=== PATIENT | male | born 1940 | race Caucasian/White ===

== ENCOUNTER 2017-04-05 06:42 | Outpatient (RCR) | payer MEDICARE, SELFPAY ==
[2017-04-05 09:00] LABS: International Normalized Ratio 2.2; Prothrombin Time (Protime)PT. 23.7 SECONDS (11.7-14.9)
== END 2017-04-05 07:00 | disposition home or self-care (01) ==
LOC: LAB 06:42
PROVIDERS: Family Provider Nurse Practitioner; PCP Nurse Practitioner; Visit Provider Internal Medicine Cardiovascular Disease
DX: I48.91 Unspecified atrial fibrillation (principal); I48.92 Unspecified atrial flutter; Z79.01 Long term (current) use of anticoagulants
CPT/HCPCS: 36415; 85610

== ENCOUNTER 2017-07-12 06:08 | Outpatient (RCR) | payer MEDICARE, SELFPAY ==
[2017-07-12 07:31] LABS: International Normalized Ratio 3.1
== END 2017-07-12 07:00 | disposition home or self-care (01) ==
LOC: LAB 06:08
PROVIDERS: Family Provider Nurse Practitioner; PCP Nurse Practitioner; Visit Provider Internal Medicine Cardiovascular Disease
DX: I48.91 Unspecified atrial fibrillation (principal); I48.92 Unspecified atrial flutter; Z79.01 Long term (current) use of anticoagulants
CPT/HCPCS: 36415; 85610

== ENCOUNTER → 2017-08-05 11:00 | Outpatient (CLI) | payer MEDICARE, SELFPAY ==
[2017-08-05 11:04] LABS: Bacteria 0 SEEN /hpf (None Seen); Mucous, Urine 0 SEEN /hpf (<or=2+); Red Blood Cells-Urine 0 SEEN /hpf (0-5); Squamous Epithelial Cells - UA 0 SEEN /hpf (0-5); White Blood Cells 0 SEEN /hpf (0-5)
[2017-08-05 12:16] LABS: Absolute Lymphocyte Count 1.43 X10^3/ul (0.83-4.51); Absolute Neutrophil Count 5.1 X10^3/uL (2.0-7.7); Basophil# 0.05 X10^3/uL; Basophil% 0.6 % (0-1); Eosinophils% 5.1 % (0-5); Hematocrit 48.4 % (40-54); Hemoglobin 16.2 g/dl (13.0-16.5); Lymphocyte # 1.43 X10^3/ul (4.0); Lymphocyte % 18.2 % (19-41); Mean Corp Hgb Conc 33.5 g/gl (32-36); Mean Corpuscular Hgb 31.9 pg (27.0-32.0); Mean Corpuscular Volume 95.3 fL (80-94); Mean Platelet Vol. 10.1 fl (6.2-12.0); Monocyte# 0.89 X10^3/uL; Monocyte% 11.3 % (0-10); Neutrophil # 5.06 X10^3/uL (2.7-7.7); Neutrophil % 64.5 % (47-70); Platelet Count 271 K/mm3 (150-450); RBC Distribution Width SD 52.7 fl (35.1-43.9); Red Blood Count 5.08 M/mm3 (4.6-6.2); White Blood Count 7.9 K/mm3 (4.4-11.0)
[2017-08-05 12:28] LABS: Hemoglobin A1c 6.5 % (4.2-6.3); POSITIVE COUNT NO; POSITIVE DIFFERENTIAL NO; POSITIVE MORPHOLOGY NO
[2017-08-05 12:33] LABS: ALB/GLOB Ratio 0.8 RATIO (0.9-2.4); AST(SGOT) 19 U/L (15-37); Alanine Aminotransfer ALT/SGPT 21 U/L (16-61); Albumin, Serum 2.9 g/dL (3.2-5.0); Alkaline Phosphatase 79 U/L (45-117); Anion Gap 6 (5-15); BUN 27 mg/dL (7-18); BUN/Creat Ratio 15.3 RATIO (10-20); Calcium,Total 8.3 mg/dL (8.5-10.1); Chloride 102 mmol/L (98-107); Cholesterol 111 mg/dL (200); Creatinine, Serum 1.76 mg/dL (0.70-1.30); EST Glomerular Filtration Rate 40 mL/min (>60); Est Glom Filt Rate - Afr Amer 48 mL/min (>60); Globulin 3.8 g/dL (2.2-4.2); Glucose 109 mg/dL (74-106); High Density Lipoprotein 33 mg/dL; Magnesium 2.2 mg/dL (1.6-2.6); Protein, Total 6.7 g/dL (6.4-8.2); Sodium Level 137 mmol/L (136-145); Thyroid Stim Hormone (TSH) 1.78 uIU/mL (0.358-3.74); Triglycerides 187 mg/dL; Very Low Density Lipoprotein 37 mg/dL (5-40)
[2017-08-05 12:39] LABS: Color, Urine Yellow (Yellow); Glucose, Dipstick 1000 mg/dl (Normal); Ketone-Dipstick Negative (Negative); Leukocyte Esterase-Dipstick Negative /ul (Negative); Nitrite-Dipstick Negative (Negative); Occult Blood-Urine 10 /ul (Negative); Protein-Dipstick 100 mg/dl (Negative); Urine Bilirubin Dipstick Negative (Negative); Urine Clarity Clear (Clear); Urine Urobilinogen Normal (Normal)
[2017-08-05 13:26] LABS: Microalbumin:Creatinine Ratio 2151.1 mg/g CRE (<30 mg/g CRE); Protein, Urine (Random) 65.6 mg/dL (<11.9); Protein:Creat Ratio 2916 mg/g CRE (0-200)
[2017-08-06 12:20] LABS: Vitamin D,25 Hydroxy 37.6 ng/mL (29.95-100.01)
== END ==
PROVIDERS: Family Provider Nurse Practitioner; PCP Nurse Practitioner; Visit Provider Family Medicine
DX: E55.9 Vitamin D deficiency, unspecified (principal); E11.22 Type 2 diabetes mellitus with diabetic chronic kidney disease; N18.9 Chronic kidney disease, unspecified; I48.91 Unspecified atrial fibrillation; J44.9 Chronic obstructive pulmonary disease, unspecified
CPT/HCPCS: 36415; 80053; 80061; 81001; 82043; 82306; 82570; 83036; 83735; 84156; 84443; 85025

== ENCOUNTER 2017-08-26 06:02 | Outpatient (RCR) | payer MEDICARE, SELFPAY ==
[2017-08-26 07:47] LABS: International Normalized Ratio 1.8; Prothrombin Time (Protime)PT. 21.3 SECONDS (11.7-14.9)
== END 2017-08-26 07:00 | disposition home or self-care (01) ==
LOC: LAB 06:02
PROVIDERS: Family Provider Nurse Practitioner; PCP Nurse Practitioner; Visit Provider Internal Medicine Cardiovascular Disease
DX: I48.91 Unspecified atrial fibrillation (principal); I48.92 Unspecified atrial flutter; Z79.01 Long term (current) use of anticoagulants
CPT/HCPCS: 36415; 85610

== ENCOUNTER 2017-09-13 07:33 | Outpatient (RCR) | payer MEDICARE, SELFPAY ==
[2017-09-13 08:57] LABS: Prothrombin Time (Protime)PT. 35.1 SECONDS (11.7-14.9)
[2017-09-13 09:03] LABS: International Normalized Ratio 3.5
== END 2017-09-13 09:00 | disposition home or self-care (01) ==
LOC: LAB 07:33
PROVIDERS: Family Provider Nurse Practitioner; PCP Nurse Practitioner; Visit Provider Internal Medicine Cardiovascular Disease
DX: I48.91 Unspecified atrial fibrillation (principal); I48.92 Unspecified atrial flutter; Z79.01 Long term (current) use of anticoagulants
CPT/HCPCS: 36415; 85610

== ENCOUNTER → 2017-11-19 10:19 | Outpatient (CLI) | payer MEDICARE, SELFPAY ==
--- NOTE | 2017-11-19 10:29 | RAD_ITS ---
STUDY: X-RAY - RIGHT ELBOW REASON FOR EXAM: Male, 77 years old. No injury. Swelling and redness entire right elbow radiating into the right forearm and right humerus, 2 weeks. TECHNIQUE: 4 view(s) of the elbow. COMPARISON: None. FINDINGS: There are prominent peripheral vascular calcifications in the arm. There is prominent induration in the subcutaneous fat, with diffuse soft tissue swelling. There is severe soft tissue swelling overlying the olecranon which could reflect acute bursitis. The soft tissue swelling extends upwards posterior to the triceps, and distally into the forearm. There is no evidence of elbow joint effusion. Osseous structures of the elbow are intact, normally articulated and normally mineralized. RAD/Elbow min 3 Views IMPRESSION: Diffuse soft tissue swelling above at and below the elbow, in particular overlying the olecranon, potentially associated with include olecranon bursitis. There is no deep soft tissue gas or radiodense foreign body. Prominent peripheral vascular disease. No acute osseous process. Electronically Signed: Pola Bell, at 12:28 EDT Tel , Service support ,
--- NOTE | 2017-11-19 18:45 | US_ITS ---
STUDY: SUPERFICIAL ULTRASOUND - RIGHT ELBOW REASON FOR EXAM: Male, 77 years old. Swelling TECHNIQUE: A superficial ultrasound was performed with real-time and static ramirez-scale imaging. COMPARISON: None. FINDINGS: There is subcutaneous interstitial edema. There is no evidence of cyst, abscess, or soft tissue mass. US/Ext Non Vasc Limited/Soft Tiss IMPRESSION: Subcutaneous interstitial edema in the region of interest of the right elbow. Electronically Signed: Luis Felipe Mcneal MD at 19:25 EDT , Service support ,
== END ==
LOC: MTRAD 10:47 → US 18:44
PROVIDERS: Family Provider Nurse Practitioner; PCP Nurse Practitioner; Visit Provider Family Medicine
DX: M79.89 Other specified soft tissue disorders (principal)
CPT/HCPCS: 73080; 76882

== ENCOUNTER 2017-11-30 06:12 | Outpatient (RCR) | payer MEDICARE, SELFPAY ==
[2017-11-30 07:00] LABS: International Normalized Ratio 3.4; Prothrombin Time (Protime)PT. 34.4 SECONDS (11.7-14.9)
== END 2017-11-30 08:00 | disposition home or self-care (01) ==
LOC: LAB 06:12
PROVIDERS: Family Provider Nurse Practitioner; PCP Nurse Practitioner; Visit Provider Internal Medicine Cardiovascular Disease
DX: I48.91 Unspecified atrial fibrillation (principal); I48.92 Unspecified atrial flutter; Z79.01 Long term (current) use of anticoagulants
CPT/HCPCS: 36415; 85610

== ENCOUNTER 2017-12-14 06:37 | Outpatient (RCR) | payer MEDICARE, SELFPAY ==
[2017-12-14 07:27] LABS: International Normalized Ratio 2.1; Prothrombin Time (Protime)PT. 23.4 SECONDS (11.7-14.9)
== END 2017-12-14 08:00 | disposition home or self-care (01) ==
LOC: LAB 06:37
PROVIDERS: Family Provider Nurse Practitioner; PCP Nurse Practitioner; Referring Provider Internal Medicine Cardiovascular Disease; Visit Provider Internal Medicine Cardiovascular Disease
DX: I48.91 Unspecified atrial fibrillation (principal); I48.92 Unspecified atrial flutter; Z79.01 Long term (current) use of anticoagulants
CPT/HCPCS: 36415; 85610

== ENCOUNTER → 2018-01-04 09:06 | Outpatient (CLI) | payer MEDICARE, SELFPAY ==
[2018-01-04 08:27] LABS: Bacteria 0 SEEN /hpf (None Seen); Mucous, Urine 0 SEEN /hpf (<or=2+); Squamous Epithelial Cells - UA 0 SEEN /hpf (0-5); White Blood Cells 0 SEEN /hpf (0-5)
[2018-01-04 10:08] LABS: Color, Urine Yellow (Yellow); Glucose, Dipstick 50 mg/dl (Normal); Ketone-Dipstick Negative (Negative); Leukocyte Esterase-Dipstick Negative /ul (Negative); Nitrite-Dipstick Negative (Negative); Occult Blood-Urine 10 /ul (Negative); Protein-Dipstick 500 mg/dl (Negative); Urine Bilirubin Dipstick Negative (Negative); Urine Clarity Clear (Clear); Urine Urobilinogen Normal (Normal)
[2018-01-04 10:20] LABS: ALB/GLOB Ratio 0.7 RATIO (0.9-2.4); AST(SGOT) 14 U/L (15-37); Alanine Aminotransfer ALT/SGPT 21 U/L (16-61); Albumin, Serum 2.7 g/dL (3.2-5.0); Alkaline Phosphatase 77 U/L (45-117); Anion Gap 6 (5-15); BUN 26 mg/dL (7-18); BUN/Creat Ratio 20.2 RATIO (10-20); Calcium,Total 8.6 mg/dL (8.5-10.1); Chloride 100 mmol/L (98-107); Cholesterol 139 mg/dL (200); Creatinine, Serum 1.29 mg/dL (0.70-1.30); EST Glomerular Filtration Rate 57 mL/min (>60); Est Glom Filt Rate - Afr Amer 69 mL/min (>60); Globulin 3.9 g/dL (2.2-4.2); Glucose 123 mg/dL (74-106); High Density Lipoprotein 35 mg/dL; Magnesium 1.9 mg/dL (1.6-2.6); Protein, Total 6.6 g/dL (6.4-8.2); Red Blood Cells-Urine 0-5 SEEN /hpf (0-5); Sodium Level 137 mmol/L (136-145); Triglycerides 133 mg/dL; Very Low Density Lipoprotein 27 mg/dL (5-40)
[2018-01-04 10:22] LABS: Hemoglobin A1c 6.2 % (4.2-6.3)
== END ==
PROVIDERS: Family Provider Family Medicine; PCP Family Medicine; Visit Provider Family Medicine
DX: E11.9 Type 2 diabetes mellitus without complications (principal); I48.91 Unspecified atrial fibrillation; Z72.0 Tobacco use
CPT/HCPCS: 36415; 80053; 80061; 81001; 83036; 83735

== ENCOUNTER 2018-02-21 08:17 | Outpatient (RCR) | payer MEDICARE, SELFPAY ==
[2018-02-21 09:08] LABS: International Normalized Ratio 2.1; Prothrombin Time (Protime)PT. 23.5 SECONDS (11.7-14.9)
--- OUTSIDE RECORDS SUMMARY | 2018-05-25 19:23 | XMS RPT_ITS ---
:1940 Author Organization OHIP Support Name Relationship Address Phone LIND, ANA PAULA Unavailable [address] + [place] [address] R Unavailable Unavailable Unavailable RICKPAL PANFER Unavailable [address] + [place] [address] LIND, ANA PAULA Unavailable [address] + [place] [address] R Unavailable Unavailable Unavailable PAL PHILLIPSFER Unavailable [address] + [place] [address] LIND, ANA PAULA Unavailable [address] + [place] [address] R Unavailable Unavailable Unavailable JOBY PHILLIPSNIFER Unavailable [address] + [place] [address] LIND, ANA PAULA Unavailable [address] + [place] [address] R Unavailable Unavailable Unavailable JOBY PHILLIPSNIFER Unavailable [address] + [place] [address] LIND, ANA PAULA Unavailable [address] + [place] [address] R Unavailable Unavailable Unavailable RICKETT, JINA Unavailable [address] + [place] [address] LIND, ANA PAULA Unavailable [address] + [place] [address] R Unavailable Unavailable Unavailable RICKJOBY PANNIFER Unavailable [address] + [place] [address] LIND, ANA PAULA Unavailable [address] + [place] [address] R Unavailable Unavailable Unavailable RICKETTJOBYJINA Unavailable [address] + [place] [address] LIND, ANA PAULA Unavailable [address] + [place] [address] R Unavailable Unavailable Unavailable RICKETT, JINA Unavailable [address] + [place] [address] LIND, ANA PAULA Unavailable [address] + [place] [address] R Unavailable Unavailable Unavailable RICKETT, JINA Unavailable [address] + [place] [address] LIND, ANA PAULA Unavailable [address] + [place] [address] R Unavailable Unavailable Unavailable RICKETT, JINA Unavailable [address] + [place] [address] LIND, ANA PAULA Unavailable [address] + [place] [address] R Unavailable Unavailable Unavailable RICKETT, JINA Unavailable [address] + [place] [address] LIND, ANA PAULA Unavailable [address] + [place] [address] R Unavailable Unavailable Unavailable RICKETT, JINA Unavailable [address] + [place] [address] LIND, ANA PAULA Unavailable [address] + [place] [address] R Unavailable Unavailable Unavailable RICKETT, JINA Unavailable [address] + [place] [address] LIND, ANA PAULA Unavailable [address] + [place] [address] R Unavailable Unavailable Unavailable RICKETT, JINA Unavailable [address] + [place] [address] LIND, ANA PAULA Unavailable [address] + [place] [address] R Unavailable Unavailable Unavailable RICKETT, JINA Unavailable [address] + [place] [address] LIND, ANA PAULA Unavailable [address] + [place] [address] R Unavailable Unavailable Unavailable RICKETTPALJINA Unavailable [address] + [place] [address] LIND, ANA PAULA Unavailable [address] + [place] [address] R Unavailable Unavailable Unavailable RICKETTPALJINA Unavailable [address] + [place] [address] LIND, ANA PAULA Unavailable [address] + [place] [address] R Unavailable Unavailable Unavailable RICKETTPALJINA Unavailable [address] + [place] [address] LIND, ANA PAULA Unavailable [address] + [place] [address] R Unavailable Unavailable Unavailable RICKETTPALJINA Unavailable [address] + [place] [address] LIND, ANA PAULA Unavailable [address] + [place] [address] R Unavailable Unavailable Unavailable RICKETTPALJINA Unavailable [address] + [place] [address] LIND, ANA PAULA Unavailable [address] + [place] [address] R Unavailable Unavailable Unavailable RICKETTPALJINA Unavailable [address] + [place] [address] LIND, ANA PAULA Unavailable [address] + [place] [address] R Unavailable Unavailable Unavailable RICKETTPALJINA Unavailable [address] [phone] [place] [address] LIND, ANA PAULA Unavailable [address] + [place] [address] R Unavailable Unavailable Unavailable RICKETTPALJINA Unavailable [address] [phone] [place] [address] LIND, ANA PAULA Unavailable [address] + [place] [address] R Unavailable Unavailable Unavailable RICKETTJOBYJINA Unavailable [address] [phone] [place] [address] LIND, ANA PAULA Unavailable [address] + [place] [address] R Unavailable Unavailable Unavailable RUCHIMAXIMJINA Unavailable [address] [phone] [place] [address] Care Team Providers Name Role Phone HUMBERTO ZHONG Attending Unavailable JINA QUINTANILLA Referring Unavailable FARHEEN, DAODESSAUNG Referring Unavailable FARHEEN, DAODESSAUNG Attending Unavailable FARHEEN, DAODESSAUNG Attending Unavailable FARHEEN, KEENANUNG Attending Unavailable LISA FRENCH Attending Unavailable FARHEEN, KEENANUNG Attending Unavailable FARHEEN, KEENANUNG Attending Unavailable FARHEEN, DAODESSAUNG Attending Unavailable Janette, Wales Attending Unavailable Janette, Steven Referring Unavailable [facility] Unavailable Janette, Wales Attending Unavailable [facility] Referring Unavailable [facility] Primary [facility] Unavailable Paintsil, Vale Admitting Unavailable Paintsil, Vale Attending Unavailable Paintsil, Vale Referring Unavailable Darryl Castillo D.O. Consulting Unavailable Nelson Mccarty Consulting Unavailable Paintsil, Vale Admitting Unavailable Paintsil, Vale Attending Unavailable Paintsil, Vale Referring Unavailable [facility] Unavailable Darryl Castillo D.O. Consulting Unavailable Paintsil, Vale Consulting Unavailable Paintsil, Vale Admitting Unavailable Paintsil, Vale Attending Unavailable Paintsil, Vale [facility] Unavailable Darryl Castillo D.O. Consulting Unavailable Paintsil, Vale Consulting Unavailable Paintsil, Vale Admitting Unavailable Darryl Castillo D.O. Attending Unavailable Paintsil, Vale Referring Unavailable [facility] Unavailable Darryl Castillo D.O. Consulting Unavailable Paintsil, Vale Consulting Unavailable Janette, Wales Attending Unavailable [facility] Primary [facility] Unavailable Rosa, Jayaprakash Consulting Unavailable Janette, Wales Referring Unavailable Janette, Steven Attending Unavailable Janette, Steven Referring Unavailable [facility] Unavailable Rosa, Jayaprakash Consulting Unavailable Parris Fernandez Attending Unavailable Paintsil, Vale Admitting Unavailable Paintsil, Vale Attending Unavailable Paintsil, Vale Referring Unavailable [facility] Primary [facility] Unavailable Darryl Castillo D.O. Consulting Unavailable Paintsil, Vale Consulting Unavailable Paintsil, Vale Admitting Unavailable Kingston Paez Attending Unavailable Paintsil, Vale Referring Unavailable [facility] Unavailable Darryl Castillo D.O. Consulting Unavailable Paintsil, Vale Consulting Unavailable Paintsil, Vale Admitting Unavailable Paintsil, Vale Attending Unavailable Paintsil, Vale Referring Unavailable [facility] Primary [facility] Unavailable Darryl Castillo D.O. Consulting Unavailable Nelson Mccarty Consulting Unavailable Paintsil, Vale Consulting Unavailable Paintsil, Vale Admitting Unavailable Kingston Paez Attending Unavailable Paintsil, Vale Referring Unavailable [facility] Unavailable Darryl Castillo D.O. Consulting Unavailable LulNelson Consulting Unavailable Paintsil, Vale Consulting Unavailable Paintsil, Vale Admitting Unavailable Paintsil, Vale Attending Unavailable Paintsil, Vale Referring Unavailable [facility] Unavailable Darryl Castillo D.O. Consulting Unavailable Nelson Mccaryt Consulting Unavailable Paintsil, Vale Consulting Unavailable Gloria [place] Attending Unavailable Janette, Wales Attending Unavailable Janette, Steven Referring Unavailable [facility] Primary Care Unavailable Ramesh Avina Attending Unavailable [facility] Referring Unavailable [facility] Primary Care Unavailable Ramesh Rodney Attending Unavailable [facility] Primary Care Unavailable Janette, Steven Attending Unavailable Janette, Wales Referring Unavailable [facility] Primary Care Unavailable Janette, Wales Attending Unavailable Janette, Wales Referring Unavailable [facility] Primary [facility] Unavailable Janette, Steven Attending Unavailable Janette, Steven Referring Unavailable [facility] Primary Care Unavailable Ramesh Rodney Attending Unavailable Ramesh Rodney Referring Unavailable [facility] Primary Care Unavailable Janette, Steven Attending Unavailable Janette, Wales Referring Unavailable [facility] Primary Care Unavailable Ramesh Rodney Attending Unavailable [facility] Rod[facility] Primary Care Unavailable Janette, Wales Attending Unavailable Janette, Steven Referring Unavailable [facility] Primary Care Unavailable PROBLEMS PROBLEMS DATE TYPE CONDITION / CODE ATTENDING STATUS SOURCE 03/15/2018 Unknown I43 - Cardiomyopathy Janette, Steven Active [facility] in diseases Community classified elsewhere Hospital / I43(ICD-10) Repository 03/15/2018 Unknown E78.00 - Pure Janette, Steven Active [facility] hypercholesterolemia Community , unspecified / Hospital E78.00(ICD-10) Repository 03/15/2018 Unknown I10 - Essential Janette, Steven Active [facility] (primary) Community hypertension / Hospital I10(ICD-10) Repository 03/15/2018 Unknown I48.91 - Unspecified Janette, Wales Active [facility] atrial fibrillation Community / I48.91(ICD-10) Hospital Repository 03/15/2018 Unknown I48.92 - Unspecified Janette, Wales Active [facility] atrial flutter / Community I48.92(ICD-10) Hospital Repository 03/15/2018 Unknown F17.210 - Nicotine Janette, Steven Active [facility] dependence, Community cigarettes, Hospital uncomplicated / Repository F17.210(ICD-10) 03/07/2018 Unknown 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, 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 Active [facility] (current) use of Community anticoagulants / Hospital Z79.01(ICD-10) Repository 01/04/2018 Unknown E11.9 - Type 2 Ramesh Rodney Active [facility] diabetes mellitus E Community without Hospital complications / Repository E11.9(ICD-10) 11/19/2017 Unknown M79.89 - Other Ramesh Rodney Active [facility] specified soft E Community tissue disorders / Hospital M79.89(ICD-10) Repository 04/09/2017 Unknown I48.2 - Chronic Janette, Wales Active [facility] atrial fibrillation Community / I48.2(ICD-10) Hospital Repository PROCEDURES PROCEDURES No Procedure Records FoundRESULTS RESULTS BEDSIDE GLUCOSE Collected: 03/30/2018 Status: F Source: [place] 4:19 PM [facility] REPOSITORY TYPE CODE TESTS RESULT OUT OF REFERENCE UNITS RANGE LAB L501.080 70-110 mg/dL High BEDSIDE GLU 121 Result Comment: MANAGEMENT OF PATIENT CARE PER NURSING PROTOCOL Performed By: #### L501.080 #### [facility] Point [place] [address] BEDSIDE GLUCOSE Collected: 03/30/2018 Status: F Source: [place] 11:53 AM [facility] REPOSITORY TYPE CODE TESTS RESULT OUT OF REFERENCE UNITS RANGE LAB L501.080 70-110 mg/dL High BEDSIDE GLU 141 Result Comment: MANAGEMENT OF PATIENT CARE PER NURSING PROTOCOL Performed By: #### L501.080 #### [facility] Point of Care [address] [place] [address] BEDSIDE GLUCOSE Collected: 03/30/2018 Status: F Source: [place] 7:08 AM [facility] REPOSITORY TYPE CODE TESTS RESULT OUT OF REFERENCE UNITS RANGE LAB L501.080 70-110 mg/dL High BEDSIDE GLU 137 Result Comment: MANAGEMENT OF PATIENT CARE PER NURSING PROTOCOL Performed By: #### L501.080 #### [facility] Point of Care [address] [place] [address] BASIC METABOLIC Collected: 03/30/2018 Status: F Source: [place] PROFILE (BMP) 6:30 AM [facility] REPOSITORY TYPE CODE TESTS RESULT OUT OF RANGE REFERENCE UNITS LAB L501.0100 74-106 mg/dL High GLU 130 Result Comment: Fasting Glucose result greater than or equal to 126 mg/dL suggests DIABETES MELLITUS per A.D.A. criteria. Please note revised GLUCOSE reference range effective 2017. LAB L501.1000 7-18 mg/dL High BUN 79 LAB L501.1100 0.70-1.30 mg/dL High CREAT,SERUM 1.98 Result Comment: The validity of the calculated GFR AND GFRAA in patients over 70 years has not been determined. Clinical correlation is essential. LAB L501.1110 >60 mL/min Low EST GFR 35 Result Comment: Non- GFR Calc LAB L501.1115 >60 mL/min Low EST GFR - AA 42 Result Comment: GFR Calc LAB L501.1255 ml/min Normal Estimated CRCL 29.75 LAB L501.1300 10-20 RATIO High BUN/CRE 39.9 LAB L501.2200 8.5-10 mg/dL Normal .1 CA 8.5 LAB L501.5300 136-14 mmol/L Normal 5 NA 141 LAB L501.5600 3.5-5. mmol/L Normal 1 K 4.2 LAB L501.5900 98-107 mmol/L Normal CL 106 LAB L501.6100 21.0-3 mmol/L Normal 2.0 CO2 27.0 LAB L501.6200 5-15 Normal GAP 8 Performed By: #### L500.2500, L501.5200 #### [facility] [address] [place], [address] MAGNESIUM Collected: 03/30/2018 Status: F Source: [place] 6:30 AM [facility] REPOSITORY TYPE CODE TESTS RESULT OUT OF RANGE REFERENCE UNITS LAB L501.5200 1.6-2.6 mg/dL Normal MG 2.0 Performed By: #### L500.2500, L501.5200 #### [facility] [address], [address] BEDSIDE GLUCOSE Collected: 03/29/2018 Status: F Source: [place] 11:20 PM [facility] REPOSITORY TYPE CODE TESTS RESULT OUT OF REFERENCE UNITS RANGE LAB L501.080 70-110 mg/dL High BEDSIDE GLU 153 Result Comment: MANAGEMENT OF PATIENT CARE PER NURSING PROTOCOL Performed By: #### L501.080 #### [facility] Point of Care [address] [place] [address] BEDSIDE GLUCOSE Collected: 03/29/2018 Status: F Source: [place] 4:57 PM [facility] REPOSITORY TYPE CODE TESTS RESULT OUT OF REFERENCE UNITS RANGE LAB L501.080 70-110 mg/dL High BEDSIDE GLU 122 Result Comment: MANAGEMENT OF PATIENT CARE PER NURSING PROTOCOL Performed By: #### L501.080 #### [facility] Point of Care [address] [facility] [place] [address] CONSULTATION Observed: 03/29/2018 Status: F Source: [place] 12:15 PM [facility] REPOSITORY [facility] Medical Records Department [address] [facility] [place] [address] Consultation 03/29/18 1210 MR#: [id number] Acct: [id number] Name: GUDELIA SOLOMON Rep #: [id number] : 1940 77 From: Nelson Mccarty MD PCP: Ramesh Rodney MD Status: ADM IN Y Location: ICU ICU05-1 Problem List (1) Septic shock Status: Acute Reason for Consult: pneumonia Consulted by: Dr. Paez History of Present Illness: The patient is a 77 year old M who presented with several days of not feeling well, dry cough, weakness. Reports getting flu shot and pneumonia shot in past. No sick contacts, no abx prior to presentation. Denies SOB or fever. Came to ED, BP 89/60, admitted to icu. Given ceftriaxone, azithro, zosyn, now narrowed to levaquin. Bcx and UAg with S.pneumo. Feeling better, wbc improved. No n/v/d with abx. Full ROS Performed and neg except as noted above. - Medical History Past Medical History (Chronic Problems): Chronic Problems (Last Reviewed 03/15/18 @ 08:50 by Steven Savage MD) Nicotine dependence (Chronic) Atrial flutter (Chronic) Carotid bruit (Chronic) Encounter for long-term current use of high risk medication (Chronic) Acute left-sided congestive heart failure (Chronic) Hypersomnia (Chronic) Obstructive sleep apnea (Chronic) Cardiomyopathy in disease classified elsewhere (Chronic) Atherosclerotic heart disease of [place] coronary artery without angina pectoris (Chronic) care home (current) use of anticoagulants (Chronic) Atrial fib/flutter, transient (Chronic) Benign essential hypertension (Chronic) COLD (chronic obstructive lung disease) (Chronic) Diabetes mellitus, type 2 (Chronic) GERD (gastroesophageal reflux disease) (Chronic) Hyperlipidemia (Chronic) Obesity (Chronic) Acute respiratory failure with hypercapnia (Chronic) Biatrial enlargement (Chronic) Glaucoma (Chronic) Atrial fibrillation and flutter (Chronic) Allergies/Adverse Reactions: Allergies Penicillins Allergy (Verified 03/15/18 08:37) Rash Home Medications: Ambulatory Orders Medication Instructions Recorded Aspirin [Aspirin, Baby] 81 mg PO DAILY@0800 03/26/18 Atorvastatin Calcium [Lipitor] 20 mg PO DAILY 03/26/18 Brimonidine Tartrate [Alphagan P] 1 drop OP BID 03/26/18 - Social History Tobacco Use: cigarettes Vital Signs Temp Pulse Resp BP Pulse Ox 98.4 F 101 H 20 H 118/67 94 03/29/18 08:54 03/29/18 08:54 03/29/18 08:54 03/29/18 08:54 03/29/18 09:00 Oxygen Flow Rate (L/min) 2 Oxygen Delivery Method Nasal Cannula Weight: 95.2 kg Body Mass Index (BMI) 30.9 Microbiology Past 72 Hours 03/26/18 11:55 Blood Culture - Final Blood Culture (Wb) - Anticubital Left Streptococcus pneumoniae 03/26/18 12:14 Bacteria Detection (PCR) - Final Blood Culture (Wb) - Right Wrist Streptococcus pneumoniae Laboratory Tests Past 24 Hrs - Other Studies Radiology: [] reviewed Other Studies: [] Route of nutrition/ use of supplements: [] Nutritional Intake: [] IV Site: [] Bowens Catheter: [] - Physical Exam General: Alert, Oriented x3, Cooperative, No apparent distress HEENT: Atraumatic, PERRLA, EOMI Neck: Supple, No Nodes Lungs: Normal air movement, Rhonchi Cardiovascular: Tachycardic Abdomen: Soft, Non Tender, Non-Distended Extremities: No edema Skin: No rashes Musculoskeletal: No Tenderness to Palpation of Joints or Extremities Neurological: Cranial nerves II-XII grossly intact - Assessment/Plan Antibiotics: [] Assessment/Plan: [] Active and Suspected Problems (Last Reviewed 03/15/18 @ 08:50 by Steven Savage MD) Septic shock (Acute) CAP (community acquired pneumonia) (Acute) Due to spneumo pneumonia with bacteremia - ALISIA improved. Lactate improved. Wbc improving. Agree with levaquin. Plan on 7-10 day course. Will follow, thank you, d/w nursing. 03/29/18 9775 <Electronically signed by Nelson Mccarty MD> Date Nelson Mccarty MD Cosigner Signature (if applicable): Date CC: Silvia Alcantara MD; Darryl Castillo D.O.; Ramesh Rodney MD; Nelson Mccarty MD Signed BEDSIDE GLUCOSE Collected: 03/29/2018 Status: F Source: [place] 11:58 AM [facility]PITAL REPOSITORY TYPE CODE TESTS RESULT OUT OF REFERENCE UNITS RANGE LAB L501.080 70-110 mg/dL High BEDSIDE GLU 137 Result Comment: MANAGEMENT OF PATIENT CARE PER NURSING PROTOCOL Performed By: #### L501.080 #### [facility] Point of Care [address] [place] [address] BEDSIDE GLUCOSE Collected: 03/29/2018 Status: F Source: [place] 8:22 AM [facility] REPOSITORY TYPE CODE TESTS RESULT OUT OF RANGE REFERENCE UNITS LAB L501.080 70-110 mg/dL Normal BEDSIDE GLU 99 Result Comment: MANAGEMENT OF PATIENT CARE PER NURSING PROTOCOL Performed By: #### L501.080 #### [facility] Point of Care [address] [place] [address] BEDSIDE GLUCOSE Collected: 03/29/2018 Status: F Source: [place] 6:40 AM [facility] REPOSITORY TYPE CODE TESTS RESULT OUT OF RANGE REFERENCE UNITS LAB L501.080 70-110 mg/dL Normal BEDSIDE GLU 102 Result Comment: MANAGEMENT OF PATIENT CARE PER NURSING PROTOCOL Performed By: #### L501.080 #### [facility] Point of Care [address] [facility] [place] [address] PROTHROMBIN TIME W/INR Collected: 03/29/2018 Status: F Source: [place] 4:13 AM [facility] REPOSITORY TYPE CODE TESTS RESULT OUT OF RANGE REFERENCE UNITS LAB L300.4150 11.7-14.9 SECONDS High PROTIME 33.6 LAB L300.4200 Normal INR 3.3 Performed By: #### L300.3900 #### [facility] [address] [place] [address]. [place], [address] CBC W/DIFF, AUTOMATED Collected: 03/29/2018 Status: F Source: [place] 4:13 AM [facility] REPOSITORY TYPE CODE TESTS RESULT OUT OF RANGE REFERENCE UNITS LAB L100.1000 4.4-11.0 K/mm3 High WBC 14.7 LAB L100.1200 4.6-6.2 M/mm3 Low RBC 3.91 LAB L100.1300 13.0-16.5 g/dl Low HGB 10.1 LAB L100.1400 40-54 % Low HCT 33.3 LAB L100.1500 80-94 fL Normal MCV 85.2 LAB L100.1600 27.0-32.0 pg Low MCH 25.8 LAB L100.1700 32-36 g/gl Low MCHC 30.3 LAB L100.1810 11.6-14.6 % High RDW CV 17.3 LAB L100.1820 35.1-43.9 fl High RDW SD 52.7 LAB L100.1900 150-450 K/mm3 Normal PLT 282 LAB L100.2000 6.2-12.0 fl Normal MPV 10.2 LAB L100.2100 47-70 % High NEUT% 88.2 LAB L100.2200 19-41 % Low LY% 5.6 LAB L100.2300 0-10 % Normal MONO% 5.7 LAB L100.2400 0-5 % Normal EO% 0.1 LAB L100.2500 0-1 % Normal BASO% 0.0 LAB L100.2550 0.0-0.9 % Normal IM GRAN % 0.400 Result Comment: IG% - Immature Granulocytes (promyelocytes, myelocytes and metamyelocytes) > 1% indicates that a LEFT SHIFT is Present. LAB L100.2620 2.0-7.7 X10 3/uL High Absolute Neut 12.9 LAB L100.2720 0.83-4.51 X10 3/ul Low Absolute Lymph 0.82 Performed By: #### L100.0100 #### [facility] [address] [place], [address] BASIC METABOLIC Collected: 03/29/2018 Status: F Source: [place] PROFILE ([facility]) 4:13 AM [facility] REPOSITORY TYPE CODE TESTS RESULT OUT OF RANGE REFERENCE UNITS LAB L501.0100 74-106 mg/dL High GLU 112 Result Comment: Fasting Glucose result from 100 to 125 mg/dL suggests IMPAIRED HOMEOSTASIS per A.D.A. criteria. Please note revised GLUCOSE reference range effective 2017. LAB L501.1000 7-18 mg/dL High BUN 82 LAB L501.1100 0.70-1.30 mg/dL High CREAT,SERUM 2.35 Result Comment: The validity of the calculated GFR AND GFRAA in patients over 70 years has not been determined. Clinical correlation is essential. LAB L501.1110 >60 mL/min Low EST GFR 29 Result Comment: Non- GFR Calc LAB L501.1115 >60 mL/min Low EST GFR - AA 35 Result Comment: GFR Calc LAB L501.1255 ml/min Normal Estimated CRCL 25.06 LAB L501.1300 10-20 RATIO High BUN/CRE 34.9 LAB L501.2200 8.5-10 mg/dL Low .1 CA 7.9 LAB L501.5300 136-14 mmol/L Normal 5 NA 141 LAB L501.5600 3.5-5. mmol/L Normal 1 K 4.7 Result Comment: Moderate Hemolysis, Result may be falsely increased. LAB L501.5900 98-107 mmol/L High CL 108 LAB L501.6100 21.0-32.0 mmol/L Normal CO2 26.0 LAB L501.6200 5-15 Normal 7 GAP Performed By: #### L500.2500 #### [facility] [address] [place], [address] BEDSIDE GLUCOSE Collected: 03/28/2018 Status: F Source: [place] 9:35 PM [facility] REPOSITORY TYPE CODE TESTS RESULT OUT OF REFERENCE UNITS RANGE LAB L501.080 70-110 mg/dL High BEDSIDE GLU 122 Result Comment: MANAGEMENT OF PATIENT CARE PER NURSING PROTOCOL Performed By: #### L501.080 #### [facility] Point of Care [address] [facility] [place] [address] BEDSIDE GLUCOSE Collected: 03/28/2018 Status: F Source: [place] 4:22 PM [facility] REPOSITORY TYPE CODE TESTS RESULT OUT OF RANGE REFERENCE UNITS LAB L501.080 70-110 mg/dL Normal BEDSIDE GLU 81 Result Comment: MANAGEMENT OF PATIENT CARE PER NURSING PROTOCOL Performed By: #### L501.080 #### [facility] Point of Care [address] [facility] [place] [address] BEDSIDE GLUCOSE Collected: 03/28/2018 Status: F Source: [place] 11:10 AM [facility] REPOSITORY TYPE CODE TESTS RESULT OUT OF REFERENCE UNITS RANGE LAB L501.080 70-110 mg/dL High BEDSIDE GLU 219 Result Comment: MANAGEMENT OF PATIENT CARE PER NURSING PROTOCOL Performed By: #### L501.080 #### [facility] Point of Care [address] [place] [address] 12 LEAD ELECTROCARDIOGRAM Observed: 03/28/2018 Status: F Source: [place] 8:59 AM [facility] HOSPITAL REPOSITORY [facility] Cardiovascular Services [address] [place] [address] 12 Lead EKG 03/26/18 1209 MR#: [id number] Acct: [id number] Name: GUDELIA SOLOMON Rep #: [id number] : 1940 77 From: Steven Savage MD Attending Dr: Silvia Alcantara MD Status: ADM IN Ordering Dr: Jina Stark MD Date: 03/26/18 Location: ICU Sex: M C Admitted: 03/26/18 Test Reason : SOB Blood Pressure : / mmHG Vent. Rate : 099 BPM Atrial Rate : 101 BPM P-R Int : 000 ms QRS Dur : 080 ms QT Int : 378 ms P-R-T Axes : 000 064 081 degrees QTc Int : 485 ms Atrial fibrillation Prolonged QT Abnormal ECG Confirmed by JANETTE NESBITT, STEVEN ([id number]), brands editor WILLIAM ODOM ([id number]) on 03/28/2018 8:59:22 AM Referred By: Silvia Alcantara Confirmed By:STEVEN SAVAGE MD 03/28/18 0859 Date Steven Savage MD CC: Silvia Alcantara MD; Jina Stark MD; Ramesh Rodney MD Signed BEDSIDE GLUCOSE Collected: 03/28/2018 Status: F Source: [place] 6:35 AM [facility] REPOSITORY TYPE CODE TESTS RESULT OUT OF REFERENCE UNITS RANGE LAB L501.080 70-110 mg/dL High BEDSIDE GLU 123 Result Comment: MANAGEMENT OF PATIENT CARE PER NURSING PROTOCOL Performed By: #### L501.080 #### [facility] Point of Care [address] [place] [address] CONSULTATION Observed: 03/28/2018 Status: F Source: [place] 5:12 AM [facility] REPOSITORY [facility] Medical Records Department [address] [place] [address] Consultation 03/27/18617 MR#: [id number] Acct: [id number] Name: GUDELIA SOLOMON Rep #: [id number] : 1940 77 From: Darryl Castillo DO PCP: Ramesh Rodney MD Status: ADM IN Y Location: ICU ICU-1 Reason for Consult Date of Consultation: 03/27/18 Reason for Consultation: Severe sepsis History of Present Illness: The patient is a 77-year-old male, with a history as outlined below, who presented to the emergency department on March 26 with complaints of progressive shortness of breath and hypoxemia. The patient has a known history of systolic heart failure, chronic atrial fibrillation, known obstructive sleep apnea, self-reported COPD, diabetes mellitus and depression. A split-night sleep study completed in April 2016 revealed evidence of moderate RADHA for which it was recommended that the patient be placed on bilevel therapy with a pressure support of 14/10 centimeters of water. The patient reported to me that he does not routinely utilize any form of nocturnal Pap therapy. He denies a supplemental oxygen requirement at his baseline. He denies the presence of a cough, chest tightness or wheezing. He denies the use of bronchodilators in his home environment. On presentation to the emergency department, the patient was mildly hypothermic, hypotensive and hypoxic on room air. Laboratory evaluation revealed an elevated white blood cell count to 24,000. INR was elevated to 4.0. Chemistry profile was notable for an elevated BUN of 56, creatinine of 2.86, and lactate of 4.2. Urinalysis revealed positive leukocyte esterase, negative nitrites, 0 white blood cells and rare urine bacteria. Plain film chest x-ray revealed findings concerning for pneumonia. The patient received supplemental IV fluid hydrations and was started on antibiotics. He was subsequently placed on BiPAP and transferred to the medical intensive care unit for ongoing management. Of note, the patient is a DNR CCA without intubation. 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) Atrial fib/flutter, transient (Chronic) Benign essential hypertension (Chronic) COLD (chronic obstructive lung disease) (Chronic) Diabetes mellitus, type 2 (Chronic) GERD (gastroesophageal reflux disease) (Chronic) Hyperlipidemia (Chronic) Obesity (Chronic) Acute respiratory failure with hypercapnia (Chronic) Biatrial enlargement (Chronic) Glaucoma (Chronic) Atrial fibrillation and flutter (Chronic) Medical History: Medical History (Last Reviewed 03/15/18 @ 08:50 by Steven Savage MD) Nicotine dependence (Chronic) F17.200 Atrial flutter (Chronic) I48.92 Carotid bruit (Chronic) R09.89 Encounter for long-term current use of high risk medication (Chronic) Z79.899 Acute left-sided congestive heart failure (Chronic) I50.1 Hypersomnia (Chronic) G47.10 Obstructive sleep apnea (Chronic) G47.33 Cardiomyopathy in disease classified elsewhere (Chronic) I43 Atherosclerotic heart disease of [place] coronary artery without angina pectoris (Chronic) I25.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) Z79.01 Atrial fib/flutter, transient (Chronic) [id number] Benign essential hypertension (Chronic) I10 COLD (chronic obstructive lung disease) (Chronic) J44.9 Diabetes mellitus, type 2 (Chronic) E11.9 GERD (gastroesophageal reflux disease) (Chronic) K21.9 Hyperlipidemia (Chronic) E78.5 Obesity (Chronic) E66.9 Acute respiratory failure with hypercapnia (Chronic) J96.02 Shortness of breath (Acute) R06.02 Acute respiratory failure with hypoxia and hypercapnia (Acute) J96.01, J96.02 Biatrial enlargement (Chronic) I51.7 Altered mental status (Acute) R41.82 due to hypoxemia and hypercarbia Hyponatremia (Acute) E87.1 Dehydration (Acute) E86.0 Pulmonary hypertension (Suspected) I27.2 Glaucoma (Chronic) H40.9 Atrial fibrillation and flutter (Chronic) I48.91, I48.92 Hypokalemia (Acute) E87.6 Edema R60.9 Wheezing R06.2 Allergies Penicillins Allergy (Verified 03/15/18 08:37) Rash Home Medications: Ambulatory Orders Medication Instructions Recorded Aspirin [Aspirin, Baby] 81 mg PO DAILY@0800 03/26/18 Atorvastatin Calcium [Lipitor] 20 mg PO DAILY 03/26/18 Brimonidine Tartrate [Alphagan P] 1 drop OP BID 03/26/18 Surgical History: Surgical History (Last Reviewed 03/15/18 @ 08:50 by Steven Savage MD) Hx of appendectomy (Resolved) Z90.49 Surgical History: appendectomy, - - Ablation for atrial fibrillation, eye surgery secondary to hemorrhage in eye Psychiatric History: No pertinent psych hx Smoking Status: Current every day smoker Tobacco Use: Cigarettes Alcohol: None Drugs: None - *Family History Paternal Family History: Family History (Last Reviewed 03/15/18 @ 08:50 by Steven Savage MD) Daughter stent Father No problems noted. Mother No problems noted. History Items: No pertinent history Offspring Family History: Family History (Last Reviewed 03/15/18 @ 08:50 by Steven Savage MD) Daughter stent Father No problems noted. Mother No problems noted. History Items: Heart Disease Maternal Family History: Family History (Last Reviewed 03/15/18 @ 08:50 by Steven Savage MD) Daughter stent Father No problems noted. Mother No problems noted. History Items: No pertinent history Review of Systems Constitutional: Reports: Weakness, Fatigue Eyes: Denies: Blurred vision, Double vision HEENT: Denies: Head Aches, Sinus Congestion, Sinus Drainage Cardiovascular: Denies: Chest Pain, Palpitations Respiratory: Reports: Shortness of Breath. Denies: Cough, Sputum production Gastrointestinal: Denies: Abdominal Pain, Nausea, Vomiting Genitourinary: Denies: Dysuria Musculoskeletal: Denies: Joint Pain, Joint Tenderness Skin: Denies: Rash, Wounds Neurological: Denies: Numbness, Tingling, Focal weakness Psychiatric: Reports: Depression Hematologic/ Lymphatic: Reports: Anemia Patient Problems: Active and Suspected Problems (Last Reviewed 03/15/18 @ 08:50 by Steven Savage MD) Septic shock (Acute) CAP (community acquired pneumonia) (Acute) Objective: The patient's most recent lab work, culture data and imaging studies have all been personally reviewed. Strep and urine Legionella antigens were both negative. Respiratory viral panel was negative. Blood cultures are currently pending. - Physical Exam General: Alert, Cooperative, No apparent distress, - - Currently tolerating BiPAP without issue. HEENT: Atraumatic, PERRLA, Normocephalic Oral: Dry Mucosa Neck: Supple, No Nodes, Trachea Midline Lungs: No wheeze, Diminished, Rhonchi Cardiovascular: Normal S1, Normal S2, No murmurs, Irregular Rate Abdomen: Bowel Sounds Present, Soft, Non Tender, Obese Extremities: No clubbing, No cyanosis, No edema Skin: - - Mild degree of erythema involving the bilateral distal lower extremities Musculoskeletal: No Tenderness to Palpation of Joints or Extremities Lymphatic: No Cervical, Supraclavicular, or Inguinal Adenopathy Neurological: Cranial nerves II-XII grossly intact, Neuro grossly intact Psych/Mental Status: Flat Affect Vital Signs Temp Pulse Resp BP Pulse Ox 36.7 C 103 H 20 H 113/68 93 03/27/18 04:00 03/27/18 06:00 03/27/18 06:00 03/27/18 06:00 03/27/18 06:00 Oxygen Flow Rate (L/min) 6 Oxygen Delivery Method Bi-pap Weight: 207 lb 10.807 oz Body Mass Index (BMI) 30.9 Intake and Output for Last 24 Hours Intake Total 3944.8 / 3944.8 593.8 / 593.8 Output Total 225 / 225 200 / 200 Balance 3719.8 / 3719.8 393.8 / 393.8 Microbiology Past 72 Hours 03/26/18 14:40 Respiratory Panel (PCR) - Preliminary Mucosa - Nasopharyngeal 03/26/18 15:20 Streptococcus pneumoniae Antigen (M - Final Laboratory Tests Past 24 Hrs WBC RBC Hgb Hct MCV MCH MCHC RDW RDW Differential Plt Count POC Glucose POC Glucose 123 H 191 H Clinical Impression(s) from Imaging Studies Chest X-Ray 03/26/18 11:31 IMPRESSION: Hazy appearance of the left lower lobe lingula right middle lobe suspicious for infiltrates possibly pneumonia. A PA and lateral film of the chest is suggested for further evaluation if possible a follow-up noncontrast chest CT. Electronically Signed: Laura Horn MD at 12:38 EST Tel , Service support , Assessment/Plan Active and Suspected Problems (Last Reviewed 03/15/18 @ 08:50 by Steven Savage MD) Septic shock (Acute) CAP (community acquired pneumonia) (Acute) RECOMMENDATIONS: 1. Continue BiPAP and wean as tolerated. 2. Continue broad-spectrum antibiotics. 3. Check MRSA screen. 4. Continue to hold Coumadin. Check daily INR. 5. Stop continuous supplemental IV fluids, given underlying cardiomyopathy. 6. May need to consider gentle diuresis to help facilitate weaning from BiPAP. IMPRESSIONS: 1. Severe sepsis secondary due to presumptive pulmonary infectious process The patient was placed on broad-spectrum antibiotics upon presentation. In addition, he received supplemental IV fluid hydration, which led to improvement in hemodynamics. Although the patient's lactate was initially elevated, the patient's hemodynamics responded avidly to volume resuscitation, without the need for vasopressor support. At this time, given the patient's underlying cardiomyopathy, would recommend discontinuation of supplemental IV fluids. If the patient does begin to produce sputum, please send for culture. Recommend checking MRSA screen as well. 2. Acute combined respiratory failure/questionable COPD The patient has a self-reported history of COPD. There are no PFTs on file. In addition, the patient is not currently utilizing any inhalers at his baseline. He does have a tobacco abuse history, but states that he is no longer smoking. He has responded appropriately to noninvasive positive pressure ventilation. Continue bronchodilators as ordered. Wean from BiPAP therapy as tolerated. 3. Coagulopathy Likely secondary to chronic anticoagulation coupled with #1. Continue to hold anticoagulation and monitor for overt signs of bleeding. There is no need for immediate reversal at this time. 4. Acute kidney injury Potentially prerenal in etiology and related to #1. The patient has been adequately volume resuscitated at this time. He remains hemodynamically stable. There is no indication for renal replacement therapy at this time. 5. Chronic systolic heart failure/atrial fibrillation/chronic anticoagulation status/depression/tobacco dependency with questionable remission Complicates care, management, recovery and prognosis. Continue rate control strategy per outpatient regimen. Consider initiation of gentle diuresis today. This note was generated with Zoobeanation software. It may contain incorrect words, spelling, and punctuation that were not noted in checking the note before signing. Code Visit Inpatient E AND M: 52223 Init Hosp L3 03/28/18 0512 <Electronically signed by Darryl Castillo DO> Date Darryl Castillo DO Cosigner Signature (if applicable): Date CC: Silvia Alcantara MD; Darryl Castillo D.O.; Ramesh Rodney MD Signed CBC W/DIFF, AUTOMATED Collected: 03/28/2018 Status: F Source: [place] 3:40 AM [facility] REPOSITORY TYPE CODE TESTS RESULT OUT OF RANGE REFERENCE UNITS LAB L100.1000 4.4-11.0 K/mm3 High WBC 14.0 LAB L100.1200 4.6-6.2 M/mm3 Low RBC 3.81 LAB L100.1300 13.0-16.5 g/dl Low HGB 10.0 LAB L100.1400 40-54 % Low HCT 32.2 LAB L100.1500 80-94 fL Normal MCV 84.5 LAB L100.1600 27.0-32.0 pg Low MCH 26.2 LAB L100.1700 32-36 g/gl Low MCHC 31.1 LAB L100.1810 11.6-14.6 % High RDW CV 17.3 LAB L100.1820 35.1-43.9 fl High RDW SD 52.6 LAB L100.1900 150-450 K/mm3 Normal PLT 276 LAB L100.2000 6.2-12.0 fl Normal MPV 10.1 LAB L100.2100 47-70 % High NEUT% 93.3 LAB L100.2200 19-41 % Low LY% 2.1 LAB L100.2300 0-10 % Normal MONO% 4.1 LAB L100.2400 0-5 % Normal EO% 0.0 LAB L100.2500 0-1 % Normal BASO% 0.1 LAB L100.2550 0.0-0.9 % Normal IM GRAN % 0.400 Result Comment: IG% - Immature Granulocytes (promyelocytes, myelocytes and metamyelocytes) > 1% indicates that a LEFT SHIFT is Present. LAB L100.2620 2.0-7.7 X10 3/uL High Absolute Neut 13.0 LAB L100.2720 0.83-4.51 X10 3/ul Low Absolute Lymph 0.30 Performed By: #### L100.0100 #### [facility] [address] [place], [address] RENAL PROFILE Collected: 03/28/2018 Status: F Source: [place] 3:40 AM [facility] REPOSITORY TYPE CODE TESTS RESULT OUT OF RANGE REFERENCE UNITS LAB L501.0100 74-106 mg/dL High GLU 124 Result Comment: Fasting Glucose result from 100 to 125 mg/dL suggests IMPAIRED HOMEOSTASIS per A.D.A. criteria. Please note revised GLUCOSE reference range effective 2017. LAB L501.1000 7-18 mg/dL High BUN 76 LAB L501.1100 0.70-1.30 mg/dL High CREAT,SERUM 2.73 Result Comment: The validity of the calculated GFR AND GFRAA in patients over 70 years has not been determined. Clinical correlation is essential. LAB L501.1110 >60 mL/min Low EST GFR 24 Result Comment: Non- GFR Calc LAB L501.1115 >60 mL/min Low EST GFR - AA 29 Result Comment: GFR Calc LAB L501.1255 ml/min Normal Estimated CRCL 21.58 LAB L501.1300 10-20 RATIO High BUN/CRE 27.8 LAB L501.1800 3.2-5. g/dL Low 0 ALB 1.9 LAB L501.2200 8.5-10 mg/dL Low .1 CA 7.7 LAB L501.2300 2.5-4. mg/dL High 9 PHOS 6.2 LAB L501.5300 136-14 mmol/L Normal 5 NA 141 LAB L501.5600 3.5-5. mmol/L Normal 1 K 4.1 LAB L501.5900 98-107 mmol/L Normal CL 107 LAB L501.6100 21.0-3 mmol/L Normal 2.0 CO2 23.0 Performed By: #### L500.3600 #### [facility] [address] [place], [address] PROTHROMBIN TIME W/INR Collected: 03/28/2018 Status: F Source: [place] 3:40 AM [facility] REPOSITORY TYPE CODE TESTS RESULT OUT OF REFERENCE UNITS RANGE LAB L300.4150 11.7-14.9 SECONDS High PROTIME 44.4 LAB L300.4200 High alert INR 4.7 Result Comment: CRITICAL VALUE VERIFIED. CALLED TO MORENA 03/28/18 0511 Kelsilyndon Fam. RESULTS READ BACK BY SAME . Performed By: #### L300.3900 #### [facility] [address] [place], [address] BEDSIDE GLUCOSE Collected: 03/27/2018 Status: F Source: [place] 9:07 PM [facility] REPOSITORY TYPE CODE TESTS RESULT OUT OF REFERENCE UNITS RANGE LAB L501.080 70-110 mg/dL High BEDSIDE GLU 157 Result Comment: MANAGEMENT OF PATIENT CARE PER NURSING PROTOCOL Performed By: #### L501.080 #### [facility] Point of Care [address] [place] [address] M R STAPH AUREUS Collected: 03/27/2018 Status: F Source: [place] DNA BY PCR 8:05 PM [facility] REPOSITORY Order Comment: Order Date: 03/27/18 TYPE CODE TESTS RESULT OUT OF RANGE REFERENCE UNITS LAB L8200.1100 Negative Normal MRSA Negative RESULT Performed By: #### L8200.1000 #### [facility] [address] [place], [address] BEDSIDE GLUCOSE Collected: 03/27/2018 Status: F Source: [place] 5:07 PM [facility] REPOSITORY TYPE CODE TESTS RESULT OUT OF REFERENCE UNITS RANGE LAB L501.080 70-110 mg/dL High BEDSIDE GLU 146 Result Comment: MANAGEMENT OF PATIENT CARE PER NURSING PROTOCOL Performed By: #### L501.080 #### [facility] Point of Care [address] [place] [address] BEDSIDE GLUCOSE Collected: 03/27/2018 Status: F Source: [place] 12:28 PM [facility] REPOSITORY TYPE CODE TESTS RESULT OUT OF REFERENCE UNITS RANGE LAB L501.080 70-110 mg/dL High BEDSIDE GLU 115 Result Comment: MANAGEMENT OF PATIENT CARE PER NURSING PROTOCOL Performed By: #### L501.080 #### [facility] Point of Care [address] [place] [address] CHEST 1 VIEW Observed: 03/27/2018 Status: F Source: [place] (PORTABLE) 8:23 AM [facility] REPOSITORY [facility] Imaging Services [address] [place] [address] Chest 1 View (Portable) MR#: [id number] Acct: [id number] Name: GUDELIA SOLOMON Librado Rep #: [id number] : 1940 M 77 From: Laura Horn MD PCP: Ramesh Rodney MD Status: ADM IN Study: Chest 1 View (Portable) Date of Exam: 03/27/18 Exam# [id number] Ordering Dr: Silvia Alcantara MD STUDY: X-RAY CHEST REASON FOR EXAM: Male, 77 years old. Shortness of breath TECHNIQUE: Single AP portable view of the chest. COMPARISON: 2018 chest x-ray FINDINGS: There is still a hazy appearance of the superior aspect of the left lower lobe and lingula. There is blunting of the right cardiophrenic angle. There is no demonstrated pleural abnormality. Normal size heart. Normal mediastinum and antonino. Normal visualized pulmonary arteries. Normal visualized aortic arch and descending thoracic aorta. Normal visualized thoracic spine. Normal visualized ribs, clavicles, and shoulders. There is no demonstrated abnormality of the visualized soft tissue structures of the upper abdomen. RAD/Chest 1 View (Portable) IMPRESSION: Persistent opacity in the left lower lobe suspicious for pneumonia in the appropriate clinical setting. Blunting of the right cardiophrenic angle. Consider pneumonia. Electronically Signed: Laura Horn MD at 9:29 EST Tel , Service support , CC: Silvia Alcantara MD; Ramesh Rodney MD Event Promotions Coordinator: Signed BEDSIDE GLUCOSE Collected: 03/27/2018 Status: F Source: [place] 6:48 AM [facility] REPOSITORY TYPE CODE TESTS RESULT OUT OF REFERENCE UNITS RANGE LAB L501.080 70-110 mg/dL High BEDSIDE GLU 129 Result Comment: Dr Barros Followed MANAGEMENT OF PATIENT CARE PER NURSING PROTOCOL Performed By: #### L501.080 #### [facility] Point of Care [address] [place], [place] [address] CBC W/DIFF, AUTOMATED Collected: 03/27/2018 Status: F Source: [place] 4:20 AM [facility] REPOSITORY TYPE CODE TESTS RESULT OUT OF RANGE REFERENCE UNITS LAB L100.1000 4.4-11.0 K/mm3 High WBC 15.0 LAB L100.1200 4.6-6.2 M/mm3 Low RBC 3.70 LAB L100.1300 13.0-16.5 g/dl Low HGB 9.6 LAB L100.1400 40-54 % Low HCT 31.4 LAB L100.1500 80-94 fL Normal MCV 84.9 LAB L100.1600 27.0-32.0 pg Low MCH 25.9 LAB L100.1700 32-36 g/gl Low MCHC 30.6 LAB L100.1810 11.6-14.6 % High RDW CV 17.3 LAB L100.1820 35.1-43.9 fl High RDW SD 54.3 LAB L100.1900 150-450 K/mm3 Normal PLT 266 LAB L100.2000 6.2-12.0 fl Normal MPV 9.7 LAB L100.2100 47-70 % High NEUT% 95.1 LAB L100.2200 19-41 % Low LY% 1.5 LAB L100.2300 0-10 % Normal MONO% 3.1 LAB L100.2400 0-5 % Normal EO% 0.0 LAB L100.2500 0-1 % Normal BASO% 0.0 LAB L100.2550 0.0-0.9 % Normal IM GRAN % 0.300 Result Comment: IG% - Immature Granulocytes (promyelocytes, myelocytes and metamyelocytes) > 1% indicates that a LEFT SHIFT is Present. LAB L100.2620 2.0-7.7 X10 3/uL High Absolute Neut 14.2 LAB L100.2720 0.83-4.51 X10 3/ul Low Absolute Lymph 0.23 LAB L100.4500 Normal SMEAR COMMENT Result Comment: LYMPHOPENIA NOTED Performed By: #### L100.0100 #### [facility] [address] [place], [place], [address] PROTHROMBIN TIME W/INR Collected: 03/27/2018 Status: F Source: [place] 4:20 AM [facility] REPOSITORY TYPE CODE TESTS RESULT OUT OF REFERENCE UNITS RANGE LAB L300.4150 11.7-14.9 SECONDS High PROTIME 49.3 LAB L300.4200 High alert INR 5.3 Result Comment: RESULTS CALLED TO KSMOLKO 03/27/18 0447 Eugene Lester. REPORT READ BACK BY SAME. Performed By: #### L300.3900 #### [facility] [address] [place], [address] BASIC METABOLIC Collected: 03/27/2018 Status: F Source: [place] PROFILE (BMP) 4:20 AM [facility] REPOSITORY TYPE CODE TESTS RESULT OUT OF RANGE REFERENCE UNITS LAB L501.0100 74-106 mg/dL Normal GLU 106 Result Comment: Fasting Glucose result from 100 to 125 mg/dL suggests IMPAIRED HOMEOSTASIS per A.D.A. criteria. Please note revised GLUCOSE reference range effective 2017. LAB L501.1000 7-18 mg/dL High BUN 58 LAB L501.1100 0.70-1.30 mg/dL High CREAT,SERUM 2.47 Result Comment: The validity of the calculated GFR AND GFRAA in patients over 70 years has not been determined. Clinical correlation is essential. LAB L501.1110 >60 mL/min Low EST GFR 27 Result Comment: Non- GFR Calc LAB L501.1115 >60 mL/min Low EST GFR - AA 33 Result Comment: GFR Calc LAB L501.1255 ml/min Normal Estimated CRCL 23.85 LAB L501.1300 10-20 RATIO High BUN/CRE 23.5 LAB L501.2200 8.5-10 mg/dL Low .1 CA 7.4 LAB L501.5300 136-14 mmol/L Normal 5 NA 138 LAB L501.5600 3.5-5. mmol/L Normal 1 K 4.0 LAB L501.5900 98-107 mmol/L Normal CL 105 LAB L501.6100 21.0-3 mmol/L Normal 2.0 CO2 23.0 LAB L501.6200 5-15 Normal GAP 10 Performed By: #### L500.2500 #### [facility] [address], [place], [id number] LIVER PROFILE Collected: 03/27/2018 Status: F Source: [place] 4:20 AM [facility] REPOSITORY TYPE CODE TESTS RESULT OUT OF RANGE REFERENCE UNITS LAB L501.1500 6.4-8.2 g/dL Low T PROT 5.4 LAB L501.1800 3.2-5.0 g/dL Low ALB 1.8 LAB L501.1950 2.2-4.2 g/dL Normal GLOB 3.6 LAB L501.4100 15-37 U/L High AST 46 LAB L501.4305 45-117 U/L Normal ALK P 48 LAB L501.4405 16-61 U/L Normal ALT 34 LAB L501.4600 0.20-1.00 mg/dL Normal T BILI 0.30 LAB L501.4700 0.00-0.30 mg/dL Normal D BILI 0.13 Performed By: #### L500.3400 #### [facility] [address] [place], [place], [address] BEDSIDE GLUCOSE Collected: 03/26/2018 Status: F Source: [place] 9:37 PM [facility] REPOSITORY TYPE CODE TESTS RESULT OUT OF REFERENCE UNITS RANGE LAB L501.080 70-110 mg/dL High BEDSIDE GLU 123 Result Comment: Dr Barros Followed MANAGEMENT OF PATIENT CARE PER NURSING PROTOCOL Performed By: #### L501.080 #### [facility] Point of Care [address] [place] [address] TROPONIN-I Collected: 03/26/2018 Status: F Source: [place] 6:05 PM [facility] REPOSITORY Order Comment: 'TROP' Serial specimen #1, #2 or #3: 3 TYPE CODE TESTS RESULT OUT OF RANGE REFERENCE UNITS LAB L501.4010 <0.045 ng/mL Normal < 0.015 TROPONIN-I Result Comment: TROPONIN-I EXPECTED VALUES <0.045 Negative 0.045 - 0.590 Consistent with Cardiac Damage > OR = 0.600 Critical Value Not every elevated troponin is indicative of AK. These values should be used with clinical judgement in examining the patient's clinical picture for diagnosis. To establish a diagnosis of AK versus myocardial injury, there must be a demonstrated rise and/or fall in the troponin values, in addition to ischemic symptoms, EKG changes, new regional wall motion abnormality, and/or angiographical evidence. PLEASE NOTE: REFERENCE RANGES EDITED 17 Performed By: #### L501.4010 #### [facility] [address] [place], [address] HISTORY AND PHYSICAL Observed: 03/26/2018 Status: F Source: [place] EXAM 5:59 PM [facility] REPOSITORY [facility] Medical Records Department [address] [place] [address] History and Physical 03/26/18 1307 MR#: [id number] Acct: [id number] Name: GUDELIA SOLOMON Rep #: [id number] : 1940 77 From: Silvia Alcantara MD PCP: Ramesh Rodney MD Status: ADM IN Y Location: ICU ICU05-1 Problem List (1) Septic shock Status: Acute (2) CAP (community acquired pneumonia) Status: Acute Qualifiers: Laterality: left Lung location: lower lobe of lung Qualified Code(s): J18.1 - Lobar pneumonia, unspecified organism (3) Nicotine dependence Status: Chronic Qualifiers: Nicotine product type: cigarettes Substance use status: uncomplicated Qualified Code(s): F17.210 - Nicotine dependence, cigarettes, uncomplicated (4) Obstructive sleep apnea Status: Chronic (5) Benign essential hypertension Status: Chronic (6) COLD (chronic obstructive lung disease) Status: Chronic Qualifiers: COPD type: unspecified COPD Qualified Code(s): J44.9 - Chronic obstructive pulmonary disease, unspecified (7) Diabetes mellitus, type 2 Status: Chronic Qualifiers: 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 mellitus extermination supervisor insulin use: without intermediate use Diabetes mellitus complication status: with unspecified complications Qualified Code(s): E11.8 - Type 2 diabetes mellitus with unspecified complications (8) Hyperlipidemia Status: Chronic Qualifiers: Hyperlipidemia type: unspecified Qualified Code(s): E78.5 - Hyperlipidemia, unspecified (9) Obesity Status: Chronic Qualifiers: Obesity classification: adult class 1 (BMI 30 - 34.9) Serious obesity comorbidity presence: with serious comorbidity Body mass index: BMI 30.0-30.9 (10) Acute respiratory failure with hypoxia and hypercapnia Status: Acute (11) Atrial fibrillation and flutter Status: Chronic History of Present Illness Date of Admission: 03/26/18 Chief Complaint: Shortness of breath, cough - 1 week The patient is a 77 year old M with PMHx of chronic atrial fibrillation, type 2 DM, hypertension, hyperlipidemia comes in with complaints of progressive shortness of breath ongoing for 1 week. Patient denied fever, chills, sick contacts, cough or chest pain. One of his son's brought over a pulse oximeter and was found to be saturating in the 60s. In the ED, his temperature was 90 7.7F, heart rate is 97, blood pressure 87/46, he was saturating 74% on room air. Was started on 6 L nasal cannula oxygen, saturating 86%. Was progressed to the Venturi mask. Still saturating in high 80s. Patient was subsequently started on BiPAP. He received IV fluid boluses in the ED. At time of exam blood pressure was 111/56. His WBC count was 23.8, Hb was 10.5, platelet count was 346, INR was 4.0, sodium was 133, BUN of 56, creatinine was 2.86, previous creatinine was 1.29. Lactic acid was 4.2, initial troponin was negative. Admitting chest x-ray showed left lower lobe infiltrate as well as lingular and middle lobe infiltrate. Past Medical History Past Medical History (Chronic Problems): Chronic Problems (Last Reviewed 03/15/18 @ 08:50 by Steven Savage MD) Nicotine dependence (Chronic) Atrial flutter (Chronic) Carotid bruit (Chronic) Encounter for long-term current use of high risk medication (Chronic) Acute left-sided congestive heart failure (Chronic) Hypersomnia (Chronic) Obstructive sleep apnea (Chronic) Cardiomyopathy in disease classified elsewhere (Chronic) Atherosclerotic heart disease of [place] coronary artery without angina pectoris (Chronic) care home (current) use of anticoagulants (Chronic) Atrial fib/flutter, transient (Chronic) Benign essential hypertension (Chronic) COLD (chronic obstructive lung disease) (Chronic) Diabetes mellitus, type 2 (Chronic) GERD (gastroesophageal reflux disease) (Chronic) Hyperlipidemia (Chronic) Obesity (Chronic) Acute respiratory failure with hypercapnia (Chronic) Biatrial enlargement (Chronic) Glaucoma (Chronic) Atrial fibrillation and flutter (Chronic) Medical History: Medical History (Last Reviewed 03/15/18 @ 08:50 by Steven Savage MD) Nicotine dependence (Chronic) F17.200 Atrial flutter (Chronic) I48.92 Carotid bruit (Chronic) R09.89 Encounter for long-term current use of high risk medication (Chronic) Z79.899 Acute left-sided congestive heart failure (Chronic) I50.1 Hypersomnia (Chronic) G47.10 Obstructive sleep apnea (Chronic) G47.33 Cardiomyopathy in disease classified elsewhere (Chronic) I43 Atherosclerotic heart disease of [place] coronary artery without angina pectoris (Chronic) I25.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) Z79.01 Atrial fib/flutter, transient (Chronic) [id number] Benign essential hypertension (Chronic) I10 COLD (chronic obstructive lung disease) (Chronic) J44.9 Diabetes mellitus, type 2 (Chronic) E11.9 GERD (gastroesophageal reflux disease) (Chronic) K21.9 Hyperlipidemia (Chronic) E78.5 Obesity (Chronic) E66.9 Acute respiratory failure with hypercapnia (Chronic) J96.02 Shortness of breath (Acute) R06.02 Acute respiratory failure with hypoxia and hypercapnia (Acute) J96.01, J96.02 Biatrial enlargement (Chronic) I51.7 Altered mental status (Acute) R41.82 due to hypoxemia and hypercarbia Hyponatremia (Acute) E87.1 Dehydration (Acute) E86.0 Pulmonary hypertension (Suspected) I27.2 Glaucoma (Chronic) H40.9 Atrial fibrillation and flutter (Chronic) I48.91, I48.92 Hypokalemia (Acute) E87.6 Edema R60.9 Wheezing R06.2 Allergies Penicillins Allergy (Verified 03/15/18 08:37) Rash Home Medications: Ambulatory Orders Medication Instructions Recorded Aspirin [Aspirin, Baby] 81 mg PO DAILY@0800 03/26/18 Atorvastatin Calcium [Lipitor] 20 mg PO DAILY 03/26/18 Brimonidine Tartrate [Alphagan P] 1 drop OP BID 03/26/18 Surgical History: Surgical History (Last Reviewed 03/15/18 @ 08:50 by Steven Savage MD) Hx of appendectomy (Resolved) Z90.49 Surgical History: appendectomy, - - Ablation for atrial fibrillation, eye surgery secondary to hemorrhage in eye Psychiatric History: No pertinent psych hx Smoking Status: Current every day smoker Tobacco Use: Cigarettes Alcohol: None Drugs: None - *Family History Paternal Family History: Family History (Last Reviewed 03/15/18 @ 08:50 by Steven Savage MD) Daughter stent Father No problems noted. Mother No problems noted. History Items: No pertinent history Maternal Family History: Family History (Last Reviewed 03/15/18 @ 08:50 by Steven Savage MD) Daughter stent Father No problems noted. Mother No problems noted. History Items: No pertinent history Offspring Family History: Family History (Last Reviewed 03/15/18 @ 08:50 by Steven Savage MD) Daughter stent Father No problems noted. Mother No problems noted. History Items: Heart Disease Review of Systems Constitutional: Reports: Anorexia, Weakness. Denies: Chills, Fever, Weight Change Eyes: Denies: Blurred vision, Cataracts, Conjunctivae Inflammation, Drainage, Pain, Redness, Vision Change HEENT: Denies: Difficulty Hearing, Difficulty Swallowing, Head Aches, Hearing Changes, Sinus Congestion, Sinus Drainage, Sore Throat Cardiovascular: Denies: Chest Pain, Claudication, Orthopnea, Palpitations, Paroxysmal Noc. Dyspnea Respiratory: Reports: Shortness of Breath, Shortness of breath at rest, Shortness of breath upon exertion. Denies: Cough, Hemoptysis, Sputum production Gastrointestinal: Denies: Abdominal Pain, Constipation, Hematemesis, Hematochezia, Nausea, Vomiting Genitourinary: Denies: Dysuria Musculoskeletal: Denies: Arm Pain, Joint Pain, Joint stiffness, Joint swelling, Joint Tenderness Skin: Denies: Rash, Wounds Neurological: Denies: Difficulty swallowing, Focal weakness, Numbness, Tingling Psychiatric: Denies: Anxiety, Depression, Homicidal Ideations, Suicidal Ideations Hematologic/ Lymphatic: Denies: Easy Bruising, Easy Bleeding VTE Information - Inpt Only VTE Present on Admission: No VTE Pharm Prophylaxis ordered?: Yes Patient Problems: Active and Suspected Problems (Last Reviewed 03/15/18 @ 08:50 by Steven Savage MD) Septic shock (Acute) CAP (community acquired pneumonia) (Acute) - Physical Exam General: Alert, Oriented x3, Cooperative, - - ill-looking, on Bipap HEENT: Atraumatic, PERRLA, EOMI, Normocephalic Oral: Dry Mucosa Neck: Supple, No JVD, Negative Carotid Bruits Lungs: Clear to auscultation, Normal air movement Cardiovascular: Regular Rhythm, Normal S1, Normal S2, No murmurs, Irregular Rate Abdomen: Bowel Sounds Present, Soft, Non Tender, Non-Distended, Distended, Obese Extremities: No edema Skin: - - dry skin on bilateral lower legs with scaling. Musculoskeletal: No Tenderness to Palpation of Joints or Extremities Lymphatic: No Cervical, Supraclavicular, or Inguinal Adenopathy Neurological: Cranial nerves II-XII grossly intact, Neuro grossly intact Psych/Mental Status: Normal Affect, Appropriate Vital Signs Temp Pulse Resp BP Pulse Ox 98.0 F 91 18 82/57 L 92 03/26/18 11:34 03/26/18 12:23 03/26/18 12:23 03/26/18 12:23 03/26/18 12:23 Oxygen Flow Rate (L/min) 10 Oxygen Delivery Method Venturi Mask Weight: 90.718 kg Body Mass Index (BMI) 30.4 Laboratory Tests Past 24 Hrs WBC 23.8 H RBC 4.03 L Hgb 10.5 L Hct 34.2 L MCV 84.9 WBC RBC Hgb Hct MCV Assessment/Plan All Active Problems (Last Reviewed 03/15/18 @ 08:50 by Steven Savage MD) Septic shock (Acute) CAP (community acquired pneumonia) (Acute) Hx of appendectomy (Resolved) Shortness of breath (Acute) Acute respiratory failure with hypoxia and hypercapnia (Acute) Altered mental status (Acute) Hyponatremia (Acute) Dehydration (Acute) Hypokalemia (Acute) 77 year old M with PMHx of chronic atrial fibrillation, type community-acquired pneumonia DM, hypertension, hyperlipidemia comes in with complaints of progressive shortness of breath ongoing for 1 week. 1. 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 Community-acquired pneumonia, multilobar, seen on CXR, will check urine streptococcal, legionella antigen, incentive spirometer, breathing treatments 3. Acute hypoxic respiratory failure secondary to community- acquired pneumonia, admitting SpO2 76%, not on oxygen at home, started on Bipap by ED, will continue same, monitor and wean off for SPo2 94% 4. Supratherapeutic INR, INR 4.0, not on coumadin, will trend INR in am 5. ALISIA on CKD, likely prerenal secondary to dehydration, baseline Cr around 1.3, will continue on IVF, monitor strict I AND Os, will repeat blood work in am 6. Type II DM, on oral home medication, will tradjenta, start on accucheks with ISS 7. Hypertension, now hypotensive, will hold home medications, will resume later when patient recovers and BP is elevated. 8. Chronic A. fib, rate controlled, will hold cardizem and carvedilol, not on coumadin, INR is supratherapeutic, will monitor 9. DVT Ppx- INR is supratherapeutic. Code Visit Inpatient E AND M: [id number] Subs Hosp 03/26/18 7581 <Electronically signed by Silvia Alcantara MD> Date Silvia Alcantara MD Cosigner Signature: Date (if applicable) CC: Silvia Alcantara MD; Ramesh Rodney MD Signed BEDSIDE GLUCOSE Collected: 03/26/2018 Status: F Source: [place] 4:51 PM [facility] REPOSITORY TYPE CODE TESTS RESULT OUT OF REFERENCE UNITS RANGE LAB L501.080 70-110 mg/dL High BEDSIDE GLU 191 Result Comment: MANAGEMENT OF PATIENT CARE PER NURSING PROTOCOL Performed By: #### L501.080 #### [facility] Point of Care [address] [place] [address] EMERGENCY DEPARTMENT Observed: 03/26/2018 Status: F Source: [place] SUMMARY 3:29 PM [facility] REPOSITORY [facility] Medical Records Department [address] [place] [address] Emergency Department Summary 03/26/18 1208 MR#: [id number] Acct: [id number] Name: GUDELIA SOLOMON Rep #: [id number] : 1940 77 From: Jina Stark MD PCP: Ramesh Rodney MD Status: ADM IN - ER Visit Summary Date of Service: 03/26/18 Chief Complaint: Shortness of breath History of Present Illness: The patient is a 77 M with a one- week history of progressive shortness of breath. He denies cough or chest pain. He denies fever. He does not wear home oxygen. He does use breathing treatments at home. He has a history of CHF and COPD. His O2 sat in triage was 74% on room air. Physical Examination: Vital signs reveal blood pressure of 87/46, temperature 97.7, heart rate 97, respiratory rate 28, pulse ox 74% on room air. At the time of my examination his O2 sat is 86% on 6 L nasal cannula. Patient is sitting upright in bed. He answers questions appropriately. Head neck examination unremarkable. Heart is regular rate and rhythm. Lungs sounds are slightly diminished throughout with mild expiratory wheezes at the right base. Abdomen is soft and nontender. Lower extremity edema reveals no focal tenderness with 2+ bilateral symmetric edema. Test Results: CBC reveals a white count 23.8 with 93% neutrophils. Hemoglobin is 10.5. Chemistry studies reveal a BUN of 56 and a creatinine of 2.86 which is new for the patient. INR is 4.0. Troponin is less than 0.015. Lactate is 4.2. BNP is currently pending. EKG is A. fib at [address] change. Portable chest x-ray shows hazy left lower lobe and right middle lobe lesion suspicious for infiltrates. Emergency Department Course and Treatment: Patient received aerosols. He is currently 89-92% on a 50% Ventimask. Coarse breath sounds are noted bilaterally. At this point patient has received small fluid boluses for his hypotension in light of the fact that he has underlying CHF. Blood pressure systolic is ranging from 80s to mid 90s. Map is above 65. At this time patient is ordered Rocephin and Zithromax. Fluid bolus at 30 cc/kg has been ordered. Patient is willing to use BiPAP mask if required, but does not want intubation or CPR. This was verified with the patient as well as family. Treatment Plan: [] Disposition: Admit Impression: 1. Pneumonia 2. Severe sepsis This note was generated with [employer] dictation software. It may contain incorrect words, spelling, and punctuation that were not noted in review of the chart prior to signing ED Disposition - Plan for ED Patient: Chief Complaint: Shortness of Breath Referrals: Ramesh Rodney MD [Primary Care Provider] - What to do if you have Problems For any increased pain, shortness of breath, bleeding, nausea or vomiting, chest pain, or any unexpected problems, contact your Primary Care Provider. Call [facility] ([phone]) or report to the closest Emergency Room. Call 911 if necessary. 03/26/18 1938 <Electronically signed by Jina Stark MD> Date Jina Stark MD Cosigner Signature (If Indicated): Date CC: Ramesh Rodney MD STREP Observed: 03/26/2018 Status: C Source: [place] PNEUMONIAE ANTIG(UR,CSF) 3:20 PM [facility] HOSPITAL REPOSITORY S pneumo Ag Positive Urine Positive for pneumococcal pneumonia. CRITICAL VALUE VERIFIED. CALLED TO [facility] IN ICU 03/26/18 1601 Leigh Aviles. RESULTS READ BACK BY SAME . Strep pneumo Test Urine POSITIVE for pneumococcal pneumonia. Performed By: #### M300.4600 #### [facility] [address] [place], [place], [id number] BLOOD GASES BY [facility] Collected: 03/26/2018 Status: F Source: [place] 3:17 PM [facility] REPOSITORY TYPE CODE TESTS RESULT OUT OF RANGE REFERENCE UNITS LAB L9000.9990 Normal BLD GAS TYPE ART LAB L9001.1000 Normal SITE L Radial LAB L9001.1010 Normal TIM TEST POS LAB L9001.1050 O2 Normal Delivery Dev Bi / C PAP LAB L9001.1070 RR Normal 20 LAB L9001.1074 Normal FI02 60 LAB L9001.1088 Normal IPAP 14 LAB L9001.1090 Normal EPAP 6 LAB L9001.1104 Normal Results To ICU LAB L9001.1105 Normal Time Given 1510 LAB L9001.1110 7.35-7.45 Low pH - I-STAT 7.22 LAB L9001.1210 35-45 mmHg High pCO2 - ISTAT 56.9 LAB L9001.1310 75-100 mmHG Low PO2 I-STAT 67 LAB L9001.2300 22-26 mmol/L Normal HCO3 ISTAT 23.4 LAB L9001.2400 -2 to +2 mmol/L Low BE ISTAT -4 LAB L9001.2415 mmol/L Normal TOTAL CO2 25 ISTAT LAB L9001.2425 95-99 % Low SO2 ISTAT 88 Performed By: #### L9000.0800 #### [facility] Point of Care [address] [place], [place] [address] TROPONIN-I Collected: 03/26/2018 Status: F Source: [place] 3:00 PM [facility] REPOSITORY Order Comment: 'TROP' Serial specimen #1, #2 or #3: 2 TYPE CODE TESTS RESULT OUT OF RANGE REFERENCE UNITS LAB L501.4010 <0.045 ng/mL Normal < 0.015 TROPONIN-I Result Comment: TROPONIN-I EXPECTED VALUES <0.045 Negative 0.045 - 0.590 Consistent with Cardiac Damage > OR = 0.600 Critical Value Not every elevated troponin is indicative of AK. These values should be used with clinical judgement in examining the patient's clinical picture for diagnosis. To establish a diagnosis of AK versus myocardial injury, there must be a demonstrated rise and/or fall in the troponin values, in addition to ischemic symptoms, EKG changes, new regional wall motion abnormality, and/or angiographical evidence. PLEASE NOTE: REFERENCE RANGES EDITED 17 Performed By: #### L501.4010 #### [facility] [address] [facility] [place], [address] LACTIC ACID Collected: 03/26/2018 Status: F Source: [place] 3:00 PM [facility] REPOSITORY Order Comment: Yes/No query for Sepsis Lactate Rule Y TYPE CODE TESTS RESULT OUT OF RANGE REFERENCE UNITS LAB L503.6005 0.4-2.0 mmol/L Normal LACTIC ACID 1.6 Performed By: #### L503.6005 #### [facility] [address] [facility] [place], [address] URINALYSIS, COMPLETE Collected: 03/26/2018 Status: F Source: [place] 3:00 PM [facility] REPOSITORY Order Comment: How was Urine Obtained? DIE MOUNTER TO SPECIFY TYPE CODE TESTS RESULT OUT OF RANGE REFERENCE UNITS LAB L400.3000 Yellow COLOR Normal Yellow LAB L400.3050 Clear Normal CLARITY Clear LAB L400.3200 Normal mg/dl Normal GLUCOSE, UR Normal LAB L400.3300 Negative mg/dL Normal BILIRUBIN URINE Negative LAB L400.3400 Negative mg/dl Normal KETONE UR Negative LAB L400.3465 1.002-1.030 Normal SP.GR. DIPSTX 1.020 LAB L400.3550 5.0 - 8.0 pH UR Normal 5.0 LAB L400.3600 Negative mg/dl High PROT DIPSTX 500 LAB L400.3700 Normal mg/dl Normal UROBILI Normal LAB L400.3750 Negative Normal NITRITE UR Negative LAB L400.3780 Negative /ul High 50 OCCULT BLOOD-UR LAB L400.3800 Negative /ul High LEUK 25 ESTERASE LAB L400.4050 0-5 /hpf WBC Normal 0-5 SEEN LAB L400.4100 0-5 /hpf Normal RBC-UA 0-5 SEEN LAB L400.4150 0-5 /hpf SQUAM 0 Normal EPI SEEN LAB L400.4300 None Seen /hpf Normal BACTERIA RARE LAB L400.4350 <or=2+ /hpf 1+ Normal MUCUS, URINE LAB L400.4400 0-5 /lpf Normal HYALINE CAST 0-5 SEEN Performed By: #### L400.0001 #### [facility] [address] [facility] [place], [place], [address] Observed: 03/26/2018 Status: F Source: [place] LEGIONELLA ANTIGEN 3:00 PM [facility] URINE REPOSITORY Legionella, UR Legionella Antigen result interpretation: Negative Presumptive negative for Legionella pneumophila serogroup 1 antigen in urine, suggesting no recent or current infection. Legionella Ag, Urine Negative (See interpretation below) Performed By: #### M300.4500 #### [facility] [address] [place] [address]. [place], [place], [address] Observed: 03/26/2018 Status: F Source: [place] INFLUENZA A+B (RAPID 2:40 PM [facility] JM) REPOSITORY FLU A/B Rapid Negative test results should be confirmed with FLU PANEL MOLECULAR if indicated. Influenza Ag, Direct Presumptive NEGATIVE for Influenza A/B Antigen (See Note) Performed By: #### M101.0101 #### [facility] [address] [place] [address]. [place], [place], [address] Observed: 03/26/2018 Status: F Source: [place] RESPIRATORY PANEL 2:40 PM [facility] MOLECULAR REPOSITORY RP PANEL ADENOVIRUS Not Detected HUMAN METAPHNEUMO Not Detected INFLUENZA A Not Detected INFLUENZA A (SUBTYPE H1) Not Detected INFLUENZA A (SUBTYPE H3) Not Detected INFLUENZA B Not Detected PARAINFLUENZA 1 Not Detected PARAINFLUENZA 2 Not Detected PARAINFLUENZA 3 Not Detected PARAINFLUENZA 4 Not Detected RHINOVIRUS Not Detected RSV A Not Detected RSV B Not Detected NAAT METHOD Testing was performed using nucleic acid amplification Performed By: #### M100.638 #### [facility] [facility] [place], [place], [address] Observed: 03/26/2018 Status: F Source: [place] CULTURE, BLOOD (WB) 12:14 PM [facility] REPOSITORY BC AEROBIC AND ANAEROBIC BOTTLE = GRAM POSITIVE COCCI CHAINS AND PAIRS RESULTS CALLED TO Tamara VILLEGAS 03/28/18 1241 Rema Arshad. REPORT READ BACK BY SAME. ORGANISM 1: Streptococcus pneumoniae Amount Growth Growth Streptococcus pneumoniae: REACTION Cefotaxime (MENINGITIS) $ <=0.12 S (meningitis)Ceftriaxone $ <=0.12 S Clindamycin $$ <=0.25 S Erythromycin $ <=0.12 S Levofloxacin $ 0.5 S Moxifloxicin *NF 0.12 S Tetracycline NF <=0.25 S Trimethoprim/Sulfametho $ <=10 S Vancomycin $ 0.5 S (NF) indicates non-formulary drug at [facility]. Approval by Infectious Disease Specialist required before non-formulary drugs may be ordered and/or dispensed. * CLSI guidelines does not recommend testing of cephalosporins. This interpretation is deduced from Beta-lactam/penicillin results. Performed By: #### M200.1000, M100.636 #### [facility] [address] [facility] [place], [address] Observed: 03/26/2018 Status: F Source: [facility] GPC ID 12:14 PM [facility] REPOSITORY GPC ID Staphylococcus sp. Not Detected Enterococcus sp. Not Detected Streptococcus spp. Streptococcus pneumoniae Listeria spp Not Detected Muna/vanB Not Detected mecA Not Detected NAAT METHOD Testing was performed using nucleic acid amplification ORGANISM 1: Streptococcus pneumoniae Performed By: #### M200.1000, M100.636 #### [facility] [address] [facility] [place], [address] BASIC METABOLIC Collected: 03/26/2018 Status: F Source: [place] PROFILE (BMP) 11:55 AM [facility] REPOSITORY TYPE CODE TESTS RESULT OUT OF RANGE REFERENCE UNITS LAB L501.0100 74-106 mg/dL High GLU 133 Result Comment: Fasting Glucose result greater than or equal to 126 mg/dL suggests DIABETES MELLITUS per A.D.A. criteria. Please note revised GLUCOSE reference range effective 2017. LAB L501.1000 7-18 mg/dL High BUN 56 LAB L501.1100 0.70-1.30 mg/dL High CREAT,SERUM 2.86 Result Comment: The validity of the calculated GFR AND GFRAA in patients over 70 years has not been determined. Clinical correlation is essential. LAB L501.1110 >60 mL/min Low EST GFR 23 Result Comment: Non- GFR Calc LAB L501.1115 >60 mL/min Low EST GFR - AA 28 Result Comment: GFR Calc LAB L501.1255 ml/min Normal Estimated CRCL 20.59 LAB L501.1300 10-20 RATIO Normal BUN/CRE 19.6 LAB L501.2200 8.5-10 mg/dL Low .1 CA 7.9 LAB L501.5300 136-14 mmol/L Low 5 NA 133 LAB L501.5600 3.5-5. mmol/L Normal 1 K 4.1 LAB L501.5900 98-107 mmol/L Normal CL 99 LAB L501.6100 21.0-3 mmol/L Normal 2.0 CO2 24.0 LAB L501.6200 5-15 Normal GAP 10 Performed By: #### L500.2500, L501.4010 #### [facility] [address] [facility]. [place], [place], [address] TROPONIN-I Collected: 03/26/2018 Status: F Source: [place] 11:55 AM [facility] REPOSITORY TYPE CODE TESTS RESULT OUT OF RANGE REFERENCE UNITS LAB L501.4010 <0.045 ng/mL Normal < 0.015 TROPONIN-I Result Comment: TROPONIN-I EXPECTED VALUES <0.045 Negative 0.045 - 0.590 Consistent with Cardiac Damage > OR = 0.600 Critical Value Not every elevated troponin is indicative of AK. These values should be used with clinical judgement in examining the patient's clinical picture for diagnosis. To establish a diagnosis of AK versus myocardial injury, there must be a demonstrated rise and/or fall in the troponin values, in addition to ischemic symptoms, EKG changes, new regional wall motion abnormality, and/or angiographical evidence. PLEASE NOTE: REFERENCE RANGES EDITED 17 Performed By: #### L500.2500, L501.4010 #### [facility] [address] [place], [address] PROTHROMBIN TIME W/INR Collected: 03/26/2018 Status: F Source: [place] 11:55 AM [facility] REPOSITORY TYPE CODE TESTS RESULT OUT OF REFERENCE UNITS RANGE LAB L300.4150 11.7-14.9 SECONDS High PROTIME 39.0 LAB L300.4200 High alert INR 4.0 Result Comment: RESULTS CALLED TO MICHAEL HIGGINS 03/26/18 1230 Linda Rivas. REPORT READ BACK BY SAME. Performed By: #### L300.3900 #### [facility] [address] [place], [address] CBC W/DIFF, AUTOMATED Collected: 03/26/2018 Status: F Source: [place] 11:55 AM [facility] REPOSITORY TYPE CODE TESTS RESULT OUT OF RANGE REFERENCE UNITS LAB L100.1000 4.4-11.0 K/mm3 High WBC 23.8 LAB L100.1200 4.6-6.2 M/mm3 Low RBC 4.03 LAB L100.1300 13.0-16.5 g/dl Low HGB 10.5 LAB L100.1400 40-54 % Low HCT 34.2 LAB L100.1500 80-94 fL Normal MCV 84.9 LAB L100.1600 27.0-32.0 pg Low MCH 26.1 LAB L100.1700 32-36 g/gl Low MCHC 30.7 LAB L100.1810 11.6-14.6 % High RDW CV 17.3 LAB L100.1820 35.1-43.9 fl High RDW SD 53.1 LAB L100.1900 150-450 K/mm3 Normal PLT 346 LAB L100.2000 6.2-12.0 fl Normal MPV 10.1 LAB L100.2100 47-70 % High NEUT% 93.1 LAB L100.2200 19-41 % Low LY% 2.9 LAB L100.2300 0-10 % Normal MONO% 3.0 LAB L100.2400 0-5 % Normal EO% 0.0 LAB L100.2500 0-1 % Normal BASO% 0.1 LAB L100.2550 0.0-0.9 % Normal IM GRAN % 0.900 Result Comment: IG% - Immature Granulocytes (promyelocytes, myelocytes and metamyelocytes) > 1% indicates that a LEFT SHIFT is Present. LAB L100.2620 2.0-7.7 X10 3/uL High Absolute Neut 22.2 LAB L100.2720 0.83-4.51 X10 3/ul Low Absolute Lymph 0.69 LAB L100.4500 Normal SMEAR COMMENT SCANNED Performed By: #### L100.0100 #### [facility] [address] [place], [place], [address] BNP,B-TYPE NATRIURETIC Collected: 03/26/2018 Status: F Source: [place] 11:55 AM [facility] REPOSITORY TYPE CODE TESTS RESULT OUT OF RANGE REFERENCE UNITS LAB L503.6620 0-100 pg/mL High B-TYPE 192.4 OLAF PEP Performed By: #### L503.6620 #### [facility] [address] [place], [address] IRON+IRON BINDING Collected: 03/26/2018 Status: F Source: [place] 11:55 AM [facility] REPOSITORY Order Comment: Comments: as add on test TYPE CODE TESTS RESULT OUT OF RANGE REFERENCE UNITS LAB L503.6075 250-450 ug/dL TIBC Normal 329 LAB L503.6150 65-175 ug/dL Low IRON 12 LAB L503.6250 15.0-55.0 % Low IRON SATURATION 3.6 Performed By: #### L503.6030 #### [facility] [address] [place], [place], [address] Observed: 03/26/2018 Status: F Source: [place] CULTURE, BLOOD (WB) 11:55 AM [facility] REPOSITORY ANAEROBIC BOTTLE = GRAM POSITIVE COCCI CHAINS AND PAIRS RESULTS CALLED TO Tamara VILLEGAS 03/28/18 1241 Rema Arshad. REPORT READ BACK BY SAME. PLEASE REFER TO BC235 FOR COMPLETE SENSITIVITY ORGANISM 1: Streptococcus pneumoniae Amount Growth Growth Performed By: #### M200.1000 #### [facility] [place], [address] LACTIC ACID Collected: 03/26/2018 Status: F Source: [place] 11:53 AM [facility] REPOSITORY Order Comment: Yes/No query for Sepsis Lactate Rule Y TYPE CODE TESTS RESULT OUT OF REFERENCE UNITS RANGE LAB L503.6005 0.4-2.0 mmol/L High alert LACTIC ACID 4.2 Result Comment: Critical Result(s) Called at: 12:39:54 03/26/2018 by: Yolie colon Chika Performed By: #### L503.6005 #### [facility] [address] [place], [address] CHEST 1 VIEW Observed: 03/26/2018 Status: F Source: [place] (PORTABLE) 11:33 AM [facility] REPOSITORY [facility] Imaging Services [address] [place] [address] Chest 1 View (Portable) MR#: [id number] Acct: [id number] Name: GUDELIA SOLOMON Rep #: [id number] : 1940 77 From: Laura Horn MD PCP: Ramesh Rodney MD Status: REG ER Study: Chest 1 View (Portable) Date of Exam: 03/26/18 Exam# [id number] Ordering Dr: Shruti Stoddard MD STUDY: X-RAY CHEST REASON FOR EXAM: Male, 77 years old. Shortness of breath TECHNIQUE: Single AP portable view of the chest. COMPARISON: March 13, 2016 chest x-ray FINDINGS: The NG tube lies to been removed since prior study. There is a hazy appearance of the lingula and left lower lobe. There is a blunted appearance of the right cardiophrenic angle. There is no demonstrated pleural abnormality. There is borderline cardiomegaly. Normal mediastinum and antonino. Normal visualized pulmonary arteries. There is atherosclerotic calcification of the aortic arch with tortuosity. There are diffuse degenerative changes of the visualized thoracic spine. Normal visualized ribs, clavicles, and shoulders. There is no demonstrated abnormality of the visualized soft tissue structures of the upper abdomen. RAD/Chest 1 View (Portable) IMPRESSION: Hazy appearance of the left lower lobe lingula right middle lobe suspicious for infiltrates possibly pneumonia. A PA and lateral film of the chest is suggested for further evaluation if possible a follow-up noncontrast chest CT. Electronically Signed: Laura Horn MD at 12:38 EST Tel , Service support , CC: MD Nisha Stoddard; Ramesh Rodney MD Event Promotions Coordinator: Signed CARDIOLOGY VISIT Observed: 03/15/2018 Status: F Source: [place] REPORT 8:54 AM [facility] REPOSITORY [facility] [address] [place] [address] OFFICE VISIT Date of Service: 03/15/18 MR#: [id number] Acct: [id number] Name: GUDELIA SOLOMON Rep #: [id number] : 1940 Provider: Steven Savage MD Age/Sex: 77/M Location: [facility] Status: Signed HPI HPI Chief Complaint: Follow-up visit Details: GUDELIA SOLOMON, is a 77 M who presents to the office today for a follow-up visit. He is a gentleman with a history of nonischemic cardiomyopathy, paroxysmal atrial fibrillation, hypertension, hyperlipidemia, and significant tobacco abuse. He returns for routine follow-up visit. He denies any chest pain or shortness of breath or paroxysmal nocturnal dyspnea or pedal edema he has not had any neck arm or jaw discomfort suggest angina no dizziness or diaphoresis no near syncope or syncope. He has been compliant with his medications as well as with his blood work. His physical exam today demonstrates clear lung garcia irregular regular heart rate and no pedal edema. 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 Accompanied by: none Is patient in pain?: No Allergies Penicillins Allergy (Verified 03/15/18 08:37) Rash Medications Nitroglycerin [Nitrostat] 0.4 mg SUBLINGUAL Q5M PRN 10/16/13 [History Confirmed 03/15/18] Omeprazole [Prilosec] 20 mg PO DAILY 10/16/13 [History Confirmed 03/15/18] Escitalopram Oxalate [Lexapro] 10 mg PO DAILY 09/09/15 [History Confirmed 03/15/18] Brimonidine Tartrate 0.2% [Brimonidine 0.2% 5Ml Bottle] 1 drp LEFT EYE BID bottle 09/13/15 [Rx Confirmed 03/15/18] Timolol 0.5% [Timoptic] 1 drp LEFT EYE BID opth.btl 09/13/15 [Rx Confirmed 03/15/18] Albuterol Aerosols [Ventolin Aerosols] 2.5 mg INHALATION Q2H PRN PRN #0 vial.neb. 03/17/16 [Rx Confirmed 03/15/18] Aspirin [Aspirin, Baby] 81 mg PO DAILY@0800 tab.chew 03/17/16 [Rx Confirmed 03/15/18] Atorvastatin Calcium [Lipitor] 20 mg PO QHS tab 03/17/16 [Rx Confirmed 03/15/18] Carvedilol [Coreg (Beta Colten)] 25 mg PO BID tab 03/17/16 [Rx Confirmed 03/15/18] Ipratropium/Albuterol Sulfate [Duoneb] 3 ml INHALATION Q4H.RT ampul.neb 03/17/16 [Rx Confirmed 03/15/18] cholecalciferol (vitamin D3) 2,000 unit tablet 2,000 unit PO QDAY 07/06/17 [History Confirmed 03/15/18] lisinopril 5 mg tablet 5 mg PO QDAY 07/14/17 [History Confirmed 03/15/18] warfarin 1 mg tablet 1 mg PO QDAY #90 tab 09/20/17 [Rx Confirmed 03/15/18] warfarin 5 mg tablet 5 mg PO DAILY #90 tab 11/09/17 [Rx Confirmed 03/15/18] furosemide 40 mg tablet 40 mg PO BID #180 tab 12/15/17 [Rx Confirmed 03/15/18] diltiazem CD 180 mg capsule,extended release 24 hr 180 mg PO DAILY cap 03/15/18 [History] [facility] Medical History Nicotine dependence (Chronic) Atrial flutter (Chronic) Carotid bruit (Chronic) Encounter for long-term current use of high risk medication (Chronic) Acute left-sided congestive heart failure (Chronic) Hypersomnia (Chronic) Obstructive sleep apnea (Chronic) Cardiomyopathy in disease classified elsewhere (Chronic) Atherosclerotic heart disease of [place] coronary artery without angina pectoris (Chronic) care home (current) use of anticoagulants (Chronic) Atrial fib/flutter, transient (Chronic) Benign essential hypertension (Chronic) COLD (chronic obstructive lung disease) (Chronic) Diabetes mellitus, type 2 (Chronic) GERD (gastroesophageal reflux disease) (Chronic) Hyperlipidemia (Chronic) Obesity (Chronic) Acute respiratory failure with hypercapnia (Chronic) Shortness of breath (Acute) Acute respiratory failure with hypoxia and hypercapnia (Acute) Biatrial enlargement (Chronic) Altered mental status (Acute) Hyponatremia (Acute) Dehydration (Acute) Pulmonary hypertension (Suspected) Glaucoma (Chronic) Atrial fibrillation and flutter (Chronic) Hypokalemia (Acute) Edema (Acute) Wheezing (Acute) Surgical History Hx of appendectomy (Resolved) Family History Daughter stent Father No problems noted. Mother No problems noted. Social History Smoking Status: Heavy Smoker (>10/day) alcohol intake: never substance use type: does not use caffeine: No what type of physical activity do you participate in: none seatbelt use: always do you feel safe at home: Yes ROS Const Const: Negative for fatigue, weakness, night sweats, excessive sweating, frequent falls, headache(s) or daytime sleepiness Eyes Eyes: Negative for loss of peripheral vision, transient loss of vision, blind spots, double vision or blurry vision ENT ENT: Negative for headache(s), dizziness, balance problems, Nosebleed/epistaxis, tongue swelling or lip swelling Cardio Chest Pain: No Palpitations: No Edema: Bilateral Muscle aches with walking: None Resp Respiratory: Negative for SOB at rest, SOB orthopnea\SOB lying down, Cough, paroxysmal nocturnal dyspnea or SOB with activity GI GI: Negative nausea, vomiting, heartburn, black,tarry stools or bright, red blood in stools : Negative for hematuria Musc Musc: Negative for balance problems, muscle aches/ myalgia, muscle weakness or joint pain Skin Skin: Negative non-healing lesions, unusual bruising or rash Neuro Neuro: Negative for weakness, frequent falls, headache(s), double vision, dizziness, lightheadedness, orthostatic symptoms, blurry vision or lack of coordination Franko Hematologic/Lymphatic: Negative for easy bruising or easy bleeding Endo Endo: Negative for fatigue, excessive sweating, cold intolerance, heat intolerance, increased thirst/drinking or hair loss Psych Psych: Negative for anxiety or depression Allergy Allergy/Immunology: Negative for throat swelling, Negative for tongue swelling, Negative for hives, Negative for rash, Negative for lip swelling Cardiology Exam Const Appearance: cooperative, healthy appearing, well developed, well groomed and no acute distress Nutritional Appearance: well nourished and average body habitus Orientation: alert, awake and oriented x3 Head Head: normal to inspection, normocephalic and atraumatic Ears: hearing grossly normal bilaterally and external ears normal Nose: external nose normal, nasal mucous membranes and turbinates normal, nares normal, septum normal, no nasal discharge Face and Sinus: face symmetric Mouth: oral mucosae normal, tongue normal, oropharynx normal and moist mucous membranes Teeth and gingiva: dentition normal Throat: posterior oropharynx normal, tonsils normal and uvula midline Eyes General: appearance normal, both eyes and all related structures Eyelids: eyelids normal Conjunctivae: conjunctivae normal Pupils: PERRL, normal by confrontation and accommodation normal EOM: EOM intact bilaterally Neck Neck: normal visual inspection, trachea midline and no JVD JVD: +5 Carotids: normal carotid upstroke and bounding pulses Chest Chest inspection: normal inspection of the chest, symmetric chest movement and normal respiratory effort Auscultation: Bilateral: Clear to Auscultation Cardio Palpation: normal PMI Rhythm: irregular rhythm Heart sounds: S1 normal and S2 normal GI GI: normal to inspection, soft, no hepatosplenomegaly and bowel sounds present Neuro General: alert, awake, oriented x3, no focal sensory deficit, gait normal and moves all extremities Skin Skin: no rashes or lesions noted Extremities Pulses: Normal: Right Femoral Pulse, Left Femoral Pulse, Right Dorsalis Pedis Pulse, Left Dorsalis Pedis Pulse, Right Posterior Tibial Pulse, Left Posterior Tibial Pulse, Right Radial Pulse, Left Radial Pulse Lower Extremity Edema: None: Bilateral Musculoskel Musculoskeletal: No joint tenderness Psych Psychological: normal affect Assessment AND Plan 1. Cardiomyopathy in disease classified elsewhere I43 Plan He does have a history of a cardiomyopathy. His last echocardiogram from 2016 demonstrated mild global left ventricular systolic dysfunction estimated EF of 40%. There was mild mitral tricuspid and aortic regurgitation. We will continue him on the current medications without making any changes. He is on a beta-colten and an SOPHY inhibitor with no evidence of heart failure. 2. Pure hypercholesterolemia E78.00 Plan He does have a history of hyperlipidemia. His most recent lipid profile demonstrated a total cholesterol of 139, LDL of 77, and HDL of 35. 3. Benign essential hypertension I10 Plan He does have a history of hypertension which appears to be well controlled on the current medical therapy and I would not recommend that we make any changes. 4. Atrial fibrillation and flutter I48.91; I48.92 Plan He has a history of atrial fibrillation flutter which appears to be chronic at this time. He is on a calcium channel colten as well as beta-colten. His rate appears to be fairly decent and my recommendation will be to keep his medications the same without making any changes he will remain on anticoagulation maintaining an INR of 2-3. 5. Cigarette nicotine dependence without complication F17.210 Plan He does continue to use nicotine products and has been counseled about the above. Thank you for allowing me to participate in the care of your patient. Please don't hesitate to call if any issues arise Plan Detail Follow Up 6 Months ([facility]) Coding Level of Care Code Off vis,est,level 4 Diagnoses Cardiomyopathy in disease classified elsewhere I43 Pure hypercholesterolemia E78.00 Hyperlipidemia type: pure hypercholesterolemia Benign essential hypertension I10 Atrial fibrillation and flutter I48.91; I48.92 Cigarette nicotine dependence without complication F17.210 Nicotine product type: cigarettes Substance use status: uncomplicated Coding Level of Care Code Off vis,est,level 4 Diagnoses Cardiomyopathy in disease classified elsewhere I43 Pure hypercholesterolemia E78.00 Hyperlipidemia type: pure hypercholesterolemia Benign essential hypertension I10 Atrial fibrillation and flutter I48.91; I48.92 Cigarette nicotine dependence without complication F17.210 Nicotine product type: cigarettes Substance use status: uncomplicated Supplemental Info Supplemental Information Labs LDL Cholesterol 77 mg/dL (0-130) 01/04/18 HDL Cholesterol 35 mg/dL (40-) L 01/04/18 Triglycerides 133 mg/dL (-199) 01/04/18 VLDL Cholesterol 27 mg/dL (5-40) 01/04/18 Diagnostics Electrocardiogram 07/14/17 03/15/18 0854 <Electronically signed by Steven Savage MD> Date Steven Savage MD Cosigner Signature: Date (if applicable) CC: PROTHROMBIN TIME W/INR Collected: 03/14/2018 Status: F Source: [place] 9:04 AM [facility] REPOSITORY TYPE CODE TESTS RESULT OUT OF RANGE REFERENCE UNITS LAB L300.4150 11.7-14.9 SECONDS High PROTIME 27.5 LAB L300.4200 Normal INR 2.5 Performed By: #### L300.3900 #### [facility] [address] 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 He denies any pain in the right ear. EXAM: KPS: 70 BP 155/73 Pulse 94 Temp 36.3 ?C (97.3 ?F) (Temporal Artery) Resp 16 SpO2 93% General Appearance: Alert and oriented. No acute distress. Right ear skin cancer regressing. Erythema in the treated area of the right ear. IMAGING/LAB RESULTS: None Treatment chart checked: Yes Patient treatment site reviewed and verified:Yes Port films reviewed and current:N/A (Electron field only.) Medications started: None ASSESSMENT/PLAN: Clinically stable. Toxicity within expected parameters. He finished radiation treatment as planned today. RTC in 4 weeks. Humberto Zhong MD CNOV Observed: 02/28/2018 Status: COMPLETED Source: [place] 8:30 AM [facility] REPOSITORY Office Visit (RADTWS) GUDELIA SOLOMON ([id number]) 1940 M Date Time Provider Department 02/28/18 8:30 AM HUMBERTO ZHONGWS During your visit today, we recorded the following information about you: Temperature Pulse Respiration Blood pressure 97.3 degrees 94/minute 16/minute 155/73 Anel Sharma, RN, RN 02/28/2018 8:12 AM Signed Radiation Therapy - Nursing Note (OTV) PATIENT NAME: Gudelia Solomon PATIENT February 28, 2018 [facility] FACILITY/LOCATION: [facility] NOTE TYPE: skin-right ear Subjective Data No c/o Additional Data Do you want to see a Making Department Preparer? No Status: Patient is male Stress Scale: On a scale of 0 to 10, what number best describes how much distress you have experienced in the past week?(0 being no distress and 10 being extreme distress) 0 Social work notified: Pt denied need to see geriatric social work professor at this time. Nursing Assessment Fatigue: none Appetite: good Nutritional Intake: Regular oral intake. Weight Gain/Loss: No Ambulatory weight history: Last 6 Encounter Wt Readings: Date: Wt: 12/29/2017 90.7 kg (200 lb) 05/14/2015 95.7 kg (211 lb) 02/25/2015 92.6 kg (204 lb 3.2 oz) 11/10/2014 92.1 kg (203 lb) 02/27/2014 93 kg (205 lb) Nausea:None Vomiting: None Bowel Function: normal bowel movements Erythema/Hyperpigmentation:moderate Desquamation:moist desquamation Rash:none Skin Care: Aquaphor Skin Sensation: none itching and none burning Focused Assessment skin-right ear no c/o SIGNED by: Anel Sharma RN Anel Sharma, RN, RN 02/28/2018 8:32 AM Signed AMBULATORY PATIENT EDUCATION NOTE TOPIC: SURVIVAL SKILLS: Symptom Management READINESS TO LEARN COGNITIVE ABILITY: Alert and oriented MOTIVATION TO LEARN: Eager Interested FAMILY SUPPORT: Unable to assess - Family not present INSTRUCTION PROVIDED TO: Patient PATIENT LEARNS BEST BY: Multiple Methods FACTORS AFFECTING LEARNING: None PHYSICAL LIMITATIONS AFFECTING LEARNING: None LEARNING RESPONSE DIAGNOSIS: C44.212 METHOD OF INSTRUCTION: Teach Back skin care Individual instruction Written instruction - handouts Verbal instruction PATIENT / FAMILY RESPONSE: Verbalizes understanding of: SYMPTOM MANAGEMENT-Correct actions to take to manage symptoms associated with his/her disease/illness FOLLOW-UP PLAN: Patient instructed to call with any further issues Re-teach - Using different method Contact information given. SUPPLEMENTAL MATERIAL: D/C sheet REFERRAL (RECOMMENDATION): None Written discharge instructions given and reviewed with patient. Patient verbalizes understanding. Encouraged to call with any questions or concerns. Instruction for 4 week follow up appointment given by Dr. Zhong. The patient presented for a face to face appointment for delivery of The Survivorship Care Plan. The care plan has been approved by Humberto Zhong MD. 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 He denies any pain in the right ear. EXAM: KPS: 70 BP 155/73 Pulse 94 Temp 36.3 ?C (97.3 ?F) (Temporal Artery) Resp 16 SpO2 93% General Appearance: Alert and oriented. No acute distress. Right ear skin cancer regressing. Erythema in the treated area of the right ear. IMAGING/LAB RESULTS: None Treatment chart checked: Yes Patient treatment site reviewed and verified:Yes Port films reviewed and current:N/A (Electron field only.) Medications started: None ASSESSMENT/PLAN: Clinically stable. Toxicity within expected parameters. He finished radiation treatment as planned today. RTC in 4 weeks. Humberto Zhong MD Allergies As of Date: 02/28/2018 Noted Allergy Reaction PENICILLINS 08/30/2013 2 - Rash Date Reviewed: 02/28/2018 Reviewed by: Anel (Rn) JACE Sharma - Fully Assessed Reason for Visit: OTV [Other] Primary Visit Diagnosis:Basal cell carcinoma (BCC) of right ear [C44.212] Prescriptions as of 02/28/2018 Sig: DIAMOX SEQUELS ORAL Take by mouth. VENTOLIN INHALATION Inhale as instructed. ASPIRIN 81 MG CHEWABLE TABLET Take 81 mg by mouth once codi* ATORVASTATIN 20 MG TABLET Take 20 mg by mouth once codi* CARVEDILOL 25 MG TABLET Take 25 mg by mouth twice madeleine* CHOLECALCIFEROL (VITAMIN D3) * Take by mouth. DILTIAZEM SR 240 MG 24 HR CAP Take 240 mg by mouth once madeleine* DOXYCYCLINE HYCLATE 100 MG CA* TAKE 1 CAPSULE BY MOUTH TWICE* ESCITALOPRAM 10 MG TABLET Take 10 mg by mouth once codi* FUROSEMIDE 40 MG TABLET Take 40 mg by mouth once codi* IPRATROPIUM-ALBUTEROL 20 MCG-* Inhale 1 Puff as instructed o* COMBIVENT INHALATION Inhale as instructed. LISINOPRIL 20 MG TABLET Take 20 mg by mouth once codi* MAGNESIUM OXIDE 400 MG CAPSULE Take 1 capsule by mouth once * OMEPRAZOLE 20 MG CAPSULE,RUDDY* Take 20 mg by mouth once codi* PREDNISOLONE ACETATE 1 % EYE * 1 Drop four times daily. 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 No Status: Patient is male Stress Scale: On a scale of 0 to 10, what number best describes how much distress you have experienced in the past week?(0 being no distress and 10 being extreme distress) 0 Social work notified: Pt denied need to see geriatric social work professor at this time. Nursing Assessment Fatigue: none Appetite: good Nutritional Intake: Regular oral intake. Weight Gain/Loss: No Ambulatory weight history: Last 6 Encounter Wt Readings: Date: Wt: 12/29/2017 90.7 kg (200 lb) 05/14/2015 95.7 kg (211 lb) 02/25/2015 92.6 kg (204 lb 3.2 oz) 11/10/2014 92.1 kg (203 lb) 02/27/2014 93 kg (205 lb) Nausea:None Vomiting: None Bowel Function: normal bowel movements Erythema/Hyperpigmentation:moderate Desquamation:moist desquamation Rash:none Skin Care: Aquaphor Skin Sensation: none itching and none burning Focused Assessment skin-right ear no c/o SIGNED by: Anel Sharma RN >> Anel Sharma RN WedFeb 28, 2018 8:29 AM Status: Signed AMBULATORY PATIENT EDUCATION NOTE TOPIC: SURVIVAL SKILLS: Symptom Management READINESS TO LEARN COGNITIVE ABILITY: Alert and oriented MOTIVATION TO LEARN: Eager Interested FAMILY SUPPORT: Unable to assess - Family not present INSTRUCTION PROVIDED TO: Patient PATIENT LEARNS BEST BY: Multiple Methods FACTORS AFFECTING LEARNING: None PHYSICAL LIMITATIONS AFFECTING LEARNING: None LEARNING RESPONSE DIAGNOSIS: C44.212 METHOD OF INSTRUCTION: Teach Back skin care Individual instruction Written instruction - handouts Verbal instruction PATIENT / FAMILY RESPONSE: Verbalizes understanding of: SYMPTOM MANAGEMENT-Correct actions to take to manage symptoms associated with his/her disease/illness FOLLOW-UP PLAN: Patient instructed to call with any further issues Re-teach - Using different method Contact information given. SUPPLEMENTAL MATERIAL: D/C sheet REFERRAL (RECOMMENDATION): None Written discharge instructions given and reviewed with patient. Patient verbalizes understanding. Encouraged to call with any questions or concerns. Instruction for 4 week follow up appointment given by Dr. Zhong. The patient presented for a face to face appointment for delivery of The Survivorship Care Plan. The care plan has been approved by Humberto Zhong MD. I have reviewed the Survivorship Care Plan with the patient and the patient has no further questions/concerns Encounter Status:Closed by HUMBERTO ZHONG MD on 02/28/18 PROGRESS Observed: 02/28/2018 Status: COMPLETED Source: [place] 12:00 AM [facility] REPOSITORY HNO ID: [id number] Author: Humberto Zhong Service: (none) Author Type: Physician Type: Progress Notes Filed: 03/02/2018 2:25 PM Note Text: GUDELIA SOLOMON [id number] : 1940 02/28/2018 [facility] Department of Radiation Oncology RADIATION ONCOLOGY - COMPLETION NOTE DATE OF SIMULATION: 01/07/2018 DATES OF TREATMENT: 01/12/18 to 02/28/18 UNIT: [facility] AREA TREATED: right ear DISEASE: Stage II, T2N0, 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 DELIVERED DOSE: 6600 cGy in 33 fractions treating to the 90 % isodose line with 9MeV and 1 garcia. ELAPSED TIME: 47 days. TOLERANCE/ RESPONSE: Right ear skin cancer regressing and erythema of the treated area of the right ear. REMARKS: He tolerated radiation treatment well. I will see him in four weeks for a routine follow-up. Electronically Signed HUMBERTO ZHONG M.D. / 02/28/201810:21 AM cc: Linda Snider MD ([facility]) [address] [place] [address] Jina Quintanilla MD [address] [facility] [address] [facility] [address] CNOV Observed: 02/22/2018 Status: COMPLETED Source: [place] 2:30 PM [facility] REPOSITORY Office Visit (RADTWS) GUDELIA SOLOMON ([id number]) 1940 M Date Time Provider Department 02/22/18 2:30 PM HUMBERTO ZHONG During your visit today, we recorded the following information about you: Temperature Pulse Respiration Blood pressure 96.6 degrees 76/minute 20/minute 118/53 Mejia Oakley, RN, RN 02/22/2018 2:18 PM Signed Radiation Therapy - Nursing Note (OTV) PATIENT NAME: Gudelia Solomon PATIENT February 22, 2018 [facility] FACILITY/LOCATION: [facility] NOTE TYPE: right ear Subjective Data No c/o Additional Data Do you want to see a Making Department Preparer? No Status: Patient is male Stress Scale: On a scale of 0 to 10, what number best describes how much distress you have experienced in the past week?(0 being no distress and 10 being extreme distress) 0 Social work notified: no Nursing Assessment Fatigue: none Appetite: good Nutritional Intake: Regular oral intake. Weight Gain/Loss: No Ambulatory weight history: Last 6 Encounter Wt Readings: Date: Wt: 12/29/2017 90.7 kg (200 lb) 05/14/2015 95.7 kg (211 lb) 02/25/2015 92.6 kg (204 lb 3.2 oz) 11/10/2014 92.1 kg (203 lb) 02/27/2014 93 kg (205 lb) Nausea:None Vomiting: None Bowel Function: normal bowel movements Erythema/Hyperpigmentation:mild Desquamation:none Rash:none Skin Care: Aquaphor Skin Sensation: Within Normal Limits Focused Assessment right ear- no c/o SIGNED by: Mejia Oakley, RN Humberto Zhong MD 02/22/2018 2:21 PM Signed Radiation Oncology - On Treatment Review (OTR) Note PATIENT NAME: Gudelia Solomon PATIENT DIAGNOSIS: Stage II, T2N0, 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 He denies any pain in the right ear. EXAM: KPS: 70 BP 118/53 Pulse 76 Temp (!) 35.9 ?C (96.6 ?F) (Temporal Artery) Resp 20 SpO2 94% General Appearance: Alert and oriented. No acute distress. Right ear skin cancer decreased in size. Erythema in the treated area of the right ear. IMAGING/LAB RESULTS: None Treatment chart checked: Yes Patient treatment site reviewed and verified:Yes Port films reviewed and current:N/A (Electron field only.) Medications started: None ASSESSMENT/PLAN: Clinically stable. Toxicity within expected parameters. Continue radiation treatment as planned. Humberto Zhong MD Allergies As of Date: 02/22/2018 Noted Allergy Reaction PENICILLINS 08/30/2013 2 - Rash Date Reviewed: 02/22/2018 Reviewed by: Mejia (Rn) JACE Oakley - Fully Assessed Reason for Visit: Radiotherapy On-treatment Visit [1722] Primary Visit Diagnosis:Basal cell carcinoma of skin of right ear and external auricular canal [C44.212] Prescriptions as of 02/22/2018 Sig: DIAMOX SEQUELS ORAL Take by mouth. VENTOLIN INHALATION Inhale as instructed. ASPIRIN 81 MG CHEWABLE TABLET Take 81 mg by mouth once codi* ATORVASTATIN 20 MG TABLET Take 20 mg by mouth once codi* CARVEDILOL 25 MG TABLET Take 25 mg by mouth twice madeleine* CHOLECALCIFEROL (VITAMIN D3) * Take by mouth. DILTIAZEM SR 240 MG 24 HR CAP Take 240 mg by mouth once madeleine* DOXYCYCLINE HYCLATE 100 MG CA* TAKE 1 CAPSULE BY MOUTH TWICE* ESCITALOPRAM 10 MG TABLET Take 10 mg by mouth once codi* FUROSEMIDE 40 MG TABLET Take 40 mg by mouth once codi* IPRATROPIUM-ALBUTEROL 20 MCG-* Inhale 1 Puff as instructed o* COMBIVENT INHALATION Inhale as instructed. LISINOPRIL 20 MG TABLET Take 20 mg by mouth once codi* MAGNESIUM OXIDE 400 MG CAPSULE Take 1 capsule by mouth once * OMEPRAZOLE 20 MG CAPSULE,RUDDY* Take 20 mg by mouth once codi* PREDNISOLONE ACETATE 1 % EYE * 1 Drop four times daily. 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 No Status: Patient is male Stress Scale: On a scale of 0 to 10, what number best describes how much distress you have experienced in the past week?(0 being no distress and 10 being extreme distress) 0 Social work notified: no Nursing Assessment Fatigue: none Appetite: good Nutritional Intake: Regular oral intake. Weight Gain/Loss: No Ambulatory weight history: Last 6 Encounter Wt Readings: Date: Wt: 12/29/2017 90.7 kg (200 lb) 05/14/2015 95.7 kg (211 lb) 02/25/2015 92.6 kg (204 lb 3.2 oz) 11/10/2014 92.1 kg (203 lb) 02/27/2014 93 kg (205 lb) Nausea:None Vomiting: None Bowel Function: normal bowel movements Erythema/Hyperpigmentation:mild Desquamation:none Rash:none Skin Care: Aquaphor Skin Sensation: Within Normal Limits Focused Assessment right ear- no c/o SIGNED by: Mejia Oakley RN Encounter Status:Closed by HUMBERTO ZHONG MD on 02/22/18 PROGRESS Observed: 02/22/2018 Status: COMPLETED Source: [place] 2:18 PM [facility] REPOSITORY HNO ID: [id number] Author: Humberto Zhong Service: (none) Author Type: Physician Type: Progress Notes Filed: 02/22/2018 2:21 PM Note Text: Radiation Oncology - On Treatment Review (OTR) Note PATIENT NAME: Gudelia Solomon PATIENT DIAGNOSIS: Stage II, T2N0, 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 He denies any pain in the right ear. EXAM: KPS: 70 BP 118/53 Pulse 76 Temp (!) 35.9 ?C (96.6 ?F) (Temporal Artery) Resp 20 SpO2 94% General Appearance: Alert and oriented. No acute distress. Right ear skin cancer decreased in size. Erythema in the treated area of the right ear. IMAGING/LAB RESULTS: None Treatment chart checked: Yes Patient treatment site reviewed and verified:Yes Port films reviewed and current:N/A (Electron field only.) Medications started: None ASSESSMENT/PLAN: Clinically stable. Toxicity within expected parameters. Continue radiation treatment as planned. Humberto Zhong MD PROTHROMBIN TIME W/INR Collected: 02/21/2018 Status: F Source: [place] 8:26 AM [facility] REPOSITORY TYPE CODE TESTS RESULT OUT OF RANGE REFERENCE UNITS LAB L300.4150 11.7-14.9 SECONDS High PROTIME 23.5 LAB L300.4200 Normal INR 2.1 Performed By: #### L300.3900 #### [facility] [address] [place], [address] CNOV Observed: 02/15/2018 Status: COMPLETED Source: [place] 2:30 PM [facility] REPOSITORY Office Visit (RADTWS) GUDELIA SOLOMON ([id number]) 1940 M Date Time Provider Department 02/15/18 2:30 PM HUMBERTO ZHONG During your visit today, we recorded the following information about you: Temperature Pulse Respiration Blood pressure 96.9 degrees 82/minute 17/minute 119/58 Anel Sharma, RN, RN 02/15/2018 1:54 PM Signed Radiation Therapy - Nursing Note (OTV) PATIENT NAME: Gudelia Solomon PATIENT February 15, 2018 [facility] FACILITY/LOCATION: [facility] NOTE TYPE: skin-right ear Subjective Data No c/o Additional Data Do you want to see a Making Department Preparer? No Status: Patient is male Stress Scale: On a scale of 0 to 10, what number best describes how much distress you have experienced in the past week?(0 being no distress and 10 being extreme distress) 1 Social work notified: Pt denied need to see geriatric social work professor at this time. Nursing Assessment Fatigue: none Appetite: good Nutritional Intake: Regular oral intake. Weight Gain/Loss: No Ambulatory weight history: Last 6 Encounter Wt Readings: Date: Wt: 12/29/2017 90.7 kg (200 lb) 05/14/2015 95.7 kg (211 lb) 02/25/2015 92.6 kg (204 lb 3.2 oz) 11/10/2014 92.1 kg (203 lb) 02/27/2014 93 kg (205 lb) Nausea:None Vomiting: None Bowel Function: normal bowel movements Erythema/Hyperpigmentation:moderate Desquamation:moist desquamation Rash:none Skin Care: Aquaphor Skin Sensation: none itching and none burning Focused Assessment right ear no c/o SIGNED by: JACE Erickson MD 02/15/2018 1:58 PM Signed Radiation Oncology - On Treatment Review (OTR) Note PATIENT NAME: Gudelia Solomon PATIENT DIAGNOSIS: Stage II, T2N0, 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 He denies any pain in the right ear. EXAM: KPS: 70 BP 119/58 (BP Site: Right Arm, BP Position: Sitting, BP Cuff Size: Large Adult) Pulse 82 Temp 36.1 ?C (96.9 ?F) (Temporal Artery) Resp 17 SpO2 95% General Appearance: Alert and oriented. No acute distress. Right ear skin cancer ulcerative with area of oozing. Brisk erythema in the treated area of the right ear. IMAGING/LAB RESULTS: None Treatment chart checked: Yes Patient treatment site reviewed and verified:Yes Port films reviewed and current:N/A (Electron field only.) Medications started: None ASSESSMENT/PLAN: Clinically stable. Toxicity within expected parameters. Continue radiation treatment as planned. Humberto Zhong MD Allergies As of Date: 02/15/2018 Noted Allergy Reaction PENICILLINS 08/30/2013 2 - Rash Date Reviewed: 02/15/2018 Reviewed by: Anel DalyRn) JACE Sharma - Fully Assessed Reason for Visit: OTV [Other] Primary Visit Diagnosis:Basal cell carcinoma of skin of right ear and external auricular canal [C44.212] Prescriptions as of 02/15/2018 Sig: DIAMOX SEQUELS ORAL Take by mouth. VENTOLIN INHALATION Inhale as instructed. ASPIRIN 81 MG CHEWABLE TABLET Take 81 mg by mouth once codi* ATORVASTATIN 20 MG TABLET Take 20 mg by mouth once codi* CARVEDILOL 25 MG TABLET Take 25 mg by mouth twice madeleine* CHOLECALCIFEROL (VITAMIN D3) * Take by mouth. DILTIAZEM SR 240 MG 24 HR CAP Take 240 mg by mouth once madeleine* DOXYCYCLINE HYCLATE 100 MG CA* TAKE 1 CAPSULE BY MOUTH TWICE* ESCITALOPRAM 10 MG TABLET Take 10 mg by mouth once codi* FUROSEMIDE 40 MG TABLET Take 40 mg by mouth once codi* IPRATROPIUM-ALBUTEROL 20 MCG-* Inhale 1 Puff as instructed o* COMBIVENT INHALATION Inhale as instructed. LISINOPRIL 20 MG TABLET Take 20 mg by mouth once codi* MAGNESIUM OXIDE 400 MG CAPSULE Take 1 capsule by mouth once * OMEPRAZOLE 20 MG CAPSULE,RUDDY* Take 20 mg by mouth once codi* PREDNISOLONE ACETATE 1 % EYE * 1 Drop four times daily. 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 No Status: Patient is male Stress Scale: On a scale of 0 to 10, what number best describes how much distress you have experienced in the past week?(0 being no distress and 10 being extreme distress) 1 Social work notified: Pt denied need to see geriatric social work professor at this time. Nursing Assessment Fatigue: none Appetite: good Nutritional Intake: Regular oral intake. Weight Gain/Loss: No Ambulatory weight history: Last 6 Encounter Wt Readings: Date: Wt: 12/29/2017 90.7 kg (200 lb) 05/14/2015 95.7 kg (211 lb) 02/25/2015 92.6 kg (204 lb 3.2 oz) 11/10/2014 92.1 kg (203 lb) 02/27/2014 93 kg (205 lb) Nausea:None Vomiting: None Bowel Function: normal bowel movements Erythema/Hyperpigmentation:moderate Desquamation:moist desquamation Rash:none Skin Care: Aquaphor Skin Sensation: none itching and none burning Focused Assessment right ear no c/o SIGNED by: Anel Sharma RN Encounter Status:Closed by HUMBERTO ZHONG MD on 02/15/18 PROGRESS Observed: 02/15/2018 Status: COMPLETED Source: [place] 1:56 PM [facility] [place] REPOSITORY HNO ID: [id number] Author: Humberto Zhong Service: (none) Author Type: Physician Type: Progress Notes Filed: 02/15/2018 1:58 PM Note Text: Radiation Oncology - On Treatment Review (OTR) Note PATIENT NAME: Gudelia Solomon PATIENT DIAGNOSIS: Stage II, T2N0, 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 He denies any pain in the right ear. EXAM: KPS: 70 BP 119/58 (BP Site: Right Arm, BP Position: Sitting, BP Cuff Size: Large Adult) Pulse 82 Temp 36.1 ?C (96.9 ?F) (Temporal Artery) Resp 17 SpO2 95% General Appearance: Alert and oriented. No acute distress. Right ear skin cancer ulcerative with area of oozing. Brisk erythema in the treated area of the right ear. IMAGING/LAB RESULTS: None Treatment chart checked: Yes Patient treatment site reviewed and verified:Yes Port films reviewed and current:N/A (Electron field only.) Medications started: None ASSESSMENT/PLAN: Clinically stable. Toxicity within expected parameters. Continue radiation treatment as planned. Humberto Zhong MD CNOV Observed: 02/08/2018 Status: COMPLETED Source: [place] 2:30 PM [facility] REPOSITORY Office Visit (RADTWS) GUDELIA SOLOMON ([id number]) 1940 M Date Time Provider Department 02/08/18 2:30 PM HUMBERTO ZHONG During your visit today, we recorded the following information about you: Temperature Pulse Respiration Blood pressure 97.1 degrees 64/minute 20/minute 108/53 Mejia Oakley, RN, RN 02/08/2018 2:24 PM Signed Radiation Therapy - Nursing Note (OTV) PATIENT NAME: Gudelia Solomon PATIENT February 08, 2018 [facility] FACILITY/LOCATION: [facility] NOTE TYPE: skin Subjective Data No c/o Additional Data Do you want to see a Making Department Preparer? No Status: Patient is male Stress Scale: On a scale of 0 to 10, what number best describes how much distress you have experienced in the past week?(0 being no distress and 10 being extreme distress) 0 Social work notified: no Nursing Assessment Fatigue: none Appetite: good Nutritional Intake: Regular oral intake. Weight Gain/Loss: No Ambulatory weight history: Last 6 Encounter Wt Readings: Date: Wt: 12/29/2017 90.7 kg (200 lb) 05/14/2015 95.7 kg (211 lb) 02/25/2015 92.6 kg (204 lb 3.2 oz) 11/10/2014 92.1 kg (203 lb) 02/27/2014 93 kg (205 lb) Nausea:None Vomiting: None Bowel Function: normal bowel movements Erythema/Hyperpigmentation:mild Desquamation:none Rash:none Skin Care: Aquaphor Skin Sensation: Within Normal Limits Focused Assessment right ear- no c/o SIGNED by: JACE Catherine MD 02/08/2018 2:26 PM Signed Radiation Oncology - On Treatment Review (OTR) Note PATIENT NAME: Gudelia Solomon PATIENT DIAGNOSIS: Stage II, T2N0, 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 He denies any pain in the right ear. EXAM: KPS: 70 BP 108/53 Pulse 64 Temp 36.2 ?C (97.1 ?F) (Temporal Artery) Resp 20 SpO2 95% General Appearance: Alert and oriented. No acute distress. Right ear skin cancer ulcerative with area of oozing. Erythema in the treated area of the right ear. IMAGING/LAB RESULTS: None Treatment chart checked: Yes Patient treatment site reviewed and verified:Yes Port films reviewed and current:N/A (Electron field only.) Medications started: None ASSESSMENT/PLAN: Clinically stable. Toxicity within expected parameters. Continue radiation treatment as planned. 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 DOXYCYCLINE HYCLATE 100 MG CA* TAKE 1 CAPSULE BY MOUTH TWICE* DIAMOX SEQUELS ORAL Take by mouth. ESCITALOPRAM 10 MG TABLET Take 10 mg by mouth once codi* VENTOLIN INHALATION Inhale as instructed. COMBIVENT INHALATION Inhale as instructed. PREDNISOLONE ACETATE 1 % EYE * 1 Drop four times daily. IPRATROPIUM-ALBUTEROL 20 MCG-* Inhale 1 Puff as instructed o* MAGNESIUM OXIDE 400 MG CAPSULE Take 1 capsule by mouth once * SITAGLIPTIN 50 MG-METFORMIN 1* Take 1 tablet by mouth twice * CARVEDILOL 25 MG TABLET Take 25 mg by mouth twice madeleine* WARFARIN 1 MG TABLET Take 1 mg by mouth daily as d* LISINOPRIL 20 MG TABLET Take 20 mg by mouth once codi* FUROSEMIDE 40 MG TABLET Take 40 mg by mouth once codi* OMEPRAZOLE 20 MG CAPSULE,RUDDY* Take 20 mg by mouth once codi* DILTIAZEM SR 240 MG 24 HR CAP Take 240 mg by mouth once madeleine* CEFDINIR 300 MG CAPSULE One tablet twice a day with f* Patient not taking: Reported on 02/01/2018 Problem List As Of Date 02/08/2018 Noted Resolved PERS HX SKIN MALIGNANCY NEC [Z85.828] INVALID FOR* Bcc R scientology, L nose 05/12 [173.3] INVALID FOR* Neovascular glaucoma, 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 No Status: Patient is male Stress Scale: On a scale of 0 to 10, what number best describes how much distress you have experienced in the past week?(0 being no distress and 10 being extreme distress) 0 Social work notified: no Nursing Assessment Fatigue: none Appetite: good Nutritional Intake: Regular oral intake. Weight Gain/Loss: No Ambulatory weight history: Last 6 Encounter Wt Readings: Date: Wt: 12/29/2017 90.7 kg (200 lb) 05/14/2015 95.7 kg (211 lb) 02/25/2015 92.6 kg (204 lb 3.2 oz) 11/10/2014 92.1 kg (203 lb) 02/27/2014 93 kg (205 lb) Nausea:None Vomiting: None Bowel Function: normal bowel movements Erythema/Hyperpigmentation:mild Desquamation:none Rash:none Skin Care: Aquaphor Skin Sensation: Within Normal Limits Focused Assessment right ear- no c/o SIGNED by: Mejia Oakley RN Encounter Status:Closed by HUMBERTO ZHONG MD on 02/08/18 PROGRESS Observed: 02/08/2018 Status: COMPLETED Source: [place] 2:24 PM [facility] REPOSITORY HNO ID: [id number] Author: Humberto Zhong Service: (none) Author Type: Physician Type: Progress Notes Filed: 02/08/2018 2:26 PM Note Text: Radiation Oncology - On Treatment Review (OTR) Note PATIENT NAME: Gudelia Solomon PATIENT DIAGNOSIS: Stage II, T2N0, 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 He denies any pain in the right ear. EXAM: KPS: 70 BP 108/53 Pulse 64 Temp 36.2 ?C (97.1 ?F) (Temporal Artery) Resp 20 SpO2 95% General Appearance: Alert and oriented. No acute distress. Right ear skin cancer ulcerative with area of oozing. Erythema in the treated area of the right ear. IMAGING/LAB RESULTS: None Treatment chart checked: Yes Patient treatment site reviewed and verified:Yes Port films reviewed and current:N/A (Electron field only.) Medications started: None ASSESSMENT/PLAN: Clinically stable. Toxicity within expected parameters. Continue radiation treatment as planned. 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 He denies any pain in the right ear. EXAM: KPS: 70 BP 131/59 (BP Site: Right Arm, BP Position: Sitting, BP Cuff Size: Large Adult) Pulse 94 Temp 36.2 ?C (97.1 ?F) (Temporal Artery) Resp 17 SpO2 94% General Appearance: Alert and oriented. No acute distress. Right ear skin cancer ulcerative with area of oozing. Erythema in the treated area of the right ear. IMAGING/LAB RESULTS: None Treatment chart checked: Yes Patient treatment site reviewed and verified:Yes Port films reviewed and current:N/A (Electron field only.) Medications started: None ASSESSMENT/PLAN: Clinically stable. Toxicity within expected parameters. Continue radiation treatment as planned. Humberto Zhong MD CNOV Observed: 02/01/2018 Status: COMPLETED Source: [place] 2:30 PM [facility] REPOSITORY Office Visit (RADTWS) GUDELIA SOLOMON ([id number]) 1940 M Date Time Provider Department 02/01/18 2:30 PM HUMBERTO ZHONG RADTWS During your visit today, we recorded the following information about you: Temperature Pulse Respiration Blood pressure 97.1 degrees 94/minute 17/minute 131/59 Anel Sharma, RN, RN 02/01/2018 2:15 PM Signed Radiation Therapy - Nursing Note (OTV) PATIENT NAME: Gudelia Solomon PATIENT February 01, 2018 [facility] FACILITY/LOCATION: [facility] NURSING NOTE TYPE: skin right ear Subjective Data No c/o Additional Data Do you want to see a Making Department Preparer? No Status: Patient is male Stress Scale: On a scale of 0 to 10, what number best describes how much distress you have experienced in the past week?(0 being no distress and 10 being extreme distress) 1 Social work notified: Pt denied need to see geriatric social work professor at this time. Nursing Assessment Fatigue: none Appetite: good Nutritional Intake: Regular oral intake. Weight Gain/Loss: No Ambulatory weight history: Last 6 Encounter Wt Readings: Date: Wt: 12/29/2017 90.7 kg (200 lb) 05/14/2015 95.7 kg (211 lb) 02/25/2015 92.6 kg (204 lb 3.2 oz) 11/10/2014 92.1 kg (203 lb) 02/27/2014 93 kg (205 lb) Nausea:None Vomiting: None Bowel Function: normal bowel movements Erythema/Hyperpigmentation:severe Desquamation:moist desquamation Rash:none Skin Care: Aquaphor Skin Sensation: none itching and none burning Focused Assessment right ear no complaints SIGNED by: JACE Erickson MD 02/01/2018 2:36 PM Signed Radiation Oncology - On Treatment Review (OTR) Note PATIENT NAME: Gudelia Solomon PATIENT DIAGNOSIS: Stage II, T2N0, 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 He denies any pain in the right ear. EXAM: KPS: 70 BP 131/59 (BP Site: Right Arm, BP Position: Sitting, BP Cuff Size: Large Adult) Pulse 94 Temp 36.2 ?C (97.1 ?F) (Temporal Artery) Resp 17 SpO2 94% General Appearance: Alert and oriented. No acute distress. Right ear skin cancer ulcerative with area of oozing. Erythema in the treated area of the right ear. IMAGING/LAB RESULTS: None Treatment chart checked: Yes Patient treatment site reviewed and verified:Yes Port films reviewed and current:N/A (Electron field only.) Medications started: None ASSESSMENT/PLAN: Clinically stable. Toxicity within expected parameters. Continue radiation treatment as planned. Humberto Zhong MD Allergies As of Date: 02/01/2018 Noted Allergy Reaction PENICILLINS 08/30/2013 2 - Rash Date Reviewed: 02/01/2018 Reviewed by: Anel DalyRn) JACE Sharma - Fully Assessed Reason for Visit: OTV [Other] Primary Visit Diagnosis:Basal cell carcinoma of skin of right ear and external auricular canal [C44.212] Prescriptions as of 02/01/2018 Sig: TRADJENTA 5 MG TABLET Take 1 tablet by mouth once d* ATORVASTATIN 20 MG TABLET Take 20 mg by mouth once codi* ASPIRIN 81 MG CHEWABLE TABLET Take 81 mg by mouth once codi* CHOLECALCIFEROL (VITAMIN D3) * Take by mouth. DOXYCYCLINE HYCLATE 100 MG CA* TAKE 1 CAPSULE BY MOUTH TWICE* DIAMOX SEQUELS ORAL Take by mouth. ESCITALOPRAM 10 MG TABLET Take 10 mg by mouth once codi* VENTOLIN INHALATION Inhale as instructed. COMBIVENT INHALATION Inhale as instructed. PREDNISOLONE ACETATE 1 % EYE * 1 Drop four times daily. IPRATROPIUM-ALBUTEROL 20 MCG-* Inhale 1 Puff as instructed o* MAGNESIUM OXIDE 400 MG CAPSULE Take 1 capsule by mouth once * SITAGLIPTIN 50 MG-METFORMIN 1* Take 1 tablet by mouth twice * CARVEDILOL 25 MG TABLET Take 25 mg by mouth twice madeleine* WARFARIN 1 MG TABLET Take 1 mg by mouth daily as d* LISINOPRIL 20 MG TABLET Take 20 mg by mouth once codi* FUROSEMIDE 40 MG TABLET Take 40 mg by mouth once codi* OMEPRAZOLE 20 MG CAPSULE,RUDDY* Take 20 mg by mouth once codi* DILTIAZEM SR 240 MG 24 HR CAP Take 240 mg by mouth once madeleine* CEFDINIR 300 MG CAPSULE One tablet twice a day with f* Patient not taking: Reported on 02/01/2018 Problem List As Of Date 02/01/2018 Noted Resolved PERS HX SKIN MALIGNANCY NEC [Z85.828] INVALID FOR* Bcc R scientology, L nose 05/12 [173.3] INVALID FOR* Neovascular glaucoma, 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 No Status: Patient is male Stress Scale: On a scale of 0 to 10, what number best describes how much distress you have experienced in the past week?(0 being no distress and 10 being extreme distress) 1 Social work notified: Pt denied need to see geriatric social work professor at this time. Nursing Assessment Fatigue: none Appetite: good Nutritional Intake: Regular oral intake. Weight Gain/Loss: No Ambulatory weight history: Last 6 Encounter Wt Readings: Date: Wt: 12/29/2017 90.7 kg (200 lb) 05/14/2015 95.7 kg (211 lb) 02/25/2015 92.6 kg (204 lb 3.2 oz) 11/10/2014 92.1 kg (203 lb) 02/27/2014 93 kg (205 lb) Nausea:None Vomiting: None Bowel Function: normal bowel movements Erythema/Hyperpigmentation:severe Desquamation:moist desquamation Rash:none Skin Care: Aquaphor Skin Sensation: none itching and none burning Focused Assessment right ear no complaints SIGNED by: Anel Sharma RN Encounter Status:Closed by HUMBERTO ZHONG MD on 02/01/18 CNOV Observed: 01/25/2018 Status: COMPLETED Source: [place] 2:30 PM [facility] REPOSITORY Office Visit (RADTWS) GUDELIA SOLOMON ([id number]) 1940 M Date Time Provider Department 01/25/18 2:30 PM HUMBERTO ZHONG RADTWS During your visit today, we recorded the following information about you: Temperature Pulse Respiration Blood pressure 97.1 degrees 80/minute 20/minute 95/55 Mejia Oakley RN, RN 01/25/2018 2:11 PM Signed Radiation Therapy - Nursing Note (OTV) PATIENT NAME: Gudelia Solomon PATIENT January 25, 2018 [facility] FACILITY/LOCATION: [facility] NURSING NOTE TYPE: skin Subjective Data No c/o Additional Data Do you want to see a Making Department Preparer? No Status: Patient is male Stress Scale: On a scale of 0 to 10, what number best describes how much distress you have experienced in the past week?(0 being no distress and 10 being extreme distress) 0 Social work notified: no Nursing Assessment Fatigue: none Appetite: good Nutritional Intake: Regular oral intake. Weight Gain/Loss: No Ambulatory weight history: Last 6 Encounter Wt Readings: Date: Wt: 12/29/2017 90.7 kg (200 lb) 05/14/2015 95.7 kg (211 lb) 02/25/2015 92.6 kg (204 lb 3.2 oz) 11/10/2014 92.1 kg (203 lb) 02/27/2014 93 kg (205 lb) Nausea:None Vomiting: None Bowel Function: normal bowel movements Erythema/Hyperpigmentation:mild Desquamation:none Rash:none Skin Care: Aquaphor Skin Sensation: Within Normal Limits Focused Assessment right ear- no c/o SIGNED by: JACE Catherine MD 01/25/2018 2:28 PM Signed Radiation Oncology - On Treatment Review (OTR) Note PATIENT NAME: Gudelia Solomon PATIENT DIAGNOSIS: Stage II, T2N0, 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 He denies any pain in the right ear. EXAM: KPS: 70 BP 95/55 Pulse 80 Temp 36.2 ?C (97.1 ?F) (Temporal Artery) Resp 20 SpO2 93% General Appearance: Alert and oriented. No acute distress. Right ear skin cancer with less scab than before. IMAGING/LAB RESULTS: None Treatment chart checked: Yes Patient treatment site reviewed and verified:Yes Port films reviewed and current:N/A (Electron field only.) Medications started: None ASSESSMENT/PLAN: Clinically stable. No signs of toxicity. Continue radiation treatment as planned. Humberto Zhong MD Allergies As of Date: 01/25/2018 Noted Allergy Reaction PENICILLINS 08/30/2013 2 - Rash Date Reviewed: 01/25/2018 Reviewed by: Mejia (Rn) JACE Oakley - Fully Assessed Reason for Visit: Radiotherapy On-treatment Visit [1722] Primary Visit Diagnosis:Basal cell carcinoma of skin of right ear and external auricular canal [C44.212] Prescriptions as of 01/25/2018 Sig: TRADJENTA 5 MG TABLET Take 1 tablet by mouth once d* ATORVASTATIN 20 MG TABLET Take 20 mg by mouth once codi* ASPIRIN 81 MG CHEWABLE TABLET Take 81 mg by mouth once codi* CHOLECALCIFEROL (VITAMIN D3) * Take by mouth. DOXYCYCLINE HYCLATE 100 MG CA* TAKE 1 CAPSULE BY MOUTH TWICE* DIAMOX SEQUELS ORAL Take by mouth. ESCITALOPRAM 10 MG TABLET Take 10 mg by mouth once codi* VENTOLIN INHALATION Inhale as instructed. COMBIVENT INHALATION Inhale as instructed. PREDNISOLONE ACETATE 1 % EYE * 1 Drop four times daily. IPRATROPIUM-ALBUTEROL 20 MCG-* Inhale 1 Puff as instructed o* MAGNESIUM OXIDE 400 MG CAPSULE Take 1 capsule by mouth once * SITAGLIPTIN 50 MG-METFORMIN 1* Take 1 tablet by mouth twice * CARVEDILOL 25 MG TABLET Take 25 mg by mouth twice madeleine* WARFARIN 1 MG TABLET Take 1 mg by mouth daily as d* LISINOPRIL 20 MG TABLET Take 20 mg by mouth once codi* FUROSEMIDE 40 MG TABLET Take 40 mg by mouth once codi* OMEPRAZOLE 20 MG CAPSULE,RUDDY* Take 20 mg by mouth once codi* DILTIAZEM SR 240 MG 24 HR CAP Take 240 mg by mouth once madeleine* CEFDINIR 300 MG CAPSULE One tablet twice a day with f* Problem List As Of Date 01/25/2018 Noted Resolved PERS HX SKIN MALIGNANCY NEC [Z85.828] INVALID FOR* Bcc R scientology, L nose 05/12 [173.3] INVALID FOR* Neovascular glaucoma, 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 No Status: Patient is male Stress Scale: On a scale of 0 to 10, what number best describes how much distress you have experienced in the past week?(0 being no distress and 10 being extreme distress) 0 Social work notified: no Nursing Assessment Fatigue: none Appetite: good Nutritional Intake: Regular oral intake. Weight Gain/Loss: No Ambulatory weight history: Last 6 Encounter Wt Readings: Date: Wt: 12/29/2017 90.7 kg (200 lb) 05/14/2015 95.7 kg (211 lb) 02/25/2015 92.6 kg (204 lb 3.2 oz) 11/10/2014 92.1 kg (203 lb) 02/27/2014 93 kg (205 lb) Nausea:None Vomiting: None Bowel Function: normal bowel movements Erythema/Hyperpigmentation:mild Desquamation:none Rash:none Skin Care: Aquaphor Skin Sensation: Within Normal Limits Focused Assessment right ear- no c/o SIGNED by: Mejia Oakley RN Encounter Status:Closed by HUMBERTO ZHONG MD on 01/25/18 PROGRESS Observed: 01/25/2018 Status: COMPLETED Source: [place] 2:12 PM [facility] [place] REPOSITORY HNO ID: [id number] Author: Humberto Zhong Service: (none) Author Type: Physician Type: Progress Notes Filed: 01/25/2018 2:28 PM Note Text: Radiation Oncology - On Treatment Review (OTR) Note PATIENT NAME: Gudelia Solomon PATIENT DIAGNOSIS: Stage II, T2N0, 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 He denies any pain in the right ear. EXAM: KPS: 70 BP 95/55 Pulse 80 Temp 36.2 ?C (97.1 ?F) (Temporal Artery) Resp 20 SpO2 93% General Appearance: Alert and oriented. No acute distress. Right ear skin cancer with less scab than before. IMAGING/LAB RESULTS: None Treatment chart checked: Yes Patient treatment site reviewed and verified:Yes Port films reviewed and current:N/A (Electron field only.) Medications started: None ASSESSMENT/PLAN: Clinically stable. No signs of toxicity. Continue radiation treatment as planned. Humberto Zhong MD CNOV Observed: 01/18/2018 Status: COMPLETED Source: [place] 2:30 PM [facility] REPOSITORY Office Visit (RADTWS) GUDELIA SOLOMON ([id number]) 1940 M Date Time Provider Department 01/18/18 2:30 PM HUMBERTO ZHONG RADAndreyWS During your visit today, we recorded the following information about you: Temperature Pulse Respiration Blood pressure 97.2 degrees 78/minute 20/minute 128/63 Mejia Oakley, RN, RN 01/18/2018 2:06 PM Signed Radiation Therapy - Nursing Note (OTV) PATIENT NAME: Gudelia Solomon PATIENT January 18, 2018 [facility] FACILITY/LOCATION: [facility] NURSING NOTE TYPE: right ear Subjective Data No c/o Additional Data Do you want to see a Making Department Preparer? No Status: Patient is male Stress Scale: On a scale of 0 to 10, what number best describes how much distress you have experienced in the past week?(0 being no distress and 10 being extreme distress) 0 Social work notified: no Nursing Assessment Fatigue: none Appetite: good Nutritional Intake: Regular oral intake. Weight Gain/Loss: No Ambulatory weight history: Last 6 Encounter Wt Readings: Date: Wt: 12/29/2017 90.7 kg (200 lb) 05/14/2015 95.7 kg (211 lb) 02/25/2015 92.6 kg (204 lb 3.2 oz) 11/10/2014 92.1 kg (203 lb) 02/27/2014 93 kg (205 lb) Nausea:None Vomiting: None Bowel Function: normal bowel movements Erythema/Hyperpigmentation:none Desquamation:none Rash:none Skin Care: Aquaphor Skin Sensation: Within Normal Limits Focused Assessment right ear-no c/o SIGNED by: JACE Catherine MD 01/18/2018 2:43 PM Signed Radiation Oncology - On Treatment Review (OTR) Note PATIENT NAME: Gudelia Solomon PATIENT DIAGNOSIS: Stage II, T2N0, 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 He denies any pain in the right ear. EXAM: KPS: 70 BP 128/63 Pulse 78 Temp 36.2 ?C (97.2 ?F) (Temporal Artery) Resp 20 SpO2 94% General Appearance: Alert and oriented. No acute distress. Right ear skin cancer with less scab than before. IMAGING/LAB RESULTS: None Treatment chart checked: Yes Patient treatment site reviewed and verified:Yes Port films reviewed and current:N/A (Electron field only.) Medications started: None ASSESSMENT/PLAN: Clinically stable. No signs of toxicity. Continue radiation treatment as planned. Humberto Zhong MD Allergies As of Date: 01/18/2018 Noted Allergy Reaction PENICILLINS 08/30/2013 2 - Rash Date Reviewed: 01/18/2018 Reviewed by: Mejia DalyRn) JACE Oakley - Fully Assessed Reason for Visit: Radiotherapy On-treatment Visit [1722] Primary Visit Diagnosis:Basal cell carcinoma of skin of right ear and external auricular canal [C44.212] Prescriptions as of 01/18/2018 Sig: TRADJENTA 5 MG TABLET Take 1 tablet by mouth once d* ATORVASTATIN 20 MG TABLET Take 20 mg by mouth once codi* ASPIRIN 81 MG CHEWABLE TABLET Take 81 mg by mouth once codi* CHOLECALCIFEROL (VITAMIN D3) * Take by mouth. DOXYCYCLINE HYCLATE 100 MG CA* TAKE 1 CAPSULE BY MOUTH TWICE* DIAMOX SEQUELS ORAL Take by mouth. ESCITALOPRAM 10 MG TABLET Take 10 mg by mouth once codi* VENTOLIN INHALATION Inhale as instructed. COMBIVENT INHALATION Inhale as instructed. PREDNISOLONE ACETATE 1 % EYE * 1 Drop four times daily. IPRATROPIUM-ALBUTEROL 20 MCG-* Inhale 1 Puff as instructed o* MAGNESIUM OXIDE 400 MG CAPSULE Take 1 capsule by mouth once * SITAGLIPTIN 50 MG-METFORMIN 1* Take 1 tablet by mouth twice * CARVEDILOL 25 MG TABLET Take 25 mg by mouth twice madeleine* WARFARIN 1 MG TABLET Take 1 mg by mouth daily as d* LISINOPRIL 20 MG TABLET Take 20 mg by mouth once codi* FUROSEMIDE 40 MG TABLET Take 40 mg by mouth once codi* OMEPRAZOLE 20 MG CAPSULE,RUDDY* Take 20 mg by mouth once codi* DILTIAZEM SR 240 MG 24 HR CAP Take 240 mg by mouth once madeleine* CEFDINIR 300 MG CAPSULE One tablet twice a day with f* Problem List As Of Date 01/18/2018 Noted Resolved PERS HX SKIN MALIGNANCY NEC [Z85.828] INVALID FOR* Bcc R scientology, L nose 05/12 [173.3] INVALID FOR* Neovascular glaucoma, 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 No Status: Patient is male Stress Scale: On a scale of 0 to 10, what number best describes how much distress you have experienced in the past week?(0 being no distress and 10 being extreme distress) 0 Social work notified: no Nursing Assessment Fatigue: none Appetite: good Nutritional Intake: Regular oral intake. Weight Gain/Loss: No Ambulatory weight history: Last 6 Encounter Wt Readings: Date: Wt: 12/29/2017 90.7 kg (200 lb) 05/14/2015 95.7 kg (211 lb) 02/25/2015 92.6 kg (204 lb 3.2 oz) 11/10/2014 92.1 kg (203 lb) 02/27/2014 93 kg (205 lb) Nausea:None Vomiting: None Bowel Function: normal bowel movements Erythema/Hyperpigmentation:none Desquamation:none Rash:none Skin Care: Aquaphor Skin Sensation: Within Normal Limits Focused Assessment right ear-no c/o SIGNED by: Mejia Oakley RN Encounter Status:Closed by HUMBERTO ZHONG MD on 01/18/18 PROGRESS Observed: 01/18/2018 Status: COMPLETED Source: [place] 2:09 PM [facility] REPOSITORY HNO ID: [id number] Author: Humberto Zhong Service: (none) Author Type: Physician Type: Progress Notes Filed: 01/18/2018 2:43 PM Note Text: Radiation Oncology - On Treatment Review (OTR) Note PATIENT NAME: Gudelia Solomon PATIENT DIAGNOSIS: Stage II, T2N0, 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 He denies any pain in the right ear. EXAM: KPS: 70 BP 128/63 Pulse 78 Temp 36.2 ?C (97.2 ?F) (Temporal Artery) Resp 20 SpO2 94% General Appearance: Alert and oriented. No acute distress. Right ear skin cancer with less scab than before. IMAGING/LAB RESULTS: None Treatment chart checked: Yes Patient treatment site reviewed and verified:Yes Port films reviewed and current:N/A (Electron field only.) Medications started: None ASSESSMENT/PLAN: Clinically stable. No signs of toxicity. Continue radiation treatment as planned. Humberto Zhong MD CNCNPATED Observed: 01/07/2018 Status: COMPLETED Source: [place] 12:00 AM [facility] REPOSITORY Education (RADTWS) GUDELIA SOLOMON ([id number]) 1940 M Date Time Provider Department 01/07/18 HUMBERTO ZHONG Reason for Visit: Patient Education [91] Visit Notes: >> Mejia (Rn) JACE Oakley WedJan 07, 2018 12:34 PM Status: Signed Radiation Therapy - Patient Education Note PATIENT NAME: Gudelia Solomon PATIENT January 07, 2018 [facility] FACILITY/LOCATION: [facility] READINESS TO LEARN Cognitive Ability: Alert and oriented Motivation to learn: Eager Interested Family Support: High - Very involved in pt care Instruction provide to: Patient and family member Patient learns best by: Individual Instruction Written Instruction - Hand-outs Verbal Instruction Factors effecting learning: None Physical limitations effecting learning: None LEARNING RESPONSE Diagnosis: Pt simulated today for radiation therapy to skin. Education Topic/Teaching Points: Radiation therapy, Side effects and OTV: Method of instruction: Teach Back skin care Individual instruction Written instruction - handouts Verbal instruction Patient /Family response: Patient and family verbalized understanding of radiation treatments, side effects, OTV, and transportation. Follow-up plan: Patient instructed to call with any further issues Reinforce - Repeat previous content Contact information given. Supplemental material: Informational handouts on Department phone list, Fatigue and XRT sheet, [facility] instructions, Aquaphor coupon. Referral (recommendation): None, Pt denied need for social work, van service, and senior automation engineer. Signed by: Mejia Oakley RN During your visit today, we recorded the following information about you: Allergies As of Date: 01/07/2018 Noted Allergy Reaction PENICILLINS 08/30/2013 2 - Rash Date Reviewed: 12/29/2017 Reviewed by: Mejia (Rn) JACE Oakley - Fully Assessed Prescriptions as of 01/07/2018 Sig: TRADJENTA 5 MG TABLET Take 1 tablet by mouth once d* ATORVASTATIN 20 MG TABLET Take 20 mg by mouth once codi* ASPIRIN 81 MG CHEWABLE TABLET Take 81 mg by mouth once codi* CHOLECALCIFEROL (VITAMIN D3) * Take by mouth. DOXYCYCLINE HYCLATE 100 MG CA* TAKE 1 CAPSULE BY MOUTH TWICE* CEFDINIR 300 MG CAPSULE One tablet twice a day with f* DIAMOX SEQUELS ORAL Take by mouth. ESCITALOPRAM 10 MG TABLET Take 10 mg by mouth once codi* VENTOLIN INHALATION Inhale as instructed. COMBIVENT INHALATION Inhale as instructed. PREDNISOLONE ACETATE 1 % EYE * 1 Drop four times daily. IPRATROPIUM-ALBUTEROL 20 MCG-* Inhale 1 Puff as instructed o* MAGNESIUM OXIDE 400 MG CAPSULE Take 1 capsule by mouth once * SITAGLIPTIN 50 MG-METFORMIN 1* Take 1 tablet by mouth twice * CARVEDILOL 25 MG TABLET Take 25 mg by mouth twice madeleine* WARFARIN 1 MG TABLET Take 1 mg by mouth daily as d* LISINOPRIL 20 MG TABLET Take 20 mg by mouth once codi* FUROSEMIDE 40 MG TABLET Take 40 mg by mouth once codi* OMEPRAZOLE 20 MG CAPSULE,RUDDY* Take 20 mg by mouth once codi* DILTIAZEM SR 240 MG 24 HR CAP Take 240 mg by mouth once madeleine* Encounter Status:Closed by MEJIA OAKLEY on 01/07/18 PROGRESS Observed: 01/07/2018 Status: COMPLETED Source: [place] 12:00 AM [facility] REPOSITORY HNO ID: [id number] Author: Humberto Zhong Service: (none) Author Type: Physician Type: Progress Notes Filed: 01/11/2018 12:32 AM Note Text: GUDELIA SOLOMON [id number] 01/07/2018 [facility] Department of Radiation Oncology [facility] RADIATION ONCOLOGY SIMULATION NOTE DATE OF SIMULATION: 01/07/2018 MACHINE: [employer] Diagnosis: Stage II, T2N0, 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 AREA:right ear PATIENT POSITION: Supine. CONTRAST: None PROTOCOL: None BLOCKING: Custom blocking to be determined at treatment planning. FIXATION DEVICE: In order to achieve accurate and reproducible treatments, the patient is to be immobilized with pillows PROCEDURE: A time-out was conducted and recorded by the therapist. Patient was simulated on the treatment machine for external beam radiation therapy. Treatment site was marked by the simulation therapist. ASSESSMENT/PLAN: Patient tolerated simulation procedure well. Treatments will be initiated after treatment planning. The patient is scheduled for a verification simulation on the treatment machine to ensure proper set-up and field arrangement is correct prior to the first treatment of primary and boost garcia if applicable. Electronically Signed Humberto Zhong M.D./ye 01/10/20183:19 PM PROGRESS Observed: 01/07/2018 Status: COMPLETED Source: [place] 12:00 AM [facility] REPOSITORY HNO ID: [id number] Author: Humberto Zhong Service: (none) Author Type: Physician Type: Progress Notes Filed: 01/12/2018 12:35 AM Note Text: GUDELIA SOLOMON [id number] 01/07/2018 [facility] Department of Radiation Oncology Treatment Planning Note For reasons stated in the consult note, Gudelia Solomon is a candidate for radiation therapy. Based on review and interpretation of the relevant diagnostic studies together with the exam findings, Gudelia Solomon was simulated on 01/07/2018 at which time the target volume and/or requisite garcia were delineated, as indicated in the simulation note, to be treated according to the prescription. After reviewing multiple treatment plans with dosimetry, the best plan was approved to deliver the prescribed course of radiation to the target area using forward planning to allow for the best isodose distribution, treating to the 90 % isodose line with 9MeV and 1 garcia. Custom electron block is the treatment device used to shape/modify the beams. Limiting dose to normal tissue was confirmed upon review of the calculated dose volume histogram. A completed summary of this plan dated 01/11/18 incorporated herein by reference includes dose, beam arrangements, energy, blocking, isodose distribution, and/or ports and DVH. Electronically Signed Humberto Zhong M.D. 01/11/20182:41 PM URINALYSIS, COMPLETE Collected: 01/04/2018 Status: F Source: [place] 8:24 AM [facility] REPOSITORY Order Comment: How was Urine Obtained? CLEAN CATCH TYPE CODE TESTS RESULT OUT OF RANGE REFERENCE UNITS LAB L400.3000 Yellow COLOR Normal Yellow LAB L400.3050 Clear Normal CLARITY Clear LAB L400.3200 Normal mg/dl High 50 GLUCOSE, UR LAB L400.3300 Negative mg/dL Normal BILIRUBIN URINE Negative LAB L400.3400 Negative mg/dl Normal KETONE UR Negative LAB L400.3465 1.002-1.030 Normal SP.GR. DIPSTX 1.010 LAB L400.3550 5.0 - 8.0 pH UR Normal 7.0 LAB L400.3600 Negative mg/dl High PROT DIPSTX 500 LAB L400.3700 Normal mg/dl Normal UROBILI Normal LAB L400.3750 Negative Normal NITRITE UR Negative LAB L400.3780 Negative /ul High 10 OCCULT BLOOD-UR LAB L400.3800 Negative /ul LEUK Normal ESTERASE Negative LAB L400.4050 0-5 /hpf WBC 0 Normal SEEN LAB L400.4100 0-5 /hpf Normal RBC-UA 0-5 SEEN LAB L400.4150 0-5 /hpf SQUAM 0 Normal EPI SEEN LAB L400.4300 None Seen /hpf 0 Normal BACTERIA SEEN LAB L400.4350 <or=2+ /hpf 0 Normal MUCUS, URINE SEEN Performed By: #### L400.0001 #### [facility] [address] [place], [place], [address] COMPREHENSIVE METABOLIC Collected: 01/04/2018 Status: F Source: [place] 8:24 AM [facility] REPOSITORY TYPE CODE TESTS RESULT OUT OF RANGE REFERENCE UNITS LAB L501.0100 74-106 mg/dL High GLU 123 Result Comment: Fasting Glucose result from 100 to 125 mg/dL suggests IMPAIRED HOMEOSTASIS per A.D.A. criteria. Please note revised GLUCOSE reference range effective 2017. LAB L501.1000 7-18 mg/dL High BUN 26 LAB L501.1100 0.70-1.30 mg/dL Normal CREAT,SERUM 1.29 Result Comment: The validity of the calculated GFR AND GFRAA in patients over 70 years has not been determined. Clinical correlation is essential. LAB L501.1110 >60 mL/min Low EST GFR 57 Result Comment: Non- GFR Calc LAB L501.1115 >60 mL/min Normal EST GFR - AA 69 Result Comment: GFR Calc LAB L501.1300 10-20 RATIO High BUN/CRE 20.2 LAB L501.1500 6.4-8.2 g/dL T Normal PROT 6.6 LAB L501.1800 3.2-5.0 g/dL Low ALB 2.7 LAB L501.1950 2.2-4.2 g/dL Normal GLOB 3.9 LAB L501.2000 0.9-2.4 RATIO Low A/G 0.7 LAB L501.2200 8.5-10.1 mg/dL CA Normal 8.6 LAB L501.4100 15-37 U/L Low AST 14 LAB L501.4305 45-117 U/L Normal ALK P 77 LAB L501.4405 16-61 U/L Normal ALT 21 LAB L501.4600 0.20-1.00 mg/dL T Normal BILI 0.40 LAB L501.5300 136-145 mmol/L NA Normal 137 LAB L501.5600 3.5-5.1 mmol/L K Normal 4.0 LAB L501.5900 98-107 mmol/L CL Normal 100 LAB L501.6100 21.0-32.0 mmol/L Normal CO2 31.0 LAB L501.6200 5-15 Normal GAP 6 Performed By: #### L500.4050, L500.4100, L501.5200 #### [facility] [address] [place], [address] LIPID PROFILE Collected: 01/04/2018 Status: F Source: [place] 8:24 AM [facility] REPOSITORY TYPE CODE TESTS RESULT OUT OF RANGE REFERENCE UNITS LAB L501.4900 200 mg/dL Normal CHOL 139 Result Comment: <200 mg/dL Desirable 200-240 mg/dL Borderline >240 mg/dL High Risk LAB L501.5000 mg/dL Normal TRIG 133 Result Comment: The drugs N-Acetylcysteine and Metamizole may falsely depress this assay. Serum Triglycerides Reference Interval Normal <150 mg/dL Borderline high 150 - 199 mg/dL High 200 - 499 mg/dL Very High > or = 500 mg/dL LAB L501.6400 mg/dL Low HDL 35 Result Comment: The drugs N-Acetylcysteine and Metamizole may falsely depress this assay. Reference Range HDL <40 mg/dL Low HDL Cholesterol HDL >or= 60 mg/dL High HDL Cholesterol LAB L501.6500 0-130 mg/dL Normal LDL 77 LAB L501.6600 5-40 mg/dL Normal VLDL 27 Performed By: #### L500.4050, L500.4100, L501.5200 #### [facility] [address] [place], [address] MAGNESIUM Collected: 01/04/2018 Status: F Source: [place] 8:24 AM [facility] REPOSITORY TYPE CODE TESTS RESULT OUT OF RANGE REFERENCE UNITS LAB L501.5200 1.6-2.6 mg/dL Normal MG 1.9 Performed By: #### L500.4050, L500.4100, L501.5200 #### [facility] [address] [place], [address] HEMOGLOBIN A1C Collected: 01/04/2018 Status: F Source: [place] 8:24 AM [facility] REPOSITORY TYPE CODE TESTS RESULT OUT OF RANGE REFERENCE UNITS LAB L501.9985 4.2-6.3 % Normal HGB A1C 6.2 Performed By: #### L501.9985 #### [facility] [address] 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 HPI: 77 year old male who presents with above diagnosis, for an opinion regarding the role of radiation therapy in the management of the patient's disease. Final recommendations will be communicated back to the requesting physician by way of the shared medical record, or letter to requesting physician via US mail. 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 He is on Coumadin for atrial fibrillation. He presented in November with skin lesions in the right ear and left nose. They are ulcerated and bleeding. The right ear lesion is located in the superior delbert of antihelix with wide spread hemorrhagic crust. Biopsy on 11/16/17 showed nodular basal cell carcinoma. 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 The left nasal ala lesion measured about 1 cm and it was crusted erosion. Biopsy showed fragmented nodular basal cell carcinoma. He underwent Mohs surgery of his left nasal ala skin cancer by Dr. Quintanilla on 12/22/17. It measured 0.9 x 0.8 cm. It was removed in two stages with final defect measuring 1.8 x 1.6 cm with full thickness defect followed by flap repair. ALLERGIES Allergen Reactions - Penicillins Rash PAST MEDICAL HISTORY Diagnosis Date - Essential hypertension, benign - Other and unspecified hyperlipidemia - Reflux esophagitis - Type II or unspecified type diabetes mellitus with other specified manifestations, not stated as uncontrolled Prior radiation therapy, collagen vascular disease, or inflammatory bowel disease: No PAST SURGICAL HISTORY Procedure Laterality Date - APPENDECTOMY - DESTRUC,CILIARY BODY,CYCLOPHOTOCOAG OS 09-28-13 Transcleral Cyclodestruction - INTRACARDIAC CATHETER ABLATION - MOHS HEAD/NECK STAGE 1 <=5 NOSE FAMILY HISTORY Problem Relation Age of Onset - Arthritis Father - Blindness Father - Hearing Loss Father - Arthritis Mother - Cancer Sister - Cancer Brother - Cancer Son BRAIN - Cancer Brother - Coronary Artery Disease Daughter - Heart Daughter Social History Marital status: Spouse name: Years of education: Number of children: Social History Main Topics Smoking status: Current Every Day Smoker Packs/day: 2.00 Years: 58.00 Types: Cigarettes Smokeless tobacco: Never Used Alcohol use: No Drug use: No COMPLETE REVIEW OF SYSTEMS: GENERAL: Negative for weight loss, fevers, chills, or night sweats. HEENT: Left eye blind. NECK: Negative for masses in the neck. RESPIRATORY: Negative for cough or shortness of breath. CARDIAC: Negative for chest pain, palpitations, murmurs, or syncopal episodes. GI: Negative for nausea, vomiting, diarrhea, constipation, blood per rectum, or melena. : Negative for dysuria, hematuria, urgency, frequency or incontinence. MUSCULOSKELETAL: Negative for limitations in movement, pain, or swelling. NEURO: Negative for dizziness, headache, weakness or numbness. HEMATOLOGIC: Anticoagulation with coumadin for h/o atrial fibrillation. SKIN: skin cancer as above. PHYSICAL EXAM: VS: BP 113/57 Pulse 94 Temp 36.3 ?C (97.3 ?F) (Temporal Artery) Resp 20 Wt 90.7 kg (200 lb) SpO2 97% KPS: 70 General Appearance: Alert and oriented. No acute distress. HEENT: Diffuse ecchymosis in the face from recent left nose surgery and anticoagulation. (Patient and his family state that it's improving.) Right ear with about 3 cm hemorrhagic crust in the superior delbert of antihelix. Neck: Normal ROM. Chest: No respiratory distress. Lungs clear to auscultation bilaterally. Heart: Regular rate and rhythm. Abdomen: Soft. Nontender. Nondistended. Musculoskeletal: No edema. Normal ROM in extremities. Neuro: No gross focal deficits. Lymphatics: No palpable lymphadenopathy in the preauricular, occipital, cervical or supraclavicular region. RADIOLOGY/LABORATORY DATA: see HPI ASSESSMENT AND PLAN: 77 year old man with stage II, T2N0, 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 He also had basal cell skin cancer of the left nose and it was resected with Mohs surgery last week. The right ear skin cancer is large and he discussed treatment options such as surgery, radiation treatment and chemotherapy cream with Dr. Quintanilla. He chose to have radiation treatment for his right ear skin cancer. I explained the rationale, benefits, alternative management options and potential complications of radiation treatment to the patient and he understands and agrees to proceed. It was explained and understood that other personnel such as radiation therapists, family manager, and physicists will participate in planning and delivery of radiation treatment. Patient will have a simulation procedure within a week. Thank you very much for allowing us to participate in his care. Signed by: Humberto Zhong MD cc: Linda Snider MD ([facility]) [address] [place] [address] Jina Quintanilla MD [address] [facility] [address] [facility] [address] CNOV Observed: 12/29/2017 Status: COMPLETED Source: [place] 9:30 AM [facility] REPOSITORY Office Visit (RADTWS) GUDELIA SOLOMON ([id number]) 1940 M Date Time Provider Department 12/29/17 9:30 AM HUMBERTO ZHONG During your visit today, we recorded the following information about you: Temperature Pulse Respiration Blood pressure 97.3 degrees 94/minute 20/minute 113/57 Weight 90.7 kg Mejia Oakley RN, RN 12/29/2017 9:38 AM Signed Radiation Therapy - Nursing Note (Consult) PATIENT NAME: Gudelia Solomon PATIENT December 29, 2017 [facility] FACILITY/LOCATION: [place] Chief Complaint: consult Reason for visit: Consult. Referring physician: External provider Dr. Quintanilla Subjective Data: no c/o Additional Data Do you want to see a Making Department Preparer? No Are you interested in information about fertility? No Sexual Activity: Male: N/A Stress Scale: On a scale of 0 to 10, what number best describes how much distress you have experienced in the past week?(0 being no distress and 10 being extreme distress) 0 Social work notified: no Radiation therapy teaching initiated. [facility] external beam radiation therapy handout given. Department phone numbers given AND patient encouraged to verbalize questions. 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 HPI: 77 year old male who presents with above diagnosis, for an opinion regarding the role of radiation therapy in the management of the patient's disease. Final recommendations will be communicated back to the requesting physician by way of the shared medical record, or letter to requesting physician via US mail. 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 He is on Coumadin for atrial fibrillation. He presented in November with skin lesions in the right ear and left nose. They are ulcerated and bleeding. The right ear lesion is located in the superior delbert of antihelix with wide spread hemorrhagic crust. Biopsy on 11/16/17 showed nodular basal cell carcinoma. 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 The left nasal ala lesion measured about 1 cm and it was crusted erosion. Biopsy showed fragmented nodular basal cell carcinoma. He underwent Mohs surgery of his left nasal ala skin cancer by Dr. Quintanilla on 12/22/17. It measured 0.9 x 0.8 cm. It was removed in two stages with final defect measuring 1.8 x 1.6 cm with full thickness defect followed by flap repair. ALLERGIES Allergen Reactions - Penicillins Rash PAST MEDICAL HISTORY Diagnosis Date - Essential hypertension, benign - Other and unspecified hyperlipidemia - Reflux esophagitis - Type II or unspecified type diabetes mellitus with other specified manifestations, not stated as uncontrolled Prior radiation therapy, collagen vascular disease, or inflammatory bowel disease: No PAST SURGICAL HISTORY Procedure Laterality Date - APPENDECTOMY - DESTRUC,CILIARY BODY,CYCLOPHOTOCOAG OS 09-28-13 Transcleral Cyclodestruction - INTRACARDIAC CATHETER ABLATION - MOHS HEAD/NECK STAGE 1 <=5 NOSE FAMILY HISTORY Problem Relation Age of Onset - Arthritis Father - Blindness Father - Hearing Loss Father - Arthritis Mother - Cancer Sister - Cancer Brother - Cancer Son BRAIN - Cancer Brother - Coronary Artery Disease Daughter - Heart Daughter Social History Marital status: Spouse name: Years of education: Number of children: Social History Main Topics Smoking status: Current Every Day Smoker Packs/day: 2.00 Years: 58.00 Types: Cigarettes Smokeless tobacco: Never Used Alcohol use: No Drug use: No COMPLETE REVIEW OF SYSTEMS: GENERAL: Negative for weight loss, fevers, chills, or night sweats. HEENT: Left eye blind. NECK: Negative for masses in the neck. RESPIRATORY: Negative for cough or shortness of breath. CARDIAC: Negative for chest pain, palpitations, murmurs, or syncopal episodes. GI: Negative for nausea, vomiting, diarrhea, constipation, blood per rectum, or melena. : Negative for dysuria, hematuria, urgency, frequency or incontinence. MUSCULOSKELETAL: Negative for limitations in movement, pain, or swelling. NEURO: Negative for dizziness, headache, weakness or numbness. HEMATOLOGIC: Anticoagulation with coumadin for h/o atrial fibrillation. SKIN: skin cancer as above. PHYSICAL EXAM: VS: BP 113/57 Pulse 94 Temp 36.3 ?C (97.3 ?F) (Temporal Artery) Resp 20 Wt 90.7 kg (200 lb) SpO2 97% KPS: 70 General Appearance: Alert and oriented. No acute distress. HEENT: Diffuse ecchymosis in the face from recent left nose surgery and anticoagulation. (Patient and his family state that it's improving.) Right ear with about 3 cm hemorrhagic crust in the superior delbert of antihelix. Neck: Normal ROM. Chest: No respiratory distress. Lungs clear to auscultation bilaterally. Heart: Regular rate and rhythm. Abdomen: Soft. Nontender. Nondistended. Musculoskeletal: No edema. Normal ROM in extremities. Neuro: No gross focal deficits. Lymphatics: No palpable lymphadenopathy in the preauricular, occipital, cervical or supraclavicular region. RADIOLOGY/LABORATORY DATA: see HPI ASSESSMENT AND PLAN: 77 year old man with stage II, T2N0, 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 He also had basal cell skin cancer of the left nose and it was resected with Mohs surgery last week. The right ear skin cancer is large and he discussed treatment options such as surgery, radiation treatment and chemotherapy cream with Dr. Quintanilla. He chose to have radiation treatment for his right ear skin cancer. I explained the rationale, benefits, alternative management options and potential complications of radiation treatment to the patient and he understands and agrees to proceed. It was explained and understood that other personnel such as radiation therapists, family manager, and physicists will participate in planning and delivery of radiation treatment. Patient will have a simulation procedure within a week. Thank you very much for allowing us to participate in his care. Signed by: Humberto Zhong MD cc: Linda Snider MD ([facility]) [address] [place] [address] Jina Quintanilla MD [address] [facility] [address] [facility] [address] Referring Provider: JINA QUINTANILLA [[id number]] Allergies As of Date: 12/29/2017 Noted Allergy Reaction PENICILLINS 08/30/2013 2 - Rash Date Reviewed: 12/29/2017 Reviewed by: Mejia (Rn) JACE Oakley - Fully Assessed Reason for Visit: Consult [502] Primary Visit Diagnosis:Basal cell carcinoma of skin of right ear and external auricular canal [C44.212] Prescriptions as of 12/29/2017 Sig: ATORVASTATIN 20 MG TABLET Take 20 mg by mouth once codi* ASPIRIN 81 MG CHEWABLE TABLET Take 81 mg by mouth once codi* CHOLECALCIFEROL (VITAMIN D3) * Take by mouth. DOXYCYCLINE HYCLATE 100 MG CA* TAKE 1 CAPSULE BY MOUTH TWICE* ESCITALOPRAM 10 MG TABLET Take 10 mg by mouth once codi* VENTOLIN INHALATION Inhale as instructed. PREDNISOLONE ACETATE 1 % EYE * 1 Drop four times daily. CARVEDILOL 25 MG TABLET Take 25 mg by mouth twice madeleine* WARFARIN 1 MG TABLET Take 1 mg by mouth daily as d* LISINOPRIL 20 MG TABLET Take 20 mg by mouth once codi* FUROSEMIDE 40 MG TABLET Take 40 mg by mouth once codi* OMEPRAZOLE 20 MG CAPSULE,RUDDY* Take 20 mg by mouth once codi* DILTIAZEM SR 240 MG 24 HR CAP Take 240 mg by mouth once madeleine* TRADJENTA 5 MG TABLET Take 1 tablet by mouth once d* CEFDINIR 300 MG CAPSULE One tablet twice a day with f* DIAMOX SEQUELS ORAL Take by mouth. COMBIVENT INHALATION Inhale as instructed. 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 Referring physician: External provider Dr. Quintanilla Subjective Data: no c/o Additional Data Do you want to see a Making Department Preparer? No Are you interested in information about fertility? No Sexual Activity: Male: N/A Stress Scale: On a scale of 0 to 10, what number best describes how much distress you have experienced in the past week?(0 being no distress and 10 being extreme distress) 0 Social work notified: no Radiation therapy teaching initiated. [facility] external beam radiation therapy handout given. Department phone numbers given AND patient encouraged to verbalize questions. SIGNED by: Mejia Oakley RN Letter Text Encounter Status:Closed by HUMBERTO ZHONG MD on 12/31/17 PROTHROMBIN TIME W/INR Collected: 12/14/2017 Status: F Source: [place] 6:38 AM [facility] REPOSITORY TYPE CODE TESTS RESULT OUT OF RANGE REFERENCE UNITS LAB L300.4150 11.7-14.9 SECONDS High PROTIME 23.4 LAB L300.4200 Normal INR 2.1 Performed By: #### L300.3900 #### [facility] [address] [place], [place], [address] PROTHROMBIN TIME W/INR Collected: 11/30/2017 Status: F Source: [place] 6:17 AM [facility] REPOSITORY TYPE CODE TESTS RESULT OUT OF RANGE REFERENCE UNITS LAB L300.4150 11.7-14.9 SECONDS High PROTIME 34.4 LAB L300.4200 Normal INR 3.4 Performed By: #### L300.3900 #### [facility] [address] [place], [address] EXT NON VASC Observed: 11/19/2017 Status: F Source: [place] LIMITED/SOFT TISS 6:45 PM [facility] HOSPITAL REPOSITORY [facility] Imaging Services [address] [place] [address] Ext Non Vasc Limited/Soft Tiss MR#: [id number] Acct: [id number] Name: GUDELIA SOLOMON Rep #: [id number] : 1940 M 77 From: Luis Felipe Mcneal MD PCP: Veronica Alba NP Status: REG CLI Study: Ext Non Vasc Limited/Soft Tiss Date of Exam: 11/19/17 Exam# [id number] Ordering Dr: Ramesh Rodney MD STUDY: SUPERFICIAL ULTRASOUND - RIGHT ELBOW REASON FOR EXAM: Male, 77 years old. Swelling TECHNIQUE: A superficial ultrasound was performed with real- time and static ramirez-scale imaging. COMPARISON: None. FINDINGS: There is subcutaneous interstitial edema. There is no evidence of cyst, abscess, or soft tissue mass. US/Ext Non Vasc Limited/Soft Tiss IMPRESSION: Subcutaneous interstitial edema in the region of interest of the right elbow. Electronically Signed: Luis Felipe Mcneal MD at 19:25 EDT , Service support , CC: Veronica Alba NP; Ramesh Rodney MD Event Promotions Coordinator: Signed ELBOW MIN 3 VIEWS Observed: 11/19/2017 Status: F Source: [place] 10:26 AM [facility] REPOSITORY [facility] Imaging Services [address] [place] [address] Elbow min 3 Views MR#: [id number] Acct: [id number] Name: GUDELIA SOLOMON Rep #: [id number] : 1940 M 77 From: Pola Bell MD PCP: Veronica Alba NP Status: REG CLI Study: Elbow min 3 Views Date of Exam: 11/19/17 Exam# [id number] Ordering Dr: Ramesh Rodney MD STUDY: X-RAY - RIGHT ELBOW REASON FOR EXAM: Male, 77 years old. No injury. Swelling and redness entire right elbow radiating into the right forearm and right humerus, 2 weeks. TECHNIQUE: 4 view(s) of the elbow. COMPARISON: None. FINDINGS: There are prominent peripheral vascular calcifications in the arm. There is prominent induration in the subcutaneous fat, with diffuse soft tissue swelling. There is severe soft tissue swelling overlying the olecranon which could reflect acute bursitis. The soft tissue swelling extends upwards posterior to the triceps, and distally into the forearm. There is no evidence of elbow joint effusion. Osseous structures of the elbow are intact, normally articulated and normally mineralized. RAD/Elbow min 3 Views IMPRESSION: Diffuse soft tissue swelling above at and below the elbow, in particular overlying the olecranon, potentially associated with include olecranon bursitis. There is no deep soft tissue gas or radiodense foreign body. Prominent peripheral vascular disease. No acute osseous process. Electronically Signed: Pola Bell, at 12:28 EDT Tel , Service support , CC: Veronica Alba NP; Ramesh Rodney MD Event Promotions Coordinator: Signed PROTHROMBIN TIME W/INR Collected: 09/13/2017 Status: F Source: [place] 7:49 AM [facility] REPOSITORY TYPE CODE TESTS RESULT OUT OF REFERENCE UNITS RANGE LAB L300.4150 11.7-14.9 SECONDS High PROTIME 35.1 LAB L300.4200 High alert INR 3.5 Result Comment: CRITICAL VALUE VERIFIED. CALLED TO MARY ANNE AT 'S OFFICE. 09/13/17 0903 Rayshawn Ross. RESULTS READ BACK BY SAME. Performed By: #### L300.3900 #### [facility] [address] [place], [address] PROTHROMBIN TIME W/INR Collected: 08/26/2017 Status: F Source: [place] 6:07 AM [facility] REPOSITORY TYPE CODE TESTS RESULT OUT OF RANGE REFERENCE UNITS LAB L300.4150 11.7-14.9 SECONDS High PROTIME 21.3 LAB L300.4200 Normal INR 1.8 Performed By: #### L300.3900 #### [facility] [address] [facility] [place], [address] HEMOGLOBIN A1C Collected: 08/05/2017 Status: F Source: [place] 11:02 [facility] REPOSITORY Order Comment: Order Date: 08/05/17 Order Info: 4548-4 - A1C TYPE CODE TESTS RESULT OUT OF RANGE REFERENCE UNITS LAB L501.9985 4.2-6.3 % High HGB A1C 6.5 Performed By: #### L501.9985, L100.0100, L500.4050, L500.4100, L501.5200, L501.9520, L400.0001, L502.0250, L506.1000 #### [facility] [address] [place], [address] CBC W/DIFF, AUTOMATED Collected: 08/05/2017 Status: F Source: [place] 11:02 [facility] REPOSITORY Order Comment: Order Date: 08/05/17 Order Info: 0184-1 - CBCD TYPE CODE TESTS RESULT OUT OF RANGE REFERENCE UNITS LAB L100.1000 4.4-11.0 K/mm3 Normal WBC 7.9 LAB L100.1200 4.6-6.2 M/mm3 Normal RBC 5.08 LAB L100.1300 13.0-16.5 g/dl Normal HGB 16.2 LAB L100.1400 40-54 % Normal HCT 48.4 LAB L100.1500 80-94 fL High MCV 95.3 LAB L100.1600 27.0-32.0 pg Normal MCH 31.9 LAB L100.1700 32-36 g/gl Normal MCHC 33.5 LAB L100.1810 11.6-14.6 % High RDW CV 15.0 LAB L100.1820 35.1-43.9 fl High RDW SD 52.7 LAB L100.1900 150-450 K/mm3 Normal PLT 271 LAB L100.2000 6.2-12.0 fl Normal MPV 10.1 LAB L100.2100 47-70 % Normal NEUT% 64.5 LAB L100.2200 19-41 % Low LY% 18.2 LAB L100.2300 0-10 % High MONO% 11.3 LAB L100.2400 0-5 % High EO% 5.1 LAB L100.2500 0-1 % Normal BASO% 0.6 LAB L100.2550 0.0-0.9 % Normal IM GRAN % 0.300 Result Comment: IG% - Immature Granulocytes (promyelocytes, myelocytes and metamyelocytes) > 1% indicates that a LEFT SHIFT is Present. LAB L100.2620 2.0-7.7 X10 3/uL Normal Absolute Neut 5.1 LAB L100.2720 0.83-4.51 X10 3/ul Normal Absolute Lymph 1.43 Performed By: #### L501.9985, L100.0100, L500.4050, L500.4100, L501.5200, L501.9520, L400.0001, L502.0250, L506.1000 #### [facility] [address] [place], [address] COMPREHENSIVE METABOLIC Collected: 08/05/2017 Status: F Source: [place] 11:02 AM [facility] REPOSITORY Order Comment: Order Date: 08/05/17 Order Info: [id number] - CMP Order Info: [id number] - LIPID Order Info: [id number] - MG Order Info: 3016-3 - TSH TYPE CODE TESTS RESULT OUT OF RANGE REFERENCE UNITS LAB L501.0100 74-106 mg/dL High GLU 109 Result Comment: Fasting Glucose result from 100 to 125 mg/dL suggests IMPAIRED HOMEOSTASIS per A.D.A. criteria. Please note revised GLUCOSE reference range effective 2017. LAB L501.1000 7-18 mg/dL High BUN 27 LAB L501.1100 0.70-1.30 mg/dL High CREAT,SERUM 1.76 Result Comment: The validity of the calculated GFR AND GFRAA in patients over 70 years has not been determined. Clinical correlation is essential. LAB L501.1110 >60 mL/min Low EST GFR 40 Result Comment: Non- GFR Calc LAB L501.1115 >60 mL/min Low EST GFR - AA 48 Result Comment: GFR Calc LAB L501.1300 10-20 RATIO Normal BUN/CRE 15.3 LAB L501.1500 6.4-8.2 g/dL T Normal PROT 6.7 LAB L501.1800 3.2-5.0 g/dL Low ALB 2.9 LAB L501.1950 2.2-4.2 g/dL Normal GLOB 3.8 LAB L501.2000 0.9-2.4 RATIO Low A/G 0.8 LAB L501.2200 8.5-10.1 mg/dL Low CA 8.3 LAB L501.4100 15-37 U/L Normal AST 19 Result Comment: Slight Hemolysis, Result may be falsely increased. LAB L501.4305 45-117 U/L Normal ALK P 79 LAB L501.4405 16-61 U/L Normal ALT 21 LAB L501.4600 0.20-1.00 mg/dL Normal T BILI 0.30 LAB L501.5300 136-145 mmol/L Normal NA 137 LAB L501.5600 3.5-5.1 mmol/L Normal K 5.0 Result Comment: Slight Hemolysis, Result may be falsely increased. LAB L501.5900 98-107 mmol/L Normal CL 102 LAB L501.6100 21.0-32.0 mmol/L Normal CO2 29.0 LAB L501.6200 5-15 Normal 6 GAP Performed By: #### L501.9985, L100.0100, L500.4050, L500.4100, L501.5200, L501.9520, L400.0001, L502.0250, L506.1000 #### [facility] [place], [address] LIPID PROFILE Collected: 08/05/2017 Status: F Source: [place] 11:02 AM [facility] REPOSITORY Order Comment: Order Date: 08/05/17 Order Info: [id number] - CMP Order Info: [id number] - LIPID Order Info: [id number] - MG Order Info: 3016-3 - TSH TYPE CODE TESTS RESULT OUT OF RANGE REFERENCE UNITS LAB L501.4900 200 mg/dL Normal CHOL 111 Result Comment: <200 mg/dL Desirable 200-240 mg/dL Borderline >240 mg/dL High Risk LAB L501.5000 mg/dL Normal TRIG 187 Result Comment: The drugs N-Acetylcysteine and Metamizole may falsely depress this assay. Serum Triglycerides Reference Interval Normal <150 mg/dL Borderline high 150 - 199 mg/dL High 200 - 499 mg/dL Very High > or = 500 mg/dL LAB L501.6400 mg/dL Low HDL 33 Result Comment: The drugs N-Acetylcysteine and Metamizole may falsely depress this assay. Reference Range HDL <40 mg/dL Low HDL Cholesterol HDL >or= 60 mg/dL High HDL Cholesterol LAB L501.6500 0-130 mg/dL Normal LDL 41 LAB L501.6600 5-40 mg/dL Normal VLDL 37 Performed By: #### L501.9985, L100.0100, L500.4050, L500.4100, L501.5200, L501.9520, L400.0001, L502.0250, L506.1000 #### [facility] [address] [place], [address] MAGNESIUM Collected: 08/05/2017 Status: F Source: [place] 11:02 [facility] REPOSITORY Order Comment: Order Date: 08/05/17 Order Info: [id number] - CMP Order Info: [id number] - LIPID Order Info: [id number] - MG Order Info: 3016-3 - TSH TYPE CODE TESTS RESULT OUT OF RANGE REFERENCE UNITS LAB L501.5200 1.6-2.6 mg/dL Normal MG 2.2 Result Comment: Slight Hemolysis, Result may be falsely increased. Performed By: #### L501.9985, L100.0100, L500.4050, L500.4100, L501.5200, L501.9520, L400.0001, L502.0250, L506.1000 #### [facility] [address] [place], [place], [address] THYROID STIM HORMONE Collected: 08/05/2017 Status: F Source: [place] (TSH) 11:02 AM [facility] REPOSITORY Order Comment: Order Date: 08/05/17 Order Info: [id number] - CMP Order Info: [id number] - LIPID Order Info: [id number] - MG Order Info: 3016-3 - TSH TYPE CODE TESTS RESULT OUT OF RANGE REFERENCE UNITS LAB L501.9520 0.358-3.74 uIU/mL Normal TSH 1.78 Performed By: #### L501.9985, L100.0100, L500.4050, L500.4100, L501.5200, L501.9520, L400.0001, L502.0250, L506.1000 #### [facility] [address] [place], [place], [address] URINALYSIS, COMPLETE Collected: 08/05/2017 Status: F Source: [place] 11:02 AM [facility] REPOSITORY Order Comment: Order Date: 08/05/17 Order Info: [id number] - [facility] How was Urine Obtained? DIE MOUNTER TO SPECIFY TYPE CODE TESTS RESULT OUT OF RANGE REFERENCE UNITS LAB L400.3000 Yellow COLOR Normal Yellow LAB L400.3050 Clear Normal CLARITY Clear LAB L400.3200 Normal mg/dl High GLUCOSE, UR 1000 LAB L400.3300 Negative mg/dL Normal BILIRUBIN URINE Negative LAB L400.3400 Negative mg/dl Normal KETONE UR Negative LAB L400.3465 1.002-1.030 Normal SP.GR. DIPSTX 1.010 LAB L400.3550 5.0 - 8.0 pH UR Normal 6.0 LAB L400.3600 Negative mg/dl High PROT DIPSTX 100 LAB L400.3700 Normal mg/dl Normal UROBILI Normal LAB L400.3750 Negative Normal NITRITE UR Negative LAB L400.3780 Negative /ul High 10 OCCULT BLOOD-UR LAB L400.3800 Negative /ul LEUK Normal ESTERASE Negative LAB L400.4050 0-5 /hpf WBC 0 Normal SEEN LAB L400.4100 0-5 /hpf 0 Normal RBC-UA SEEN LAB L400.4150 0-5 /hpf SQUAM 0 Normal EPI SEEN LAB L400.4300 None Seen /hpf 0 Normal BACTERIA SEEN LAB L400.4350 <or=2+ /hpf 0 Normal MUCUS, URINE SEEN Performed By: #### L501.9985, L100.0100, L500.4050, L500.4100, L501.5200, L501.9520, L400.0001, L502.0250, L506.1000 #### [facility] [address] [place], [place], [address] MICROALB:CREAT Collected: 08/05/2017 Status: F Source: [place] RATIO,RANDOM UR 11:02 [facility] REPOSITORY Order Comment: Order Date: 08/05/17 Order Info: 0779-1 - MIACRE TYPE CODE TESTS RESULT OUT OF RANGE REFERENCE UNITS LAB L502.0500 NO RANGE EST. mg/L Normal 484.0 MICROALBUMIN ,UR LAB L502.0600 <30 mg/g CRE mg/g CRE High 2151.1 MALB:CREAT Performed By: #### L501.9985, L100.0100, L500.4050, L500.4100, L501.5200, L501.9520, L400.0001, L502.0250, L506.1000 #### [facility] [address] [place], [address] VITAMIN D,25 HYDROXY Collected: 08/05/2017 Status: F Source: [place] 11:02 AM [facility] REPOSITORY Order Comment: Order Date: 08/05/17 Order Info: 19459-8 - VITD25 TYPE CODE TESTS RESULT OUT OF RANGE REFERENCE UNITS LAB L506.1000 29.95-100.01 ng/mL Normal Vitamin D 37.6 25-OH Result Comment: Vitamin D 25(OH) Status Range Deficiency <20 ng/mL (50nmol/L) Insuffciency 20 - 30 ng/mL (50 - 75 nmol/L) Sufficiency 30 - 100 ng/mL (75 - 250 nmol/L) Toxicity >100 ng/mL (>250 nmol/L) Performed By: #### L501.9985, L100.0100, L500.4050, L500.4100, L501.5200, L501.9520, L400.0001, L502.0250, L506.1000 #### [facility] [address] [place], [address] PROTEIN+CREATININE Collected: Status: F Source: [place] RATIO,URINE 08/05/2017 11:02 AM [facility] REPOSITORY Order Comment: Order Date: 08/05/17 Order Info: 0779-1 - [place] TYPE CODE TESTS RESULT OUT OF RANGE REFERENCE UNITS LAB L501.1200 NO RANGE EST. mg/dL Normal UR CREAT 22.50 LAB L501.1930 <11.9 mg/dL High 65.6 PROTEIN,UR.R AN. LAB L501.1940 0-200 mg/g CRE High PROT:CRE 2916 RATIO Performed By: #### L501.0900 #### [facility] [address] [place], [address] CARDIOLOGY VISIT Observed: 07/15/2017 Status: F Source: [place] 8:03 AM [facility] REPOSITORY [facility] [address] [place] [address] OFFICE VISIT Date of Service: 07/14/17 MR#: [id number] Acct: [id number] Name: GUDELIA SOLOMON Rep #: [id number] : 1940 Provider: JAZMINE Avina Age/Sex: 77/M Location: [facility] Status: Signed HPI HPI Details: GUDELIA SOLOMON, is a 77 M who presents to the office today for a cardiovascular outpatient follow-up. He has a history of nonischemic cardiomyopathy, paroxysmal atrial fibrillation with a cardioversion in 2003, hypertension, hyperlipidemia, and tobacco abuse with two packs per day. Pt. denies chest, arm, jaw, or neck discomfort. His exercise tolerance is stable though minimal. Pt. denies symptoms of CHF, palpitations, lightheadedness, dizziness, near syncope, or syncopal episodes. Pt. denies PND, fever, chills, blood in urine, blood in stool, myalgia, or unexplainable fatigue. Pt. states minimal edema. Pt. acknowledges orthopnea and sleeps in a recliner. He states leg pain with walking long distances, but this has not worsened. 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 Accompanied by: none Is patient in pain?: No Allergies Penicillins Allergy (Verified 07/14/17 08:35) Rash Medications Nitroglycerin [Nitrostat] 0.4 mg SUBLINGUAL Q5M PRN 10/16/13 [History Confirmed 07/14/17] Omeprazole [Prilosec] 20 mg PO DAILY 10/16/13 [History Confirmed 07/14/17] Escitalopram Oxalate [Lexapro] 10 mg PO DAILY 09/09/15 [History Confirmed 07/14/17] Brimonidine Tartrate 0.2% [Brimonidine 0.2% 5Ml Bottle] 1 drp LEFT EYE BID bottle 09/13/15 [Rx Confirmed 07/14/17] Timolol 0.5% [Timoptic] 1 drp LEFT EYE BID opth.btl 09/13/15 [Rx Confirmed 07/14/17] Albuterol Aerosols [Ventolin Aerosols] 2.5 mg INHALATION Q2H PRN PRN #0 vial.neb. 03/17/16 [Rx Confirmed 07/14/17] Aspirin [Aspirin, Baby] 81 mg PO DAILY@0800 tab.chew 03/17/16 [Rx Confirmed 07/14/17] Atorvastatin Calcium [Lipitor] 20 mg PO QHS tab 03/17/16 [Rx Confirmed 07/14/17] Carvedilol [Coreg (Beta Colten)] 25 mg PO BID tab 03/17/16 [Rx Confirmed 07/14/17] Diltiazem CD [Cardizem CD] 180 mg PO BID #1 cap 03/17/16 [Rx Confirmed 07/14/17] Ipratropium/Albuterol Sulfate [Duoneb] 3 ml INHALATION Q4H.RT ampul.neb 03/17/16 [Rx Confirmed 07/14/17] Warfarin [Coumadin] 5 mg PO DAILY@1700 tab 03/17/16 [Rx Confirmed 07/14/17] warfarin 1 mg tablet 1 mg PO QDAY 04/05/17 [History Confirmed 07/14/17] canagliflozin 100 mg tablet 100 mg PO QDAY tab 07/06/17 [History Confirmed 07/14/17] cholecalciferol (vitamin D3) 2,000 unit tablet 2,000 unit PO QDAY 07/06/17 [History Confirmed 07/14/17] linagliptin 5 mg tablet 5 mg PO QDAY 07/06/17 [History Confirmed 07/14/17] furosemide 40 mg tablet 40 mg PO BID tab 07/14/17 [History] lisinopril 5 mg tablet 5 mg PO QDAY 07/14/17 [History Confirmed 07/14/17] Ejection fraction %: 55 to 59 PFSH Medical History Nicotine dependence (Chronic) Atrial flutter (Chronic) Carotid bruit (Chronic) Encounter for long-term current use of high risk medication (Chronic) Acute left-sided congestive heart failure (Chronic) Hypersomnia (Chronic) Obstructive sleep apnea (Chronic) Cardiomyopathy in disease classified elsewhere (Chronic) Atherosclerotic heart disease of [place] coronary artery without angina pectoris (Chronic) 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) Atrial fib/flutter, transient (Chronic) Benign essential hypertension (Chronic) COLD (chronic obstructive lung disease) (Chronic) Diabetes mellitus, type 2 (Chronic) GERD (gastroesophageal reflux disease) (Chronic) Hyperlipidemia (Chronic) Obesity (Chronic) Acute respiratory failure with hypercapnia (Chronic) Shortness of breath (Acute) Acute respiratory failure with hypoxia and hypercapnia (Acute) Biatrial enlargement (Chronic) Altered mental status (Acute) Hyponatremia (Acute) Dehydration (Acute) Pulmonary hypertension (Suspected) Glaucoma (Chronic) Atrial fibrillation and flutter (Chronic) Hypokalemia (Acute) Edema (Acute) Wheezing (Acute) Surgical History Hx of appendectomy (Resolved) Family History Daughter stent Father No problems noted. Mother No problems noted. Social History Smoking Status: Heavy Smoker (>10/day) alcohol intake: never substance use type: does not use caffeine: No what type of physical activity do you participate in: none seatbelt use: always do you feel safe at home: Yes ROS Const Const: Negative for weakness, body ache, fever(s), chills or fatigue ENT ENT: Negative for dizziness Cardio Chest Pain: No Palpitations: No Edema: Bilateral Muscle aches with walking: None Resp Respiratory: Positive for SOB orthopnea\SOB lying down; negative for SOB with activity, SOB at rest or paroxysmal nocturnal dyspnea GI GI: Negative nausea, black,tarry stools, bright, red blood in stools or vomiting blood/hematemesis : Negative for hematuria or frequent nighttime urination/ nocturia Musc Musc: Negative for muscle aches/ myalgia Skin Skin: Negative non-healing lesions or rash Neuro Neuro: Negative for lightheadedness, near syncope, syncope, orthostatic symptoms, weakness or dizziness Endo Endo: Negative for fatigue Allergy Allergy/Immunology: Negative for rash Cardiology Exam Const Appearance: cooperative, healthy appearing, comfortable and no acute distress Orientation: alert, awake and oriented x3 Head Head: normal to inspection Ears: hearing grossly normal bilaterally Nose: external nose normal Face and Sinus: face symmetric Mouth: oral mucosae normal Eyes General: appearance normal, both eyes and all related structures Eyelids: eyelids normal Neck Neck: no JVD and normal visual inspection Carotids: normal carotid upstroke Chest Chest inspection: normal inspection of the chest and normal respiratory effort; negative cough Auscultation: Bilateral: Clear to Auscultation Cardio Rate: regular rate Rhythm: irregular rhythm Heart sounds: S1 normal and S2 normal; negative rub or gallop GI GI: normal to inspection Neuro General: alert, awake, oriented x3 and CN's II-XI intact bilaterally Skin Skin: no rashes or lesions noted Extremities Pulses: Normal: Right Posterior Tibial Pulse, Left Posterior Tibial Pulse, Right Radial Pulse, Left Radial Pulse Lower Extremity Edema: None: Bilateral Psych Psychological: normal affect Supplemental Info Echocardiogram from March 2016 showed an estimated ejection fraction of 40%, mild global LV systolic dysfunction, mild to moderate global hypokinesis of left ventricle, mild mitral valve insufficiency, mild to moderate tricuspid valve insufficiency, and mild aortic valve insufficiency. Heart catheterization from August 2009 showed an ejection fraction 45%, normal left and right hemodynamics, left main with 10% distal stenosis, LAD with 10-20% proximal and 30-40% proximal stenosis and 20/30 distal stenosis, first diagonal with 20- 30% stenosis, ramus intermedius with 20-30% proximal stenosis, LCx with 10-20 ostial stenosis, obtuse marginal with 30-40% stenosis in RCA with 30-40% proximal stenosis. Stress test in August 2009 showed resting EKG with atrial flutter with variable block, nonspecific ST and T-wave changes, Assessment AND Plan 1. Atrial fib/flutter, transient [id number] BRISEYDA Nicole Patient's EKG in office showed atrial fibrillation at a rate of 90 bpm. His echocardiogram from March 2016 showed an ejection fraction of 40%. Patient denies any secondary symptoms with this. His heart rate is well controlled with both beta- colten and calcium channel colten. He will continue his current medications including Coumadin therapy. His chads-vasc score remains elevated at 5. 2. Cardiomyopathy in disease classified elsewhere I43 BRISEYDA Nicole Patient's echocardiogram from March 2016 showed an ejection fraction of 40%. His heart catheterization from August 2009 showed ejection fraction 45% and nonobstructive coronary artery disease. He denies any shortness of breath or worsening lower extremity pedal edema. He will continue current medications which include beta colten, SOPHY inhibitor, and diuretic. We will continue to monitor this through history, exam, and repeat echocardiogram. 3. Atherosclerosis of [place] coronary artery of [place] heart without angina pectoris I25.10 BRISEYDA Nicole His heart catheterization from August 2009 showed nonobstructive coronary artery disease. Patient denies any chest pain, arm pain, jaw pain, neck pain, shortness of breath, or fatigue suggestive of angina at this time. We will continue to monitor this. We will not make any medication regimen changes and will continue risk factor modification. 4. Benign essential hypertension I10 BRISEYDA Nicole Patient's blood pressure is well-controlled today in the office. We will continue to monitor this. We will not make any medication regimen changes. 5. Pure hypercholesterolemia E78.00; E78.0 BRISEYDA Nicole This is managed by primary care physician. Patient will continue current statin medication and dosage. 6. 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 7. Cigarette nicotine dependence without complication F17.210 Plan - BRISEYDA Mccartney Patient continues to smoke. He received extensive education regarding the health benefits of smoking cessation. We will continue to support and encourage smoking cessation. Plan Detail Other Orders Orders: Other Medications Discontinued: Additional Comments - BRISEYDA Mccartney Discussed the above patient with Dr. Savage, he agrees with the plan of care. Thank you for allowing us to participate in the patients plan of care, if you have any questions please do not hesitate to call. This note was generated using a voice recognition system and there may be incorrect words, spelling or punctuation that were not noted when reviewing the office note prior to saving. 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 transplanted heart: [place] heart Benign essential hypertension I10 Pure hypercholesterolemia E78.00; E78.0 Hyperlipidemia type: pure hypercholesterolemia care home (current) use of anticoagulants Z79.01 Cigarette nicotine dependence without complication F17.210 Nicotine product type: cigarettes Substance use status: uncomplicated Coding Level of Care Code Off vis,est,level 3 Diagnoses Atrial fib/flutter, transient [id number] Cardiomyopathy in disease classified elsewhere I43 Atherosclerosis of [place] coronary artery of [place] heart without angina pectoris I25.10 [place] vs. transplanted heart: [place] heart Benign essential hypertension I10 Pure hypercholesterolemia E78.00; E78.0 Hyperlipidemia type: pure hypercholesterolemia care home (current) use of anticoagulants Z79.01 Cigarette nicotine dependence without complication F17.210 Nicotine product type: cigarettes Substance use status: uncomplicated 07/14/17 1247 <Electronically signed by Ramesh RAIN> Date Ramesh RAIN 07/15/17 0803<Electronically signed by Steven Savage MD> Cosigner Signature: Date (if applicable) Steven Savage MD CC: Veronica Alba NP 12 LEAD EKG PERFORMED Observed: 07/14/2017 Status: F Source: [place] [facility] 8:30 AM [facility] REPOSITORY [facility] [address] [place] [address] 12 Lead EKG performed by [facility] 07/14/17829 MR#: [id number] Acct: [id number] Name: GUDELIA SOLOMON Rep #: [id number] : 1940 77 From: Ramesh Avina TUNNEL ELASTIC OPERATOR LOCKSTITCH-C Attending Dr: Ramesh Avina NP Status: DEP AMB Ordering Dr: Ramesh Avina TUNNEL ELASTIC OPERATOR LOCKSTITCHLianC Date: 07/14/17 Location: [facility] Sex: M C Admitted: BMS/12 Lead EKG performed by [facility] ECG Report Interpretation Atrial fibrillation Low voltage -possible pulmonary disease. ABNORMAL Electronically signed on 07/21/2017 at 17:08 by Steven Savage 07/21/17 171 Date Ramesh RAIN CC: Veronica Alba NP Date Dictated: 07/14/17829 Date Transcribed: 07/14/17829 Event Promotions Coordinator: RUEL Signed PROTHROMBIN TIME W/INR Collected: 07/12/2017 Status: F Source: [place] 6:12 AM [facility] REPOSITORY TYPE CODE TESTS RESULT OUT OF RANGE REFERENCE UNITS LAB L300.4150 11.7-14.9 SECONDS High PROTIME 32.0 LAB L300.4200 Normal INR 3.1 Performed By: #### L300.3900 #### [facility] [address] [place], [address] PROTHROMBIN TIME W/INR Collected: 04/05/2017 Status: F Source: [place] 6:44 AM [facility] REPOSITORY TYPE CODE TESTS RESULT OUT OF RANGE REFERENCE UNITS LAB L300.4150 11.7-14.9 SECONDS High PROTIME 23.7 LAB L300.4200 Normal INR 2.2 Performed By: #### L300.3900 #### [facility] [address] [place], [address] ALLERGIES ALLERGIES DATE TYPE / CODE NAME / CODE REACTION SEVERITY SOURCE 03/15/2018 Drug Penicillins/[id number] Rash Unknown [facility] Allergy/416 0476(RXNORM) [facility] 258259([facility] ED CT) Repository 08/30/2013 Drug PENICILLINS RASH [facility] Class/[address] [place] 1003([facility] Repository CT) ENCOUNTERS ENCOUNTERS ADMIT/DISCHARGE ACCOUNT ADMITTING ENCOUNTER LOCATION SOURCE NUMBER CLASS 03/26/2018/03/26/19 [id number] [place] Inpatient [facility] 19 Encounter [facility] ing:PCURoom: Repository [id number]: 1 03/26/2018 [id number] [place] Ambulatory BMSBuilding:Bulmaro Peck [place].formerly [facility] Repository 03/26/2018 [id number] [place] Ambulatory BMSBuilding:Bulmaro Peck MS.formerly [facility] Repository 03/26/2018 [id number] [place] [facility] BMSBuilding:Bulmaro Peck MS.CF.[facility] Repository 03/26/2018 [id number] [place] [facility] BMSBuilding:Bulmaro Peck MS.formerly [facility] Repository 03/26/2018 [id number] [place] [facility]ulatory BMSBuilding:Bulmaro Peck MS.CF.[facility] Repository 03/26/2018 [id number] [place] [facility] BMSBuilding:Bulmaro Peck MS.formerly [facility] Repository 03/26/2018 [id number] [place] Ambulatory BMSBuilding:Bulmaro Peck MS.CF.[facility] Repository 03/26/2018 [id number] [place] Ambulatory BMSBuilding:Bulmaro Peck MS.formerly [facility] Repository 03/15/2018/03/15/19 [id number] Ambulatory BMSBuilding:Bulmaro Paul MS.[facility] Repository 03/14/2018 [id number] Ambulatory [facility] ing:LAB Repository 02/28/2018/02/29/20 [id number] Ambulatory [facility] Repository 02/28/2018/02/29/20 [id number] Ambulatory [facility] Repository 02/25/2018/02/26/20 [id number] Ambulatory [facility] Repository 02/24/2018/02/25/20 [id number] Ambulatory [facility] Repository 02/23/2018/02/24/20 [id number] Ambulatory [facility] Repository 02/22/2018/02/23/20 [id number] Ambulatory [facility] Repository 02/22/2018/02/23/20 [id number] Ambulatory [facility] Repository 02/21/2018/02/22/20 [id number] Ambulatory [facility] Repository 02/21/2018/02/22/20 [id number] Ambulatory [address] ing:LAB Repository 02/18/2018/02/19/20 [id number] Ambulatory [facility] Repository 02/17/2018/02/18/20 [id number] Ambulatory [facility] Repository 02/16/2018/02/17/20 [id number] Ambulatory [facility] Repository 02/15/2018/02/16/20 [id number] Ambulatory [facility] Repository 02/15/2018/02/16/20 [id number] Ambulatory [facility] Repository 02/14/2018/02/15/20 [id number] Ambulatory [facility] Repository 02/11/2018/02/12/20 [id number] Ambulatory [facility] Repository 02/10/2018/02/11/20 [id number] Ambulatory [facility] Repository 02/09/2018/02/10/20 [id number] Ambulatory [facility] Repository 02/08/2018/02/09/20 [id number] Ambulatory [facility] Repository 02/08/2018/02/09/20 [id number] Ambulatory [facility] Repository 02/07/2018/02/08/20 [id number] Ambulatory [facility] Repository 02/04/2018/02/05/20 [id number] Ambulatory [facility] Repository 02/03/2018/02/04/20 [id number] Ambulatory [facility] Repository 02/02/2018/02/03/20 [id number] Ambulatory [facility] Repository 02/01/2018/02/02/20 [id number] Ambulatory [facility] Repository 02/01/2018/02/02/20 [id number] Ambulatory [facility] Repository 01/31/2018/02/01/20 [id number] Ambulatory [facility] Repository 01/28/2018/01/29/20 [id number] Ambulatory [facility] Repository 01/26/2018/01/27/20 [id number] Ambulatory [facility] Repository 01/25/2018/01/26/20 [id number] Ambulatory [facility] Repository 01/25/2018/01/26/20 [id number] Ambulatory [facility] Repository 01/24/2018/01/25/20 [id number] Ambulatory [facility] Repository 01/21/2018/01/22/20 [id number] Ambulatory [facility] Repository 01/20/2018/01/21/20 [id number] Ambulatory [facility] Repository 01/19/2018/01/20/20 [id number] Ambulatory [facility] Repository 01/18/2018/01/19/20 [id number] Ambulatory [facility] Repository 01/18/2018/01/19/20 [id number] Ambulatory [facility] Repository 01/17/2018/01/18/20 [id number] Ambulatory [facility] Repository 01/14/2018/01/15/20 [id number] Ambulatory [facility] Repository 01/13/2018/01/14/20 [id number] Ambulatory [facility] Repository 01/12/2018/01/13/20 [id number] Ambulatory [facility] Repository 01/12/2018/01/13/20 [id number] Ambulatory [facility] Repository 01/04/2018 [id number] [facility] Repository 12/29/2017/01/04/20 [id number] Ambulatory [address] Repository 12/14/2017/12/15/19 [id number] Ambulatory [address] [facility] ing:LAB Repository 11/30/2017/12/01/19 [id number] Ambulatory [address] [facility] ing:LAB Repository 11/19/2017 [id number] Ambulatory [facility] ing:US Repository 09/13/2017/09/14/19 [id number] Ambulatory [address] [facility] ing:LAB Repository 08/26/2017/08/27/19 [id number] Ambulatory [address] [facility] ing:LAB Repository 08/05/2017 [id number] Ambulatory [facility] ing:MFPLAB Repository 07/14/2017/07/15/19 [id number] Ambulatory BMSBuilding:B [facility] Repository 07/12/2017/07/13/19 [id number] Ambulatory [address] [facility] ing:LAB Repository 07/06/2017 [id number] Ambulatory [facility] Repository 06/30/2017 [id number] Ambulatory BMSBuilding:B [place] MS.[facility] Repository 04/09/2017 [id number] Ambulatory [facility] ing:LAB Repository 04/05/2017/04/05/19 [id number] Ambulatory [address] [facility] Hospital ing:LAB Repository PAYERS PAYERS ENCOUNTER GUARANTOR PAYER SUBSCRIBER SOURCE 03/26/2018 GUDELIA [id number] Primary UGDELIA MARTINOB: [facility] [place] Insurance:AETNA [id number] [facility] [address]Yzz: 330 [id number] Repository [phone] () Date:9662-59-55MU [address] [address]GA: 03/26/2018 Secondary NOT GIVENUNK [facility] Insurance:SELF PAY [facility] Effective Repository Date:2018-03-26 03/26/2018 GUDELIA Pavon [id number] Primary GUDELIA J TATEDOB: [facility] [place] Insurance:AETNA [id number] [address] MCRPolicy Number: Hospital [id number]: (330) [id number] Repository [phone] (HP) Date:5849-08-99DV [address] [address]YK: 03/26/2018 Secondary NOT GIVENUNK [place] Insurance:SELF PAY Community [facility] Number: Effective Repository Date:2018-03-26 03/26/2018 GUDELIA Librado [id number] Primary GUDELIA J TATEDOB: [facility] [place] Insurance:AETNA [id number] [address] Number: Hospital [id number]: (330) [id number] Repository [phone] (HP) Date:5537-50-14LC [address] [address]BL: 03/26/2018 Secondary NOT GIVENUNK [facility] Insurance:SELF PAY [facility] Number[facility] Effective Repository Date:2018-03-26 03/26/2018 GUDELIA Librado [id number] Primary GUDELIA J TATEDOB: [facility] [place] Insurance:AETNA [id number] [address] Number: Hospital [id number]: (862) [id number] Repository [phone] (HP) Date:1257-97-62NG [address] [place] [address]FX: 03/26/2018 Secondary NOT GIVENUNK [place] Insurance:SELF PAY Community [facility] Number: Effective Repository Date:2018-03-26 03/26/2018 GUDELIA J [id number] Primary GUDELIA J TATEDOB: [place] Insurance:AETNA [id number] [address] MCRPolicy Number: Hospital [id number]: (330) [id number] Repository [phone] (HP) Date:0110-81-08CV [address] [address]KD: 03/26/2018 Secondary NOT GIVENUNK [place] Insurance:SELF PAY Community [facility] Number: Effective Repository Date:2018-03-26 03/26/2018 GUDELIA Librado [id number] Primary GUDELIA J TATEDOB: [facility] [place] Insurance:AETNA [id number] [address] Number: Hospital [id number]: (330) [id number] Repository [phone] (HP) Date:4615-22-26IF [address] [facility] [address]VM: 03/26/2018 Secondary NOT GIVENUNK [place] Insurance:SELF PAY Community [facility] Number: Effective Repository Date:2018-03-26 03/26/2018 GUDELIA Librado [id number] Primary GUDELIA J TATEDOB: [facility] [place] Insurance:AETNA [id number] [address] [facility] Number: Hospital [id number]: (330) [id number] Repository [phone] (HP) Date:3533-89-90BJ [address] [address]ZF: 03/26/2018 Secondary NOT GIVENUNK [place] Insurance:SELF PAY Community [facility] Number: Effective Repository Date:2018-03-26 03/26/2018 GUDELIA Pavon [id number] Primary GUDELIA J TATEDOB: [place] Insurance:AETNA [id number] [address] Number: Hospital [id number]: (330) [id number] Repository [phone] (HP) Date:6111-00-61AE [address] [address]UZ: 03/26/2018 Secondary NOT GIVENUNK [place] Insurance:SELF PAY Community [facility] Number: Effective Repository Date:2018-03-26 03/26/2018 GUDELIA Pavon [id number] Primary GUDELIA J TATEDOB: [facility] [place] Insurance:AETNA [id number] [address] Number: Hospital [id number]: (330) [id number] Repository [phone] (HP) Date:7406-77-06DZ [address] [address]LE: 03/26/2018 Secondary NOT GIVENUNK [place] Insurance:SELF PAY Community [facility] Number: Effective Repository Date:2018-03-26 03/15/2018 GUDELIA Pavon [id number] Primary GUDELIA J TATEDOB: [place] Insurance:AETNA [id number] [address] Number: Hospital [id number]: (330) [id number] Repository [phone] (HP) Date:0362-80-63VW [address] [address]HG: 03/15/2018 Secondary NOT GIVENUNK [place] Insurance:SELF PAY Community [facility] Number: Effective Repository Date:2017-12-14 03/14/2018 GUDELIA Pavon [id number] Primary GUDELIA J TATEDOB: [place] Insurance:AETNA [id number] [address] Number: Hospital [id number]: (610) [id number] Repository [phone] (HP) Date:7605-20-99BV [address] [address]XX: 03/14/2018 Secondary NOT GIVENUNK [place] Insurance:SELF PAY Community [facility] Number: Effective Repository Date:2018-03-07 02/21/2018 GUDELIA Pavon [id number] Primary GUDELIA J TATEDOB: [place] Insurance:HUMANA [id number] [place] [facility] [address]Jov: (330) Number: Repository [phone] () [id number] Date:8809-02-98QA [address] [address]JY: 02/21/2018 Secondary NOT GIVENUNK [place] Insurance:SELF PAY [facility] Number: Effective Repository Date:2018-01-06 01/04/2018 GUDELIA Pavon [id number] Primary GUDELIA J TATEDOB: [place] Insurance:HUMANA [id number] [place] [facility] [address]Qey: (330) Number: Repository [phone] () [id number] Date:4134-59-90JF [address] [address]XU: 01/04/2018 Secondary NOT GIVENUNK [facility] Insurance:SELF PAY [facility] Number: Effective Repository Date:2018-01-04 12/14/2017 GUDELIA Pavon [id number] Primary GUDELIA J TATEDOB: [facility] [place] Insurance:HUMANA [id number] Community [place] [facility] [address]Ktb: (330) Number: Repository [phone] () [id number] Date:6548-48-89CT [address] [address]JK: 12/14/2017 Secondary NOT GIVENUNK [place] Insurance:SELF PAY [facility] Number: Effective Repository Date:2017-12-08 11/30/2017 GUDELIA Pavon [id number] Primary GUDELIA J TATEDOB: [place] Insurance:HUMANA [id number] Community [place] [facility] [address]Red: (330) Number: Repository [phone] () [id number] Date:9147-33-57WC [address] [address]XZ: 11/30/2017 Secondary NOT GIVENUNK [place] Insurance:SELF PAY [facility] Number: Effective Repository Date:2017-10-07 11/19/2017 Gudelia Pavon [id number] Primary Gudelia J TateDOB: [place] Insurance:HUMANA [id number] Community [place] [facility] [address]Qsh: (330) Number: Repository [phone] () [id number] Date:0449-99-70AX [place] [address]WP: 11/19/2017 Secondary NOT GIVENUNK [facility] Insurance:SELF PAY [facility] Number: Effective Repository Date:2017-11-19 09/13/2017 Gudelia Pavon [id number] Primary Gudelia J TateDOB: [place] Insurance:HUMANA [id number] Community [place] [facility] [address]Tel: (330) Number: Repository [phone] () [id number] Date:8536-57-19[place] [address]WP: 09/13/2017 Secondary NOT GIVENUNK [place] Insurance:SELF PAY [facility] Number: Effective Repository Date:2017-09-03 08/26/2017 Gudelia [id number] Primary Gudelia Pavon TateDOB: [facility] [place] Insurance:HUMANA [id number] Community [place] [facility] [address]Boj: (330) Number: Repository [phone] () [id number] Date:5877-52-97WK [address] [address]VU: 08/26/2017 Secondary NOT GIVENUNK [facility] Insurance:SELF PAY [facility] Number: Effective Repository Date:2017-08-05 08/05/2017 Gudelia Pavon [id number] Primary Gudelia J TateDOB: [facility] [place] Insurance:HUMANA [id number] [place] [facility] [address]Tel: Number: Repository [phone] [id number] (HP) Date:1225-21-90EY [address] [address]WN: 08/05/2017 Secondary NOT GIVENUNK [facility] Insurance:SELF PAY [facility] Number: Effective Repository Date:2017-08-05 07/14/2017 Gudelia Pavon [id number] Primary Gudelia J TateDOB: [place] Insurance:HUMANA [id number] [place] [facility] [address]Rht: Number: Repository [phone] [id number] (HP) Date:0021-64-95AN [address] [address]XT: 07/14/2017 Secondary NOT GIVENUNK [place] Insurance:SELF PAY [facility] Number: Effective Repository Date:2017-07-14 07/12/2017 Gudelia Pavon [id number] Primary Gudelia J TateDOB: [place] Insurance:HUMANA [id number] Community [place] [facility] [address]Uaj: Number: Repository [phone] [id number] (HP) Date:5559-87-14KP [address] [address]GG: 07/12/2017 Secondary NOT GIVENUNK [facility] Insurance:SELF PAY [facility] Number: Effective Repository Date:2017-07-12 07/06/2017 Gudelia Pavon [id number] Primary Gudelia J TateDOB: [place] Insurance:HUMANA [id number] [place] [facility] [address]: Number: Repository [phone] [id number] (HP) Date:5213-59-35FL [address] [address]YL: 07/06/2017 Secondary NOT GIVENUNK [facility] Insurance:SELF PAY [facility] Number: Effective Repository Date:2017-07-06 06/30/2017 Gudelia Pavon [id number] Primary Gudelia Librado TateDOB: [place] Insurance:HUMANA [id number] Community [place] [facility] [address]Fhb: Number: Repository [phone] [id number] (HP) Date:5136-66-22BQ [address] [address]XB: 06/30/2017 Secondary NOT GIVENUNK [place] Insurance:SELF PAY [facility] Number: Effective Repository Date:2017-06-30 04/09/2017 Gudelia Pavon [id number] Primary Gudelia Pavon TateDOB: [facility] [place] Insurance:HUMANA [id number] Community [place] [facility] [address]Rig: Number: Repository [phone] [id number] (HP) Date:5452-14-08IL [address] [address]JX: 04/09/2017 Secondary NOT GIVENUNK [place] Insurance:SELF PAY [facility] Number: Effective Repository Date:2017-04-09 04/05/2017 Gudelia Pavon [id number] Primary Gudelia Pavon TateDOB: [place] RdLot Insurance:HUMANA [id number] Community [place] [facility] [address]Wez: Number: Repository [phone] [id number] (HP) Date:7265-87-35IN [address] [address]IU: 04/05/2017 Secondary NOT GIVENUNK [facility] Insurance:SELF PAY [facility] Number: Effective Repository Date:2017-03-08
== END 2018-02-21 09:00 | disposition home or self-care (01) ==
LOC: LAB 08:17
PROVIDERS: Family Provider Family Medicine; PCP Family Medicine; Referring Provider Internal Medicine Cardiovascular Disease; Visit Provider Internal Medicine Cardiovascular Disease
DX: I48.91 Unspecified atrial fibrillation (principal); I48.92 Unspecified atrial flutter; Z79.01 Long term (current) use of anticoagulants
CPT/HCPCS: 36415; 85610

== ENCOUNTER 2018-03-14 08:56 | Outpatient (RCR) | payer MEDICARE, SELFPAY ==
[2018-03-14 10:01] LABS: International Normalized Ratio 2.5; Prothrombin Time (Protime)PT. 27.5 SECONDS (11.7-14.9)
== END 2018-03-14 10:00 | disposition home or self-care (01) ==
LOC: LAB 08:56
PROVIDERS: Family Provider Family Medicine; PCP Family Medicine; Referring Provider Internal Medicine Cardiovascular Disease; Visit Provider Internal Medicine Cardiovascular Disease
DX: I48.91 Unspecified atrial fibrillation (principal); I48.92 Unspecified atrial flutter; Z79.01 Long term (current) use of anticoagulants
CPT/HCPCS: 36415; 85610

== ENCOUNTER 2018-03-26 11:23 | Inpatient (IN) | payer MEDICARE, SELFPAY ==
[2018-03-15 08:36] VITALS: BMI 32.1
[2018-03-26] VITALS (31 sets, daily range): BP systolic 79–113; BP diastolic 46–72; PULSE 91–106; RESP 12–34; TEMP 35.8–36.7; O2SAT 74–98; BMI 30.4; BMI 30.9
--- NOTE | 2018-03-26 11:31 | RAD_ITS ---
STUDY: X-RAY CHEST REASON FOR EXAM: Male, 77 years old. Shortness of breath TECHNIQUE: Single AP portable view of the chest. COMPARISON: March 13, 2016 chest x-ray FINDINGS: The NG tube lies to been removed since prior study. There is a hazy appearance of the lingula and left lower lobe. There is a blunted appearance of the right cardiophrenic angle. There is no demonstrated pleural abnormality. There is borderline cardiomegaly. Normal mediastinum and antonino. Normal visualized pulmonary arteries. There is atherosclerotic calcification of the aortic arch with tortuosity. There are diffuse degenerative changes of the visualized thoracic spine. Normal visualized ribs, clavicles, and shoulders. There is no demonstrated abnormality of the visualized soft tissue structures of the upper abdomen. RAD/Chest 1 View (Portable) IMPRESSION: Hazy appearance of the left lower lobe lingula right middle lobe suspicious for infiltrates possibly pneumonia. A PA and lateral film of the chest is suggested for further evaluation if possible a follow-up noncontrast chest CT. Electronically Signed: Laura Horn MD at 12:38 EST Tel , Service support ,
[2018-03-26] MEDS: Ipratropium/Albuterol Sulfate 3 ML AMPUL.NEB INHALATION ×3 (11:43→18:56)
[2018-03-26] MEDS: MethylPREDNISolone 125 MG/2 ML Vial IV (11:54)
--- NOTE | 2018-03-26 12:03 | EKG12_ITS ---
Test Reason : SOB Blood Pressure : / mmHG Vent. Rate : 099 BPM Atrial Rate : 101 BPM P-R Int : 000 ms QRS Dur : 080 ms QT Int : 378 ms P-R-T Axes : 000 064 081 degrees QTc Int : 485 ms Atrial fibrillation Prolonged QT Abnormal ECG Confirmed by CLYDE NESBITT, KENAN ([id number]), photo editor WILLIAM ODOM ([id number]) on 03/28/2018 8:59:22 AM Referred By: Silvia Alcantara Confirmed By:KNEAN TANG MD
--- NOTE | 2018-03-26 12:09 | ED.DCSUM_ITS ---
- ER Visit Summary Date of Service: 03/26/18 Chief Complaint: Shortness of breath History of Present Illness: The patient is a 77 M with a one-week history of progressive shortness of breath. He denies cough or chest pain. He denies fever. He does not wear home oxygen. He does use breathing treatments at home. He has a history of CHF and COPD. His O2 sat in triage was 74% on room air. Physical Examination: Vital signs reveal blood pressure of 87/46, temperature 97.7, heart rate 97, respiratory rate 28, pulse ox 74% on room air. At the time of my examination his O2 sat is 86% on 6 L nasal cannula. Patient is sitting upright in bed. He answers questions appropriately. Head neck examination unremarkable. Heart is regular rate and rhythm. Lungs sounds are slightly diminished throughout with mild expiratory wheezes at the right base. Abdomen is soft and nontender. Lower extremity edema reveals no focal tenderness with 2+ bilateral symmetric edema. Test Results: CBC reveals a white count 23.8 with 93% neutrophils. Hemoglobin is 10.5. Chemistry studies reveal a BUN of 56 and a creatinine of 2.86 which is new for the patient. INR is 4.0. Troponin is less than 0.015. Lactate is 4.2. BNP is currently pending. EKG is A. fib at [address] change. Portable chest x-ray shows hazy left lower lobe and right middle lobe lesion suspicious for infiltrates. Emergency Department Course and Treatment: Patient received aerosols. He is currently 89-92% on a 50% Ventimask. Coarse breath sounds are noted bilaterally. At this point patient has received small fluid boluses for his hypotension in light of the fact that he has underlying CHF. Blood pressure systolic is ranging from 80s to mid 90s. Map is above 65. At this time patient is ordered Rocephin and Zithromax. Fluid bolus at 30 cc/kg has been ordered. Patient is willing to use BiPAP mask if required, but does not want intubation or CPR. This was verified with the patient as well as family. Treatment Plan: [] Disposition: Admit Impression: 1. Pneumonia 2. Severe sepsis This note was generated with Stemnionation software. It may contain incorrect words, spelling, and punctuation that were not noted in review of the chart prior to signing ED Disposition - Plan for ED Patient: Chief Complaint: Shortness of Breath Referrals: Ramesh Rodney MD [Primary Care Provider] -
[2018-03-26] MEDS: Albuterol 2.5 MG/3 ML VIAL.NEB. INHALATION ×2 (12:16)
[2018-03-26 12:24] LABS: Anion Gap 10 (5-15); BUN 56 mg/dL (7-18); BUN/Creat Ratio 19.6 RATIO (10-20); Calcium,Total 7.9 mg/dL (8.5-10.1); Chloride 99 mmol/L (98-107); Creatinine, Serum 2.86 mg/dL (0.70-1.30); EST Glomerular Filtration Rate 23 mL/min (>60); Est Glom Filt Rate - Afr Amer 28 mL/min (>60); Estimated Creatinine Clearance 20.59 ml/min; Glucose 133 mg/dL (74-106); Potassium 4.1 mmol/L (3.5-5.1); Sodium Level 133 mmol/L (136-145)
[2018-03-26 12:27] LABS: Absolute Lymphocyte Count 0.69 X10^3/ul (0.83-4.51); Absolute Neutrophil Count 22.2 X10^3/uL (2.0-7.7); Basophil# 0.02 X10^3/uL; Basophil% 0.1 % (0-1); Hematocrit 34.2 % (40-54); Hemoglobin 10.5 g/dl (13.0-16.5); Lymphocyte # 0.69 X10^3/ul (4.0); Lymphocyte % 2.9 % (19-41); Mean Corp Hgb Conc 30.7 g/gl (32-36); Mean Corpuscular Hgb 26.1 pg (27.0-32.0); Mean Corpuscular Volume 84.9 fL (80-94); Mean Platelet Vol. 10.1 fl (6.2-12.0); Monocyte# 0.72 X10^3/uL; Neutrophil # 22.15 X10^3/uL (2.7-7.7); Neutrophil % 93.1 % (47-70); Platelet Count 346 K/mm3 (150-450); RBC Distribution Width CV 17.3 % (11.6-14.6); RBC Distribution Width SD 53.1 fl (35.1-43.9); Red Blood Count 4.03 M/mm3 (4.6-6.2); White Blood Count 23.8 K/mm3 (4.4-11.0)
[2018-03-26 12:30] LABS: POSITIVE DIFFERENTIAL YES
[2018-03-26 12:31] LABS: Differential Indicated SCAN CRITERIA MET; POSITIVE COUNT NO; POSITIVE MORPHOLOGY YES
--- NOTE | 2018-03-26 12:35 | ED.RN ---
LAB CALLS WITH CRITICAL RESULT, INR 4.0, WBC 23.8, DR. RODRIGUEZ MADE AWARE.
[2018-03-26 12:38] LABS: Lactic Acid 4.2 mmol/L (0.4-2.0)
[2018-03-26 12:38] LABS: Differential Comment SCANNED
--- NOTE | 2018-03-26 12:39 | ED.RN ---
LAB CALLED WITH CRITICAL RESULT, LACTIC ACID 4.2, DR. RODRIGUEZ MADE AWARE.
[2018-03-26] MEDS: Ceftriaxone 1 GM/50 ML BAG IV (12:58)
[2018-03-26 13:06] LABS: BNP,B-Type NATRIURETIC PEPTIDE 192.4 pg/mL (0-100)
--- NOTE | 2018-03-26 13:08 | HP.PCM_ITS ---
Problem List (1) Septic shock Status: Acute (2) CAP (community acquired pneumonia) Status: Acute Qualifiers: Laterality: left Lung location: lower lobe of lung Qualified Code(s): J18.1 - Lobar pneumonia, unspecified organism (3) Nicotine dependence Status: Chronic Qualifiers: Nicotine product type: cigarettes Substance use status: uncomplicated Qualified Code(s): F17.210 - Nicotine dependence, cigarettes, uncomplicated (4) Obstructive sleep apnea Status: Chronic (5) Benign essential hypertension Status: Chronic (6) COLD (chronic obstructive lung disease) Status: Chronic Qualifiers: COPD type: unspecified COPD Qualified Code(s): J44.9 - Chronic obstructive pulmonary disease, unspecified (7) Diabetes mellitus, type 2 Status: Chronic Qualifiers: Diabetes mellitus assisted insulin use: without assisted use Diabetes mellitus complication status: with unspecified complications Qualified Code(s): E11.8 - Type 2 diabetes mellitus with unspecified complications (8) Hyperlipidemia Status: Chronic Qualifiers: Hyperlipidemia type: unspecified Qualified Code(s): E78.5 - Hyperlipidemia, unspecified (9) Obesity Status: Chronic Qualifiers: Obesity classification: adult class 1 (BMI 30 - 34.9) Serious obesity comorbidity presence: with serious comorbidity Body mass index: BMI 30.0-30.9 (10) Acute respiratory failure with hypoxia and hypercapnia Status: Acute (11) Atrial fibrillation and flutter Status: Chronic History of Present Illness Date of Admission: 03/26/18 Chief Complaint: Shortness of breath, cough - 1 week The patient is a 77 year old M with PMHx of chronic atrial fibrillation, type 2 DM, hypertension, hyperlipidemia comes in with complaints of progressive shortness of breath ongoing for 1 week. Patient denied fever, chills, sick contacts, cough or chest pain. One of his son's brought over a pulse oximeter and was found to be saturating in the 60s. In the ED, his temperature was 90 7.7F, heart rate is 97, blood pressure 87/46, he was saturating 74% on room air. Was started on 6 L nasal cannula oxygen, saturating 86%. Was progressed to the Venturi mask. Still saturating in high 80s. Patient was subsequently started on BiPAP. He received IV fluid boluses in the ED. At time of exam blood pressure was 111/56. His WBC count was 23.8, Hb was 10.5, platelet count was 346, INR was 4.0, sodium was 133, BUN of 56, creatinine was 2.86, previous creatinine was 1.29. Lactic acid was 4.2, initial troponin was negative. Admitting chest x-ray showed left lower lobe infiltrate as well as lingular and middle lobe infiltrate. 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) Atrial fib/flutter, transient (Chronic) Benign essential hypertension (Chronic) COLD (chronic obstructive lung disease) (Chronic) Diabetes mellitus, type 2 (Chronic) GERD (gastroesophageal reflux disease) (Chronic) Hyperlipidemia (Chronic) Obesity (Chronic) Acute respiratory failure with hypercapnia (Chronic) Biatrial enlargement (Chronic) Glaucoma (Chronic) Atrial fibrillation and flutter (Chronic) Medical History: Medical History (Last Reviewed 03/15/18 @ 08:50 by Steven Savage MD) Nicotine dependence (Chronic) F17.200 Atrial flutter (Chronic) I48.92 Carotid bruit (Chronic) R09.89 Encounter for long-term current use of high risk medication (Chronic) Z79.899 Acute left-sided congestive heart failure (Chronic) I50.1 Hypersomnia (Chronic) G47.10 Obstructive sleep apnea (Chronic) G47.33 Cardiomyopathy in disease classified elsewhere (Chronic) I43 Atherosclerotic heart disease of [place] coronary artery without angina pectoris (Chronic) I25.10 FDC (current) use of anticoagulants (Chronic) Z79.01 Atrial fib/flutter, transient (Chronic) [id number] Benign essential hypertension (Chronic) I10 COLD (chronic obstructive lung disease) (Chronic) J44.9 Diabetes mellitus, type 2 (Chronic) E11.9 GERD (gastroesophageal reflux disease) (Chronic) K21.9 Hyperlipidemia (Chronic) E78.5 Obesity (Chronic) E66.9 Acute respiratory failure with hypercapnia (Chronic) J96.02 Shortness of breath (Acute) R06.02 Acute respiratory failure with hypoxia and hypercapnia (Acute) J96.01, J96.02 Biatrial enlargement (Chronic) I51.7 Altered mental status (Acute) R41.82 due to hypoxemia and hypercarbia Hyponatremia (Acute) E87.1 Dehydration (Acute) E86.0 Pulmonary hypertension (Suspected) I27.2 Glaucoma (Chronic) H40.9 Atrial fibrillation and flutter (Chronic) I48.91, I48.92 Hypokalemia (Acute) E87.6 Edema R60.9 Wheezing R06.2 Allergies Penicillins Allergy (Verified 03/15/18 08:37) Rash Home Medications: Ambulatory Orders Medication Instructions Recorded Aspirin [Aspirin, Baby] 81 mg PO DAILY@0800 03/26/18 Atorvastatin Calcium [Lipitor] 20 mg PO DAILY 03/26/18 Brimonidine Tartrate [Alphagan P] 1 drop OP BID 03/26/18 Carvedilol [Coreg] 25 mg PO BID 03/26/18 Cholecalciferol (Vitamin D3) 2,000 unit PO DAILY 03/26/18 [Vitamin D3] Diltiazem CD [Cardizem CD] 180 mg PO DAILY 03/26/18 Escitalopram Oxalate [Lexapro] 10 mg PO DAILY 03/26/18 Furosemide [Lasix] 40 mg PO DAILY 03/26/18 Ipratropium/Albuterol Sulfate 3 ml INHALATION Q4HWA.RT 03/26/18 [Duoneb] Linagliptin [Tradjenta] 5 mg PO DAILY 03/26/18 Lisinopril 2.5 mg PO DAILY 03/26/18 Omeprazole [Prilosec] 20 mg PO DAILY 03/26/18 Timolol 0.5% [Timoptic] 1 drop LEFT EYE BID 03/26/18 Surgical History: Surgical History (Last Reviewed 03/15/18 @ 08:50 by Steven Savage MD) Hx of appendectomy (Resolved) Z90.49 Surgical History: appendectomy, - - Ablation for atrial fibrillation, eye surgery secondary to hemorrhage in eye Psychiatric History: No pertinent psych hx Smoking Status: Current every day smoker Tobacco Use: Cigarettes Alcohol: None Drugs: None - *Family History Paternal Family History: Family History (Last Reviewed 03/15/18 @ 08:50 by Steven Savage MD) Daughter stent Father No problems noted. Mother No problems noted. History Items: No pertinent history Maternal Family History: Family History (Last Reviewed 03/15/18 @ 08:50 by Steven Savage MD) Daughter stent Father No problems noted. Mother No problems noted. History Items: No pertinent history Offspring Family History: Family History (Last Reviewed 03/15/18 @ 08:50 by Steven Savage MD) Daughter stent Father No problems noted. Mother No problems noted. History Items: Heart Disease Review of Systems Constitutional: Reports: Anorexia, Weakness. Denies: Chills, Fever, Weight Change Eyes: Denies: Blurred vision, Cataracts, Conjunctivae Inflammation, Drainage, Pain, Redness, Vision Change HEENT: Denies: Difficulty Hearing, Difficulty Swallowing, Head Aches, Hearing Changes, Sinus Congestion, Sinus Drainage, Sore Throat Cardiovascular: Denies: Chest Pain, Claudication, Orthopnea, Palpitations, Paroxysmal Noc. Dyspnea Respiratory: Reports: Shortness of Breath, Shortness of breath at rest, Shortness of breath upon exertion. Denies: Cough, Hemoptysis, Sputum production Gastrointestinal: Denies: Abdominal Pain, Constipation, Hematemesis, Hematochezia, Nausea, Vomiting Genitourinary: Denies: Dysuria Musculoskeletal: Denies: Arm Pain, Joint Pain, Joint stiffness, Joint swelling, Joint Tenderness Skin: Denies: Rash, Wounds Neurological: Denies: Difficulty swallowing, Focal weakness, Numbness, Tingling Psychiatric: Denies: Anxiety, Depression, Homicidal Ideations, Suicidal Ideations Hematologic/ Lymphatic: Denies: Easy Bruising, Easy Bleeding VTE Information - Inpt Only VTE Present on Admission: No VTE Pharm Prophylaxis ordered?: Yes Patient Problems: Active and Suspected Problems (Last Reviewed 03/15/18 @ 08:50 by Steven Savage MD) Septic shock (Acute) CAP (community acquired pneumonia) (Acute) - Physical Exam General: Alert, Oriented x3, Cooperative, - - ill-looking, on Bipap HEENT: Atraumatic, PERRLA, EOMI, Normocephalic Oral: Dry Mucosa Neck: Supple, No JVD, Negative Carotid Bruits Lungs: Clear to auscultation, Normal air movement Cardiovascular: Regular Rhythm, Normal S1, Normal S2, No murmurs, Irregular Rate Abdomen: Bowel Sounds Present, Soft, Non Tender, Non-Distended, Distended, Obese Extremities: No edema Skin: - - dry skin on bilateral lower legs with scaling. Musculoskeletal: No Tenderness to Palpation of Joints or Extremities Lymphatic: No Cervical, Supraclavicular, or Inguinal Adenopathy Neurological: Cranial nerves II-XII grossly intact, Neuro grossly intact Psych/Mental Status: Normal Affect, Appropriate Vital Signs Temp Pulse Resp BP Pulse Ox 98.0 F 91 18 82/57 L 92 03/26/18 11:34 03/26/18 12:23 03/26/18 12:23 03/26/18 12:23 03/26/18 12:23 Oxygen Flow Rate (L/min) 10 Oxygen Delivery Method Venturi Mask Weight: 90.718 kg Body Mass Index (BMI) 30.4 Laboratory Tests Past 24 Hrs 03/26/18 03/26/18 03/26/18 11:53 11:55 11:55 WBC 23.8 H RBC 4.03 L Hgb 10.5 L Hct 34.2 L MCV 84.9 MCH 26.1 L MCHC 30.7 L RDW 17.3 H RDW Differential 53.1 H Plt Count 346 MPV 10.1 Immature Gran % (Auto) 0.900 Neut % (Auto) 93.1 H Lymph % (Auto) 2.9 L [place] % (Auto) 3.0 Eos % (Auto) 0.0 Baso % (Auto) 0.1 Absolute Neuts (auto) 22.2 H Absolute Lymphs (auto) 0.69 L Total Counted Not Reportable Differential Comment SCANNED PT INR Sodium 133 L Potassium 4.1 Chloride 99 Carbon Dioxide 24.0 Anion Gap 10 BUN 56 H Creatinine 2.86 H Estim Creat Clear Calc 20.59 Est GFR (MDRD) Af Amer 28 L Est GFR (MDRD) Non-Af 23 L BUN/Creatinine Ratio 19.6 Glucose 133 H Lactic Acid 4.2 H* Calcium 7.9 L Troponin I < 0.015 B-Natriuretic Peptide 03/26/18 03/26/18 11:55 11:55 WBC RBC Hgb Hct MCV MCH MCHC RDW RDW Differential Plt Count MPV Immature Gran % (Auto) Neut % (Auto) Lymph % (Auto) [place] % (Auto) Eos % (Auto) Baso % (Auto) Absolute Neuts (auto) Absolute Lymphs (auto) Total Counted Differential Comment PT 39.0 H INR 4.0 H* Sodium Potassium Chloride Carbon Dioxide Anion Gap BUN Creatinine Estim Creat Clear Calc Est GFR (MDRD) Af Amer Est GFR (MDRD) Non-Af BUN/Creatinine Ratio Glucose Lactic Acid Calcium Troponin I B-Natriuretic Peptide 192.4 H Assessment/Plan All Active Problems (Last Reviewed 03/15/18 @ 08:50 by Steven Savage MD) Septic shock (Acute) CAP (community acquired pneumonia) (Acute) Hx of appendectomy (Resolved) Shortness of breath (Acute) Acute respiratory failure with hypoxia and hypercapnia (Acute) Altered mental status (Acute) Hyponatremia (Acute) Dehydration (Acute) Hypokalemia (Acute) 77 year old M with PMHx of chronic atrial fibrillation, type community-acquired pneumonia DM, hypertension, hyperlipidemia comes in with complaints of progressive shortness of breath ongoing for 1 week. 1. Septic shock secondary to community-acquired pneumonia, lactic acid is 4.2, admitting SBP <90, blood cultures pending Plan: Admit to ICU, IVF, IV antibiotics, Heel Attacher consult, monitor per septic shock protocol 2. Community-acquired pneumonia, multilobar, seen on CXR, will check urine streptococcal, legionella antigen, incentive spirometer, breathing treatments 3. Acute hypoxic respiratory failure secondary to community-acquired pneumonia, admitting SpO2 76%, not on oxygen at home, started on Bipap by ED, will continue same, monitor and wean off for SPo2 94% 4. Supratherapeutic INR, INR 4.0, not on coumadin, will trend INR in am 5. ALISIA on CKD, likely prerenal secondary to dehydration, baseline Cr around 1.3, will continue on IVF, monitor strict I & Os, will repeat blood work in am 6. Type II DM, on oral home medication, will tradjenta, start on accucheks with ISS 7. Hypertension, now hypotensive, will hold home medications, will resume later when patient recovers and BP is elevated. 8. Chronic A. fib, rate controlled, will hold cardizem and carvedilol, not on coumadin, INR is supratherapeutic, will monitor 9. DVT Ppx- INR is supratherapeutic. Code Visit Inpatient E&M: 51325 Subs Hosp L3
[2018-03-26] MEDS: levoFLOXacin IV 750 MG/150 ML BAG 100 MG IV (15:09)
[2018-03-26] MEDS: 0.9% NaCl Peripheral Flush Adult/Peds IV (15:09)
[2018-03-26] MEDS: 0.9% Normal Saline 1,000 ML 100 ML IV (15:09)
[2018-03-26 15:21] LABS: Allen Test POS; Base Excess -4 mmol/L (-2 to +2); Bicarbonate 23.4 mmol/L (22-26); Blood Gas Specimen Type ART; EPAP 6; FI02 60; IPAP 14; PO2 67 mmHG (75-100); RR 20; SITE L Radial; SO2 88 % (95-99); Time Given 1510; Total Carbon Dioxide 25 mmol/L; pCO2 56.9 mmHg (35-45); pH 7.22 (7.35-7.45)
[2018-03-26 15:28] LABS: Squamous Epithelial Cells - UA 0 SEEN /hpf (0-5)
[2018-03-26 15:34] LABS: Lactic Acid 1.6 mmol/L (0.4-2.0)
[2018-03-26 15:44] LABS: Color, Urine Yellow (Yellow); Glucose, Dipstick Normal (Normal); Ketone-Dipstick Negative (Negative); Leukocyte Esterase-Dipstick 25 /ul (Negative); Nitrite-Dipstick Negative (Negative); Occult Blood-Urine 50 /ul (Negative); Protein-Dipstick 500 mg/dl (Negative); Urine Bilirubin Dipstick Negative (Negative); Urine Clarity Clear (Clear); Urine Urobilinogen Normal (Normal)
[2018-03-26 15:53] LABS: Hyaline Cast 0-5 SEEN /lpf (0-5)
[2018-03-26 15:54] LABS: Bacteria RARE /hpf (None Seen); Mucous, Urine 1+ /hpf (<or=2+); White Blood Cells 0-5 SEEN /hpf (0-5)
[2018-03-26 15:55] LABS: Red Blood Cells-Urine 0-5 SEEN /hpf (0-5)
[2018-03-26 16:19] LABS: Reflex Lactate? Y
[2018-03-26] MEDS: Piperacil/Tazobactam 3.375 GM Q8 PREMIX IV (16:54)
[2018-03-26] MEDS: Insulin Lispro 100 UNIT/ML INSULN.PEN SQ (16:57)
[2018-03-26 17:01] LABS: Bedside Glucose 191 mg/dL (70-110)
[2018-03-26 18:31] LABS: Iron 12 ug/dL (65-175); Iron Binding Capacity,Total 329 ug/dL (250-450); PERCENT IRON SATURATION 3.6 % (15.0-55.0)
[2018-03-26] MEDS: Piperacil/Tazobactam 3.375 GM/50 ML ML IV (21:37)
[2018-03-26] MEDS: 0.9% NaCl IVPB Med Flush (250 mL) 15 ML IV (21:44)
[2018-03-26 21:46] LABS: Bedside Glucose 123 mg/dL (70-110)
[2018-03-27] VITALS (36 sets, daily range): BP systolic 92–116; BP diastolic 49–79; PULSE 99–125; RESP 12–32; TEMP 36.7–37.1; O2SAT 90–98
[2018-03-27] MEDS: 0.9% Normal Saline 1,000 ML 100 ML IV (02:26)
[2018-03-27 04:37] LABS: Absolute Lymphocyte Count 0.23 X10^3/ul (0.83-4.51); Absolute Neutrophil Count 14.2 X10^3/uL (2.0-7.7); Hematocrit 31.4 % (40-54); Hemoglobin 9.6 g/dl (13.0-16.5); Lymphocyte # 0.23 X10^3/ul (4.0); Lymphocyte % 1.5 % (19-41); Mean Corp Hgb Conc 30.6 g/gl (32-36); Mean Corpuscular Hgb 25.9 pg (27.0-32.0); Mean Corpuscular Volume 84.9 fL (80-94); Mean Platelet Vol. 9.7 fl (6.2-12.0); Monocyte# 0.46 X10^3/uL; Monocyte% 3.1 % (0-10); Neutrophil # 14.23 X10^3/uL (2.7-7.7); Neutrophil % 95.1 % (47-70); Platelet Count 266 K/mm3 (150-450); RBC Distribution Width CV 17.3 % (11.6-14.6); RBC Distribution Width SD 54.3 fl (35.1-43.9)
[2018-03-27 04:39] LABS: Differential Indicated SCAN CRITERIA MET; POSITIVE COUNT NO; POSITIVE DIFFERENTIAL YES; POSITIVE MORPHOLOGY NO
[2018-03-27 04:44] LABS: Prothrombin Time (Protime)PT. 49.3 SECONDS (11.7-14.9)
--- NOTE | 2018-03-27 04:45 | CPS ---
Pt desat to 84% on 6LNC. Pt placed on 10LNC to maintain spo2 90%. Pt weaned to 6L HFNC spo2 91%.
[2018-03-27 04:48] LABS: International Normalized Ratio 5.3
[2018-03-27 05:01] LABS: Anion Gap 10 (5-15); BUN 58 mg/dL (7-18); BUN/Creat Ratio 23.5 RATIO (10-20); Calcium,Total 7.4 mg/dL (8.5-10.1); Chloride 105 mmol/L (98-107); Creatinine, Serum 2.47 mg/dL (0.70-1.30); EST Glomerular Filtration Rate 27 mL/min (>60); Est Glom Filt Rate - Afr Amer 33 mL/min (>60); Estimated Creatinine Clearance 23.85 ml/min; Glucose 106 mg/dL (74-106); Sodium Level 138 mmol/L (136-145)
[2018-03-27] MEDS: CHLORHEXIDINE GLUC 2% CLOTH 1 EACH TOWELETTE TOPICAL (05:56)
[2018-03-27] MEDS: Piperacil/Tazobactam 3.375 GM/50 ML ML IV ×3 (05:57→21:05)
--- NOTE | 2018-03-27 06:18 | PCM.CON.CC ---
Reason for Consult Date of Consultation: 03/27/18 Reason for Consultation: Severe sepsis History of Present Illness: The patient is a 77-year-old male, with a history as outlined below, who presented to the emergency department on March 26 with complaints of progressive shortness of breath and hypoxemia. The patient has a known history of systolic heart failure, chronic atrial fibrillation, known obstructive sleep apnea, self-reported COPD, diabetes mellitus and depression. A split-night sleep study completed in April 2016 revealed evidence of moderate RADHA for which it was recommended that the patient be placed on bilevel therapy with a pressure support of 14/10 centimeters of water. The patient reported to me that he does not routinely utilize any form of nocturnal Pap therapy. He denies a supplemental oxygen requirement at his baseline. He denies the presence of a cough, chest tightness or wheezing. He denies the use of bronchodilators in his home environment. On presentation to the emergency department, the patient was mildly hypothermic, hypotensive and hypoxic on room air. Laboratory evaluation revealed an elevated white blood cell count to 24,000. INR was elevated to 4.0. Chemistry profile was notable for an elevated BUN of 56, creatinine of 2.86, and lactate of 4.2. Urinalysis revealed positive leukocyte esterase, negative nitrites, 0 white blood cells and rare urine bacteria. Plain film chest x-ray revealed findings concerning for pneumonia. The patient received supplemental IV fluid hydrations and was started on antibiotics. He was subsequently placed on BiPAP and transferred to the medical intensive care unit for ongoing management. Of note, the patient is a DNR CCA without intubation. 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) Atrial fib/flutter, transient (Chronic) Benign essential hypertension (Chronic) COLD (chronic obstructive lung disease) (Chronic) Diabetes mellitus, type 2 (Chronic) GERD (gastroesophageal reflux disease) (Chronic) Hyperlipidemia (Chronic) Obesity (Chronic) Acute respiratory failure with hypercapnia (Chronic) Biatrial enlargement (Chronic) Glaucoma (Chronic) Atrial fibrillation and flutter (Chronic) Medical History: Medical History (Last Reviewed 03/15/18 @ 08:50 by Steven Savage MD) Nicotine dependence (Chronic) F17.200 Atrial flutter (Chronic) I48.92 Carotid bruit (Chronic) R09.89 Encounter for long-term current use of high risk medication (Chronic) Z79.899 Acute left-sided congestive heart failure (Chronic) I50.1 Hypersomnia (Chronic) G47.10 Obstructive sleep apnea (Chronic) G47.33 Cardiomyopathy in disease classified elsewhere (Chronic) I43 Atherosclerotic heart disease of [place] coronary artery without angina pectoris (Chronic) I25.10 [employer]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) Z79.01 Atrial fib/flutter, transient (Chronic) [id number] Benign essential hypertension (Chronic) I10 COLD (chronic obstructive lung disease) (Chronic) J44.9 Diabetes mellitus, type 2 (Chronic) E11.9 GERD (gastroesophageal reflux disease) (Chronic) K21.9 Hyperlipidemia (Chronic) E78.5 Obesity (Chronic) E66.9 Acute respiratory failure with hypercapnia (Chronic) J96.02 Shortness of breath (Acute) R06.02 Acute respiratory failure with hypoxia and hypercapnia (Acute) J96.01, J96.02 Biatrial enlargement (Chronic) I51.7 Altered mental status (Acute) R41.82 due to hypoxemia and hypercarbia Hyponatremia (Acute) E87.1 Dehydration (Acute) E86.0 Pulmonary hypertension (Suspected) I27.2 Glaucoma (Chronic) H40.9 Atrial fibrillation and flutter (Chronic) I48.91, I48.92 Hypokalemia (Acute) E87.6 Edema R60.9 Wheezing R06.2 Allergies Penicillins Allergy (Verified 03/15/18 08:37) Rash Home Medications: Ambulatory Orders Medication Instructions Recorded Aspirin [Aspirin, Baby] 81 mg PO DAILY@0800 03/26/18 Atorvastatin Calcium [Lipitor] 20 mg PO DAILY 03/26/18 Brimonidine Tartrate [Alphagan P] 1 drop OP BID 03/26/18 Carvedilol [Coreg] 25 mg PO BID 03/26/18 Cholecalciferol (Vitamin D3) 2,000 unit PO DAILY 03/26/18 [Vitamin D3] Diltiazem CD [Cardizem CD] 180 mg PO DAILY 03/26/18 Escitalopram Oxalate [Lexapro] 10 mg PO DAILY 03/26/18 Furosemide [Lasix] 40 mg PO DAILY 03/26/18 Ipratropium/Albuterol Sulfate 3 ml INHALATION Q4HWA.RT 03/26/18 [Duoneb] Linagliptin [Tradjenta] 5 mg PO DAILY 03/26/18 Lisinopril 2.5 mg PO DAILY 03/26/18 Omeprazole [Prilosec] 20 mg PO DAILY 03/26/18 Timolol 0.5% [Timoptic] 1 drop LEFT EYE BID 03/26/18 Surgical History: Surgical History (Last Reviewed 03/15/18 @ 08:50 by Steven Savage MD) Hx of appendectomy (Resolved) Z90.49 Surgical History: appendectomy, - - Ablation for atrial fibrillation, eye surgery secondary to hemorrhage in eye Psychiatric History: No pertinent psych hx Smoking Status: Current every day smoker Tobacco Use: Cigarettes Alcohol: None Drugs: None - *Family History Paternal Family History: Family History (Last Reviewed 03/15/18 @ 08:50 by Steven Savage MD) Daughter stent Father No problems noted. Mother No problems noted. History Items: No pertinent history Offspring Family History: Family History (Last Reviewed 03/15/18 @ 08:50 by Steven Savage MD) Daughter zena Father No problems noted. Mother No problems noted. History Items: Heart Disease Maternal Family History: Family History (Last Reviewed 03/15/18 @ 08:50 by Steven Savage MD) Daughter zena Father No problems noted. Mother No problems noted. History Items: No pertinent history Review of Systems Constitutional: Reports: Weakness, Fatigue Eyes: Denies: Blurred vision, Double vision HEENT: Denies: Head Aches, Sinus Congestion, Sinus Drainage Cardiovascular: Denies: Chest Pain, Palpitations Respiratory: Reports: Shortness of Breath. Denies: Cough, Sputum production Gastrointestinal: Denies: Abdominal Pain, Nausea, Vomiting Genitourinary: Denies: Dysuria Musculoskeletal: Denies: Joint Pain, Joint Tenderness Skin: Denies: Rash, Wounds Neurological: Denies: Numbness, Tingling, Focal weakness Psychiatric: Reports: Depression Hematologic/ Lymphatic: Reports: Anemia Patient Problems: Active and Suspected Problems (Last Reviewed 03/15/18 @ 08:50 by Steven Savage MD) Septic shock (Acute) CAP (community acquired pneumonia) (Acute) Objective: The patient's most recent lab work, culture data and imaging studies have all been personally reviewed. Strep and urine Legionella antigens were both negative. Respiratory viral panel was negative. Blood cultures are currently pending. - Physical Exam General: Alert, Cooperative, No apparent distress, - - Currently tolerating BiPAP without issue. HEENT: Atraumatic, PERRLA, Normocephalic Oral: Dry Mucosa Neck: Supple, No Nodes, Trachea Midline Lungs: No wheeze, Diminished, Rhonchi Cardiovascular: Normal S1, Normal S2, No murmurs, Irregular Rate Abdomen: Bowel Sounds Present, Soft, Non Tender, Obese Extremities: No clubbing, No cyanosis, No edema Skin: - - Mild degree of erythema involving the bilateral distal lower extremities Musculoskeletal: No Tenderness to Palpation of Joints or Extremities Lymphatic: No Cervical, Supraclavicular, or Inguinal Adenopathy Neurological: Cranial nerves II-XII grossly intact, Neuro grossly intact Psych/Mental Status: Flat Affect Vital Signs Temp Pulse Resp BP Pulse Ox 36.7 C 103 H 20 H 113/68 93 03/27/18 04:00 03/27/18 06:00 03/27/18 06:00 03/27/18 06:00 03/27/18 06:00 Oxygen Flow Rate (L/min) 6 Oxygen Delivery Method Bi-pap Weight: 207 lb 10.807 oz Body Mass Index (BMI) 30.9 Intake and Output for Last 24 Hours 03/25/18 03/26/18 03/27/18 23:59 23:59 23:59 Intake Total 3944.8 / 3944.8 593.8 / 593.8 Output Total 225 / 225 200 / 200 Balance 3719.8 / 3719.8 393.8 / 393.8 Microbiology Past 72 Hours 03/26/18 14:40 Respiratory Panel (PCR) - Preliminary Mucosa - Nasopharyngeal 03/26/18 15:20 Streptococcus pneumoniae Antigen (M - Final Urine, Random 03/26/18 15:00 Legionella Antigen - Final Urine, Random 03/26/18 14:40 Influenza Types A,B Direct FA (KRISHNA) - Final Mucosa - Nasopharyngeal Laboratory Tests Past 24 Hrs 03/26/18 03/26/18 03/26/18 11:53 11:55 11:55 WBC 23.8 H RBC 4.03 L Hgb 10.5 L Hct 34.2 L MCV 84.9 MCH 26.1 L MCHC 30.7 L RDW 17.3 H RDW Differential 53.1 H Plt Count 346 MPV 10.1 Immature Gran % (Auto) 0.900 Neut % (Auto) 93.1 H Lymph % (Auto) 2.9 L [place] % (Auto) 3.0 Eos % (Auto) 0.0 Baso % (Auto) 0.1 Absolute Neuts (auto) 22.2 H Absolute Lymphs (auto) 0.69 L Total Counted Not Reportable Differential Comment SCANNED PT INR Specimen Type Sample Site pH Bicarbonate Actual POC Total CO2 Base Excess O2 Saturation O2 % ABG pCO2 ABG pO2 George Test Respiration Rate O2 Delivery Device EPAP IPAP Blood Gas Notified Whom Blood Gas Notified Time Sodium 133 L Potassium 4.1 Chloride 99 Carbon Dioxide 24.0 Anion Gap 10 BUN 56 H Creatinine 2.86 H Estim Creat Clear Calc 20.59 Est GFR (MDRD) Af Amer 28 L Est GFR (MDRD) Non-Af 23 L BUN/Creatinine Ratio 19.6 Glucose 133 H Lactic Acid 4.2 H* Calcium 7.9 L Iron TIBC Iron Saturation Troponin I < 0.015 B-Natriuretic Peptide Urine Color Urine Clarity Urine pH Ur Specific [place] Urine Protein Urine Glucose (UA) Urine Ketones Urine Occult Blood Urine Nitrite Urine Bilirubin Urine Urobilinogen Ur Leukocyte Esterase Urine RBC Urine WBC Ur Squamous Epith Cells Urine Bacteria Hyaline Casts Urine Mucus 03/26/18 03/26/18 03/26/18 11:55 11:55 11:55 WBC RBC Hgb Hct MCV MCH MCHC RDW RDW Differential Plt Count MPV Immature Gran % (Auto) Neut % (Auto) Lymph % (Auto) [place] % (Auto) Eos % (Auto) Baso % (Auto) Absolute Neuts (auto) Absolute Lymphs (auto) Total Counted Differential Comment PT 39.0 H INR 4.0 H* Specimen Type Sample Site pH Bicarbonate Actual POC Total CO2 Base Excess O2 Saturation O2 % ABG pCO2 ABG pO2 George Test Respiration Rate O2 Delivery Device EPAP IPAP Blood Gas Notified Whom Blood Gas Notified Time Sodium Potassium Chloride Carbon Dioxide Anion Gap BUN Creatinine Estim Creat Clear Calc Est GFR (MDRD) Af Amer Est GFR (MDRD) Non-Af BUN/Creatinine Ratio Glucose Lactic Acid Calcium Iron 12 L TIBC 329 Iron Saturation 3.6 L Troponin I B-Natriuretic Peptide 192.4 H Urine Color Urine Clarity Urine pH Ur Specific [place] Urine Protein Urine Glucose (UA) Urine Ketones Urine Occult Blood Urine Nitrite Urine Bilirubin Urine Urobilinogen Ur Leukocyte Esterase Urine RBC Urine WBC Ur Squamous Epith Cells Urine Bacteria Hyaline Casts Urine Mucus 03/26/18 03/26/18 03/26/18 15:00 15:00 15:00 WBC RBC Hgb Hct MCV MCH MCHC RDW RDW Differential Plt Count MPV Immature Gran % (Auto) Neut % (Auto) Lymph % (Auto) [place] % (Auto) Eos % (Auto) Baso % (Auto) Absolute Neuts (auto) Absolute Lymphs (auto) Total Counted Differential Comment PT INR Specimen Type Sample Site pH Bicarbonate Actual POC Total CO2 Base Excess O2 Saturation O2 % ABG pCO2 ABG pO2 George Test Respiration Rate O2 Delivery Device EPAP IPAP Blood Gas Notified Whom Blood Gas Notified Time Sodium Potassium Chloride Carbon Dioxide Anion Gap BUN Creatinine Estim Creat Clear Calc Est GFR (MDRD) Af Amer Est GFR (MDRD) Non-Af BUN/Creatinine Ratio Glucose Lactic Acid 1.6 Calcium Iron TIBC Iron Saturation Troponin I < 0.015 B-Natriuretic Peptide Urine Color Yellow Urine Clarity Clear Urine pH 5.0 Ur Specific [place] 1.020 Urine Protein 500 H Urine Glucose (UA) Normal Urine Ketones Negative Urine Occult Blood 50 H Urine Nitrite Negative Urine Bilirubin Negative Urine Urobilinogen Normal Ur Leukocyte Esterase 25 H Urine RBC 0-5 SEEN Urine WBC 0-5 SEEN Ur Squamous Epith Cells 0 SEEN Urine Bacteria RARE Hyaline Casts 0-5 SEEN Urine Mucus 1+ 03/26/18 03/26/18 03/27/18 15:17 18:05 04:20 WBC 15.0 H RBC 3.70 L Hgb 9.6 L Hct 31.4 L MCV 84.9 MCH 25.9 L MCHC 30.6 L RDW 17.3 H RDW Differential 54.3 H Plt Count 266 MPV 9.7 Immature Gran % (Auto) 0.300 Neut % (Auto) 95.1 H Lymph % (Auto) 1.5 L [place] % (Auto) 3.1 Eos % (Auto) 0.0 Baso % (Auto) 0.0 Absolute Neuts (auto) 14.2 H Absolute Lymphs (auto) 0.23 L Total Counted Not Reportable Differential Comment PT INR Specimen Type ART Sample Site L Radial pH 7.22 L Bicarbonate Actual 23.4 POC Total CO2 25 Base Excess -4 L O2 Saturation 88 L O2 % 60 ABG pCO2 56.9 H ABG pO2 67 L [place] Test POS Respiration Rate 20 O2 Delivery Device Bi / C PAP EPAP 6 IPAP 14 Blood Gas Notified Whom ICU Blood Gas Notified Time 1510 Sodium Potassium Chloride Carbon Dioxide Anion Gap BUN Creatinine Estim Creat Clear Calc Est GFR (MDRD) Af Amer Est GFR (MDRD) Non-Af BUN/Creatinine Ratio Glucose Lactic Acid Calcium Iron TIBC Iron Saturation Troponin I < 0.015 B-Natriuretic Peptide Urine Color Urine Clarity Urine pH Ur Specific [place] Urine Protein Urine Glucose (UA) Urine Ketones Urine Occult Blood Urine Nitrite Urine Bilirubin Urine Urobilinogen Ur Leukocyte Esterase Urine RBC Urine WBC Ur Squamous Epith Cells Urine Bacteria Hyaline Casts Urine Mucus 03/27/18 03/27/18 04:20 04:20 WBC RBC Hgb Hct MCV MCH MCHC RDW RDW Differential Plt Count MPV Immature Gran % (Auto) Neut % (Auto) Lymph % (Auto) [place] % (Auto) Eos % (Auto) Baso % (Auto) Absolute Neuts (auto) Absolute Lymphs (auto) Total Counted Differential Comment PT 49.3 H INR 5.3 H* Specimen Type Sample Site pH Bicarbonate Actual POC Total CO2 Base Excess O2 Saturation O2 % ABG pCO2 ABG pO2 [place] Test Respiration Rate O2 Delivery Device EPAP IPAP Blood Gas Notified Whom Blood Gas Notified Time Sodium 138 Potassium 4.0 Chloride 105 Carbon Dioxide 23.0 Anion Gap 10 BUN 58 H Creatinine 2.47 H Estim Creat Clear Calc 23.85 Est GFR (MDRD) Af Amer 33 L Est GFR (MDRD) Non-Af 27 L BUN/Creatinine Ratio 23.5 H Glucose 106 Lactic Acid Calcium 7.4 L Iron TIBC Iron Saturation Troponin I B-Natriuretic Peptide Urine Color Urine Clarity Urine pH Ur Specific [place] Urine Protein Urine Glucose (UA) Urine Ketones Urine Occult Blood Urine Nitrite Urine Bilirubin Urine Urobilinogen Ur Leukocyte Esterase Urine RBC Urine WBC Ur Squamous Epith Cells Urine Bacteria Hyaline Casts Urine Mucus POC Glucose 03/26/18 03/26/18 21:37 16:51 POC Glucose 123 H 191 H Clinical Impression(s) from Imaging Studies Chest X-Ray 03/26/18 11:31 IMPRESSION: Hazy appearance of the left lower lobe lingula right middle lobe suspicious for infiltrates possibly pneumonia. A PA and lateral film of the chest is suggested for further evaluation if possible a follow-up noncontrast chest CT. Electronically Signed: Laura Horn MD at 12:38 EST Tel , Service support , Assessment/Plan Active and Suspected Problems (Last Reviewed 03/15/18 @ 08:50 by Steven Savage MD) Septic shock (Acute) CAP (community acquired pneumonia) (Acute) RECOMMENDATIONS: 1. Continue BiPAP and wean as tolerated. 2. Continue broad-spectrum antibiotics. 3. Check MRSA screen. 4. Continue to hold Coumadin. Check daily INR. 5. Stop continuous supplemental IV fluids, given underlying cardiomyopathy. 6. May need to consider gentle diuresis to help facilitate weaning from BiPAP. IMPRESSIONS: 1. Severe sepsis secondary due to presumptive pulmonary infectious process The patient was placed on broad-spectrum antibiotics upon presentation. In addition, he received supplemental IV fluid hydration, which led to improvement in hemodynamics. Although the patient's lactate was initially elevated, the patient's hemodynamics responded avidly to volume resuscitation, without the need for vasopressor support. At this time, given the patient's underlying cardiomyopathy, would recommend discontinuation of supplemental IV fluids. If the patient does begin to produce sputum, please send for culture. Recommend checking MRSA screen as well. 2. Acute combined respiratory failure/questionable COPD The patient has a self-reported history of COPD. There are no PFTs on file. In addition, the patient is not currently utilizing any inhalers at his baseline. He does have a tobacco abuse history, but states that he is no longer smoking. He has responded appropriately to noninvasive positive pressure ventilation. Continue bronchodilators as ordered. Wean from BiPAP therapy as tolerated. 3. Coagulopathy Likely secondary to chronic anticoagulation coupled with #1. Continue to hold anticoagulation and monitor for overt signs of bleeding. There is no need for immediate reversal at this time. 4. Acute kidney injury Potentially prerenal in etiology and related to #1. The patient has been adequately volume resuscitated at this time. He remains hemodynamically stable. There is no indication for renal replacement therapy at this time. 5. Chronic systolic heart failure/atrial fibrillation/chronic anticoagulation status/depression/tobacco dependency with questionable remission Complicates care, management, recovery and prognosis. Continue rate control strategy per outpatient regimen. Consider initiation of gentle diuresis today. This note was generated with [employer] software. It may contain incorrect words, spelling, and punctuation that were not noted in checking the note before signing. Code Visit Inpatient E&M: 38043 Init Hosp L3
[2018-03-27] MEDS: Ipratropium/Albuterol Sulfate 3 ML AMPUL.NEB INHALATION ×4 (06:42→18:56)
[2018-03-27 06:50] LABS: Bedside Glucose 129 mg/dL (70-110)
[2018-03-27 06:59] LABS: AST(SGOT) 46 U/L (15-37); Alanine Aminotransfer ALT/SGPT 34 U/L (16-61); Albumin, Serum 1.8 g/dL (3.2-5.0); Alkaline Phosphatase 48 U/L (45-117); Bilirubin, Direct 0.13 mg/dL (0.00-0.30); Globulin 3.6 g/dL (2.2-4.2); Protein, Total 5.4 g/dL (6.4-8.2)
--- NOTE | 2018-03-27 08:01 | PCM.PN.HOSP ---
Patient Problems: Active and Suspected Problems (Last Reviewed 03/15/18 @ 08:50 by Steven Savage MD) Septic shock (Acute) CAP (community acquired pneumonia) (Acute) Subjective: Patient was seen and examined. Overnight, he could come off the Bipap shortly. No fevers seen. Hemodynamically, he remained stable. Did not need pressors. Objective: Physical Exam General: Alert, Oriented x3, Cooperative, - - ill-looking, on Bipap HEENT: Atraumatic, PERRLA, EOMI, Normocephalic Oral: Dry Mucosa Neck: Supple, No JVD, Negative Carotid Bruits Lungs: Clear to auscultation, Normal air movement Cardiovascular: Regular Rhythm, Normal S1, Normal S2, No murmurs, Irregular Rate Abdomen: Bowel Sounds Present, Soft, Non Tender, Non-Distended, Distended, Obese Extremities: No edema Skin: - - dry skin on bilateral lower legs with scaling. Musculoskeletal: No Tenderness to Palpation of Joints or Extremities Lymphatic: No Cervical, Supraclavicular, or Inguinal Adenopathy Neurological: Cranial nerves II-XII grossly intact, Neuro grossly intact Psych/Mental Status: Normal Affect, Appropriate Vitals/I&O's: Vital Signs Temp Pulse Resp BP Pulse Ox 98.0 F 103 H 20 H 113/68 93 03/27/18 04:00 03/27/18 06:00 03/27/18 06:00 03/27/18 06:00 03/27/18 06:00 Oxygen Flow Rate (L/min) 6 Oxygen Delivery Method Bi-pap Weight: 94.2 kg Body Mass Index (BMI) 30.9 Intake and Output for Last 24 Hours 03/25/18 03/26/18 03/27/18 23:59 23:59 23:59 Intake Total 3944.8 / 3944.8 593.8 / 593.8 Output Total 225 / 225 200 / 200 Balance 3719.8 / 3719.8 393.8 / 393.8 Microbiology Past 72 Hours 03/26/18 14:40 Mucosa - Nasopharyngeal Respiratory Panel (PCR) - Final 03/26/18 15:20 Urine, Random Streptococcus pneumoniae Antigen (M - Final 03/26/18 15:00 Urine, Random Legionella Antigen - Final 03/26/18 14:40 Mucosa - Nasopharyngeal Influenza Types A,B Direct FA (KRISHNA) - Final Laboratory Results 03/26/18 11:53: Lactic Acid 4.2 H* 03/26/18 11:55: WBC 23.8 H, RBC 4.03 L, Hgb 10.5 L, Hct 34.2 L, MCV 84.9, MCH 26.1 L, MCHC 30.7 L, RDW 17.3 H, RDW Differential 53.1 H, Plt Count 346, MPV 10.1, Immature Gran % (Auto) 0.900, Neut % (Auto) 93.1 H, Lymph % (Auto) 2.9 L, Mcnairy % (Auto) 3.0, Eos % (Auto) 0.0, Baso % (Auto) 0.1, Absolute Neuts (auto) 22.2 H, Absolute Lymphs (auto) 0.69 L, Total Counted Not Reportable, Differential Comment SCANNED 03/26/18 11:55: Sodium 133 L, Potassium 4.1, Chloride 99, Carbon Dioxide 24.0, Anion Gap 10, BUN 56 H, Creatinine 2.86 H, Estim Creat Clear Calc 20.59, Est GFR (MDRD) Af Amer 28 L, Est GFR (MDRD) Non-Af 23 L, BUN/Creatinine Ratio 19.6, Glucose 133 H, Calcium 7.9 L, Troponin I < 0.015 03/26/18 11:55: B-Natriuretic Peptide 192.4 H 03/26/18 11:55: PT 39.0 H, INR 4.0 H* 03/26/18 11:55: Iron 12 L, TIBC 329, Iron Saturation 3.6 L 03/26/18 15:00: Urine Color Yellow, Urine Clarity Clear, Urine pH 5.0, Ur Specific [place] 1.020, Urine Protein 500 H, Urine Glucose (UA) Normal, Urine Ketones Negative, Urine Occult Blood 50 H, Urine Nitrite Negative, Urine Bilirubin Negative, Urine Urobilinogen Normal, Ur Leukocyte Esterase 25 H, Urine RBC 0-5 SEEN, Urine WBC 0-5 SEEN, Ur Squamous Epith Cells 0 SEEN, Urine Bacteria RARE, Hyaline Casts 0-5 SEEN, Urine Mucus 1+ 03/26/18 15:00: Troponin I < 0.015 03/26/18 15:00: Lactic Acid 1.6 03/26/18 15:17: Specimen Type ART, Sample Site L Radial, pH 7.22 L, Bicarbonate Actual 23.4, POC Total CO2 25, Base Excess -4 L, O2 Saturation 88 L, O2 % 60, ABG pCO2 56.9 H, ABG pO2 67 L, George Test POS, Respiration Rate 20, O2 Delivery Device Bi / C PAP, EPAP 6, IPAP 14, Blood Gas Notified Whom ICU , Blood Gas Notified Time 1510 03/26/18 16:51: POC Glucose 191 H 03/26/18 18:05: Troponin I < 0.015 03/26/18 21:37: POC Glucose 123 H 03/27/18 04:20: WBC 15.0 H, RBC 3.70 L, Hgb 9.6 L, Hct 31.4 L, MCV 84.9, MCH 25.9 L, MCHC 30.6 L, RDW 17.3 H, RDW Differential 54.3 H, Plt Count 266, MPV 9.7, Immature Gran % (Auto) 0.300, Neut % (Auto) 95.1 H, Lymph % (Auto) 1.5 L, Mcnairy % (Auto) 3.1, Eos % (Auto) 0.0, Baso % (Auto) 0.0, Absolute Neuts (auto) 14.2 H, Absolute Lymphs (auto) 0.23 L, Total Counted Not Reportable, Differential Comment 03/27/18 04:20: PT 49.3 H, INR 5.3 H* 03/27/18 04:20: Sodium 138, Potassium 4.0, Chloride 105, Carbon Dioxide 23.0, Anion Gap 10, BUN 58 H, Creatinine 2.47 H, Estim Creat Clear Calc 23.85, Est GFR (MDRD) Af Amer 33 L, Est GFR (MDRD) Non-Af 27 L, BUN/Creatinine Ratio 23.5 H, Glucose 106, Calcium 7.4 L 03/27/18 04:20: Total Bilirubin 0.30, Direct Bilirubin 0.13, AST 46 H, ALT 34, Alkaline Phosphatase 48, Total Protein 5.4 L, Albumin 1.8 L, Globulin 3.6 03/27/18 06:48: POC Glucose 129 H Current Medications Acetaminophen (Tylenol) 650 mg PO Q6H PRN PRN PRN Reason: Mild Pain (1-3)/Temp > 100.7 F Albuterol Sulfate (Ventolin Aerosols) 2.5 mg INHALATION Q2H PRN PRN PRN Reason: SHORTNESS OF BREATH Albuterol/Ipratropium (Duoneb) 3 ml INHALATION Q4HWA.RT [facility] Last Admin: 03/27/18 06:42 Dose: 3 ml Aspirin (Aspirin, Baby) 81 mg PO DAILY@0800 RENATO Atorvastatin Calcium (Lipitor) 20 mg PO QHS [facility] Last Admin: 03/26/18 22:36 Dose: Not Given Chlorhexidine Gluconate () 1 each TOPICAL DAILY [facility] Last Admin: 03/27/18 05:56 Dose: 1 each Cholecalciferol (Vitamin D) 2,000 unit PO DAILY [facility] Dextrose (D50w Syringe) 0 gm IV X1 PRN; Protocol PRN Reason: Hypoglycemia Glucagon () 1 mg IM .X1 PRN PRN Reason: Hypoglycemia Guaifenesin (Mucinex) 1,200 mg PO BID [facility] Last Admin: 03/26/18 22:36 Dose: Not Given Piperacillin Sod/Tazobactam Sod (Zosyn) 3.375 gm in 50 mls @ 12.5 mls/hr IV Q8 [facility] Last Admin: 03/27/18 05:57 Dose: 12.5 mls/hr Sodium Chloride () 250 mls @ 15 mls/hr IV .[id number] PRN PRN Reason: SALINE FLUSH Last Admin: 03/26/18 21:44 Dose: 15 mls/hr Insulin Human Lispro (Humalog Kwikpen (Bkc)) 0 unit SQ ACHS [facility]; Protocol Last Admin: 03/27/18 07:04 Dose: Not Given Magnesium Hydroxide (Milk Of Magnesia) 30 ml PO DAILY PRN PRN PRN Reason: Constipation Nicotine (Nicoderm Cq (Pbkc)) 21 mg TRANSDERM. DAILY [facility] Last Admin: 03/26/18 15:10 Dose: Not Given Ondansetron HCl (Zofran) 4 mg IV Q8H PRN PRN PRN Reason: NAUSEA Pantoprazole Sodium (Protonix) 20 mg PO DAILY [facility] Sodium Chloride () 5 - 15 ml IV UD PRN PRN Reason: SALINE FLUSH Last Admin: 03/26/18 15:09 Dose: 10 ml Medical Necessity - Tobacco Use Smoking Status: Current every day smoker Tobacco Use: Cigarettes Assessment/Plan All Active Problems (Last Reviewed 03/15/18 @ 08:50 by Steven Savage MD) Septic shock (Acute) CAP (community acquired pneumonia) (Acute) Hx of appendectomy (Resolved) Shortness of breath (Acute) Acute respiratory failure with hypoxia and hypercapnia (Acute) Altered mental status (Acute) Hyponatremia (Acute) Dehydration (Acute) Hypokalemia (Acute) 77 year old M with PMHx of chronic atrial fibrillation, type 2 DM, hypertension, hyperlipidemia admitted with complaints of progressive shortness of breath ongoing for 1 week. He was hypoxic, saturating in the 60s at home. 1. Septic shock secondary to community-acquired pneumonia, improving slowly, stable BP, no hypotension, off IVF, continue on IV antibiotics, tax associate attorney consulted, Urine streptococcal antigen positive, legionella antigen negative Continue on IV zosyn and Levaquin q48h 2. Community-acquired pneumonia, multilobar, seen on CXR, continue on IV antibiotics, incentive spirometer, breathing treatments 3. Acute hypoxic respiratory failure secondary to community-acquired pneumonia, admitting SpO2 76%, not on oxygen at home, Managed overnight on Bipap, will continue same, monitor and wean off for SPo2 94% 4. Supratherapeutic INR, INR 5.4, not on coumadin, will trend INR in am 5. ALISIA on CKD, likely prerenal secondary to dehydration, baseline Cr around 1.3, slightly improved, continue to monitor strict I & Os, lab work in am 6. Type II DM, BS are stable, tradjent on hold, continue on accucheks with ISS 7. Hypertension, now hypotensive, will hold home medications, will resume later when patient recovers and BP is elevated. 8. Chronic A. fib, rate controlled, will hold cardizem and carvedilol, not on coumadin, INR is supratherapeutic, will monitor 9. Dry skin, lower legs, will prescribe lac-hydrin topical TID. 10. DVT Ppx- INR is supratherapeutic. Code Visit Inpatient E&M: 28231 Subs Hosp L2
--- NOTE | 2018-03-27 08:23 | RAD_ITS ---
STUDY: X-RAY CHEST REASON FOR EXAM: Male, 77 years old. Shortness of breath TECHNIQUE: Single AP portable view of the chest. COMPARISON: 2018 chest x-ray FINDINGS: There is still a hazy appearance of the superior aspect of the left lower lobe and lingula. There is blunting of the right cardiophrenic angle. There is no demonstrated pleural abnormality. Normal size heart. Normal mediastinum and antonino. Normal visualized pulmonary arteries. Normal visualized aortic arch and descending thoracic aorta. Normal visualized thoracic spine. Normal visualized ribs, clavicles, and shoulders. There is no demonstrated abnormality of the visualized soft tissue structures of the upper abdomen. RAD/Chest 1 View (Portable) IMPRESSION: Persistent opacity in the left lower lobe suspicious for pneumonia in the appropriate clinical setting. Blunting of the right cardiophrenic angle. Consider pneumonia. Electronically Signed: Laura Horn MD at 9:29 EST Tel , Service support ,
[2018-03-27] MEDS: Aspirin 81 MG TAB.CHEW PO (10:16)
[2018-03-27] MEDS: guaiFENesin 1,200 MG Tablet 1200 MG PO ×2 (10:16→21:05)
[2018-03-27] MEDS: Pantoprazole Sodium 20 MG Tablet PO (10:16)
[2018-03-27] MEDS: Furosemide 20 MG/2 ML VIAL IV (10:50)
[2018-03-27 12:35] LABS: Bedside Glucose 115 mg/dL (70-110)
[2018-03-27 17:11] LABS: Bedside Glucose 146 mg/dL (70-110)
[2018-03-27] MEDS: Atorvastatin Calcium 20 MG Tablet PO (21:05)
[2018-03-27] MEDS: Ammonium Lactate 225 gm Bottle 1 APPLIC TOPICAL (21:05)
[2018-03-27] MEDS: Insulin Lispro 100 UNIT/ML INSULN.PEN SQ (21:08)
[2018-03-27 21:16] LABS: Bedside Glucose 157 mg/dL (70-110)
[2018-03-27 21:48] LABS: M R Staph aureus DNA By PCR Negative (Negative); Probe Check PASS; Specimen Processing Control PASS
[2018-03-28] VITALS (36 sets, daily range): BP systolic 97–130; BP diastolic 55–92; PULSE 94–121; RESP 12–31; TEMP 36.2–37.2; O2SAT 90–99
[2018-03-28 03:51] LABS: Basophil# 0.01 X10^3/uL; Basophil% 0.1 % (0-1); Differential Indicated SCAN CRITERIA MET; Hematocrit 32.2 % (40-54); Lymphocyte % 2.1 % (19-41); Mean Corp Hgb Conc 31.1 g/gl (32-36); Mean Corpuscular Hgb 26.2 pg (27.0-32.0); Mean Corpuscular Volume 84.5 fL (80-94); Mean Platelet Vol. 10.1 fl (6.2-12.0); Monocyte# 0.57 X10^3/uL; Monocyte% 4.1 % (0-10); Neutrophil # 13.04 X10^3/uL (2.7-7.7); Neutrophil % 93.3 % (47-70); POSITIVE COUNT NO; POSITIVE DIFFERENTIAL YES; POSITIVE MORPHOLOGY NO; Platelet Count 276 K/mm3 (150-450); RBC Distribution Width CV 17.3 % (11.6-14.6); RBC Distribution Width SD 52.6 fl (35.1-43.9); Red Blood Count 3.81 M/mm3 (4.6-6.2)
[2018-03-28 04:00] LABS: Albumin, Serum 1.9 g/dL (3.2-5.0); BUN 76 mg/dL (7-18); BUN/Creat Ratio 27.8 RATIO (10-20); Calcium,Total 7.7 mg/dL (8.5-10.1); Chloride 107 mmol/L (98-107); Creatinine, Serum 2.73 mg/dL (0.70-1.30); EST Glomerular Filtration Rate 24 mL/min (>60); Est Glom Filt Rate - Afr Amer 29 mL/min (>60); Estimated Creatinine Clearance 21.58 ml/min; Glucose 124 mg/dL (74-106); Phosphorus 6.2 mg/dL (2.5-4.9); Potassium 4.1 mmol/L (3.5-5.1); Sodium Level 141 mmol/L (136-145)
[2018-03-28 04:45] LABS: Prothrombin Time (Protime)PT. 44.4 SECONDS (11.7-14.9)
[2018-03-28 05:11] LABS: International Normalized Ratio 4.7
[2018-03-28] MEDS: 0.9% NaCl Peripheral Flush Adult/Peds IV ×3 (05:15→21:42)
[2018-03-28] MEDS: Piperacil/Tazobactam 3.375 GM/50 ML ML IV (05:15)
[2018-03-28] MEDS: Ammonium Lactate 225 gm Bottle 1 APPLIC TOPICAL ×3 (05:15→21:41)
[2018-03-28] MEDS: Ipratropium/Albuterol Sulfate 3 ML AMPUL.NEB INHALATION ×4 (06:40→18:34)
[2018-03-28 06:41] LABS: Bedside Glucose 123 mg/dL (70-110)
--- NOTE | 2018-03-28 07:22 | PN_ITS ---
Subjective: Patient did okay overnight. Patient did use BiPAP while sleeping, but is currently on 6 L nasal cannula to maintain saturations. Patient does report some dyspnea on exertion. Patient is denying any cough at this time. Patient does feel subjectively improved compared to yesterday Objective: Chest x-ray continues to show left lower lobe infiltrate General: Alert, Oriented x3, Cooperative, No apparent distress, - - Obese. Speaking in full sentences. HEENT: Atraumatic, PERRLA, EOMI, Normocephalic, - - No scleral icterus or injection noted. Oral: Moist Mucosa, No Gingival or Mucosal Lesions/ Ulcerations Neck: Supple, No JVD, No Nodes, Trachea Midline Lungs: No wheeze, No rales, Diminished, Rhonchi - Left base, - - Symmetric expansion. No dullness to percussion. Cardiovascular: Normal S1, Normal S2, No murmurs, Irregular Rate, No rub noted, No Gallop, - - A flutter/fib noted on telemetry Abdomen: Bowel Sounds Present, Soft, Non Tender, Non-Distended, Obese Extremities: No clubbing, No cyanosis, Edema Skin: - - Venous stasis changes noted bilaterally Musculoskeletal: No Tenderness to Palpation of Joints or Extremities Lymphatic: No Cervical, Supraclavicular, or Inguinal Adenopathy Neurological: Cranial nerves II-XII grossly intact, Neuro grossly intact, Motor Exam 5/5 strength throughout Psych/Mental Status: Appropriate, Flat Affect Vital Signs Temp Pulse Resp BP Pulse Ox 36.4 C L 112 H 23 H 125/71 H 99 03/28/18 06:00 03/28/18 06:00 03/28/18 06:00 03/28/18 06:00 03/28/18 06:00 Oxygen Flow Rate (L/min) 6 Oxygen Delivery Method Nasal Cannula Weight: 95.9 kg Body Mass Index (BMI) 30.9 Intake and Output for Last 24 Hours 03/26/18 03/27/18 03/28/18 23:59 23:59 23:59 Intake Total 3944.8 / 3944.8 2254.8 / 2254.8 321.3 / 321.3 Output Total 225 / 225 2150 / 2150 400 / 400 Balance 3719.8 / 3719.8 104.8 / 104.8 -78.7 / -78.7 Labs (Last 48 Hours) 03/26/18 03/26/18 03/26/18 11:53 11:55 11:55 WBC 23.8 H RBC 4.03 L Hgb 10.5 L Hct 34.2 L MCV 84.9 MCH 26.1 L MCHC 30.7 L RDW 17.3 H RDW Differential 53.1 H Plt Count 346 MPV 10.1 Immature Gran % (Auto) 0.900 Neut % (Auto) 93.1 H Lymph % (Auto) 2.9 L [place] % (Auto) 3.0 Eos % (Auto) 0.0 Baso % (Auto) 0.1 Absolute Neuts (auto) 22.2 H Absolute Lymphs (auto) 0.69 L Total Counted Not Reportable Differential Comment SCANNED PT INR Specimen Type Sample Site pH Bicarbonate Actual POC Total CO2 Base Excess O2 Saturation O2 % ABG pCO2 ABG pO2 George Test Respiration Rate O2 Delivery Device EPAP IPAP Blood Gas Notified Whom Blood Gas Notified Time Sodium 133 L Potassium 4.1 Chloride 99 Carbon Dioxide 24.0 Anion Gap 10 BUN 56 H Creatinine 2.86 H Estim Creat Clear Calc 20.59 Est GFR (MDRD) Af Amer 28 L Est GFR (MDRD) Non-Af 23 L BUN/Creatinine Ratio 19.6 Glucose 133 H Lactic Acid 4.2 H* Calcium 7.9 L Phosphorus Iron TIBC Iron Saturation Total Bilirubin Direct Bilirubin AST ALT Alkaline Phosphatase Troponin I < 0.015 B-Natriuretic Peptide Total Protein Albumin Globulin Urine Color Urine Clarity Urine pH Ur Specific [place] Urine Protein Urine Glucose (UA) Urine Ketones Urine Occult Blood Urine Nitrite Urine Bilirubin Urine Urobilinogen Ur Leukocyte Esterase Urine RBC Urine WBC Ur Squamous Epith Cells Urine Bacteria Hyaline Casts Urine Mucus MRSA (PCR) POC Glucose 03/26/18 03/26/18 03/26/18 11:55 11:55 11:55 WBC RBC Hgb Hct MCV MCH MCHC RDW RDW Differential Plt Count MPV Immature Gran % (Auto) Neut % (Auto) Lymph % (Auto) [place] % (Auto) Eos % (Auto) Baso % (Auto) Absolute Neuts (auto) Absolute Lymphs (auto) Total Counted Differential Comment PT 39.0 H INR 4.0 H* Specimen Type Sample Site pH Bicarbonate Actual POC Total CO2 Base Excess O2 Saturation O2 % ABG pCO2 ABG pO2 George Test Respiration Rate O2 Delivery Device EPAP IPAP Blood Gas Notified Whom Blood Gas Notified Time Sodium Potassium Chloride Carbon Dioxide Anion Gap BUN Creatinine Estim Creat Clear Calc Est GFR (MDRD) Af Amer Est GFR (MDRD) Non-Af BUN/Creatinine Ratio Glucose Lactic Acid Calcium Phosphorus Iron 12 L TIBC 329 Iron Saturation 3.6 L Total Bilirubin Direct Bilirubin AST ALT Alkaline Phosphatase Troponin I B-Natriuretic Peptide 192.4 H Total Protein Albumin Globulin Urine Color Urine Clarity Urine pH Ur Specific [place] Urine Protein Urine Glucose (UA) Urine Ketones Urine Occult Blood Urine Nitrite Urine Bilirubin Urine Urobilinogen Ur Leukocyte Esterase Urine RBC Urine WBC Ur Squamous Epith Cells Urine Bacteria Hyaline Casts Urine Mucus MRSA (PCR) POC Glucose 03/26/18 03/26/18 03/26/18 15:00 15:00 15:00 WBC RBC Hgb Hct MCV MCH MCHC RDW RDW Differential Plt Count MPV Immature Gran % (Auto) Neut % (Auto) Lymph % (Auto) [place] % (Auto) Eos % (Auto) Baso % (Auto) Absolute Neuts (auto) Absolute Lymphs (auto) Total Counted Differential Comment PT INR Specimen Type Sample Site pH Bicarbonate Actual POC Total CO2 Base Excess O2 Saturation O2 % ABG pCO2 ABG pO2 George Test Respiration Rate O2 Delivery Device EPAP IPAP Blood Gas Notified Whom Blood Gas Notified Time Sodium Potassium Chloride Carbon Dioxide Anion Gap BUN Creatinine Estim Creat Clear Calc Est GFR (MDRD) Af Amer Est GFR (MDRD) Non-Af BUN/Creatinine Ratio Glucose Lactic Acid 1.6 Calcium Phosphorus Iron TIBC Iron Saturation Total Bilirubin Direct Bilirubin AST ALT Alkaline Phosphatase Troponin I < 0.015 B-Natriuretic Peptide Total Protein Albumin Globulin Urine Color Yellow Urine Clarity Clear Urine pH 5.0 Ur Specific [place] 1.020 Urine Protein 500 H Urine Glucose (UA) Normal Urine Ketones Negative Urine Occult Blood 50 H Urine Nitrite Negative Urine Bilirubin Negative Urine Urobilinogen Normal Ur Leukocyte Esterase 25 H Urine RBC 0-5 SEEN Urine WBC 0-5 SEEN Ur Squamous Epith Cells 0 SEEN Urine Bacteria RARE Hyaline Casts 0-5 SEEN Urine Mucus 1+ MRSA (PCR) POC Glucose 03/26/18 03/26/18 03/26/18 15:17 16:51 18:05 WBC RBC Hgb Hct MCV MCH MCHC RDW RDW Differential Plt Count MPV Immature Gran % (Auto) Neut % (Auto) Lymph % (Auto) [place] % (Auto) Eos % (Auto) Baso % (Auto) Absolute Neuts (auto) Absolute Lymphs (auto) Total Counted Differential Comment PT INR Specimen Type ART Sample Site L Radial pH 7.22 L Bicarbonate Actual 23.4 POC Total CO2 25 Base Excess -4 L O2 Saturation 88 L O2 % 60 ABG pCO2 56.9 H ABG pO2 67 L George Test POS Respiration Rate 20 O2 Delivery Device Bi / C PAP EPAP 6 IPAP 14 Blood Gas Notified Whom ICU Blood Gas Notified Time 1510 Sodium Potassium Chloride Carbon Dioxide Anion Gap BUN Creatinine Estim Creat Clear Calc Est GFR (MDRD) Af Amer Est GFR (MDRD) Non-Af BUN/Creatinine Ratio Glucose Lactic Acid Calcium Phosphorus Iron TIBC Iron Saturation Total Bilirubin Direct Bilirubin AST ALT Alkaline Phosphatase Troponin I < 0.015 B-Natriuretic Peptide Total Protein Albumin Globulin Urine Color Urine Clarity Urine pH Ur Specific [place] Urine Protein Urine Glucose (UA) Urine Ketones Urine Occult Blood Urine Nitrite Urine Bilirubin Urine Urobilinogen Ur Leukocyte Esterase Urine RBC Urine WBC Ur Squamous Epith Cells Urine Bacteria Hyaline Casts Urine Mucus MRSA (PCR) POC Glucose 191 H 03/26/18 03/27/18 03/27/18 21:37 04:20 04:20 WBC 15.0 H RBC 3.70 L Hgb 9.6 L Hct 31.4 L MCV 84.9 MCH 25.9 L MCHC 30.6 L RDW 17.3 H RDW Differential 54.3 H Plt Count 266 MPV 9.7 Immature Gran % (Auto) 0.300 Neut % (Auto) 95.1 H Lymph % (Auto) 1.5 L [place] % (Auto) 3.1 Eos % (Auto) 0.0 Baso % (Auto) 0.0 Absolute Neuts (auto) 14.2 H Absolute Lymphs (auto) 0.23 L Total Counted Not Reportable Differential Comment PT 49.3 H INR 5.3 H* Specimen Type Sample Site pH Bicarbonate Actual POC Total CO2 Base Excess O2 Saturation O2 % ABG pCO2 ABG pO2 George Test Respiration Rate O2 Delivery Device EPAP IPAP Blood Gas Notified Whom Blood Gas Notified Time Sodium Potassium Chloride Carbon Dioxide Anion Gap BUN Creatinine Estim Creat Clear Calc Est GFR (MDRD) Af Amer Est GFR (MDRD) Non-Af BUN/Creatinine Ratio Glucose Lactic Acid Calcium Phosphorus Iron TIBC Iron Saturation Total Bilirubin Direct Bilirubin AST ALT Alkaline Phosphatase Troponin I B-Natriuretic Peptide Total Protein Albumin Globulin Urine Color Urine Clarity Urine pH Ur Specific [place] Urine Protein Urine Glucose (UA) Urine Ketones Urine Occult Blood Urine Nitrite Urine Bilirubin Urine Urobilinogen Ur Leukocyte Esterase Urine RBC Urine WBC Ur Squamous Epith Cells Urine Bacteria Hyaline Casts Urine Mucus MRSA (PCR) POC Glucose 123 H 03/27/18 03/27/18 03/27/18 04:20 04:20 06:48 WBC RBC Hgb Hct MCV MCH MCHC RDW RDW Differential Plt Count MPV Immature Gran % (Auto) Neut % (Auto) Lymph % (Auto) [place] % (Auto) Eos % (Auto) Baso % (Auto) Absolute Neuts (auto) Absolute Lymphs (auto) Total Counted Differential Comment PT INR Specimen Type Sample Site pH Bicarbonate Actual POC Total CO2 Base Excess O2 Saturation O2 % ABG pCO2 ABG pO2 George Test Respiration Rate O2 Delivery Device EPAP IPAP Blood Gas Notified Whom Blood Gas Notified Time Sodium 138 Potassium 4.0 Chloride 105 Carbon Dioxide 23.0 Anion Gap 10 BUN 58 H Creatinine 2.47 H Estim Creat Clear Calc 23.85 Est GFR (MDRD) Af Amer 33 L Est GFR (MDRD) Non-Af 27 L BUN/Creatinine Ratio 23.5 H Glucose 106 Lactic Acid Calcium 7.4 L Phosphorus Iron TIBC Iron Saturation Total Bilirubin 0.30 Direct Bilirubin 0.13 AST 46 H ALT 34 Alkaline Phosphatase 48 Troponin I B-Natriuretic Peptide Total Protein 5.4 L Albumin 1.8 L Globulin 3.6 Urine Color Urine Clarity Urine pH Ur Specific [place] Urine Protein Urine Glucose (UA) Urine Ketones Urine Occult Blood Urine Nitrite Urine Bilirubin Urine Urobilinogen Ur Leukocyte Esterase Urine RBC Urine WBC Ur Squamous Epith Cells Urine Bacteria Hyaline Casts Urine Mucus MRSA (PCR) POC Glucose 129 H 03/27/18 03/27/18 03/27/18 12:28 17:07 20:05 WBC RBC Hgb Hct MCV MCH MCHC RDW RDW Differential Plt Count MPV Immature Gran % (Auto) Neut % (Auto) Lymph % (Auto) [place] % (Auto) Eos % (Auto) Baso % (Auto) Absolute Neuts (auto) Absolute Lymphs (auto) Total Counted Differential Comment PT INR Specimen Type Sample Site pH Bicarbonate Actual POC Total CO2 Base Excess O2 Saturation O2 % ABG pCO2 ABG pO2 George Test Respiration Rate O2 Delivery Device EPAP IPAP Blood Gas Notified Whom Blood Gas Notified Time Sodium Potassium Chloride Carbon Dioxide Anion Gap BUN Creatinine Estim Creat Clear Calc Est GFR (MDRD) Af Amer Est GFR (MDRD) Non-Af BUN/Creatinine Ratio Glucose Lactic Acid Calcium Phosphorus Iron TIBC Iron Saturation Total Bilirubin Direct Bilirubin AST ALT Alkaline Phosphatase Troponin I B-Natriuretic Peptide Total Protein Albumin Globulin Urine Color Urine Clarity Urine pH Ur Specific [place] Urine Protein Urine Glucose (UA) Urine Ketones Urine Occult Blood Urine Nitrite Urine Bilirubin Urine Urobilinogen Ur Leukocyte Esterase Urine RBC Urine WBC Ur Squamous Epith Cells Urine Bacteria Hyaline Casts Urine Mucus MRSA (PCR) Negative POC Glucose 115 H 146 H 03/27/18 03/28/18 03/28/18 21:07 03:40 03:40 WBC 14.0 H RBC 3.81 L Hgb 10.0 L Hct 32.2 L MCV 84.5 MCH 26.2 L MCHC 31.1 L RDW 17.3 H RDW Differential 52.6 H Plt Count 276 MPV 10.1 Immature Gran % (Auto) 0.400 Neut % (Auto) 93.3 H Lymph % (Auto) 2.1 L [place] % (Auto) 4.1 Eos % (Auto) 0.0 Baso % (Auto) 0.1 Absolute Neuts (auto) 13.0 H Absolute Lymphs (auto) 0.30 L Total Counted Not Reportable Differential Comment PT 44.4 H INR 4.7 H* Specimen Type Sample Site pH Bicarbonate Actual POC Total CO2 Base Excess O2 Saturation O2 % ABG pCO2 ABG pO2 George Test Respiration Rate O2 Delivery Device EPAP IPAP Blood Gas Notified Whom Blood Gas Notified Time Sodium Potassium Chloride Carbon Dioxide Anion Gap BUN Creatinine Estim Creat Clear Calc Est GFR (MDRD) Af Amer Est GFR (MDRD) Non-Af BUN/Creatinine Ratio Glucose Lactic Acid Calcium Phosphorus Iron TIBC Iron Saturation Total Bilirubin Direct Bilirubin AST ALT Alkaline Phosphatase Troponin I B-Natriuretic Peptide Total Protein Albumin Globulin Urine Color Urine Clarity Urine pH Ur Specific [place] Urine Protein Urine Glucose (UA) Urine Ketones Urine Occult Blood Urine Nitrite Urine Bilirubin Urine Urobilinogen Ur Leukocyte Esterase Urine RBC Urine WBC Ur Squamous Epith Cells Urine Bacteria Hyaline Casts Urine Mucus MRSA (PCR) POC Glucose 157 H 03/28/18 03/28/18 03:40 06:35 WBC RBC Hgb Hct MCV MCH MCHC RDW RDW Differential Plt Count MPV Immature Gran % (Auto) Neut % (Auto) Lymph % (Auto) [place] % (Auto) Eos % (Auto) Baso % (Auto) Absolute Neuts (auto) Absolute Lymphs (auto) Total Counted Differential Comment PT INR Specimen Type Sample Site pH Bicarbonate Actual POC Total CO2 Base Excess O2 Saturation O2 % ABG pCO2 ABG pO2 George Test Respiration Rate O2 Delivery Device EPAP IPAP Blood Gas Notified Whom Blood Gas Notified Time Sodium 141 Potassium 4.1 Chloride 107 Carbon Dioxide 23.0 Anion Gap BUN 76 H Creatinine 2.73 H Estim Creat Clear Calc 21.58 Est GFR (MDRD) Af Amer 29 L Est GFR (MDRD) Non-Af 24 L BUN/Creatinine Ratio 27.8 H Glucose 124 H Lactic Acid Calcium 7.7 L Phosphorus 6.2 H Iron TIBC Iron Saturation Total Bilirubin Direct Bilirubin AST ALT Alkaline Phosphatase Troponin I B-Natriuretic Peptide Total Protein Albumin 1.9 L Globulin Urine Color Urine Clarity Urine pH Ur Specific [place] Urine Protein Urine Glucose (UA) Urine Ketones Urine Occult Blood Urine Nitrite Urine Bilirubin Urine Urobilinogen Ur Leukocyte Esterase Urine RBC Urine WBC Ur Squamous Epith Cells Urine Bacteria Hyaline Casts Urine Mucus MRSA (PCR) POC Glucose 123 H Microbiology 03/26/18 14:40 Mucosa - Nasopharyngeal Respiratory Panel (PCR) - Final 03/26/18 15:20 Urine, Random Streptococcus pneumoniae Antigen (M - Final POSITIVE 03/26/18 15:00 Urine, Random Legionella Antigen - Final 03/26/18 14:40 Mucosa - Nasopharyngeal Influenza Types A,B Direct FA (KRISHNA) - Final Clinical Impression(s) from Imaging Studies Chest X-Ray 03/27/18 08:23 IMPRESSION: Persistent opacity in the left lower lobe suspicious for pneumonia in the appropriate clinical setting. Blunting of the right cardiophrenic angle. Consider pneumonia. Electronically Signed: Laura Horn MD at 9:29 EST Tel , Service support , Medical Necessity - Tobacco Use Smoking Status: Current every day smoker Tobacco Use: Cigarettes Assessment/Plan All Active Problems (Last Reviewed 03/15/18 @ 08:50 by Steven Savage MD) Septic shock (Acute) CAP (community acquired pneumonia) (Acute) Hx of appendectomy (Resolved) Shortness of breath (Acute) Acute respiratory failure with hypoxia and hypercapnia (Acute) Altered mental status (Acute) Hyponatremia (Acute) Dehydration (Acute) Hypokalemia (Acute) RECOMMENDATIONS: 1. Continue BiPAP with sleep and as needed. 2. Will discontinue Zosyn therapy given pneumococcal antigen. 3. Continue to hold Coumadin. Check daily INR. 4. Stop continuous supplemental IV fluids, given underlying cardiomyopathy. 5. May need to consider gentle diuresis to help facilitate weaning from BiPAP. IMPRESSIONS: 1. Severe sepsis secondary due to pneumococcal pneumonia The patient was placed on broad-spectrum antibiotics upon presentation. Patient has come back positive with pneumococcal antigen in the urine. Patient can be continued on Levaquin therapy. Patient's blood pressure is much improved compared to previous and no pressors have been required. 2. Acute combined respiratory failure/questionable COPD The patient has a self-reported history of COPD. There are no PFTs on file. In addition, the patient is not currently utilizing any inhalers at his baseline. He does have a tobacco abuse history, but states that he is no longer smoking. He has responded appropriately to noninvasive positive pressure ventilation. Continue bronchodilators as ordered. Wean from BiPAP therapy as tolerated. Chest x-ray showing significant left lower lobe infiltrate. Di uresis yesterday was largely unsuccessful. Patient will be given Lasix again today 3. Coagulopathy Likely secondary to chronic anticoagulation coupled with #1. Continue to hold anticoagulation and monitor for overt signs of bleeding. There is no need for immediate reversal at this time. 4. Acute kidney injury Potentially prerenal in etiology and related to #1. The patient has been adequately volume resuscitated at this time. He remains hemodynamically stable. There is no indication for renal replacement therapy at this time. 5. Chronic systolic heart failure/atrial fibrillation/chronic anticoagulation status/depression/tobacco dependency with questionable remission Complicates care, management, recovery and prognosis. Continue rate control strategy per outpatient regimen. Continue gentle diuresis today. Code Visit Inpatient E&M: 99692 [facility] Hosp L3
[2018-03-28] MEDS: Furosemide 40 MG/4 ML Vial IV (08:15)
[2018-03-28] MEDS: Aspirin 81 MG TAB.CHEW PO (08:15)
--- NOTE | 2018-03-28 08:20 | PCM.PN.HOSP ---
Patient Problems: Active and Suspected Problems (Last Reviewed 03/15/18 @ 08:50 by Steven Savage MD) Septic shock (Acute) CAP (community acquired pneumonia) (Acute) Subjective: Patient seen and examined. No acute events. On 6L oxygen. Denies fever or chills or chest pain or dizziness or palpitations. Rest of ROS is negative. Objective: Physical Exam General: Alert, Oriented x3, Cooperative, on 5L oxygen HEENT: Atraumatic, PERRLA, EOMI, Normocephalic Oral: Dry Mucosa Neck: Supple, No JVD, Negative Carotid Bruits Lungs: Diminished to auscultation, Normal air movement Cardiovascular: Regular Rhythm, Normal S1, Normal S2, No murmurs, Irregular Rate Abdomen: Bowel Sounds Present, Soft, Non Tender, Non-Distended, Distended, Obese Extremities: No edema Skin: - - dry skin on bilateral lower legs with scaling. Musculoskeletal: No Tenderness to Palpation of Joints or Extremities Lymphatic: No Cervical, Supraclavicular, or Inguinal Adenopathy Neurological: Cranial nerves II-XII grossly intact, Neuro grossly intact Psych/Mental Status: Normal Affect, Appropriate Vitals/I&O's: Vital Signs Temp Pulse Resp BP Pulse Ox 97.9 F 114 H 29 H 110/92 H 95 03/28/18 08:00 03/28/18 08:00 03/28/18 08:00 03/28/18 08:00 03/28/18 08:00 Oxygen Flow Rate (L/min) 5 Oxygen Delivery Method Nasal Cannula Weight: 95.9 kg Body Mass Index (BMI) 30.9 Intake and Output for Last 24 Hours 03/26/18 03/27/18 03/28/18 23:59 23:59 23:59 Intake Total 3944.8 / 3944.8 2254.8 / 2254.8 321.3 / 321.3 Output Total 225 / 225 2150 / 2150 400 / 400 Balance 3719.8 / 3719.8 104.8 / 104.8 -78.7 / -78.7 Microbiology Past 72 Hours 03/26/18 14:40 Mucosa - Nasopharyngeal Respiratory Panel (PCR) - Final 03/26/18 15:20 Urine, Random Streptococcus pneumoniae Antigen (M - Final 03/26/18 15:00 Urine, Random Legionella Antigen - Final 03/26/18 14:40 Mucosa - Nasopharyngeal Influenza Types A,B Direct FA (KRISHNA) - Final Laboratory Results 03/27/18 12:28: POC Glucose 115 H 03/27/18 17:07: POC Glucose 146 H 03/27/18 20:05: MRSA (PCR) Negative 03/27/18 21:07: POC Glucose 157 H 03/28/18 03:40: PT 44.4 H, INR 4.7 H* 03/28/18 03:40: WBC 14.0 H, RBC 3.81 L, Hgb 10.0 L, Hct 32.2 L, MCV 84.5, MCH 26.2 L, MCHC 31.1 L, RDW 17.3 H, RDW Differential 52.6 H, Plt Count 276, MPV 10.1, Immature Gran % (Auto) 0.400, Neut % (Auto) 93.3 H, Lymph % (Auto) 2.1 L, [place] % (Auto) 4.1, Eos % (Auto) 0.0, Baso % (Auto) 0.1, Absolute Neuts (auto) 13.0 H, Absolute Lymphs (auto) 0.30 L, Total Counted Not Reportable 03/28/18 03:40: Sodium 141, Potassium 4.1, Chloride 107, Carbon Dioxide 23.0, BUN 76 H, Creatinine 2.73 H, Estim Creat Clear Calc 21.58, Est GFR (MDRD) Af Amer 29 L, Est GFR (MDRD) Non-Af 24 L, BUN/Creatinine Ratio 27.8 H, Glucose 124 H, Calcium 7.7 L, Phosphorus 6.2 H, Albumin 1.9 L 03/28/18 06:35: POC Glucose 123 H Current Medications Acetaminophen (Tylenol) 650 mg PO Q6H PRN PRN PRN Reason: Mild Pain (1-3)/Temp > 100.7 F Albuterol Sulfate (Ventolin Aerosols) 2.5 mg INHALATION Q2H PRN PRN PRN Reason: SHORTNESS OF BREATH Albuterol/Ipratropium (Duoneb) 3 ml INHALATION Q4HWA.RT [facility] Last Admin: 03/28/18 06:40 Dose: 3 ml Aspirin (Aspirin, Baby) 81 mg PO DAILY@0800 [facility] Last Admin: 01/21/19 08:15 Dose: 81 mg Atorvastatin Calcium (Lipitor) 20 mg PO QHS [facility] Last Admin: 03/27/18 21:05 Dose: 20 mg Carvedilol (Coreg) 25 mg PO BID [facility] Chlorhexidine Gluconate () 1 each TOPICAL DAILY [facility] Last Admin: 03/27/18 05:56 Dose: 1 each Cholecalciferol (Vitamin D) 2,000 unit PO DAILY [facility] Last Admin: 03/27/18 10:16 Dose: 2,000 unit Dextrose (D50w Syringe) 0 gm IV X1 PRN; Protocol PRN Reason: Hypoglycemia Diltiazem HCl (Cardizem Cd) 180 mg PO DAILY [facility] Glucagon () 1 mg IM .X1 PRN PRN Reason: Hypoglycemia Guaifenesin (Mucinex) 1,200 mg PO BID [facility] Last Admin: 03/27/18 21:05 Dose: 1,200 mg Sodium Chloride () 250 mls @ 15 mls/hr IV .[id number] PRN PRN Reason: SALINE FLUSH Last Admin: 03/26/18 21:44 Dose: 15 mls/hr Levofloxacin (Levaquin Iv) 750 mg in 150 mls @ 100 mls/hr IV Q48 [facility] Insulin Human Lispro (Humalog Kwikpen (Bkc)) 0 unit SQ ACHS [facility]; Protocol Last Admin: 03/28/18 07:19 Dose: Not Given Lactic Acid (Lac-Hydrin, Amlactin) 1 applic TOPICAL TID [facility]; Protocol Last Admin: 03/28/18 05:15 Dose: 1 applicatio Magnesium Hydroxide (Milk Of Magnesia) 30 ml PO DAILY PRN PRN PRN Reason: Constipation Nicotine (Nicoderm Cq (Pbkc)) 21 mg TRANSDERM. DAILY [facility] Last Admin: 03/27/18 10:16 Dose: 21 mg Ondansetron HCl (Zofran) 4 mg IV Q8H PRN PRN PRN Reason: NAUSEA Pantoprazole Sodium (Protonix) 20 mg PO DAILY [facility] Last Admin: 03/27/18 10:16 Dose: 20 mg Sodium Chloride () 5 - 15 ml IV UD PRN PRN Reason: SALINE FLUSH Last Admin: 03/28/18 08:15 Dose: 10 ml Medical Necessity - Tobacco Use Smoking Status: Current every day smoker Tobacco Use: Cigarettes Assessment/Plan All Active Problems (Last Reviewed 03/15/18 @ 08:50 by Steven Savage MD) Septic shock (Acute) CAP (community acquired pneumonia) (Acute) Hx of appendectomy (Resolved) Shortness of breath (Acute) Acute respiratory failure with hypoxia and hypercapnia (Acute) Altered mental status (Acute) Hyponatremia (Acute) Dehydration (Acute) Hypokalemia (Acute) 77 year old M with PMHx of chronic atrial fibrillation, type 2 DM, hypertension, hyperlipidemia admitted with complaints of progressive shortness of breath ongoing for 1 week. He was hypoxic, saturating in the 60s at home. 1. Septic shock secondary to community-acquired pneumonia, resolved Stable BP, blood cultures are pending, urine streptococcal antigen positive, legionella antigen negative Continue on IV zosyn and Levaquin q48h, will continue the same today. 2. Community-acquired pneumonia, multilobar, seen on CXR, continue on IV antibiotics, incentive spirometer, breathing treatments 3. Acute hypoxic respiratory failure secondary to community-acquired pneumonia, improving admitting SpO2 76%, not on oxygen at home, on Bipap overnight, currently on 6L oxygen, will continue same, monitor and wean off for SPo2 94% 4. Supratherapeutic INR, INR 4.7, not on coumadin, will continue trend INR in am 5. ALISIA on CKD, likely prerenal secondary to dehydration, baseline Cr around 1.3, slightly improved, continue to monitor strict I & Os, lab work in am 6. Type II DM, BS are stable, tradjenta on hold, continue on accucheks with ISS 7. Hypertension, will resume home medications, will monitor BP 8. Chronic A. fib, rate uncontrolled, will resume cardizem and carvedilol, not on coumadin, INR is supratherapeutic, will monitor 9. Dry skin, lower legs, on lac-hydrin topical TID. 10. DVT Ppx- INR is supratherapeutic. 11. Disposition: Transfer to PCU later when HR improves; possible dc home vs SNF in 1-2 days. Code Visit Inpatient E&M: 81089 Subs Hosp L2
--- NOTE | 2018-03-28 08:24 | PN_ITS ---
Patient Problems: Active and Suspected Problems (Last Reviewed 03/15/18 @ 08:50 by Steven Savage MD) Septic shock (Acute) CAP (community acquired pneumonia) (Acute) Subjective: Patient seen and examined. No acute events. On 6L oxygen. Denies fever or chills or chest pain or dizziness or palpitations. Rest of ROS is negative. Objective: Physical Exam General: Alert, Oriented x3, Cooperative, on 5L oxygen HEENT: Atraumatic, PERRLA, EOMI, Normocephalic Oral: Dry Mucosa Neck: Supple, No JVD, Negative Carotid Bruits Lungs: Diminished to auscultation, Normal air movement Cardiovascular: Regular Rhythm, Normal S1, Normal S2, No murmurs, Irregular Rate Abdomen: Bowel Sounds Present, Soft, Non Tender, Non-Distended, Distended, Obese Extremities: No edema Skin: - - dry skin on bilateral lower legs with scaling. Musculoskeletal: No Tenderness to Palpation of Joints or Extremities Lymphatic: No Cervical, Supraclavicular, or Inguinal Adenopathy Neurological: Cranial nerves II-XII grossly intact, Neuro grossly intact Psych/Mental Status: Normal Affect, Appropriate Vitals/I&O's: Vital Signs Temp Pulse Resp BP Pulse Ox 97.9 F 114 H 29 H 110/92 H 95 03/28/18 08:00 03/28/18 08:00 03/28/18 08:00 03/28/18 08:00 03/28/18 08:00 Oxygen Flow Rate (L/min) 5 Oxygen Delivery Method Nasal Cannula Weight: 95.9 kg Body Mass Index (BMI) 30.9 Intake and Output for Last 24 Hours 03/26/18 03/27/18 03/28/18 23:59 23:59 23:59 Intake Total 3944.8 / 3944.8 2254.8 / 2254.8 321.3 / 321.3 Output Total 225 / 225 2150 / 2150 400 / 400 Balance 3719.8 / 3719.8 104.8 / 104.8 -78.7 / -78.7 Microbiology Past 72 Hours 03/26/18 14:40 Mucosa - Nasopharyngeal Respiratory Panel (PCR) - Final 03/26/18 15:20 Urine, Random Streptococcus pneumoniae Antigen (M - Final 03/26/18 15:00 Urine, Random Legionella Antigen - Final 03/26/18 14:40 Mucosa - Nasopharyngeal Influenza Types A,B Direct FA (KRISHNA) - Final Laboratory Results 03/27/18 12:28: POC Glucose 115 H 03/27/18 17:07: POC Glucose 146 H 03/27/18 20:05: MRSA (PCR) Negative 03/27/18 21:07: POC Glucose 157 H 03/28/18 03:40: PT 44.4 H, INR 4.7 H* 03/28/18 03:40: WBC 14.0 H, RBC 3.81 L, Hgb 10.0 L, Hct 32.2 L, MCV 84.5, MCH 26.2 L, MCHC 31.1 L, RDW 17.3 H, RDW Differential 52.6 H, Plt Count 276, MPV 10.1, Immature Gran % (Auto) 0.400, Neut % (Auto) 93.3 H, Lymph % (Auto) 2.1 L, [place] % (Auto) 4.1, Eos % (Auto) 0.0, Baso % (Auto) 0.1, Absolute Neuts (auto) 13.0 H, Absolute Lymphs (auto) 0.30 L, Total Counted Not Reportable 03/28/18 03:40: Sodium 141, Potassium 4.1, Chloride 107, Carbon Dioxide 23.0, BUN 76 H, Creatinine 2.73 H, Estim Creat Clear Calc 21.58, Est GFR (MDRD) Af Amer 29 L, Est GFR (MDRD) Non-Af 24 L, BUN/Creatinine Ratio 27.8 H, Glucose 124 H, Calcium 7.7 L, Phosphorus 6.2 H, Albumin 1.9 L 03/28/18 06:35: POC Glucose 123 H Current Medications Acetaminophen (Tylenol) 650 mg PO Q6H PRN PRN PRN Reason: Mild Pain (1-3)/Temp > 100.7 F Albuterol Sulfate (Ventolin Aerosols) 2.5 mg INHALATION Q2H PRN PRN PRN Reason: SHORTNESS OF BREATH Albuterol/Ipratropium (Duoneb) 3 ml INHALATION Q4HWA.RT [facility] Last Admin: 03/28/18 06:40 Dose: 3 ml Aspirin (Aspirin, Baby) 81 mg PO DAILY@0800 [facility] Last Admin: 01/21/19 08:15 Dose: 81 mg Atorvastatin Calcium (Lipitor) 20 mg PO QHS [facility] Last Admin: 03/27/18 21:05 Dose: 20 mg Carvedilol (Coreg) 25 mg PO BID [facility] Chlorhexidine Gluconate () 1 each TOPICAL DAILY [facility] Last Admin: 03/27/18 05:56 Dose: 1 each Cholecalciferol (Vitamin D) 2,000 unit PO DAILY [facility] Last Admin: 03/27/18 10:16 Dose: 2,000 unit Dextrose (D50w Syringe) 0 gm IV X1 PRN; Protocol PRN Reason: Hypoglycemia Diltiazem HCl (Cardizem Cd) 180 mg PO DAILY [facility] Glucagon () 1 mg IM .X1 PRN PRN Reason: Hypoglycemia Guaifenesin (Mucinex) 1,200 mg PO BID [facility] Last Admin: 03/27/18 21:05 Dose: 1,200 mg Sodium Chloride () 250 mls @ 15 mls/hr IV .[id number] PRN PRN Reason: SALINE FLUSH Last Admin: 03/26/18 21:44 Dose: 15 mls/hr Levofloxacin (Levaquin Iv) 750 mg in 150 mls @ 100 mls/hr IV Q48 [facility] Insulin Human Lispro (Humalog Kwikpen (Bkc)) 0 unit SQ ACHS [facility]; Protocol Last Admin: 03/28/18 07:19 Dose: Not Given Lactic Acid (Lac-Hydrin, Amlactin) 1 applic TOPICAL TID [facility]; Protocol Last Admin: 03/28/18 05:15 Dose: 1 applicatio Magnesium Hydroxide (Milk Of Magnesia) 30 ml PO DAILY PRN PRN PRN Reason: Constipation Nicotine (Nicoderm Cq (Pbkc)) 21 mg TRANSDERM. DAILY [facility] Last Admin: 03/27/18 10:16 Dose: 21 mg Ondansetron HCl (Zofran) 4 mg IV Q8H PRN PRN PRN Reason: NAUSEA Pantoprazole Sodium (Protonix) 20 mg PO DAILY [facility] Last Admin: 03/27/18 10:16 Dose: 20 mg Sodium Chloride () 5 - 15 ml IV UD PRN PRN Reason: SALINE FLUSH Last Admin: 03/28/18 08:15 Dose: 10 ml Medical Necessity - Tobacco Use Smoking Status: Current every day smoker Tobacco Use: Cigarettes Assessment/Plan All Active Problems (Last Reviewed 03/15/18 @ 08:50 by Steven Savage MD) Septic shock (Acute) CAP (community acquired pneumonia) (Acute) Hx of appendectomy (Resolved) Shortness of breath (Acute) Acute respiratory failure with hypoxia and hypercapnia (Acute) Altered mental status (Acute) Hyponatremia (Acute) Dehydration (Acute) Hypokalemia (Acute) 77 year old M with PMHx of chronic atrial fibrillation, type 2 DM, hypertension, hyperlipidemia admitted with complaints of progressive shortness of breath ongoing for 1 week. He was hypoxic, saturating in the 60s at home. 1. Septic shock secondary to community-acquired pneumonia, resolved Stable BP, blood cultures are pending, urine streptococcal antigen positive, legionella antigen negative Continue on IV zosyn and Levaquin q48h, will continue the same today. 2. Community-acquired pneumonia, multilobar, seen on CXR, continue on IV antibiotics, incentive spirometer, breathing treatments 3. Acute hypoxic respiratory failure secondary to community-acquired pneumonia, improving admitting SpO2 76%, not on oxygen at home, on Bipap overnight, currently on 6L oxygen, will continue same, monitor and wean off for SPo2 94% 4. Supratherapeutic INR, INR 4.7, not on coumadin, will continue trend INR in am 5. ALISIA on CKD, likely prerenal secondary to dehydration, baseline Cr around 1.3, slightly improved, continue to monitor strict I & Os, lab work in am 6. Type II DM, BS are stable, tradjenta on hold, continue on accucheks with ISS 7. Hypertension, will resume home medications, will monitor BP 8. Chronic A. fib, rate uncontrolled, will resume cardizem and carvedilol, not on coumadin, INR is supratherapeutic, will monitor 9. Dry skin, lower legs, on lac-hydrin topical TID. 10. DVT Ppx- INR is supratherapeutic. 11. Disposition: Transfer to PCU later when HR improves; possible dc home vs SNF in 1-2 days. Code Visit Inpatient E&M: 77202 Subs Hosp L2
--- NOTE | 2018-03-28 10:04 | CASEMGMT ---
RN CM Assessment Presentation: septic shock, CAP Intro role of CM to patient in ICU after ICU interdisciplinary rounds. Continue IV antibiotics, INR 4.7 today, pt continues on 4-5L NC. IV Lasix 40 mg IVx1 today. Wt 95.9 kg (02.07 on admit). PCP: Dr. Rodney Preferred Pharmacy: [facility] Insurance:[employer] [facility] Prescription Benefit: yes LNOK: Daughter Jina Owen Living Arrangements: pt lives independently in own home. 4 steps into home, then one story. Daughter is nurse, per pt, and able to assist if dc needs arise. Transportation: drives, DME/HHC: States he does not use any ambulatory assistive devices, and no home oxygen. DC PLAN: anticipate home on discharge. PT/OT evals pending. Tahira SWANSON RN ACM
--- NOTE | 2018-03-28 10:19 | CASEMGMT ---
RN CM Assessment Presentation: septic shock, CAP Intro role of CM to patient in ICU after ICU interdisciplinary rounds. Continue IV antibiotics, INR 4.7 today, pt continues on 4-5L NC. IV Lasix 40 mg IVx1 today. Wt 95.9 kg (92.07 on admit). PCP: Dr. Rodney Preferred Pharmacy: [facility] Insurance:[employer] [facility] Prescription Benefit: yes LNOK: Daughter Jina Owen Living Arrangements: pt lives independently in own home. 4 steps into home, then one story. Daughter is nurse, per pt, and able to assist if dc needs arise. Transportation: drives, DME/HHC: States he does not use any ambulatory assistive devices, and no home oxygen. DC PLAN: anticipate home on discharge. PT/OT evals pending. Tahira SWANSON RN ACM
[2018-03-28] MEDS: dilTIAZem CD 180 MG Capsule PO (11:04)
[2018-03-28] MEDS: levoFLOXacin IV 750 MG/150 ML BAG 100 MG IV (11:04)
[2018-03-28] MEDS: Escitalopram Oxalate 10 MG Tablet PO (11:04)
[2018-03-28] MEDS: Timolol 0.5% 5ML OPTH.BTL 1 DRP LEFT EYE ×2 (11:04→21:41)
[2018-03-28] MEDS: CHLORHEXIDINE GLUC 2% CLOTH 1 EACH TOWELETTE TOPICAL (11:05)
[2018-03-28] MEDS: Carvedilol 25 MG Tablet PO ×2 (11:05→21:41)
[2018-03-28] MEDS: guaiFENesin 1,200 MG Tablet 1200 MG PO ×2 (11:05→21:41)
[2018-03-28] MEDS: Pantoprazole Sodium 20 MG Tablet PO (11:09)
[2018-03-28] MEDS: Insulin Lispro 100 UNIT/ML INSULN.PEN SQ (11:11)
[2018-03-28 11:30] LABS: Bedside Glucose 219 mg/dL (70-110)
[2018-03-28 16:25] LABS: Bedside Glucose 81 mg/dL (70-110)
[2018-03-28] MEDS: Atorvastatin Calcium 20 MG Tablet PO (21:41)
[2018-03-28 22:05] LABS: Bedside Glucose 122 mg/dL (70-110)
[2018-03-29] VITALS (24 sets, daily range): BP systolic 104–140; BP diastolic 62–106; PULSE 78–118; RESP 12–23; TEMP 36.4–36.9; O2SAT 87–99
[2018-03-29 04:47] LABS: Absolute Lymphocyte Count 0.82 X10^3/ul (0.83-4.51); Absolute Neutrophil Count 12.9 X10^3/uL (2.0-7.7); Eosinophil# 0.02 X10^3/uL; Eosinophils% 0.1 % (0-5); Hematocrit 33.3 % (40-54); Hemoglobin 10.1 g/dl (13.0-16.5); Lymphocyte # 0.82 X10^3/ul (4.0); Lymphocyte % 5.6 % (19-41); Mean Corp Hgb Conc 30.3 g/gl (32-36); Mean Corpuscular Hgb 25.8 pg (27.0-32.0); Mean Corpuscular Volume 85.2 fL (80-94); Mean Platelet Vol. 10.2 fl (6.2-12.0); Monocyte# 0.84 X10^3/uL; Monocyte% 5.7 % (0-10); Neutrophil # 12.92 X10^3/uL (2.7-7.7); Neutrophil % 88.2 % (47-70); Platelet Count 282 K/mm3 (150-450); RBC Distribution Width CV 17.3 % (11.6-14.6); RBC Distribution Width SD 52.7 fl (35.1-43.9); Red Blood Count 3.91 M/mm3 (4.6-6.2); White Blood Count 14.7 K/mm3 (4.4-11.0)
[2018-03-29 04:49] LABS: International Normalized Ratio 3.3; Prothrombin Time (Protime)PT. 33.6 SECONDS (11.7-14.9)
[2018-03-29 04:58] LABS: POSITIVE COUNT NO; POSITIVE DIFFERENTIAL NO; POSITIVE MORPHOLOGY NO
[2018-03-29 05:08] LABS: Anion Gap 7 (5-15); BUN 82 mg/dL (7-18); BUN/Creat Ratio 34.9 RATIO (10-20); Calcium,Total 7.9 mg/dL (8.5-10.1); Chloride 108 mmol/L (98-107); Creatinine, Serum 2.35 mg/dL (0.70-1.30); EST Glomerular Filtration Rate 29 mL/min (>60); Est Glom Filt Rate - Afr Amer 35 mL/min (>60); Estimated Creatinine Clearance 25.06 ml/min; Glucose 112 mg/dL (74-106); Potassium 4.7 mmol/L (3.5-5.1); Sodium Level 141 mmol/L (136-145)
[2018-03-29] MEDS: Ammonium Lactate 225 gm Bottle 1 APPLIC TOPICAL ×3 (05:41→23:26)
[2018-03-29] MEDS: 0.9% NaCl Peripheral Flush Adult/Peds IV (05:41)
[2018-03-29 06:51] LABS: Bedside Glucose 102 mg/dL (70-110)
[2018-03-29] MEDS: Ipratropium/Albuterol Sulfate 3 ML AMPUL.NEB INHALATION ×4 (07:20→19:00)
--- NOTE | 2018-03-29 07:21 | PN_ITS ---
Subjective: Patient did well overnight. Patient was compliant with BiPAP therapy and reports subjective improvement compared to yesterday. Patient has been to lerating nasal cannula oxygen when not on BiPAP therapy. Patient is tolerating more of a p.o. diet recently. General: Alert, Oriented x3, Cooperative, No apparent distress, - - Appears stated age. No conversational dyspnea noted. HEENT: Atraumatic, EOMI, Normocephalic, - - No scleral icterus or injection noted. Oral: Moist Mucosa, No Gingival or Mucosal Lesions/ Ulcerations Neck: Supple, No JVD, No Nodes, Trachea Midline Lungs: No rhonchi, No wheeze, No rales, Diminished, - - Symmetric expansion. No dullness to percussion. Cardiovascular: Normal S1, Normal S2, No murmurs, Irregular Rate, No rub noted, No Gallop, - - A. fib noted on telemetry Abdomen: Bowel Sounds Present, Soft, Non Tender, Non-Distended, Obese Extremities: No clubbing, No cyanosis, Capillary Refill Less than 3 Seconds, Edema Skin: - - No significant change compared to previous Musculoskeletal: No Tenderness to Palpation of Joints or Extremities Lymphatic: No Cervical, Supraclavicular, or Inguinal Adenopathy Neurological: Cranial nerves II-XII grossly intact, Neuro grossly intact, Motor Exam 5/5 strength throughout Psych/Mental Status: Alert and oriented to time, place, person, mood and affect Vital Signs Temp Pulse Resp BP Pulse Ox 36.9 C 103 H 20 H 128/70 H 96 03/29/18 06:00 03/29/18 06:00 03/29/18 06:00 03/29/18 06:00 03/29/18 06:00 Oxygen Flow Rate (L/min) 3 Oxygen Delivery Method Nasal Cannula Weight: 95.2 kg Body Mass Index (BMI) 30.9 Intake and Output for Last 24 Hours 03/27/18 03/28/18 03/29/18 23:59 23:59 23:59 Intake Total 2254.8 / 2254.8 1836.3 / 1836.3 500 / 500 Output Total 2150 / 2150 2125 / 2125 450 / 450 Balance 104.8 / 104.8 -288.7 / -288.7 50 / 50 Labs (Last 48 Hours) 03/27/18 03/27/18 03/27/18 12:28 17:07 20:05 WBC RBC Hgb Hct MCV MCH MCHC RDW RDW Differential Plt Count MPV Immature Gran % (Auto) Neut % (Auto) Lymph % (Auto) [place] % (Auto) Eos % (Auto) Baso % (Auto) Absolute Neuts (auto) Absolute Lymphs (auto) Total Counted PT INR Sodium Potassium Chloride Carbon Dioxide Anion Gap BUN Creatinine Estim Creat Clear Calc Est GFR (MDRD) Af Amer Est GFR (MDRD) Non-Af BUN/Creatinine Ratio Glucose Calcium Phosphorus Albumin MRSA (PCR) Negative POC Glucose 115 H 146 H 03/27/18 03/28/18 03/28/18 21:07 03:40 03:40 WBC 14.0 H RBC 3.81 L Hgb 10.0 L Hct 32.2 L MCV 84.5 MCH 26.2 L MCHC 31.1 L RDW 17.3 H RDW Differential 52.6 H Plt Count 276 MPV 10.1 Immature Gran % (Auto) 0.400 Neut % (Auto) 93.3 H Lymph % (Auto) 2.1 L [place] % (Auto) 4.1 Eos % (Auto) 0.0 Baso % (Auto) 0.1 Absolute Neuts (auto) 13.0 H Absolute Lymphs (auto) 0.30 L Total Counted Not Reportable PT 44.4 H INR 4.7 H* Sodium Potassium Chloride Carbon Dioxide Anion Gap BUN Creatinine Estim Creat Clear Calc Est GFR (MDRD) Af Amer Est GFR (MDRD) Non-Af BUN/Creatinine Ratio Glucose Calcium Phosphorus Albumin MRSA (PCR) POC Glucose 157 H 03/28/18 03/28/18 03/28/18 03:40 06:35 11:10 WBC RBC Hgb Hct MCV MCH MCHC RDW RDW Differential Plt Count MPV Immature Gran % (Auto) Neut % (Auto) Lymph % (Auto) [place] % (Auto) Eos % (Auto) Baso % (Auto) Absolute Neuts (auto) Absolute Lymphs (auto) Total Counted PT INR Sodium 141 Potassium 4.1 Chloride 107 Carbon Dioxide 23.0 Anion Gap BUN 76 H Creatinine 2.73 H Estim Creat Clear Calc 21.58 Est GFR (MDRD) Af Amer 29 L Est GFR (MDRD) Non-Af 24 L BUN/Creatinine Ratio 27.8 H Glucose 124 H Calcium 7.7 L Phosphorus 6.2 H Albumin 1.9 L MRSA (PCR) POC Glucose 123 H 219 H 03/28/18 03/28/18 03/29/18 16:22 21:35 04:13 WBC 14.7 H RBC 3.91 L Hgb 10.1 L Hct 33.3 L MCV 85.2 MCH 25.8 L MCHC 30.3 L RDW 17.3 H RDW Differential 52.7 H Plt Count 282 MPV 10.2 Immature Gran % (Auto) 0.400 Neut % (Auto) 88.2 H Lymph % (Auto) 5.6 L [place] % (Auto) 5.7 Eos % (Auto) 0.1 Baso % (Auto) 0.0 Absolute Neuts (auto) 12.9 H Absolute Lymphs (auto) 0.82 L Total Counted Not Reportable PT INR Sodium Potassium Chloride Carbon Dioxide Anion Gap BUN Creatinine Estim Creat Clear Calc Est GFR (MDRD) Af Amer Est GFR (MDRD) Non-Af BUN/Creatinine Ratio Glucose Calcium Phosphorus Albumin MRSA (PCR) POC Glucose 81 122 H 03/29/18 03/29/18 03/29/18 04:13 04:13 06:40 WBC RBC Hgb Hct MCV MCH MCHC RDW RDW Differential Plt Count MPV Immature Gran % (Auto) Neut % (Auto) Lymph % (Auto) [place] % (Auto) Eos % (Auto) Baso % (Auto) Absolute Neuts (auto) Absolute Lymphs (auto) Total Counted PT 33.6 H INR 3.3 Sodium 141 Potassium 4.7 Chloride 108 H Carbon Dioxide 26.0 Anion Gap 7 BUN 82 H Creatinine 2.35 H Estim Creat Clear Calc 25.06 Est GFR (MDRD) Af Amer 35 L Est GFR (MDRD) Non-Af 29 L BUN/Creatinine Ratio 34.9 H Glucose 112 H Calcium 7.9 L Phosphorus Albumin MRSA (PCR) POC Glucose 102 Microbiology 03/26/18 12:14 Blood Culture (Wb) - Right Wrist Bacteria Detection (PCR) - Final Streptococcus pneumoniae 03/26/18 12:14 Blood Culture (Wb) - Right Wrist Blood Culture - Preliminary 03/26/18 11:55 Blood Culture (Wb) - Anticubital Left Blood Culture - Preliminary 03/26/18 14:40 Mucosa - Nasopharyngeal Respiratory Panel (PCR) - Final Medical Necessity - Tobacco Use Smoking Status: Current every day smoker Tobacco Use: Cigarettes Assessment/Plan All Active Problems (Last Reviewed 03/15/18 @ 08:50 by Steven Savage MD) Septic shock (Acute) CAP (community acquired pneumonia) (Acute) Hx of appendectomy (Resolved) Shortness of breath (Acute) Acute respiratory failure with hypoxia and hypercapnia (Acute) Altered mental status (Acute) Hyponatremia (Acute) Dehydration (Acute) Hypokalemia (Acute) RECOMMENDATIONS: 1. Continue BiPAP with sleep and as needed. 2. Continue Levaquin therapy 3. Continue to hold Coumadin. Check daily INR. 4. We will schedule diuretics 5. Likely okay to leave the intensive care unit from my perspective IMPRESSIONS: 1. Severe sepsis secondary due to pneumococcal pneumonia The patient was placed on broad-spectrum antibiotics upon presentation. Patient has come back positive with pneumococcal antigen in the urine. Patient can be continued on Levaquin therapy alone. Patient's blood pressure is much improved compared to previous and no pressors have been required. We will proceed with diuretic therapy as patient did receive significant volume resuscitation on presentation. 2. Acute combined respiratory failure/questionable COPD The patient has a self-reported history of COPD. There are no PFTs on file. In addition, the patient is not currently utilizing any inhalers at his baseline. He does have a tobacco abuse history, but states that he is no longer smoking. He has responded appropriately to noninvasive positive pressure ventilation. Continue bronchodilators as ordered. BiPAP likely only necessary overnight. Chest x-ray showing significant left lower lobe infiltrate. Diure sis yesterday was largely unsuccessful. Will schedule diuretic therapy. Watch renal function closely. 3. Coagulopathy Likely secondary to chronic anticoagulation coupled with #1. Continue to hold anticoagulation and monitor for overt signs of bleeding. There is no need for immediate reversal at this time. 4. Acute kidney injury Potentially prerenal in etiology and related to #1. The patient has been adequately volume resuscitated at this time. He remains hemodynamically stable. There is no indication for renal replacement therapy at this time. 5. Chronic systolic heart failure/atrial fibrillation/chronic anticoagulation status/depression/tobacco dependency with questionable remission Complicates care, management, recovery and prognosis. Continue rate control strategy per outpatient regimen. Continue gentle diuresis today. Code Visit Inpatient E&M: [id number] [facility] Hosp L3
--- NOTE | 2018-03-29 07:21 | PN_ITS ---
Patient Problems: Active and Suspected Problems (Last Reviewed 03/15/18 @ 08:50 by Steven Savage MD) Septic shock (Acute) CAP (community acquired pneumonia) (Acute) Subjective: Patient was seen and examined. No acute events overnight. He appears improved. On 3 L of oxygen. Denies any fever or chills or chest pain or shortness of breath. Review of systems is negative. Objective: Physical Exam General: Alert, Oriented x3, Cooperative, on 5L oxygen HEENT: Atraumatic, PERRLA, EOMI, Normocephalic Oral: Dry Mucosa Neck: Supple, No JVD, Negative Carotid Bruits Lungs: Diminished to auscultation, Normal air movement Cardiovascular: Regular Rhythm, Normal S1, Normal S2, No murmurs, Irregular Rate Abdomen: Bowel Sounds Present, Soft, Non Tender, Non-Distended, Distended, Obese Extremities: No edema Skin: - - dry skin on bilateral lower legs with scaling. Musculoskeletal: No Tenderness to Palpation of Joints or Extremities Lymphatic: No Cervical, Supraclavicular, or Inguinal Adenopathy Neurological: Cranial nerves II-XII grossly intact, Neuro grossly intact Psych/Mental Status: Normal Affect, Appropriate Vitals/I&O's: Vital Signs Temp Pulse Resp BP Pulse Ox 98.4 F 103 H 20 H 128/70 H 96 03/29/18 06:00 03/29/18 06:00 03/29/18 06:00 03/29/18 06:00 03/29/18 06:00 Oxygen Flow Rate (L/min) 3 Oxygen Delivery Method Nasal Cannula Weight: 95.2 kg Body Mass Index (BMI) 30.9 Intake and Output for Last 24 Hours 03/27/18 03/28/18 03/29/18 23:59 23:59 23:59 Intake Total 2254.8 / 2254.8 1836.3 / 1836.3 500 / 500 Output Total 2150 / 2150 2125 / 2125 450 / 450 Balance 104.8 / 104.8 -288.7 / -288.7 50 / 50 Microbiology Past 72 Hours 03/26/18 12:14 Blood Culture (Wb) - Right Wrist Bacteria Detection (PCR) - Final Streptococcus pneumoniae 03/26/18 12:14 Blood Culture (Wb) - Right Wrist Blood Culture - Preliminary 03/26/18 11:55 Blood Culture (Wb) - Anticubital Left Blood Culture - Preliminary 03/26/18 14:40 Mucosa - Nasopharyngeal Respiratory Panel (PCR) - Final 03/26/18 15:20 Urine, Random Streptococcus pneumoniae Antigen (M - Final 03/26/18 15:00 Urine, Random Legionella Antigen - Final 03/26/18 14:40 Mucosa - Nasopharyngeal Influenza Types A,B Direct FA (KRISHNA) - Final Laboratory Results 03/28/18 11:10: POC Glucose 219 H 03/28/18 16:22: POC Glucose 81 03/28/18 21:35: POC Glucose 122 H 03/29/18 04:13: WBC 14.7 H, RBC 3.91 L, Hgb 10.1 L, Hct 33.3 L, MCV 85.2, MCH 25.8 L, MCHC 30.3 L, RDW 17.3 H, RDW Differential 52.7 H, Plt Count 282, MPV 10.2, Immature Gran % (Auto) 0.400, Neut % (Auto) 88.2 H, Lymph % (Auto) 5.6 L, [place] % (Auto) 5.7, Eos % (Auto) 0.1, Baso % (Auto) 0.0, Absolute Neuts (auto) 12.9 H, Absolute Lymphs (auto) 0.82 L, Total Counted Not Reportable 03/29/18 04:13: PT 33.6 H, INR 3.3 03/29/18 04:13: Sodium 141, Potassium 4.7, Chloride 108 H, Carbon Dioxide 26.0, Anion Gap 7, BUN 82 H, Creatinine 2.35 H, Estim Creat Clear Calc 25.06, Est GFR (MDRD) Af Amer 35 L, Est GFR (MDRD) Non-Af 29 L, BUN/Creatinine Ratio 34.9 H, Glucose 112 H, Calcium 7.9 L 03/29/18 06:40: POC Glucose 102 Current Medications Acetaminophen (Tylenol) 650 mg PO Q6H PRN PRN PRN Reason: Mild Pain (1-3)/Temp > 100.7 F Albuterol Sulfate (Ventolin Aerosols) 2.5 mg INHALATION Q2H PRN PRN PRN Reason: SHORTNESS OF BREATH Albuterol/Ipratropium (Duoneb) 3 ml INHALATION Q4HWA.RT [facility] Last Admin: 03/29/18 07:20 Dose: 3 ml Aspirin (Aspirin, Baby) 81 mg PO DAILY@0800 [facility] Last Admin: 03/28/18 08:15 Dose: 81 mg Atorvastatin Calcium (Lipitor) 20 mg PO QHS [facility] Last Admin: 03/28/18 21:41 Dose: 20 mg Carvedilol (Coreg) 25 mg PO BID [facility] Last Admin: 03/28/18 21:41 Dose: 25 mg Chlorhexidine Gluconate () 1 each TOPICAL DAILY [facility] Last Admin: 03/28/18 11:05 Dose: 1 each Cholecalciferol (Vitamin D) 2,000 unit PO DAILY [facility] Last Admin: 03/28/18 11:06 Dose: 2,000 unit Dextrose (D50w Syringe) 0 gm IV X1 PRN; Protocol PRN Reason: Hypoglycemia Diltiazem HCl (Cardizem Cd) 180 mg PO DAILY [facility] Last Admin: 03/28/18 11:04 Dose: 180 mg Escitalopram Oxalate (Lexapro) 10 mg PO DAILY [facility] Last Admin: 03/28/18 11:04 Dose: 10 mg Furosemide (Lasix) 40 mg IV BID@1000,1800 [facility] Glucagon () 1 mg IM .X1 PRN PRN Reason: Hypoglycemia Guaifenesin (Mucinex) 1,200 mg PO BID [facility] Last Admin: 03/28/18 21:41 Dose: 1,200 mg Sodium Chloride () 250 mls @ 15 mls/hr IV .[id number] PRN PRN Reason: SALINE FLUSH Last Admin: 03/26/18 21:44 Dose: 15 mls/hr Levofloxacin (Levaquin Iv) 750 mg in 150 mls @ 100 mls/hr IV Q48 [facility] Last Admin: 03/28/18 11:04 Dose: 100 mls/hr Insulin Human Lispro (Humalog Kwikpen (Bkc)) 0 unit SQ ACHS [facility]; Protocol Last Admin: 03/28/18 21:38 Dose: Not Given Lactic Acid (Lac-Hydrin, Amlactin) 1 applic TOPICAL TID [facility]; Protocol Last Admin: 03/29/18 05:41 Dose: 1 applicatio Magnesium Hydroxide (Milk Of Magnesia) 30 ml PO DAILY PRN PRN PRN Reason: Constipation Nicotine (Nicoderm Cq (Pbkc)) 21 mg TRANSDERM. DAILY [facility] Last Admin: 03/28/18 11:06 Dose: 21 mg Ondansetron HCl (Zofran) 4 mg IV Q8H PRN PRN PRN Reason: NAUSEA Pantoprazole Sodium (Protonix) 20 mg PO DAILY [facility] Last Admin: 03/28/18 11:09 Dose: 20 mg Sodium Chloride () 5 - 15 ml IV UD PRN PRN Reason: SALINE FLUSH Last Admin: 03/29/18 05:41 Dose: 15 ml Timolol Maleate (Timoptic) 1 drop LEFT EYE BID [facility] Last Admin: 03/28/18 21:41 Dose: 1 drop Medical Necessity - Tobacco Use Smoking Status: Current every day smoker Tobacco Use: Cigarettes Assessment/Plan All Active Problems (Last Reviewed 03/15/18 @ 08:50 by Steven Savage MD) Septic shock (Acute) CAP (community acquired pneumonia) (Acute) Hx of appendectomy (Resolved) Shortness of breath (Acute) Acute respiratory failure with hypoxia and hypercapnia (Acute) Altered mental status (Acute) Hyponatremia (Acute) Dehydration (Acute) Hypokalemia (Acute) 77 year old M with PMHx of chronic atrial fibrillation, type 2 DM, hypertension, hyperlipidemia admitted with complaints of progressive shortness of breath ongoing for 1 week. He was hypoxic, saturating in the 60s at home. 1. Septic shock secondary to community-acquired pneumonia/streptococcal pneumonia, resolved Stable BP, blood cultures are pending, urine streptococcal antigen positive, legionella antigen negative Continue on Levaquin q48h (day 4 of antibiotics). 2. Community-acquired pneumonia, strept pneumonia, multilobar, seen on CXR, continue on IV antibiotics, incentive spirometer, breathing treatments 3. Acute hypoxic respiratory failure secondary to community-acquired pneumonia, improving, 3 L of oxygen, Will continue same, monitor and wean off for SPo2 94% 4. Supratherapeutic INR, INR 3.3, not on coumadin, will continue trend INR in am 5. ALISIA on CKD, likely prerenal secondary to dehydration, baseline Cr around 1.3, improving, Continue to monitor strict I & Os, lab work in am 6. Type II DM, BS are stable, tradjenta on hold, continue on accucheks with ISS 7. Hypertension, controlled, continue carvedilol, Cardizem, continue to monitor vitals. 8. Chronic A. fib, rate controlled, on cardizem and carvedilol, INR is supratherapeutic, will monitor 9. Dry skin, lower legs, on lac-hydrin topical TID. 10. Nicotine dependence, on replacement 11. DVT Ppx- INR is supratherapeutic. 12. Disposition: possible dc in 1-2 days pending PT/OT re-evaluation Code Visit Inpatient E&M: 56742 Subs Hosp L2
[2018-03-29 08:26] LABS: Bedside Glucose 99 mg/dL (70-110)
[2018-03-29] MEDS: dilTIAZem CD 180 MG Capsule PO (09:01)
[2018-03-29] MEDS: Aspirin 81 MG TAB.CHEW PO (09:01)
[2018-03-29] MEDS: Escitalopram Oxalate 10 MG Tablet PO (09:02)
[2018-03-29] MEDS: Carvedilol 25 MG Tablet PO ×2 (09:02→23:25)
[2018-03-29] MEDS: Furosemide 40 MG/4 ML Vial IV ×2 (09:02→18:04)
[2018-03-29] MEDS: Pantoprazole Sodium 20 MG Tablet PO (09:03)
[2018-03-29] MEDS: guaiFENesin 1,200 MG Tablet 1200 MG PO ×2 (09:03→23:27)
[2018-03-29] MEDS: Timolol 0.5% 5ML OPTH.BTL 1 DRP LEFT EYE ×2 (09:04→23:27)
[2018-03-29 12:00] LABS: Bedside Glucose 137 mg/dL (70-110)
--- NOTE | 2018-03-29 12:15 | CON.PCM_ITS ---
Problem List (1) Septic shock Status: Acute Reason for Consult: pneumonia Consulted by: Dr. Paez History of Present Illness: The patient is a 77 year old M who presented with several days of not feeling well, dry cough, weakness. Reports getting flu shot and pneumonia shot in past. No sick contacts, no abx prior to presentation. Denies SOB or fever. Came to ED, BP 89/60, admitted to icu. Given ceftriaxone, azithro, zosyn, now narrowed to levaquin. Bcx and UAg with S.pneumo. Feeling better, wbc improved. No n/v/d with abx. Full ROS Performed and neg except as noted above. 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) use of anticoagulants (Chronic) Atrial fib/flutter, transient (Chronic) Benign essential hypertension (Chronic) COLD (chronic obstructive lung disease) (Chronic) Diabetes mellitus, type 2 (Chronic) GERD (gastroesophageal reflux disease) (Chronic) Hyperlipidemia (Chronic) Obesity (Chronic) Acute respiratory failure with hypercapnia (Chronic) Biatrial enlargement (Chronic) Glaucoma (Chronic) Atrial fibrillation and flutter (Chronic) Allergies/Adverse Reactions: Allergies Penicillins Allergy (Verified 03/15/18 08:37) Rash Home Medications: Ambulatory Orders Medication Instructions Recorded Aspirin [Aspirin, Baby] 81 mg PO DAILY@0800 03/26/18 Atorvastatin Calcium [Lipitor] 20 mg PO DAILY 03/26/18 Brimonidine Tartrate [Alphagan P] 1 drop OP BID 03/26/18 Carvedilol [Coreg] 25 mg PO BID 03/26/18 Cholecalciferol (Vitamin D3) 2,000 unit PO DAILY 03/26/18 [Vitamin D3] Diltiazem CD [Cardizem CD] 180 mg PO DAILY 03/26/18 Escitalopram Oxalate [Lexapro] 10 mg PO DAILY 03/26/18 Furosemide [Lasix] 40 mg PO DAILY 03/26/18 Ipratropium/Albuterol Sulfate 3 ml INHALATION Q4HWA.RT 03/26/18 [Duoneb] Linagliptin [Tradjenta] 5 mg PO DAILY 03/26/18 Omeprazole [Prilosec] 20 mg PO DAILY 03/26/18 RX: Lisinopril 2.5 mg PO DAILY 03/26/18 Timolol 0.5% [Timoptic] 1 drop LEFT EYE BID 03/26/18 - Social History Tobacco Use: cigarettes Vital Signs Temp Pulse Resp BP Pulse Ox 98.4 F 101 H 20 H 118/67 94 03/29/18 08:54 03/29/18 08:54 03/29/18 08:54 03/29/18 08:54 03/29/18 09:00 Oxygen Flow Rate (L/min) 2 Oxygen Delivery Method Nasal Cannula Weight: 95.2 kg Body Mass Index (BMI) 30.9 Microbiology Past 72 Hours 03/26/18 11:55 Blood Culture - Final Blood Culture (Wb) - Anticubital Left Streptococcus pneumoniae 03/26/18 12:14 Bacteria Detection (PCR) - Final Blood Culture (Wb) - Right Wrist Streptococcus pneumoniae Blood Culture - Final Streptococcus pneumoniae 03/26/18 14:40 Respiratory Panel (PCR) - Final Mucosa - Nasopharyngeal 03/26/18 15:20 Streptococcus pneumoniae Antigen (M - Final Urine, Random 03/26/18 15:00 Legionella Antigen - Final Urine, Random 03/26/18 14:40 Influenza Types A,B Direct FA (KRISHNA) - Final Mucosa - Nasopharyngeal Laboratory Tests Past 24 Hrs 03/29/18 03/29/18 03/29/18 04:13 04:13 04:13 WBC 14.7 H RBC 3.91 L Hgb 10.1 L Hct 33.3 L MCV 85.2 MCH 25.8 L MCHC 30.3 L RDW 17.3 H RDW Differential 52.7 H Plt Count 282 MPV 10.2 Immature Gran % (Auto) 0.400 Neut % (Auto) 88.2 H Lymph % (Auto) 5.6 L [place] % (Auto) 5.7 Eos % (Auto) 0.1 Baso % (Auto) 0.0 Absolute Neuts (auto) 12.9 H Absolute Lymphs (auto) 0.82 L Total Counted Not Reportable PT 33.6 H INR 3.3 Sodium 141 Potassium 4.7 Chloride 108 H Carbon Dioxide 26.0 Anion Gap 7 BUN 82 H Creatinine 2.35 H Estim Creat Clear Calc 25.06 Est GFR (MDRD) Af Amer 35 L Est GFR (MDRD) Non-Af 29 L BUN/Creatinine Ratio 34.9 H Glucose 112 H Calcium 7.9 L - Other Studies Radiology: [] reviewed Other Studies: [] Route of nutrition/ use of supplements: [] Nutritional Intake: [] IV Site: [] Bowens Catheter: [] - Physical Exam General: Alert, Oriented x3, Cooperative, No apparent distress HEENT: Atraumatic, PERRLA, EOMI Neck: Supple, No Nodes Lungs: Normal air movement, Rhonchi Cardiovascular: Tachycardic Abdomen: Soft, Non Tender, Non-Distended Extremities: No edema Skin: No rashes Musculoskeletal: No Tenderness to Palpation of Joints or Extremities Neurological: Cranial nerves II-XII grossly intact - Assessment/Plan Antibiotics: [] Assessment/Plan: [] Active and Suspected Problems (Last Reviewed 03/15/18 @ 08:50 by Steven Savage MD) Septic shock (Acute) CAP (community acquired pneumonia) (Acute) Due to spneumo pneumonia with bacteremia - ALISIA improved. Lactate improved. Wbc improving. Agree with levaquin. Plan on 7-10 day course. Will follow, thank you, d/w nursing.
--- NOTE | 2018-03-29 14:40 | NURSING ---
all attempts at education on chronic illness met w/passive resistance from pt (stops looking at this RN and states my dtr is the DON at [local ECF] and my granddtr is also a nurse there. They take care of everything
--- NOTE | 2018-03-29 14:49 | CPS ---
Patient working on PEP therapy on own.
--- NOTE | 2018-03-29 15:10 | NURSING ---
report called to PACKAGING MANAGER. to [id number] per recliner. IP LITIGATION ASSOCIATE in attendance
[2018-03-29 17:01] LABS: Bedside Glucose 122 mg/dL (70-110)
[2018-03-29] MEDS: Insulin Lispro 100 UNIT/ML INSULN.PEN SQ (23:25)
[2018-03-29] MEDS: Atorvastatin Calcium 20 MG Tablet PO (23:26)
[2018-03-29 23:40] LABS: Bedside Glucose 153 mg/dL (70-110)
[2018-03-30] VITALS (15 sets, daily range): BP systolic 103–136; BP diastolic 63–78; PULSE 87–114; RESP 12–20; TEMP 36.3–36.7; O2SAT 90–99
[2018-03-30] MEDS: Ammonium Lactate 225 gm Bottle 1 APPLIC TOPICAL ×3 (05:21→20:59)
[2018-03-30 07:11] LABS: Bedside Glucose 137 mg/dL (70-110)
[2018-03-30 07:15] LABS: Anion Gap 8 (5-15); BUN 79 mg/dL (7-18); BUN/Creat Ratio 39.9 RATIO (10-20); Calcium,Total 8.5 mg/dL (8.5-10.1); Chloride 106 mmol/L (98-107); Creatinine, Serum 1.98 mg/dL (0.70-1.30); EST Glomerular Filtration Rate 35 mL/min (>60); Est Glom Filt Rate - Afr Amer 42 mL/min (>60); Estimated Creatinine Clearance 29.75 ml/min; Glucose 130 mg/dL (74-106); Potassium 4.2 mmol/L (3.5-5.1); Sodium Level 141 mmol/L (136-145)
[2018-03-30] MEDS: Ipratropium/Albuterol Sulfate 3 ML AMPUL.NEB INHALATION ×5 (07:22→19:29)
[2018-03-30] MEDS: dilTIAZem CD 180 MG Capsule PO (08:08)
[2018-03-30] MEDS: Aspirin 81 MG TAB.CHEW PO (08:08)
[2018-03-30] MEDS: Carvedilol 25 MG Tablet PO ×2 (08:08→20:57)
[2018-03-30] MEDS: Escitalopram Oxalate 10 MG Tablet PO (09:37)
[2018-03-30] MEDS: Pantoprazole Sodium 20 MG Tablet PO (09:37)
[2018-03-30] MEDS: Furosemide 40 MG/4 ML Vial IV ×2 (09:37→18:23)
[2018-03-30] MEDS: guaiFENesin 1,200 MG Tablet 1200 MG PO ×2 (09:37→20:58)
[2018-03-30] MEDS: 0.9% NaCl Peripheral Flush Adult/Peds IV ×2 (09:37→18:24)
[2018-03-30] MEDS: levoFLOXacin IV 750 MG/150 ML BAG 100 MG IV (09:37)
[2018-03-30] MEDS: Timolol 0.5% 5ML OPTH.BTL 1 DRP LEFT EYE ×2 (09:38→20:57)
--- NOTE | 2018-03-30 09:59 | PCM.DC ---
- Discharge Diagnoses Current Active Problems: Current Active and Chronic Problems (Last Reviewed 03/15/18 @ 08:50 by Steven Savage MD) Septic shock (Acute) CAP (community acquired pneumonia) (Acute) Reason(s) for Visit for Discharge Instructions: Shortness of breath You will use the following diet at home:: Calorie/Carbohydrate Controlled (specify 1200, 1400, etc), Cardiac Your food should be the consistency of: Regular Your liquids should be the consistency of: Regular/Thin Discharge Activity: Return to Normal Activity Additional Instructions: Complete your antibiotics. Continue to use your oxygen all the time. Continue to use your incentive spirometer. Follow-up with the tower supervisor in 2 weeks to have your oxygen re-evaluated. You need to follow-up with your primary care doctor within a week to have repeat blood work done to monitor your kidney function whilst on the Lasix. Allergies/Adverse Reactions: Allergies Penicillins Allergy (Verified 03/15/18 08:37) Rash Medications to take at Discharge Aspirin [Aspirin, Baby] 81 mg PO DAILY@0800 03/26/18 Atorvastatin Calcium [Lipitor] 20 mg PO DAILY 03/26/18 Brimonidine Tartrate [Alphagan P] 1 drop OP BID 03/26/18 Carvedilol [Coreg] 25 mg PO BID 03/26/18 Cholecalciferol (Vitamin D3) [Vitamin D3] 2,000 unit PO DAILY 03/26/18 Diltiazem CD [Cardizem CD] 180 mg PO DAILY 03/26/18 Escitalopram Oxalate [Lexapro] 10 mg PO DAILY 03/26/18 Ipratropium/Albuterol Sulfate [Duoneb] 3 ml INHALATION Q4HWA.RT 03/26/18 Linagliptin [Tradjenta] 5 mg PO DAILY 03/26/18 Omeprazole [Prilosec] 20 mg PO DAILY 03/26/18 Timolol 0.5% [Timoptic] 1 drop LEFT EYE BID 03/26/18 Albuterol Aerosols [Ventolin Aerosols] 2.5 mg INHALATION Q2H PRN PRN vial.neb. 03/30/18 Albuterol Inhaler [Ventolin Hfa] 1 - 2 puff INHALATION Q4H PRN PRN #1 inhaler 03/30/18 Furosemide [Lasix] 80 mg PO BIDLX #30 tablet 03/30/18 Guaifenesin [Mucinex] 1,200 mg PO BID #14 tablet 03/30/18 Levofloxacin [Levaquin] 750 mg PO DAILY #7 tablet 03/30/18 The following prescriptions were given: Albuterol Inhaler [Ventolin Hfa] 1 - 2 puff INHALATION Q4H PRN PRN #1 inhaler PRN Reason: Sob &/Or Wheezing Levofloxacin [Levaquin] 750 mg PO DAILY #7 tablet Guaifenesin [Mucinex] 1,200 mg PO BID #14 tablet Primary Care Physician: Ramesh Rodney MD [Primary Care Provider] - Please follow up with your Primary Care Physician in: in 1-2 weeks of discharge Test Results: Test results from this visit will be discussed in further detail at your follow-up appointment, if applicable. Please Follow Up With: Kingston Paez MD When: within 2 weeks Proposed Discharge Date: 03/30/18
--- NOTE | 2018-03-30 10:18 | CASEMGMT ---
This RN CM to room to speak with pt regarding discharge. Pt states lives alone and he feels that he 'should be ok' at home and agrees to [facility] with no preference and may qualify for home oxygen. Pt would like this RN CM to call daughter to go over all at this time. Call placed to Jina Owen, daughter, and she states concerns with pt going home at discharge as he lives alone. She states she would be agreeable [facility] and [facility] but states numerous questions regarding care, labs, etc. Dr. Alcantara agrees to speak with daughter via phone at this time regarding concerns. After Dr. Alcantara got off phone, she states that pt's daughter would like pt to go to [facility], where she is the DON, at discharge. Elida SW aware and referral faxed at this time. Pt will need precert. This RN CM to room and pt updated on all and agreeable at this time. SStcarmen TOWNSEND CM
--- NOTE | 2018-03-30 10:40 | PN_ITS ---
Patient Problems: Active and Suspected Problems (Last Reviewed 03/15/18 @ 08:50 by Steven Savage MD) Septic shock (Acute) CAP (community acquired pneumonia) (Acute) Subjective: Patient did okay overnight. Patient was transferred from the intensive care unit, but no complications were reported. Patient still requiring 2-3 L to ma intain saturations. Patient denies any current chest pain, abdominal pain, nausea or vomiting. - Physical Exam General: Alert, Oriented x3, Cooperative, No apparent distress, - - Minimal interaction, but appropriate. No conversational dyspnea. HEENT: Atraumatic, PERRLA, EOMI, Normocephalic, - - No scleral icterus or injection noted. Oral: Moist Mucosa, No Gingival or Mucosal Lesions/ Ulcerations Neck: Supple, No JVD, No Nodes, Trachea Midline Lungs: No rhonchi, No wheeze, No rales, Diminished Cardiovascular: Normal S1, Normal S2, No murmurs, Irregular Rate, No rub noted, No Gallop Abdomen: Bowel Sounds Present, Soft, Non Tender, Non-Distended Extremities: No clubbing, No cyanosis, Edema Skin: - - No significant change compared to previous Musculoskeletal: No Tenderness to Palpation of Joints or Extremities, No Muscle Wasting Lymphatic: No Cervical, Supraclavicular, or Inguinal Adenopathy Neurological: Cranial nerves II-XII grossly intact, Neuro grossly intact, Motor Exam 5/5 strength throughout Psych/Mental Status: Appropriate, Flat Affect Vital Signs Temp Pulse Resp BP Pulse Ox 36.6 C 110 H 18 136/65 H 94 03/30/18 07:54 03/30/18 07:54 03/30/18 07:54 03/30/18 07:54 03/30/18 07:54 Oxygen Flow Rate (L/min) 3 Oxygen Delivery Method Nasal Cannula Weight: 92.8 kg Body Mass Index (BMI) 30.9 Intake and Output for Last 24 Hours 03/28/18 03/29/18 03/30/18 23:59 23:59 23:59 Intake Total 1836.3 / 1836.3 1300 / 1300 240 / 240 Output Total 2125 / 2125 2750 / 2750 1800 / 1800 Balance -288.7 / -288.7 -1450 / -1450 -1560 / -1560 Microbiology Past 72 Hours 03/26/18 11:55 Blood Culture - Final Blood Culture (Wb) - Anticubital Left Streptococcus pneumoniae 03/26/18 12:14 Bacteria Detection (PCR) - Final Blood Culture (Wb) - Right Wrist Streptococcus pneumoniae Blood Culture - Final Streptococcus pneumoniae 03/26/18 14:40 Respiratory Panel (PCR) - Final Mucosa - Nasopharyngeal Laboratory Tests Past 24 Hrs 03/30/18 06:30 Sodium 141 Potassium 4.2 Chloride 106 Carbon Dioxide 27.0 Anion Gap 8 BUN 79 H Creatinine 1.98 H Estim Creat Clear Calc 29.75 Est GFR (MDRD) Af Amer 42 L Est GFR (MDRD) Non-Af 35 L BUN/Creatinine Ratio 39.9 H Glucose 130 H Calcium 8.5 Magnesium 2.0 POC Glucose 03/30/18 03/29/18 03/29/18 07:08 23:20 16:57 POC Glucose 137 H 153 H 122 H 03/29/18 11:58 POC Glucose 137 H Medical Necessity - Tobacco Use Smoking Status: Current every day smoker Tobacco Use: Cigarettes Assessment/Plan All Active Problems (Last Reviewed 03/15/18 @ 08:50 by Steven Savage MD) Septic shock (Acute) CAP (community acquired pneumonia) (Acute) Hx of appendectomy (Resolved) Shortness of breath (Acute) Acute respiratory failure with hypoxia and hypercapnia (Acute) Altered mental status (Acute) Hyponatremia (Acute) Dehydration (Acute) Hypokalemia (Acute) RECOMMENDATIONS: 1. She will require supplemental oxygen on discharge 2. And a biotics per infectious disease 3. Continue to hold Coumadin. Check daily INR. 4. Likely okay to go back to baseline diuretic therapy 5. Follow-up in our office in 2 weeks with nurse practitioner IMPRESSIONS: 1. Severe sepsis secondary due to pneumococcal pneumonia The patient was placed on broad-spectrum antibiotics upon presentation. Patient has come back positive with pneumococcal antigen in the urine. Patient can be continued on Levaquin therapy alone. Infectious disease for antibiotic recommendations 2. Acute combined respiratory failure/questionable COPD The patient has a self-reported history of COPD. There are no PFTs on file. In addition, the patient is not currently utilizing any inhalers at his baseline. He does have a tobacco abuse history, but states that he is no longer smoking. He has responded appropriately to noninvasive positive pressure ventilation. Continue bronchodilators as ordered. Patient will likely require supplemental oxygen on discharge. Patient can follow-up in our office in 2 weeks for evaluation to see if this can be discontinued. 3. Coagulopathy Likely secondary to chronic anticoagulation coupled with #1. Continue to hold anticoagulation and monitor for overt signs of bleeding. There is no need for immediate reversal at this time. 4. Acute kidney injury Potentially prerenal in etiology and related to #1. The patient has been adequately volume resuscitated at this time. He remains hemodynamically stable. There is no indication for renal replacement therapy at this time. 5. Chronic systolic heart failure/atrial fibrillation/chronic anti coagulation status/depression/tobacco dependency with questionable remission Complicates care, management, recovery and prognosis. Continue rate control strategy per outpatient regimen. Continue gentle diuresis today. Code Visit Inpatient E&M: 61947 Subs Hosp L2
--- NOTE | 2018-03-30 10:54 | CASEMGMT ---
RN LINDA and physician both spoke with patient's daughter and she feels patient needs SNF. She would like him to go to [facility] where she works. CARY MCKEON spoke with patient and he was fine with this plan. ANNA faxed referral and also called, but Jasmin was not available so ANNA let them know SW faxed referral. Plan: [facility] pending insurance approval. Shaliin BOWLES
--- NOTE | 2018-03-30 11:04 | PCM.PN.ID ---
Patient Problems: Active and Suspected Problems (Last Reviewed 03/15/18 @ 08:50 by Steven Savage MD) Septic shock (Acute) CAP (community acquired pneumonia) (Acute) Subjective: Feeling well, no fever, no n/v/d. Breathing well. - Physical Exam General: Alert, Cooperative, No apparent distress Lungs: Clear to auscultation, Normal air movement Cardiovascular: Regular rate, Regular Rhythm Abdomen: Soft, Non Tender, Non-Distended Skin: No rashes Vital Signs Temp Pulse Resp BP Pulse Ox 97.8 F 98 16 136/65 H 92 03/30/18 07:54 03/30/18 10:55 03/30/18 10:55 03/30/18 07:54 03/30/18 10:55 Oxygen Flow Rate (L/min) 3 Oxygen Delivery Method Nasal Cannula Weight: 92.8 kg Body Mass Index (BMI) 30.9 Intake and Output for Last 24 Hours 03/28/18 03/29/18 03/30/18 23:59 23:59 23:59 Intake Total 1836.3 / 1836.3 1300 / 1300 240 / 240 Output Total 2125 / 2125 2750 / 2750 1800 / 1800 Balance -288.7 / -288.7 -1450 / -1450 -1560 / -1560 Microbiology Past 72 Hours 03/26/18 11:55 Blood Culture - Final Blood Culture (Wb) - Anticubital Left Streptococcus pneumoniae 03/26/18 12:14 Bacteria Detection (PCR) - Final Blood Culture (Wb) - Right Wrist Streptococcus pneumoniae Blood Culture - Final Streptococcus pneumoniae 03/26/18 14:40 Respiratory Panel (PCR) - Final Mucosa - Nasopharyngeal Laboratory Tests Past 24 Hrs 03/30/18 06:30 Sodium 141 Potassium 4.2 Chloride 106 Carbon Dioxide 27.0 Anion Gap 8 BUN 79 H Creatinine 1.98 H Estim Creat Clear Calc 29.75 Est GFR (MDRD) Af Amer 42 L Est GFR (MDRD) Non-Af 35 L BUN/Creatinine Ratio 39.9 H Glucose 130 H Calcium 8.5 Magnesium 2.0 POC Glucose 03/30/18 03/29/18 03/29/18 07:08 23:20 16:57 POC Glucose 137 H 153 H 122 H 03/29/18 11:58 POC Glucose 137 H Medical Necessity - Tobacco Use Smoking Status: Current every day smoker Tobacco Use: Cigarettes Route of nutrition/ use of supplements: [] Nutritional Intake: [] IV Site: [] Bowens Catheter: [] - Assessment/Plan Antibiotics: [] Assessment/Plan: [] Active and Suspected Problems (Last Reviewed 03/15/18 @ 08:50 by Steven Savage MD) Septic shock (Acute) CAP (community acquired pneumonia) (Acute) Due to spneumo pneumonia with bacteremia - ALISIA improved. Lactate improved. Wbc improving. Cont with levaquin. Plan on 7-10 day course. Stop date to be 04/02/18. Will follow
[2018-03-30 12:00] LABS: Bedside Glucose 141 mg/dL (70-110)
--- NOTE | 2018-03-30 12:36 | PN_ITS ---
Patient Problems: Active and Suspected Problems (Last Reviewed 03/15/18 @ 08:50 by Steven Savage MD) Septic shock (Acute) CAP (community acquired pneumonia) (Acute) Subjective: Patient was seen and examined. Denies chest pain, dizziness, palpitations. Remains on 3L of oxygen. ROS is negative. Discussed with his daughter, she states that patient lives alone and would prefer he be discharged to [facility] where she is the clinical information systems director. Objective: Physical Exam General: Alert, Oriented x3, Cooperative, on 5L oxygen HEENT: Atraumatic, PERRLA, EOMI, Normocephalic Oral: Dry Mucosa Neck: Supple, No JVD, Negative Carotid Bruits Lungs: Diminished to auscultation, Normal air movement Cardiovascular: Regular Rhythm, Normal S1, Normal S2, No murmurs, Irregular Rate Abdomen: Bowel Sounds Present, Soft, Non Tender, Non-Distended, Distended, Obese Extremities: No edema Skin: - - dry skin on bilateral lower legs with scaling. Musculoskeletal: No Tenderness to Palpation of Joints or Extremities Lymphatic: No Cervical, Supraclavicular, or Inguinal Adenopathy Neurological: Cranial nerves II-XII grossly intact, Neuro grossly intact Psych/Mental Status: Normal Affect, Appropriate Vitals/I&O's: Vital Signs Temp Pulse Resp BP Pulse Ox 97.8 F 98 16 136/65 H 92 03/30/18 07:54 03/30/18 10:55 03/30/18 10:55 03/30/18 07:54 03/30/18 10:55 Oxygen Flow Rate (L/min) 3 Oxygen Delivery Method Nasal Cannula Weight: 92.8 kg Body Mass Index (BMI) 30.9 Intake and Output for Last 24 Hours 03/28/18 03/29/18 03/30/18 23:59 23:59 23:59 Intake Total 1836.3 / 1836.3 1300 / 1300 990 / 990 Output Total 2125 / 2125 2750 / 2750 2900 / 2900 Balance -288.7 / -288.7 -1450 / -1450 -1910 / -1910 Microbiology Past 72 Hours 03/26/18 11:55 Blood Culture (Wb) - Anticubital Left Blood Culture - Final Streptococcus pneumoniae 03/26/18 12:14 Blood Culture (Wb) - Right Wrist Bacteria Detection (PCR) - Final Streptococcus pneumoniae 03/26/18 12:14 Blood Culture (Wb) - Right Wrist Blood Culture - Final Streptococcus pneumoniae Laboratory Results 03/29/18 16:57: POC Glucose 122 H 03/29/18 23:20: POC Glucose 153 H 03/30/18 06:30: Sodium 141, Potassium 4.2, Chloride 106, Carbon Dioxide 27.0, Anion Gap 8, BUN 79 H, Creatinine 1.98 H, Estim Creat Clear Calc 29.75, Est GFR (MDRD) Af Amer 42 L, Est GFR (MDRD) Non-Af 35 L, BUN/Creatinine Ratio 39.9 H, Glucose 130 H, Calcium 8.5, Magnesium 2.0 03/30/18 07:08: POC Glucose 137 H 03/30/18 11:53: POC Glucose 141 H Current Medications Acetaminophen (Tylenol) 650 mg PO Q6H PRN PRN PRN Reason: Mild Pain (1-3)/Temp > 100.7 F Albuterol Sulfate (Ventolin Aerosols) 2.5 mg INHALATION Q2H PRN PRN PRN Reason: SHORTNESS OF BREATH Albuterol/Ipratropium (Duoneb) 3 ml INHALATION Q4HWA.RT [facility] Last Admin: 03/30/18 10:54 Dose: 3 ml Aspirin (Aspirin, Baby) 81 mg PO DAILY@0800 [facility] Last Admin: 03/30/18 08:08 Dose: 81 mg Atorvastatin Calcium (Lipitor) 20 mg PO QHS [facility] Last Admin: 03/29/18 23:26 Dose: 20 mg Carvedilol (Coreg) 25 mg PO BID [facility] Last Admin: 03/30/18 08:08 Dose: 25 mg Chlorhexidine Gluconate () 1 each TOPICAL DAILY [facility] Last Admin: 03/30/18 09:37 Dose: Not Given Cholecalciferol (Vitamin D) 2,000 unit PO DAILY [facility] Last Admin: 03/30/18 09:37 Dose: 2,000 unit Dextrose (D50w Syringe) 0 gm IV X1 PRN; Protocol PRN Reason: Hypoglycemia Diltiazem HCl (Cardizem Cd) 180 mg PO DAILY [facility] Last Admin: 03/30/18 08:08 Dose: 180 mg Escitalopram Oxalate (Lexapro) 10 mg PO DAILY [facility] Last Admin: 03/30/18 09:37 Dose: 10 mg Furosemide (Lasix) 40 mg IV BID@1000,1800 [facility] Last Admin: 03/30/18 09:37 Dose: 40 mg Glucagon () 1 mg IM .X1 PRN PRN Reason: Hypoglycemia Guaifenesin (Mucinex) 1,200 mg PO BID [facility] Last Admin: 03/30/18 09:37 Dose: 1,200 mg Sodium Chloride () 250 mls @ 15 mls/hr IV .[id number] PRN PRN Reason: SALINE FLUSH Last Admin: 03/26/18 21:44 Dose: 15 mls/hr Levofloxacin (Levaquin Iv) 750 mg in 150 mls @ 100 mls/hr IV Q48 [facility] Last Admin: 03/30/18 09:37 Dose: 100 mls/hr Insulin Human Lispro (Humalog Kwikpen (Bkc)) 0 unit SQ ACHS [facility]; Protocol Last Admin: 03/30/18 11:54 Dose: Not Given Lactic Acid (Lac-Hydrin, Amlactin) 1 applic TOPICAL TID [facility]; Protocol Last Admin: 03/30/18 05:21 Dose: 1 applicatio Magnesium Hydroxide (Milk Of Magnesia) 30 ml PO DAILY PRN PRN PRN Reason: Constipation Nicotine (Nicoderm Cq (Pbkc)) 21 mg TRANSDERM. DAILY [facility] Last Admin: 03/30/18 09:38 Dose: 21 mg Ondansetron HCl (Zofran) 4 mg IV Q8H PRN PRN PRN Reason: NAUSEA Pantoprazole Sodium (Protonix) 20 mg PO DAILY [facility] Last Admin: 03/30/18 09:37 Dose: 20 mg Sodium Chloride () 5 - 15 ml IV UD PRN PRN Reason: SALINE FLUSH Last Admin: 03/30/18 09:37 Dose: 10 ml Timolol Maleate (Timoptic) 1 drop LEFT EYE BID [facility] Last Admin: 03/30/18 09:38 Dose: 1 drop Medical Necessity - Tobacco Use Smoking Status: Current every day smoker Tobacco Use: Cigarettes Assessment/Plan All Active Problems (Last Reviewed 03/15/18 @ 08:50 by Steven Savage MD) Septic shock (Acute) CAP (community acquired pneumonia) (Acute) Hx of appendectomy (Resolved) Shortness of breath (Acute) Acute respiratory failure with hypoxia and hypercapnia (Acute) Altered mental status (Acute) Hyponatremia (Acute) Dehydration (Acute) Hypokalemia (Acute) 77 year old M with PMHx of chronic atrial fibrillation, type 2 DM, hypertension, hyperlipidemia admitted with complaints of progressive shortness of breath ongoing for 1 week. He was hypoxic, saturating in the 60's at home. 1. Septic shock secondary to community-acquired pneumonia/streptococcal pneumonia, streptococcal pneumoniae bacteremia, resolved Stable vitals, repeat blood cultures are pending, urine streptococcal antigen positive, legionella antigen negative Continue on Levaquin q48h (day 5 of antibiotics). 2. Community-acquired pneumonia, streptococcal pneumoniae, multilobar, seen on CXR, continue on IV antibiotics, incentive spirometer, breathing treatments 3. Acute hypoxic respiratory failure secondary to community-acquired pneumonia, improving, 3 L of oxygen, Will continue same, monitor and wean off for SPo2 94% 4. Supratherapeutic INR, not on coumadin, will continue trend INR in am 5. ALISIA on CKD, likely prerenal secondary to dehydration, baseline Cr around 1.3, improving, Cr now 1.98, will continue to monitor strict I & Os, lab work in am 6. Type II DM, BS are stable, tradjenta on hold, continue on accucheks with ISS 7. Hypertension, controlled, continue on carvedilol, Cardizem, continue to monitor vitals. 8. Chronic A. fib, rate controlled, on cardizem and carvedilol, INR is supratherapeutic, will monitor 9. Dry skin, lower legs, on lac-hydrin topical TID. 10. Nicotine dependence, on replacement 11. DVT Ppx- INR is supratherapeutic. 12. Disposition: precert pending for discharge to [facility]. Code Visit Inpatient E&M: [id number] Subs Hosp L2
--- NOTE | 2018-03-30 13:38 | CASEMGMT ---
ANNA called [facility] and they did receive ANNA's fax. Plan: [facility] pending pre-cert Shalini OMALLEY MSW
[2018-03-30 16:31] LABS: Bedside Glucose 121 mg/dL (70-110)
[2018-03-30] MEDS: Atorvastatin Calcium 20 MG Tablet PO (20:57)
[2018-03-30] MEDS: Insulin Lispro 100 UNIT/ML INSULN.PEN SQ (20:58)
[2018-03-30 21:11] LABS: Bedside Glucose 182 mg/dL (70-110)
[2018-03-31] VITALS (16 sets, daily range): BP systolic 110–133; BP diastolic 57–75; PULSE 62–115; RESP 12–20; TEMP 36.3–36.9; O2SAT 88–97
[2018-03-31] MEDS: Ammonium Lactate 225 gm Bottle 1 APPLIC TOPICAL ×3 (05:35→21:32)
[2018-03-31 06:22] LABS: International Normalized Ratio 1.6
[2018-03-31 06:23] LABS: Absolute Lymphocyte Count 0.97 X10^3/ul (0.83-4.51); Absolute Neutrophil Count 10.2 X10^3/uL (2.0-7.7); Basophil# 0.02 X10^3/uL; Basophil% 0.2 % (0-1); Eosinophil# 0.18 X10^3/uL; Eosinophils% 1.4 % (0-5); Hemoglobin 10.7 g/dl (13.0-16.5); Lymphocyte # 0.97 X10^3/ul (4.0); Lymphocyte % 7.7 % (19-41); Mean Corp Hgb Conc 30.6 g/gl (32-36); Mean Corpuscular Hgb 25.4 pg (27.0-32.0); Mean Corpuscular Volume 82.9 fL (80-94); Monocyte# 1.06 X10^3/uL; Monocyte% 8.4 % (0-10); Neutrophil # 10.19 X10^3/uL (2.7-7.7); Neutrophil % 80.3 % (47-70); Platelet Count 311 K/mm3 (150-450); RBC Distribution Width CV 17.2 % (11.6-14.6); RBC Distribution Width SD 51.9 fl (35.1-43.9); Red Blood Count 4.22 M/mm3 (4.6-6.2); White Blood Count 12.7 K/mm3 (4.4-11.0)
[2018-03-31 06:28] LABS: POSITIVE COUNT YES; POSITIVE DIFFERENTIAL NO; POSITIVE MORPHOLOGY YES
[2018-03-31 06:40] LABS: Anion Gap 9 (5-15); BUN 76 mg/dL (7-18); BUN/Creat Ratio 39.8 RATIO (10-20); Calcium,Total 8.8 mg/dL (8.5-10.1); Chloride 103 mmol/L (98-107); Creatinine, Serum 1.91 mg/dL (0.70-1.30); EST Glomerular Filtration Rate 36 mL/min (>60); Est Glom Filt Rate - Afr Amer 44 mL/min (>60); Estimated Creatinine Clearance 30.84 ml/min; Glucose 137 mg/dL (74-106); Potassium 4.1 mmol/L (3.5-5.1); Sodium Level 139 mmol/L (136-145)
[2018-03-31 06:46] LABS: Bedside Glucose 138 mg/dL (70-110)
[2018-03-31] MEDS: Ipratropium/Albuterol Sulfate 3 ML AMPUL.NEB INHALATION (07:17)
--- NOTE | 2018-03-31 07:29 | PCM.PROGNOTE ---
Patient Problems: Active and Suspected Problems (Last Reviewed 03/15/18 @ 08:50 by Steven Savage MD) Septic shock (Acute) CAP (community acquired pneumonia) (Acute) Subjective: Patient did well overnight. Patient reports no subjective change in overall condition. Patient has been tolerating 2 L nasal cannula at rest without complications. Patient continues to report some dyspnea with therapy. Patient is reportedly going to be discharged to an [facility] for rehab. - Physical Exam General: Alert, Oriented x3, Cooperative, No apparent distress, - - Obese. Speaking in full sentences. HEENT: Atraumatic, PERRLA, EOMI, Normocephalic, - - Nasal cannula in place. No scleral icterus or injection noted. Oral: Moist Mucosa, No Gingival or Mucosal Lesions/ Ulcerations Neck: Supple, No JVD, No Nodes, Trachea Midline Lungs: No rhonchi, No wheeze, No rales, Diminished, - - Symmetric expansion. No dullness to percussion. Cardiovascular: Normal S1, Normal S2, No murmurs, Irregular Rate, No rub noted, No Gallop Abdomen: Bowel Sounds Present, Soft, Non Tender, Non-Distended, Obese Extremities: No clubbing, No cyanosis, Capillary Refill Less than 3 Seconds, Edema - 1+ lower extremity Skin: - - No significant change compared to previous Musculoskeletal: No Tenderness to Palpation of Joints or Extremities Lymphatic: No Cervical, Supraclavicular, or Inguinal Adenopathy Neurological: Cranial nerves II-XII grossly intact, Neuro grossly intact, Motor Exam 5/5 strength throughout Psych/Mental Status: Appropriate, Flat Affect Vital Signs Temp Pulse Resp BP Pulse Ox 36.3 C L 106 H 18 126/75 H 94 03/31/18 02:55 03/31/18 03:04 03/31/18 02:55 03/31/18 02:55 03/31/18 02:55 Oxygen Flow Rate (L/min) 2 Oxygen Delivery Method Nasal Cannula Weight: 91.6 kg Body Mass Index (BMI) 30.9 Intake and Output for Last 24 Hours 03/29/18 03/30/18 03/31/18 23:59 23:59 23:59 Intake Total 1300 / 1300 1390 / 1390 400 / 400 Output Total 2750 / 2750 3600 / 3600 450 / 450 Balance -1450 / -1450 -2210 / -2210 -50 / -50 Microbiology Past 72 Hours 03/26/18 11:55 Blood Culture - Final Blood Culture (Wb) - Anticubital Left Streptococcus pneumoniae 03/26/18 12:14 Bacteria Detection (PCR) - Final Blood Culture (Wb) - Right Wrist Streptococcus pneumoniae Blood Culture - Final Streptococcus pneumoniae Laboratory Tests Past 24 Hrs 03/31/18 03/31/18 03/31/18 05:40 05:40 05:40 WBC 12.7 H RBC 4.22 L Hgb 10.7 L Hct 35.0 L MCV 82.9 MCH 25.4 L MCHC 30.6 L RDW 17.2 H RDW Differential 51.9 H Plt Count 311 MPV 10.0 Immature Gran % (Auto) 2.000 H Neut % (Auto) 80.3 H Lymph % (Auto) 7.7 L [place] % (Auto) 8.4 Eos % (Auto) 1.4 Baso % (Auto) 0.2 Absolute Neuts (auto) 10.2 H Absolute Lymphs (auto) 0.97 Total Counted Not Reportable Diff Path Review July foll PT 19.0 H INR 1.6 Sodium 139 Potassium 4.1 Chloride 103 Carbon Dioxide 27.0 Anion Gap 9 BUN 76 H Creatinine 1.91 H Estim Creat Clear Calc 30.84 Est GFR (MDRD) Af Amer 44 L Est GFR (MDRD) Non-Af 36 L BUN/Creatinine Ratio 39.8 H Glucose 137 H Calcium 8.8 POC Glucose 03/31/18 03/30/18 03/30/18 06:38 20:55 16:19 POC Glucose 138 H 182 H 121 H 03/30/18 11:53 POC Glucose 141 H Medical Necessity - Tobacco Use Smoking Status: Current every day smoker Tobacco Use: Cigarettes Assessment/Plan All Active Problems (Last Reviewed 03/15/18 @ 08:50 by Steven Savage MD) Septic shock (Acute) CAP (community acquired pneumonia) (Acute) Hx of appendectomy (Resolved) Shortness of breath (Acute) Acute respiratory failure with hypoxia and hypercapnia (Acute) Altered mental status (Acute) Hyponatremia (Acute) Dehydration (Acute) Hypokalemia (Acute) RECOMMENDATIONS: 1. Patient will require supplemental oxygen on discharge 2. Antibiotics per infectious disease recommendations 3. Okay to reinitiate Coumadin therapy 4. Likely okay to go back to baseline diuretic therapy 5. Follow-up in our office in 2 weeks with nurse practitioner after discharge from [facility] IMPRESSIONS: 1. Severe sepsis secondary due to pneumococcal pneumonia The patient was placed on broad-spectrum antibiotics upon presentation. Patient has come back positive with pneumococcal antigen in the urine. Patient can be continued on Levaquin therapy alone. Infectious disease for antibiotic recommendations. Current recommendations are as stop date of 04/02/2018 unless repeat blood cultures come back positive. Should be resulted today. 2. Acute combined respiratory failure/questionable COPD The patient has a self-reported history of COPD. There are no PFTs on file. In addition, the patient is not currently utilizing any inhalers at his baseline. He does have a tobacco abuse history, but states that he is no longer smoking. He has responded appropriately to noninvasive positive pressure ventilation. Continue bronchodilators as ordered. Patient will likely require supplemental oxygen on discharge. Patient can follow-up in our office in 2 weeks for evaluation to see if this can be discontinued. 3. Coagulopathy Likely secondary to chronic anticoagulation coupled with #1. Reinitiate anticoagulation and monitor for overt signs of bleeding. There is no need for immediate reversal at this time. 4. Acute kidney injury Potentially prerenal in etiology and related to #1. The patient has been adequately volume resuscitated at this time. He remains hemodynamically stable. There is no indication for renal replacement therapy at this time. 5. Chronic systolic heart failure/atrial fibrillation/chronic anticoagulation status/depression/tobacco dependency with questionable remission Complicates care, management, recovery and prognosis. Continue rate control strategy per outpatient regimen. Continue gentle diuresis today. Code Visit Inpatient E&M: [id number] [facility] Hosp L2
--- NOTE | 2018-03-31 07:40 | PN_ITS ---
Patient Problems: Active and Suspected Problems (Last Reviewed 03/15/18 @ 08:50 by Steven Savage MD) Septic shock (Acute) CAP (community acquired pneumonia) (Acute) Subjective: Patient did well overnight. Patient reports no subjective change in overall condition. Patient has been tolerating 2 L nasal cannula at rest without comp lications. Patient continues to report some dyspnea with therapy. Patient is reportedly going to be discharged to an [facility] for rehab. - Physical Exam General: Alert, Oriented x3, Cooperative, No apparent distress, - - Obese. Speaking in full sentences. HEENT: Atraumatic, PERRLA, EOMI, Normocephalic, - - Nasal cannula in place. No scleral icterus or injection noted. Oral: Moist Mucosa, No Gingival or Mucosal Lesions/ Ulcerations Neck: Supple, No JVD, No Nodes, Trachea Midline Lungs: No rhonchi, No wheeze, No rales, Diminished, - - Symmetric expansion. No dullness to percussion. Cardiovascular: Normal S1, Normal S2, No murmurs, Irregular Rate, No rub noted, No Gallop Abdomen: Bowel Sounds Present, Soft, Non Tender, Non-Distended, Obese Extremities: No clubbing, No cyanosis, Capillary Refill Less than 3 Seconds, Edema - 1+ lower extremity Skin: - - No significant change compared to previous Musculoskeletal: No Tenderness to Palpation of Joints or Extremities Lymphatic: No Cervical, Supraclavicular, or Inguinal Adenopathy Neurological: Cranial nerves II-XII grossly intact, Neuro grossly intact, Motor Exam 5/5 strength throughout Psych/Mental Status: Appropriate, Flat Affect Vital Signs Temp Pulse Resp BP Pulse Ox 36.3 C L 106 H 18 126/75 H 94 03/31/18 02:55 03/31/18 03:04 03/31/18 02:55 03/31/18 02:55 03/31/18 02:55 Oxygen Flow Rate (L/min) 2 Oxygen Delivery Method Nasal Cannula Weight: 91.6 kg Body Mass Index (BMI) 30.9 Intake and Output for Last 24 Hours 03/29/18 03/30/18 03/31/18 23:59 23:59 23:59 Intake Total 1300 / 1300 1390 / 1390 400 / 400 Output Total 2750 / 2750 3600 / 3600 450 / 450 Balance -1450 / -1450 -2210 / -2210 -50 / -50 Microbiology Past 72 Hours 03/26/18 11:55 Blood Culture - Final Blood Culture (Wb) - Anticubital Left Streptococcus pneumoniae 03/26/18 12:14 Bacteria Detection (PCR) - Final Blood Culture (Wb) - Right Wrist Streptococcus pneumoniae Blood Culture - Final Streptococcus pneumoniae Laboratory Tests Past 24 Hrs 03/31/18 03/31/18 03/31/18 05:40 05:40 05:40 WBC 12.7 H RBC 4.22 L Hgb 10.7 L Hct 35.0 L MCV 82.9 MCH 25.4 L MCHC 30.6 L RDW 17.2 H RDW Differential 51.9 H Plt Count 311 MPV 10.0 Immature Gran % (Auto) 2.000 H Neut % (Auto) 80.3 H Lymph % (Auto) 7.7 L [place] % (Auto) 8.4 Eos % (Auto) 1.4 Baso % (Auto) 0.2 Absolute Neuts (auto) 10.2 H Absolute Lymphs (auto) 0.97 Total Counted Not Reportable Diff Path Review July foll PT 19.0 H INR 1.6 Sodium 139 Potassium 4.1 Chloride 103 Carbon Dioxide 27.0 Anion Gap 9 BUN 76 H Creatinine 1.91 H Estim Creat Clear Calc 30.84 Est GFR (MDRD) Af Amer 44 L Est GFR (MDRD) Non-Af 36 L BUN/Creatinine Ratio 39.8 H Glucose 137 H Calcium 8.8 POC Glucose 03/31/18 03/30/18 03/30/18 06:38 20:55 16:19 POC Glucose 138 H 182 H 121 H 03/30/18 11:53 POC Glucose 141 H Medical Necessity - Tobacco Use Smoking Status: Current every day smoker Tobacco Use: Cigarettes Assessment/Plan All Active Problems (Last Reviewed 03/15/18 @ 08:50 by Steven Savage MD) Septic shock (Acute) CAP (community acquired pneumonia) (Acute) Hx of appendectomy (Resolved) Shortness of breath (Acute) Acute respiratory failure with hypoxia and hypercapnia (Acute) Altered mental status (Acute) Hyponatremia (Acute) Dehydration (Acute) Hypokalemia (Acute) RECOMMENDATIONS: 1. Patient will require supplemental oxygen on discharge 2. Antibiotics per infectious disease recommendations 3. Okay to reinitiate Coumadin therapy 4. Likely okay to go back to baseline diuretic therapy 5. Follow-up in our office in 2 weeks with nurse practitioner after discharge from [facility] IMPRESSIONS: 1. Severe sepsis secondary due to pneumococcal pneumonia The patient was placed on broad-spectrum antibiotics upon presentation. Patient has come back positive with pneumococcal antigen in the urine. Patient can be continued on Levaquin therapy alone. Infectious disease for antibiotic recommendations. Current recommendations are as stop date of 04/02/2018 unless repeat blood cultures come back positive. Should be resulted today. 2. Acute combined respiratory failure/questionable COPD The patient has a self-reported history of COPD. There are no PFTs on file. In addition, the patient is not currently utilizing any inhalers at his baseline. He does have a tobacco abuse history, but states that he is no longer smoking. He has responded appropriately to noninvasive positive pressure ventilation. Continue bronchodilators as ordered. Patient will likely require supplemental oxygen on discharge. Patient can follow-up in our office in 2 weeks for evaluation to see if this can be discontinued. 3. Coagulopathy Likely secondary to chronic anticoagulation coupled with #1. Reinitiate anticoagulation and monitor for overt signs of bleeding. There is no need for immediate reversal at this time. 4. Acute kidney injury Potentially prerenal in etiology and related to #1. The patient has been adequately volume resuscitated at this time. He remains hemodynamically stable. There is no indication for renal replacement therapy at this time. 5. Chronic systolic heart failure/atrial fibrillation/chronic anticoagulation status/depression/tobacco dependency with questionable remission Complicates care, management, recovery and prognosis. Continue rate control strategy per outpatient regimen. Continue gentle diuresis today. Code Visit Inpatient E&M: [id number] [facility] Hosp L2
[2018-03-31] MEDS: Aspirin 81 MG TAB.CHEW PO (07:58)
[2018-03-31] MEDS: Escitalopram Oxalate 10 MG Tablet PO (09:47)
[2018-03-31] MEDS: dilTIAZem CD 180 MG Capsule PO (09:47)
[2018-03-31] MEDS: guaiFENesin 1,200 MG Tablet 1200 MG PO ×2 (09:47→21:33)
[2018-03-31] MEDS: Carvedilol 25 MG Tablet PO ×2 (09:47→21:32)
[2018-03-31] MEDS: Furosemide 40 MG/4 ML Vial IV ×2 (09:48→17:49)
[2018-03-31] MEDS: Timolol 0.5% 5ML OPTH.BTL 1 DRP LEFT EYE ×2 (09:48→21:33)
--- NOTE | 2018-03-31 10:57 | PN.ID_ITS ---
Patient Problems: Active and Suspected Problems (Last Reviewed 03/15/18 @ 08:50 by Steven Savage MD) Septic shock (Acute) CAP (community acquired pneumonia) (Acute) Subjective: Feeling better, no SOB, no fever, no n/v/d. - Physical Exam General: Alert, Cooperative, No apparent distress Lungs: Rhonchi - scattered Cardiovascular: Regular rate Abdomen: Soft, Non Tender, Non-Distended Skin: No rashes Vital Signs Temp Pulse Resp BP Pulse Ox 97.5 F L 114 H 16 113/70 97 03/31/18 08:55 03/31/18 08:55 03/31/18 08:55 03/31/18 08:55 03/31/18 08:55 Oxygen Flow Rate (L/min) 2 Oxygen Delivery Method Nasal Cannula Weight: 91.6 kg Body Mass Index (BMI) 30.9 Intake and Output for Last 24 Hours 03/29/18 03/30/18 03/31/18 23:59 23:59 23:59 Intake Total 1300 / 1300 1390 / 1390 400 / 400 Output Total 2750 / 2750 3600 / 3600 450 / 450 Balance -1450 / -1450 -2210 / -2210 -50 / -50 Microbiology Past 72 Hours 03/26/18 11:55 Blood Culture - Final Blood Culture (Wb) - Anticubital Left Streptococcus pneumoniae 03/26/18 12:14 Bacteria Detection (PCR) - Final Blood Culture (Wb) - Right Wrist Streptococcus pneumoniae Blood Culture - Final Streptococcus pneumoniae Laboratory Tests Past 24 Hrs 03/31/18 03/31/18 03/31/18 05:40 05:40 05:40 WBC 12.7 H RBC 4.22 L Hgb 10.7 L Hct 35.0 L MCV 82.9 MCH 25.4 L MCHC 30.6 L RDW 17.2 H RDW Differential 51.9 H Plt Count 311 MPV 10.0 Immature Gran % (Auto) 2.000 H Neut % (Auto) 80.3 H Lymph % (Auto) 7.7 L [place] % (Auto) 8.4 Eos % (Auto) 1.4 Baso % (Auto) 0.2 Absolute Neuts (auto) 10.2 H Absolute Lymphs (auto) 0.97 Total Counted Not Reportable Diff Path Review July foll PT 19.0 H INR 1.6 Sodium 139 Potassium 4.1 Chloride 103 Carbon Dioxide 27.0 Anion Gap 9 BUN 76 H Creatinine 1.91 H Estim Creat Clear Calc 30.84 Est GFR (MDRD) Af Amer 44 L Est GFR (MDRD) Non-Af 36 L BUN/Creatinine Ratio 39.8 H Glucose 137 H Calcium 8.8 POC Glucose 03/31/18 03/30/18 03/30/18 06:38 20:55 16:19 POC Glucose 138 H 182 H 121 H 03/30/18 11:53 POC Glucose 141 H Medical Necessity - Tobacco Use Smoking Status: Current every day smoker Tobacco Use: Cigarettes Route of nutrition/ use of supplements: [] Nutritional Intake: [] IV Site: [] Bowens Catheter: [] - Assessment/Plan Antibiotics: [] Assessment/Plan: [] Active and Suspected Problems (Last Reviewed 03/15/18 @ 08:50 by Steven Savage MD) Septic shock (Acute) CAP (community acquired pneumonia) (Acute) Due to spneumo pneumonia with bacteremia - ALISIA improved. Lactate improved. Wbc improving. Cont with levaquin. Plan on 7-10 day course. Stop date to be 04/02/18. Will change to po here. Will follow
[2018-03-31] MEDS: Pantoprazole Sodium 20 MG Tablet PO (11:17)
[2018-03-31] MEDS: Insulin Lispro 100 UNIT/ML INSULN.PEN SQ ×2 (11:18→21:33)
[2018-03-31 11:35] LABS: Bedside Glucose 170 mg/dL (70-110)
--- NOTE | 2018-03-31 15:25 | PCM.PN.HOSP ---
Patient Problems: Active and Suspected Problems (Last Reviewed 03/15/18 @ 08:50 by Steven Savage MD) Septic shock (Acute) CAP (community acquired pneumonia) (Acute) Subjective: Patient was seen and examined. No new complains. Denies fever, chills, SOB. ROS is negative Objective: Physical Exam General: Alert, Oriented x3, Cooperative, on 5L oxygen HEENT: Atraumatic, PERRLA, EOMI, Normocephalic Oral: Dry Mucosa Neck: Supple, No JVD, Negative Carotid Bruits Lungs: Diminished to auscultation, Normal air movement Cardiovascular: Regular Rhythm, Normal S1, Normal S2, No murmurs, Irregular Rate Abdomen: Bowel Sounds Present, Soft, Non Tender, Non-Distended, Distended, Obese Extremities: No edema Skin: - - dry skin on bilateral lower legs with scaling. Musculoskeletal: No Tenderness to Palpation of Joints or Extremities Lymphatic: No Cervical, Supraclavicular, or Inguinal Adenopathy Neurological: Cranial nerves II-XII grossly intact, Neuro grossly intact Psych/Mental Status: Normal Affect, Appropriate Vitals/I&O's: Vital Signs Temp Pulse Resp BP Pulse Ox 97.5 F L 105 H 16 113/70 93 03/31/18 08:55 03/31/18 10:56 03/31/18 14:00 03/31/18 08:55 03/31/18 14:00 Oxygen Flow Rate (L/min) 2 Oxygen Delivery Method Room Air Weight: 91.6 kg Body Mass Index (BMI) 30.9 Intake and Output for Last 24 Hours 03/29/18 03/30/18 03/31/18 23:59 23:59 23:59 Intake Total 1300 / 1300 1390 / 1390 700 / 700 Output Total 2750 / 2750 3600 / 3600 850 / 850 Balance -1450 / -1450 -2210 / -2210 -150 / -150 Microbiology Past 72 Hours 03/29/18 10:25 Blood Culture (Wb) - Left Wrist Blood Culture - Preliminary No growth in 48 hours. 03/26/18 11:55 Blood Culture (Wb) - Anticubital Left Blood Culture - Final Streptococcus pneumoniae 03/26/18 12:14 Blood Culture (Wb) - Right Wrist Bacteria Detection (PCR) - Final Streptococcus pneumoniae 03/26/18 12:14 Blood Culture (Wb) - Right Wrist Blood Culture - Final Streptococcus pneumoniae Laboratory Results 03/30/18 16:19: POC Glucose 121 H 03/30/18 20:55: POC Glucose 182 H 03/31/18 05:40: WBC 12.7 H, RBC 4.22 L, Hgb 10.7 L, Hct 35.0 L, MCV 82.9, MCH 25.4 L, MCHC 30.6 L, RDW 17.2 H, RDW Differential 51.9 H, Plt Count 311, MPV 10.0, Immature Gran % (Auto) 2.000 H, Neut % (Auto) 80.3 H, Lymph % (Auto) 7.7 L, Crisp % (Auto) 8.4, Eos % (Auto) 1.4, Baso % (Auto) 0.2, Absolute Neuts (auto) 10.2 H, Absolute Lymphs (auto) 0.97, Total Counted Not Reportable, Diff Path Review July03/31/18 05:40: Sodium 139, Potassium 4.1, Chloride 103, Carbon Dioxide 27.0, Anion Gap 9, BUN 76 H, Creatinine 1.91 H, Estim Creat Clear Calc 30.84, Est GFR (MDRD) Af Amer 44 L, Est GFR (MDRD) Non-Af 36 L, BUN/Creatinine Ratio 39.8 H, Glucose 137 H, Calcium 8.8 03/31/18 05:40: PT 19.0 H, INR 1.6 03/31/18 06:38: POC Glucose 138 H 03/31/18 11:17: POC Glucose 170 H Current Medications Acetaminophen (Tylenol) 650 mg PO Q6H PRN PRN PRN Reason: Mild Pain (1-3)/Temp > 100.7 F Albuterol Sulfate (Ventolin Aerosols) 2.5 mg INHALATION Q2H PRN PRN PRN Reason: SHORTNESS OF BREATH Albuterol/Ipratropium (Duoneb) 3 ml INHALATION Q4HWA.RT [facility] Last Admin: 03/31/18 14:49 Dose: Not Given Aspirin (Aspirin, Baby) 81 mg PO DAILY@0800 [facility] Last Admin: 03/31/18 07:58 Dose: 81 mg Atorvastatin Calcium (Lipitor) 20 mg PO QHS [facility] Last Admin: 03/30/18 20:57 Dose: 20 mg Carvedilol (Coreg) 25 mg PO BID [facility] Last Admin: 03/31/18 09:47 Dose: 25 mg Chlorhexidine Gluconate () 1 each TOPICAL DAILY [facility] Last Admin: 03/31/18 09:48 Dose: Not Given Cholecalciferol (Vitamin D) 2,000 unit PO DAILY [facility] Last Admin: 03/31/18 09:47 Dose: 2,000 unit Dextrose (D50w Syringe) 0 gm IV X1 PRN; Protocol PRN Reason: Hypoglycemia Diltiazem HCl (Cardizem Cd) 180 mg PO DAILY [facility] Last Admin: 03/31/18 09:47 Dose: 180 mg Escitalopram Oxalate (Lexapro) 10 mg PO DAILY [facility] Last Admin: 03/31/18 09:47 Dose: 10 mg Furosemide (Lasix) 40 mg IV BID@1000,1800 [facility] Last Admin: 03/31/18 09:48 Dose: 40 mg Glucagon () 1 mg IM .X1 PRN PRN Reason: Hypoglycemia Guaifenesin (Mucinex) 1,200 mg PO BID [facility] Last Admin: 03/31/18 09:47 Dose: 1,200 mg Sodium Chloride () 250 mls @ 15 mls/hr IV .[id number] PRN PRN Reason: SALINE FLUSH Last Admin: 03/26/18 21:44 Dose: 15 mls/hr Insulin Human Lispro (Humalog Kwikpen (Bkc)) 0 unit SQ ACHS [facility]; Protocol Last Admin: 03/31/18 11:18 Dose: 1 u Lactic Acid (Lac-Hydrin, Amlactin) 1 applic TOPICAL TID [facility]; Protocol Last Admin: 03/31/18 14:19 Dose: 1 applicatio Levofloxacin (Levaquin Tablet) 750 mg PO Q48H [facility] Magnesium Hydroxide (Milk Of Magnesia) 30 ml PO DAILY PRN PRN PRN Reason: Constipation Nicotine (Nicoderm Cq (Pbkc)) 21 mg TRANSDERM. DAILY [facility] Last Admin: 03/31/18 09:47 Dose: 21 mg Ondansetron HCl (Zofran) 4 mg IV Q8H PRN PRN PRN Reason: NAUSEA Pantoprazole Sodium (Protonix) 20 mg PO DAILY [facility] Last Admin: 03/31/18 11:17 Dose: 20 mg Sodium Chloride () 5 - 15 ml IV UD PRN PRN Reason: SALINE FLUSH Last Admin: 03/30/18 18:24 Dose: 10 ml Timolol Maleate (Timoptic) 1 drop LEFT EYE BID [facility] Last Admin: 03/31/18 09:48 Dose: 1 drop Medical Necessity - Tobacco Use Smoking Status: Current every day smoker Tobacco Use: Cigarettes Assessment/Plan All Active Problems (Last Reviewed 03/15/18 @ 08:50 by Steevn Savage MD) Septic shock (Acute) CAP (community acquired pneumonia) (Acute) Hx of appendectomy (Resolved) Shortness of breath (Acute) Acute respiratory failure with hypoxia and hypercapnia (Acute) Altered mental status (Acute) Hyponatremia (Acute) Dehydration (Acute) Hypokalemia (Acute) 77 year old M with PMHx of chronic atrial fibrillation, type 2 DM, hypertension, hyperlipidemia admitted with complaints of progressive shortness of breath ongoing for 1 week. He was hypoxic, saturating in the 60's at home. 1. Septic shock secondary to community-acquired pneumonia/streptococcal pneumonia, streptococcal pneumoniae bacteremia, resolved Stable vitals, repeat blood cultures are negative, urine streptococcal antigen positive, legionella antigen negative Continue on Levaquin q48h (day 7 of antibiotics). 2. Community-acquired pneumonia, streptococcal pneumoniae, multilobar, seen on CXR, continue on IV antibiotics, incentive spirometer, breathing treatments 3. Acute hypoxic respiratory failure secondary to community-acquired pneumonia, improving slowly, on 2- 3 L of oxygen, Will continue same, monitor and wean off for SPo2 94% 4. Supratherapeutic INR, not on coumadin, resolved 5. ALISIA on CKD, likely prerenal secondary to dehydration, baseline Cr around 1.3, improving, Cr now 1.91, will continue to monitor strict I & Os, lab work in am 6. Type II DM, BS are stable, tradjenta on hold, continue on accucheks with ISS 7. Hypertension, controlled, continue on carvedilol, Cardizem, continue to monitor vitals. 8. Chronic A. fib, rate controlled, on cardizem and carvedilol, INR is supratherapeutic, will monitor 9. Dry skin, lower legs, on lac-hydrin topical TID. 10. Nicotine dependence, on replacement 11. DVT Ppx- Heparin SC 12. Disposition: precert pending for discharge to [facility]. Code Visit Inpatient E&M: 22632 Subs Hosp L2
--- NOTE | 2018-03-31 15:32 | CASEMGMT ---
ANNA spoke with Jasmin at [facility]. She has not received insurance authorization. She asked if ANNA could fax his bi-pap settings. ANNA faxed the settings. Shalini BOWLES
[2018-03-31 16:30] LABS: Bedside Glucose 138 mg/dL (70-110)
[2018-03-31] MEDS: Heparin Injection (Vial) 5,000 UNIT/ML VIAL 5000 UNIT SC (21:32)
[2018-03-31] MEDS: Atorvastatin Calcium 20 MG Tablet PO (21:33)
[2018-03-31 22:01] LABS: Bedside Glucose 153 mg/dL (70-110)
--- NOTE | 2018-04-01 02:13 | CPS ---
PT STATED HE DIDNT WANT TO WEAR BIPAP TONIGHT.
[2018-04-01 03:06] VITALS: PULSE 93
[2018-04-01 03:26] VITALS: BP 129/74; PULSE 100; RESP 16; TEMP 36.8; O2SAT 94
[2018-04-01] MEDS: Heparin Injection (Vial) 5,000 UNIT/ML VIAL 5000 UNIT SC (05:32)
[2018-04-01] MEDS: Ammonium Lactate 225 gm Bottle 1 APPLIC TOPICAL (05:33)
[2018-04-01 06:47] VITALS: PULSE 100; RESP 21; O2SAT 96
[2018-04-01 06:47] LABS: Bedside Glucose 135 mg/dL (70-110)
[2018-04-01] MEDS: Ipratropium/Albuterol Sulfate 3 ML AMPUL.NEB INHALATION (06:47)
[2018-04-01 07:00] VITALS: PULSE 109
[2018-04-01 07:06] LABS: Hemoglobin 10.6 g/dl (13.0-16.5); Mean Corp Hgb Conc 30.3 g/gl (32-36); Mean Corpuscular Hgb 25.2 pg (27.0-32.0); Mean Corpuscular Volume 83.1 fL (80-94); Mean Platelet Vol. 9.6 fl (6.2-12.0); Platelet Count 306 K/mm3 (150-450); RBC Distribution Width CV 17.4 % (11.6-14.6); RBC Distribution Width SD 53.1 fl (35.1-43.9); Red Blood Count 4.21 M/mm3 (4.6-6.2); White Blood Count 10.8 K/mm3 (4.4-11.0)
[2018-04-01 07:24] LABS: Differential Indicated MANUAL DIFF; POSITIVE COUNT YES; POSITIVE DIFFERENTIAL NO; POSITIVE MORPHOLOGY YES
[2018-04-01 07:29] LABS: Anion Gap 6 (5-15); BUN 70 mg/dL (7-18); BUN/Creat Ratio 39.3 RATIO (10-20); Calcium,Total 8.5 mg/dL (8.5-10.1); Chloride 101 mmol/L (98-107); Creatinine, Serum 1.78 mg/dL (0.70-1.30); EST Glomerular Filtration Rate 39 mL/min (>60); Est Glom Filt Rate - Afr Amer 48 mL/min (>60); Estimated Creatinine Clearance 33.09 ml/min; Glucose 121 mg/dL (74-106); Potassium 4.3 mmol/L (3.5-5.1); Sodium Level 137 mmol/L (136-145)
[2018-04-01 07:41] LABS: Neutrophil-Band 3 % (0-5); Neutrophil-Segmented 83 % (47-70); Total Cells Counted 100 (MANUAL DIFF)
[2018-04-01 07:42] LABS: Anisocytosis 1+; Eosinophil 1 % (0-5); Hypersegmented Neutrophils RARE; Hypochromasia 1+; Lymphocyte 10 % (19-41); Monocyte 1 % (0-10); Myelocyte 2 (0-0)
[2018-04-01 07:51] LABS: Absolute Neutrophil Count 9.3 X10^3/uL (2.0-7.7)
[2018-04-01 09:05] VITALS: BP 147/77; PULSE 99; RESP 20; TEMP 36.6; O2SAT 94
--- NOTE | 2018-04-01 09:10 | TREXTCAR_ITS ---
- Diet 03/27/18 10:57 Diet: Cardiac: Calorie-Controlled Food consistency:: Regular Liquid Consistency:: Regular/Thin Is pt able to select menu?: Yes How many daily calories?: 1800 calorie - Routine Orders/Code Status O2 Liters per Minute: 1-2 L O2 Frequency: PRN Keep PO Greater than or Equal to (%): 94 - Incentive spirometer Routine Lab Work: CBC - within 3 days, BMP - within 3 days - Therapies Weight Bearing: Weight bearing as tolerated Physical Therapy: Eval and Treat Occupational Therapy: Eval and Treat - Problem/Diagnosis (1) Septic shock Status: Acute Current Visit: Yes (2) CAP (community acquired pneumonia) Status: Acute Current Visit: Yes (3) Nicotine dependence Status: Chronic Current Visit: No (4) Obstructive sleep apnea Status: Chronic Current Visit: No (5) Benign essential hypertension Status: Chronic Current Visit: No (6) COLD (chronic obstructive lung disease) Status: Chronic Current Visit: No (7) Diabetes mellitus, type 2 Status: Chronic Current Visit: No (8) Hyperlipidemia Status: Chronic Current Visit: No (9) Obesity Status: Chronic Current Visit: No (10) Acute respiratory failure with hypoxia and hypercapnia Status: Acute Current Visit: No (11) Atrial fibrillation and flutter Status: Chronic Current Visit: No - Allergies/Procedures Done in Hospital Allergies/Adverse Reactions: Allergies Penicillins Allergy (Verified 03/15/18 08:37) Rash Procedures: None - Type of Care/Length of Stay Estimated LOS: Convalescent Care Less Than 30 days Type of Care Needed: Skilled Rehab Potential: Good Prognosis: Good - Additional Orders/Day of Discharge Day of Discharge: 04/01/18 - Dietary and Speech Recommendations Dietitian Recommendations/Changes: Rec cardiac/low cholesterol, low sodium, 1800 calorie controlled diet w/ fluid restriction as indicated. If kidney function does not improve, may need to consider further dietary restrictions. - Follow Up Care Primary Care Physician: Ramesh Rodney MD [Primary Care Provider] - Please follow up with your Primary Care Physician in: within 1-2 weeks of dis charge Please Follow Up With: Kingston Paez MD When: in 2 weeks Please Follow Up With: Ramesh Rodney MD
--- NOTE | 2018-04-01 09:17 | CASEMGMT ---
ANNA received call from Jasmin at [facility]. She said they received authorization. She said her will transport patient. ANNA will let her know when SW has the orders. Shalini OMALLEY MSW
--- NOTE | 2018-04-01 09:24 | DS.PCM_ITS ---
Discharge Date and Diagnosis Date of Admission: 03/26/18 Date of Discharge: 04/01/18 - Primary Discharge Diagnosis Active and Suspected Problems (Last Reviewed 03/15/18 @ 08:50 by Steven Savage MD) 1. Septic shock (Acute) 2. Streptococcal pneumoniae bacteremia 3. CAP (community acquired pneumonia)/Streptococcal pneumoniae 4. Acute hypoxic respiratory failure 5. Supratherapeutic INR 6. ALISIA on CKD stage 3 7. Nicotine dependence 8. 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) Atrial fib/flutter, transient (Chronic) Benign essential hypertension (Chronic) COLD (chronic obstructive lung disease) (Chronic) Diabetes mellitus, type 2 (Chronic) GERD (gastroesophageal reflux disease) (Chronic) Hyperlipidemia (Chronic) Obesity (Chronic) Acute respiratory failure with hypercapnia (Chronic) Biatrial enlargement (Chronic) Glaucoma (Chronic) Atrial fibrillation and flutter (Chronic) Hospital Course and Treatment Imaging Results: Clinical Impression(s) from Imaging Studies Chest X-Ray 03/26/18 11:31 IMPRESSION: Hazy appearance of the left lower lobe lingula right middle lobe suspicious for infiltrates possibly pneumonia. A PA and lateral film of the chest is suggested for further evaluation if possible a follow-up noncontrast chest CT. Electronically Signed: Laura Horn MD at 12:38 EST Tel , Service support , Chest X-Ray 03/27/18 08:23 IMPRESSION: Persistent opacity in the left lower lobe suspicious for pneumonia in the appropriate clinical setting. Blunting of the right cardiophrenic angle. Consider pneumonia. Electronically Signed: Laura Horn MD at 9:29 EST Tel , Service support , [employer] Infectious disease Operations: None Procedures: None Summary of Care Provided: 77 year old M with PMHx of chronic atrial fibrillation, type 2 DM, hypertension, hyperlipidemia admitted with complaints of progressive shortness of breath ongoing for 1 week. Vitals in the ED was 87/46, SPo2 74%. Per EMS, he was hypoxic, saturating in the 60's at home. Patient was admitted to the ICU and managed as septic shock secondary to community-acquired pneumonia/streptococcal pneumonia. His initial blood cultures showed streptococcal pneumoniae. Urine streptococcal antigen was positive. He was started on IV antibiotics. He was managed initially on Bipap with improvement. He was transitioned to Levaquin, with a stop date on 04/02/18. 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 His INR was supratherapeutic INR even though patient was not on anticoagulation. His LFTs were normal . He was continued on IV antibiotics, incentive spirometer, breathing treatments. He was also found to have ALISIA on CKD stage 3 secondary to pre-renal from dehydration. He was discharged on 2 Lof oxygen to subacute care. Subjective: On day of discharge, patient was seen and examined. Denies chest pain, palpitations. Had some loose stools yesterday. Per charting, patient had one BM yesterday and one today. Patient denies any diarrhea. Objective: Physical exam: General: Alert, Oriented x3, Cooperative, No apparent distress, feeling better HEENT: Atraumatic, PERRLA, EOMI, Normocephalic Oral: Moist Mucosa Neck: Supple, No JVD, Negative Carotid Bruits Lungs: Normal air movement, Diminished Cardiovascular: Regular rate, Regular Rhythm, Normal S1, Normal S2, Tachycardic Abdomen: Bowel Sounds Present, Soft, Non Tender, Non-Distended, No Hepato- splenomegaly Extremities: Edema - +2-3, SOPHY-wrap to both legs. Skin: No rashes, No breakdown Musculoskeletal: No Tenderness to Palpation of Joints or Extremities Lymphatic: No Cervical, Supraclavicular, or Inguinal Adenopathy Neurological: Cranial nerves II-XII grossly intact, Neuro grossly intact, - - No flapping tremors. Psych/Mental Status: Normal Affect, Appropriate - Physical Exam Vital Signs Temp Pulse Resp BP Pulse Ox 97.9 F 99 20 H 147/77 H 94 04/01/18 09:05 04/01/18 09:05 04/01/18 09:05 04/01/18 09:05 04/01/18 09:05 Oxygen Flow Rate (L/min) 2 Oxygen Delivery Method Nasal Cannula Weight: 90.1 kg Body Mass Index (BMI) 30.9 Intake and Output for Last 24 Hours 03/30/18 03/31/18 04/01/18 23:59 23:59 23:59 Intake Total 1390 / 1390 1260 / 1260 240 / 240 Output Total 3600 / 3600 1525 / 1525 Balance -2210 / -2210 -265 / -265 240 / 240 Microbiology Past 72 Hours 03/29/18 10:25 Blood Culture - Preliminary Blood Culture (Wb) - Left Wrist No growth in 48 hours. 03/26/18 11:55 Blood Culture - Final Blood Culture (Wb) - Anticubital Left Streptococcus pneumoniae 03/26/18 12:14 Bacteria Detection (PCR) - Final Blood Culture (Wb) - Right Wrist Streptococcus pneumoniae Blood Culture - Final Streptococcus pneumoniae Laboratory Tests Past 24 Hrs 04/01/18 04/01/18 06:30 06:30 WBC 10.8 RBC 4.21 L Hgb 10.6 L Hct 35.0 L MCV 83.1 MCH 25.2 L MCHC 30.3 L RDW 17.4 H RDW Differential 53.1 H Plt Count 306 MPV 9.6 Neut % (Auto) Not Reportable Absolute Neuts (auto) 9.3 H Absolute Lymphs (auto) 1.00 Total Counted 100 Neutrophils % (Manual) 83 H Band Neutrophils % 3 Lymphocytes % (Manual) 10 L Monocytes % (Manual) 1 Eosinophils % (Manual) 1 Myelocytes % 2 H Diff Path Review May foll Hypersegmented Neuts RARE H Hypochromasia 1+ Anisocytosis 1+ Sodium 137 Potassium 4.3 Chloride 101 Carbon Dioxide 30.0 Anion Gap 6 BUN 70 H Creatinine 1.78 H Estim Creat Clear Calc 33.09 Est GFR (MDRD) Af Amer 48 L Est GFR (MDRD) Non-Af 39 L BUN/Creatinine Ratio 39.3 H Glucose 121 H Calcium 8.5 POC Glucose 04/01/18 03/31/18 03/31/18 06:39 21:28 16:05 POC Glucose 135 H 153 H 138 H 03/31/18 11:17 POC Glucose 170 H Discharge Diet: Low fat/ Low Cholesterol, 2000 mg Sodium Diet, Carb Control Diet Discharge Activity: Return to Normal Activity Home Medications: Medications to take at Discharge Aspirin [Aspirin, Baby] 81 mg PO DAILY@0800 03/26/18 Atorvastatin Calcium [Lipitor] 20 mg PO DAILY 03/26/18 Brimonidine Tartrate [Alphagan P] 1 drop OP BID 03/26/18 Carvedilol [Coreg] 25 mg PO BID 03/26/18 Cholecalciferol (Vitamin D3) [Vitamin D3] 2,000 unit PO DAILY 03/26/18 Diltiazem CD [Cardizem CD] 180 mg PO DAILY 03/26/18 Escitalopram Oxalate [Lexapro] 10 mg PO DAILY 03/26/18 Ipratropium/Albuterol Sulfate [Duoneb] 3 ml INHALATION Q4HWA.RT 03/26/18 Linagliptin [Tradjenta] 5 mg PO DAILY 03/26/18 Omeprazole [Prilosec] 20 mg PO DAILY 03/26/18 Timolol 0.5% [Timoptic] 1 drop LEFT EYE BID 03/26/18 Albuterol Aerosols [Ventolin Aerosols] 2.5 mg INHALATION Q2H PRN PRN vial.neb. 03/30/18 Albuterol Inhaler [Ventolin Hfa] 1 - 2 puff INHALATION Q4H PRN PRN #1 inhaler 03/30/18 Furosemide [Lasix] 80 mg PO BIDLX #30 tablet 03/30/18 Guaifenesin [Mucinex] 1,200 mg PO BID #14 tablet 03/30/18 Following Prescrptions Were Given to Patient: Albuterol Inhaler [Ventolin Hfa] 1 - 2 puff INHALATION Q4H PRN PRN #1 inhaler PRN Reason: Sob &/Or Wheezing Furosemide [Lasix] 80 mg PO BIDLX #30 tablet Guaifenesin [Mucinex] 1,200 mg PO BID #14 tablet Primary Care Physician: Ramesh Rodney MD [Primary Care Provider] - Please follow up with your Primary Care Physician in: within 1-2 weeks of discharge Please Follow Up With: Kingston Paez MD When: in 2 weeks Please Follow Up With: Ramesh Rodney MD Disposition: Shelter facility Minutes spent on discharge:: 40 Patient Condition:: Stable Medical Necessity - Tobacco Use Smoking Status: Current every day smoker Tobacco Use: Cigarettes Meaningful Use Info Meaningful Use Diagnoses (Choose all that apply): None applicable Code Visit Inpatient E&M: 50031 Subs Hosp L2
[2018-04-01] MEDS: dilTIAZem CD 180 MG Capsule PO (09:27)
[2018-04-01] MEDS: Aspirin 81 MG TAB.CHEW PO (09:27)
[2018-04-01] MEDS: levoFLOXacin 750 MG Tablet PO (09:27)
[2018-04-01] MEDS: Carvedilol 25 MG Tablet PO (09:27)
[2018-04-01] MEDS: Furosemide 40 MG/4 ML Vial IV (09:27)
[2018-04-01] MEDS: Timolol 0.5% 5ML OPTH.BTL 1 DRP LEFT EYE (09:28)
[2018-04-01] MEDS: Escitalopram Oxalate 10 MG Tablet PO (09:28)
[2018-04-01] MEDS: Pantoprazole Sodium 20 MG Tablet PO (09:28)
[2018-04-01] MEDS: guaiFENesin 1,200 MG Tablet 1200 MG PO (09:28)
--- NOTE | 2018-04-01 09:42 | CASEMGMT ---
Faxed orders to [facility]. Completed convalescent on HENS. ANNA called Jasmin at [facility] and let her know patient could not be weaned off of O2. She said her will bring a tank. She said she will let her know and he will be in to pick patient up. Plan: d/c to [facility] under skilled level of care. Patient's son in law transported patient via private vehicle. Shalini OMALLEY MSW
--- NOTE | 2018-04-01 10:08 | PCM.PROGNOTE ---
Patient Problems: Active and Suspected Problems (Last Reviewed 03/15/18 @ 08:50 by Steven Savage MD) Septic shock (Acute) CAP (community acquired pneumonia) (Acute) Subjective: Patient feels subjectively improved compared to previous. Patient denies any significant productive cough, but does have some dyspnea on exertion. - Physical Exam General: Alert, Oriented x3, Cooperative, No apparent distress, - - Speaking in full sentences HEENT: Atraumatic, EOMI, Normocephalic, - - No scleral icterus or injection noted. Oral: Moist Mucosa, No Gingival or Mucosal Lesions/ Ulcerations, - - Crowded posterior pharynx Neck: Supple, No JVD, No Nodes, Trachea Midline Lungs: No rhonchi, No wheeze, No rales, Diminished, - - Symmetric expansion. No dullness to percussion. Cardiovascular: Normal S1, Normal S2, Irregular Rate, No rub noted, No Gallop Abdomen: Bowel Sounds Present, Soft, Non Tender, Non-Distended, Obese Extremities: No clubbing, No cyanosis, Capillary Refill Less than 3 Seconds, Edema Skin: - - No significant change compared to previous Musculoskeletal: No Tenderness to Palpation of Joints or Extremities, No Muscle Wasting Lymphatic: No Cervical, Supraclavicular, or Inguinal Adenopathy Neurological: Neuro grossly intact Psych/Mental Status: Normal Affect, Appropriate Vital Signs Temp Pulse Resp BP Pulse Ox 36.6 C 99 20 H 147/77 H 94 04/01/18 09:05 04/01/18 09:05 04/01/18 09:05 04/01/18 09:05 04/01/18 09:05 Oxygen Flow Rate (L/min) 2 Oxygen Delivery Method Nasal Cannula Weight: 90.1 kg Body Mass Index (BMI) 30.9 Intake and Output for Last 24 Hours 03/30/18 03/31/18 04/01/18 23:59 23:59 23:59 Intake Total 1390 / 1390 1260 / 1260 240 / 240 Output Total 3600 / 3600 1525 / 1525 Balance -2210 / -2210 -265 / -265 240 / 240 Microbiology Past 72 Hours 03/29/18 10:25 Blood Culture - Preliminary Blood Culture (Wb) - Left Wrist No growth in 48 hours. 03/26/18 11:55 Blood Culture - Final Blood Culture (Wb) - Anticubital Left Streptococcus pneumoniae 03/26/18 12:14 Bacteria Detection (PCR) - Final Blood Culture (Wb) - Right Wrist Streptococcus pneumoniae Blood Culture - Final Streptococcus pneumoniae Laboratory Tests Past 24 Hrs 04/01/18 04/01/18 06:30 06:30 WBC 10.8 RBC 4.21 L Hgb 10.6 L Hct 35.0 L MCV 83.1 MCH 25.2 L MCHC 30.3 L RDW 17.4 H RDW Differential 53.1 H Plt Count 306 MPV 9.6 Neut % (Auto) Not Reportable Absolute Neuts (auto) 9.3 H Absolute Lymphs (auto) 1.00 Total Counted 100 Neutrophils % (Manual) 83 H Band Neutrophils % 3 Lymphocytes % (Manual) 10 L Monocytes % (Manual) 1 Eosinophils % (Manual) 1 Myelocytes % 2 H Diff Path Review May foll Hypersegmented Neuts RARE H Hypochromasia 1+ Anisocytosis 1+ Sodium 137 Potassium 4.3 Chloride 101 Carbon Dioxide 30.0 Anion Gap 6 BUN 70 H Creatinine 1.78 H Estim Creat Clear Calc 33.09 Est GFR (MDRD) Af Amer 48 L Est GFR (MDRD) Non-Af 39 L BUN/Creatinine Ratio 39.3 H Glucose 121 H Calcium 8.5 POC Glucose 04/01/18 03/31/18 03/31/18 06:39 21:28 16:05 POC Glucose 135 H 153 H 138 H 03/31/18 11:17 POC Glucose 170 H Medical Necessity - Tobacco Use Smoking Status: Current every day smoker Tobacco Use: Cigarettes Assessment/Plan All Active Problems (Last Reviewed 03/15/18 @ 08:50 by Steven Savage MD) Septic shock (Acute) CAP (community acquired pneumonia) (Acute) Hx of appendectomy (Resolved) Shortness of breath (Acute) Acute respiratory failure with hypoxia and hypercapnia (Acute) Altered mental status (Acute) Hyponatremia (Acute) Dehydration (Acute) Hypokalemia (Acute) RECOMMENDATIONS: 1. Patient will require supplemental oxygen on discharge 2. Antibiotics per infectious disease recommendations, stop tomorrow 3. Okay to reinitiate Coumadin therapy 4. Likely okay to go back to baseline p.o. diuretic therapy 5. Follow-up in our office in 2 weeks with nurse practitioner after discharge from [facility] IMPRESSIONS: 1. Severe sepsis secondary due to pneumococcal pneumonia The patient was placed on broad-spectrum antibiotics upon presentation. Patient has come back positive with pneumococcal antigen in the urine. Patient can be continued on Levaquin therapy alone. Infectious disease for antibiotic recommendations. Current recommendations are as stop date of 04/02/2018 unless repeat blood cultures come back positive. Negative repeat blood cultures remain last day of antibiotic should be tomorrow. 2. Acute combined respiratory failure/questionable COPD The patient has a self-reported history of COPD. There are no PFTs on file. In addition, the patient is not currently utilizing any inhalers at his baseline. He does have a tobacco abuse history, but states that he is no longer smoking. He has responded appropriately to noninvasive positive pressure ventilation. This could be used in the future if patient starts to have atelectasis from decreased mobility. Continue bronchodilators as ordered. Patient will likely require supplemental oxygen on discharge. Patient can follow-up in our office in 2 weeks after discharge from [facility] for evaluation to see if this can be discontinued. 3. Coagulopathy Likely secondary to chronic anticoagulation coupled with #1. Reinitiate anticoagulation and monitor for overt signs of bleeding. There is no need for immediate reversal at this time. Will need to watch INR closely given concomitant antibiotics 4. Acute kidney injury Potentially prerenal in etiology and related to #1. The patient has been adequately volume resuscitated at this time. He remains hemodynamically stable. There is no indication for renal replacement therapy at this time. 5. Chronic systolic heart failure/atrial fibrillation/chronic anticoagulation status/depression/tobacco dependency with questionable remission Complicates care, management, recovery and prognosis. Continue rate control strategy per outpatient regimen. Continue gentle diuresis today. Code Visit Inpatient E&M: [id number] [facility] L2
[2018-04-01 10:23] LABS: Pathologist Review Reviewed
[2018-04-04 08:48] LABS: Pathologist Review Reviewed
== END 2018-04-01 11:08 | disposition skilled nursing facility (03) | DRG 871 ==
LOC: ED 11:45 → ICU 13:28 → PCU 03-30 10:04 → ICU 03-30 10:54
PROVIDERS: Emergency Medicine; Family Medicine; Internal Medicine Critical Care Medicine; Admitting Provider Internal Medicine; Emergency Provider Emergency Medicine; Family Provider Family Medicine; PCP Family Medicine; Referring Provider Internal Medicine; Visit Provider Internal Medicine
DX: A40.3 Sepsis due to Streptococcus pneumoniae (principal); J13 Pneumonia due to Streptococcus pneumoniae; R65.21 Severe sepsis with septic shock; J96.01 Acute respiratory failure with hypoxia; N17.9 Acute kidney failure, unspecified; I13.0 Hypertensive heart and chronic kidney disease with heart failure and stage 1 through stage 4 chronic kidney disease, or unspecified chronic kidney disease; I50.22 Chronic systolic (congestive) heart failure; I48.2 Chronic atrial fibrillation; E11.22 Type 2 diabetes mellitus with diabetic chronic kidney disease; N18.3 Chronic kidney disease, stage 3 (moderate); G47.33 Obstructive sleep apnea (adult) (pediatric); E78.5 Hyperlipidemia, unspecified; F17.210 Nicotine dependence, cigarettes, uncomplicated; Z79.899 Other long term (current) drug therapy; Z79.4 Long term (current) use of insulin; K21.9 Gastro-esophageal reflux disease without esophagitis; H40.9 Unspecified glaucoma; J44.9 Chronic obstructive pulmonary disease, unspecified; I25.10 Atherosclerotic heart disease of native coronary artery without angina pectoris; E86.0 Dehydration; Z79.01 Long term (current) use of anticoagulants; E66.9 Obesity, unspecified; Z68.30 Body mass index [BMI] 30.0-30.9, adult
CPT/HCPCS: 36415; 36600; 71045; 80048; 80069; 80076; 81001; 82803; 82962; 83540; 83550; 83605; 83735; 83880; 84484; 85025; 85610; 87040; 87077; 87149; 87186; 87449; 87633; 87641; 87804; 93005; 94002; 94003; 94640; 94660; 94667; 94668; 97162; 97166; 97530; 97535; 99284; J7030; J7040; J7050; A4216; J1940

== ENCOUNTER 2018-04-26 13:19 | Outpatient (RCR) | payer MEDICARE, SELFPAY ==
[2018-03-26 14:34] VITALS: BMI 30.9
--- NOTE | 2018-04-15 08:58 | RAD_ITS ---
STUDY: X-RAY CHEST REASON FOR EXAM: Male, 77 years old. Pain TECHNIQUE: Frontal and lateral views COMPARISON: March 27, 2018 FINDINGS: The lungs are expanded. There is a left basilar retrocardiac infiltrate suspected, with interval improvement. Normal size heart. Normal mediastinum and antonino. Normal visualized pulmonary arteries. Calcified aortic arch and descending thoracic aorta. Degenerative changes of the thoracic spine. Normal visualized ribs, clavicles, and shoulders. There is no demonstrated abnormality of the visualized soft tissue structures of the upper abdomen. RAD/Chest PA and Lateral IMPRESSION: Persistent focal left basilar infiltrate. Electronically Signed: Rasheed Regan DO at 8:19 EST Tel [phone], Service support ,
[2018-04-15 10:22] LABS: Prothrombin Time (Protime)PT. 39.3 SECONDS (11.7-14.9)
[2018-04-26 15:35] LABS: International Normalized Ratio 3.5
== END 2018-05-05 15:08 | disposition home or self-care (01) ==
LOC: MTLAB 13:19
PROVIDERS: Internal Medicine Cardiovascular Disease; Family Provider Family Medicine; PCP Family Medicine; Referring Provider Nurse Practitioner Family; Visit Provider Nurse Practitioner Family
DX: J18.9 Pneumonia, unspecified organism (principal); I48.91 Unspecified atrial fibrillation; I48.92 Unspecified atrial flutter; Z79.01 Long term (current) use of anticoagulants
CPT/HCPCS: 36415; 71046; 85610

== ENCOUNTER 2018-05-07 12:27 | Inpatient (IN) | payer MEDICARE, SELFPAY ==
[2018-05-07] VITALS (17 sets, daily range): BP systolic 107–143; BP diastolic 52–84; PULSE 74–106; RESP 12–24; TEMP 36.6–36.8; O2SAT 83–98; BMI 32.9; BMI 31.3; BMI 31.7; BMI 31.5
--- NOTE | 2018-05-07 13:44 | EKG12_ITS ---
Test Reason : SOB Blood Pressure : / mmHG Vent. Rate : 084 BPM Atrial Rate : 300 BPM P-R Int : 000 ms QRS Dur : 084 ms QT Int : 372 ms P-R-T Axes : 000 039 054 degrees QTc Int : 439 ms Atrial fibrillation Nonspecific ST abnormality Abnormal ECG Confirmed by CLYDE NESBITT, KENAN ([id number]), non linear editor MOSES NARAYAN ([id number]) on 05/09/2018 2:13:02 PM Referred By: Tere Hoffmann Confirmed By:KENAN TANG MD
--- NOTE | 2018-05-07 13:46 | ED.VISSUMM ---
- ER Visit Summary Date of Service: 05/07/18 Chief Complaint: Shortness of breath History of Present Illness: The patient is a 77 M presenting with shortness of breath. Patient states this started 1 week ago and has been progressively worsening. He has shortness of breath with exertion. He wears home O2 as needed. He is a smoker. History of COPD. He was hospitalized in March for pneumonia. He denies fever. He has a cough. He denies chest pain. Denies other complaints. Physical Examination: Vitals are stable. Patient is afebrile. 90% on 2 L. Alert no acute distress. HEENT exam is unremarkable. Neck is supple. Lungs are wheezing and diminished bilaterally. Heart is regular rate and rhythm. Abdomen is soft nontender nondistended. Extremities are unremarkable. Skin is warm and dry. Remainder of exam is unremarkable. Emergency Department Course and Treatment: Patient was given albuterol, Atrovent aerosol. CBC shows hemoglobin 9.6. Chemistries show BUN 44, creatinine 1.88. INR 4.2. Troponin is negative. Influenza negative. EKG shows A. fib rate of 84. Patient continues to have wheezing. He was given Solu-Medrol IV. Chest x-ray shows no airspace consolidation or pleural effusion. Vascular congestion, bronchovascular attenuation and cardiomegaly suggestive of chronic CHF. Discussed with the hospitalist for admission. Disposition: Admission Impression: COPD exacerbation This note was generated with [employer]Ed Online Doctor dictation software. It may contain incorrect words, spelling, and punctuation that were not noted in review of the chart prior to signing ED Disposition - Plan for ED Patient: Referrals: Ramesh Rodney MD [Primary Care Provider] -
--- NOTE | 2018-05-07 13:55 | RAD_ITS ---
STUDY: X-RAY CHEST REASON FOR EXAM: Male, 77 years old. Shortness of breath TECHNIQUE: AP COMPARISON: 04/15/2018, 03/11/2016 FINDINGS: EKG leads project over the chest. Central pulmonary vascular congestion with basilar bronchovascular attenuation similar since the prior study. No organizing pneumonia is seen. There is no demonstrated pleural abnormality. There is mild cardiac enlargement. Normal mediastinum and antonino. There is atherosclerotic calcification of the aortic arch with tortuosity. No acute bony process. There is no demonstrated abnormality of the visualized soft tissue structures of the upper abdomen. RAD/Chest 1 View (Portable) IMPRESSION: 1. No airspace consolidation or pleural effusion. 2. Vascular congestion, bronchovascular attenuation and cardiomegaly suggestive of chronic CHF. Stable appearance since 03/11/2016. Electronically Signed: Justin Palma MD at 14:44 EST , Service support ,
[2018-05-07 14:09] LABS: Absolute Lymphocyte Count 0.65 X10^3/ul (0.83-4.51); Absolute Neutrophil Count 6.2 X10^3/uL (2.0-7.7); Basophil# 0.02 X10^3/uL; Basophil% 0.3 % (0-1); Differential Indicated SCAN CRITERIA MET; Hematocrit 33.2 % (40-54); Hemoglobin 9.6 g/dl (13.0-16.5); Lymphocyte # 0.65 X10^3/ul (4.0); Lymphocyte % 8.3 % (19-41); Mean Corp Hgb Conc 28.9 g/gl (32-36); Mean Corpuscular Hgb 25.3 pg (27.0-32.0); Mean Corpuscular Volume 87.4 fL (80-94); Monocyte# 0.89 X10^3/uL; Monocyte% 11.4 % (0-10); Neutrophil # 6.22 X10^3/uL (2.7-7.7); Neutrophil % 79.9 % (47-70); POSITIVE COUNT NO; POSITIVE DIFFERENTIAL NO; POSITIVE MORPHOLOGY YES; Platelet Count 333 K/mm3 (150-450); RBC Distribution Width CV 20.9 % (11.6-14.6); RBC Distribution Width SD 65.2 fl (35.1-43.9); White Blood Count 7.8 K/mm3 (4.4-11.0)
[2018-05-07 14:12] LABS: Anion Gap 6 (5-15); BUN 44 mg/dL (7-18); BUN/Creat Ratio 23.4 RATIO (10-20); Calcium,Total 8.1 mg/dL (8.5-10.1); Chloride 108 mmol/L (98-107); Creatinine, Serum 1.88 mg/dL (0.70-1.30); EST Glomerular Filtration Rate 37 mL/min (>60); Est Glom Filt Rate - Afr Amer 45 mL/min (>60); Estimated Creatinine Clearance 30.28 ml/min; Glucose 97 mg/dL (74-106); Potassium 3.9 mmol/L (3.5-5.1); Sodium Level 141 mmol/L (136-145)
[2018-05-07 14:19] LABS: Anisocytosis 2+; Differential Comment SCANNED; Macrocytosis 1+; Microcytosis 1+
[2018-05-07] MEDS: Ipratropium/Albuterol Sulfate 3 ML AMPUL.NEB INHALATION ×3 (14:42→23:50)
[2018-05-07] MEDS: Albuterol 2.5 MG/3 ML VIAL.NEB. INHALATION ×3 (14:42)
[2018-05-07 15:08] LABS: Prothrombin Time (Protime)PT. 40.9 SECONDS (11.7-14.9)
[2018-05-07 15:26] LABS: International Normalized Ratio 4.2
--- NOTE | 2018-05-07 15:28 | NURSING ---
Call from lab, INR 4.2 , Dr. Krunal henderson
[2018-05-07] MEDS: MethylPREDNISolone 125 MG/2 ML Vial IV (15:53)
--- NOTE | 2018-05-07 16:29 | PCM.HP.STD ---
Problem List (1) Septic shock Status: Resolved (2) CAP (community acquired pneumonia) Status: Resolved Qualifiers: (3) Nicotine dependence Status: Chronic Qualifiers: (4) Carotid bruit Status: Chronic (5) Encounter for long-term current use of high risk medication Status: Chronic (6) Obstructive sleep apnea Status: Chronic (7) Hx of appendectomy Status: Resolved (8) Cardiomyopathy in disease classified elsewhere Status: Chronic (9) Atherosclerotic heart disease of [place] coronary artery without angina pectoris Status: Chronic Qualifiers: (10) jail (current) use of anticoagulants Status: Chronic (11) Benign essential hypertension Status: Chronic (12) COLD (chronic obstructive lung disease) Status: Chronic Qualifiers: (13) Diabetes mellitus, type 2 Status: Chronic Qualifiers: (14) GERD (gastroesophageal reflux disease) Status: Chronic (15) Hyperlipidemia Status: Chronic Qualifiers: (16) Obesity Status: Chronic (17) Biatrial enlargement Status: Chronic (18) Pulmonary hypertension Status: Chronic (19) Glaucoma Status: Chronic (20) Atrial fibrillation and flutter Status: Chronic History of Present Illness Date of Admission: 05/07/18 Chief Complaint: Shortness of breath, cough. The patient is a 77 year old M who presents the emergency room due to shortness of breath, cough and requiring increased supplemental oxygen. He denies fever, chills. States his cough is mostly nonproductive. He had recent admission 03/26/2018-04/01/2018 for septic shock secondary to streptococcal pneumonia a bacteremia and streptococcal pneumonia community-acquired pneumonia. Patient was discharged to [facility] for further rehab in which he spent approximately 2 weeks. Daughter at bedside is a nurse and states patient was doing well on his own at home up until approximately 1 week ago. Over the past week he has become increasingly more short of breath and developed a cough. Patient has supplemental oxygen available as needed at home and has required continuous supplemental oxygen over the past few days. Patient follows with Dr. Paez, pulmonary medicine for chronic hypoxic respiratory failure, COPD, RADHA and pulmonary hypertension. He currently smokes 2 packs/day. His other past medical history includes chronic atrial fibrillation on chronic anticoagulation with Coumadin, hypertension,, hyperlipidemia, type 2 diabetes mellitus, chronic kidney disease stage III, chronic systolic CHF/nonischemic cardiomyopathy. 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 (Chronic) Benign essential hypertension (Chronic) COLD (chronic obstructive lung disease) (Chronic) Diabetes mellitus, type 2 (Chronic) GERD (gastroesophageal reflux disease) (Chronic) Hyperlipidemia (Chronic) Obesity (Chronic) Biatrial enlargement (Chronic) Pulmonary hypertension (Chronic) Glaucoma (Chronic) Atrial fibrillation and flutter (Chronic) Medical History: Medical History (Last Reviewed 04/25/18 @ 08:23 by BRISEYDA Carias) Nicotine dependence (Chronic) F17.200 Atrial flutter (Chronic) I48.92 Carotid bruit (Chronic) R09.89 Encounter for long-term current use of high risk medication (Chronic) Z79.899 Acute left-sided congestive heart failure (Chronic) I50.1 Hypersomnia (Chronic) G47.10 Obstructive sleep apnea (Chronic) G47.33 Cardiomyopathy in disease classified elsewhere (Chronic) I43 Atherosclerotic heart disease of [place] coronary artery without angina pectoris (Chronic) I25.10 jail (current) use of anticoagulants (Chronic) Z79.01 Atrial fib/flutter, transient (Chronic) [id number] Benign essential hypertension (Chronic) I10 COLD (chronic obstructive lung disease) (Chronic) J44.9 Diabetes mellitus, type 2 (Chronic) E11.9 GERD (gastroesophageal reflux disease) (Chronic) K21.9 Hyperlipidemia (Chronic) E78.5 Obesity (Chronic) E66.9 Acute respiratory failure with hypercapnia (Chronic) J96.02 Shortness of breath (Acute) R06.02 Acute respiratory failure with hypoxia and hypercapnia (Acute) J96.01, J96.02 Biatrial enlargement (Chronic) I51.7 Altered mental status (Acute) R41.82 due to hypoxemia and hypercarbia Hyponatremia (Acute) E87.1 Dehydration (Acute) E86.0 Pulmonary hypertension (Suspected) I27.2 Glaucoma (Chronic) H40.9 Atrial fibrillation and flutter (Chronic) I48.91, I48.92 Hypokalemia (Acute) E87.6 Edema R60.9 Wheezing R06.2 Allergies Penicillins Allergy (Verified 05/07/18 12:27) Rash Home Medications: Ambulatory Orders Medication Instructions Recorded Aspirin [Aspirin, Baby] 81 mg PO DAILY@0800 03/26/18 Atorvastatin Calcium [Lipitor] 20 mg PO DAILY 03/26/18 Brimonidine Tartrate [Alphagan P] 1 drop OP BID 03/26/18 Carvedilol [Coreg] 25 mg PO BID 03/26/18 Cholecalciferol (Vitamin D3) 2,000 unit PO DAILY 03/26/18 [Vitamin D3] Escitalopram Oxalate [Lexapro] 10 mg PO DAILY 03/26/18 Ipratropium/Albuterol Sulfate 3 ml INHALATION Q4HWA.RT 03/26/18 [Duoneb] Linagliptin [Tradjenta] 5 mg PO DAILY 03/26/18 Omeprazole [Prilosec] 20 mg PO DAILY 03/26/18 Timolol 0.5% [Timoptic] 1 drop LEFT EYE BID 03/26/18 Albuterol Aerosols [Ventolin 2.5 mg INHALATION Q2H PRN PRN 03/30/18 Aerosols] vial.neb. Albuterol Inhaler [Ventolin Hfa] 1 - 2 puff INHALATION Q4H PRN PRN 03/30/18 #1 inhaler warfarin 1 mg tablet 5 mg PO .COMPLEX 04/15/18 warfarin 5 mg tablet 7 mg PO TH 04/15/18 diltiazem CD 180 mg 180 mg PO BID cap 04/25/18 capsule,extended release 24 hr furosemide 80 mg tablet 80 mg PO DAILY tab 04/25/18 glipizide 5 mg tablet 5 mg PO DAILY 04/25/18 Fluticasone/Vilanterol [Breo 1 each IH DAILY 05/07/18 Ellipta Inhaler] Guaifenesin [Mucinex] 1,200 mg PO BID 05/07/18 Surgical History: Surgical History (Last Reviewed 04/25/18 @ 08:23 by BRISEYDA Carias) Hx of appendectomy (Resolved) Z90.49 Surgical History: appendectomy, - - Ablation for atrial fibrillation, eye surgery secondary to hemorrhage in eye. Psychiatric History: No pertinent psych hx Lives: Alone Smoking Status: Current every day smoker Tobacco Use: Cigarettes - 2 PPD. Alcohol: None Drugs: None - *Family History Paternal Family History: Family History (Last Reviewed 04/25/18 @ 08:23 by BRISEYDA Carias) Daughter stent Father No problems noted. Mother No problems noted. History Items: - - Denies paternal cardiac history. Offspring Family History: Family History (Last Reviewed 04/25/18 @ 08:23 by BRISEYDA Carias) Daughter stent Father No problems noted. Mother No problems noted. History Items: Heart Disease Maternal Family History: Family History (Last Reviewed 04/25/18 @ 08:23 by BRISEYDA Carias) Daughter stent Father No problems noted. Mother No problems noted. History Items: - - Denies maternal cardiac history. Review of Systems Constitutional: Denies: Chills, Fever, Weight Change HEENT: Denies: Head Aches, Sinus Congestion, Sinus Drainage Cardiovascular: Denies: Chest Pain, Edema, Light Headedness, Palpitations, Syncope Respiratory: Reports: Cough, Shortness of Breath, Sputum production Gastrointestinal: Denies: Abdominal Pain, Nausea, Vomiting Genitourinary: Denies: Dysuria Musculoskeletal: Denies: Joint Pain, Joint Tenderness Skin: Reports: Dryness. Denies: Wounds Neurological: Denies: Numbness, Tingling, Focal weakness Psychiatric: Denies: Anxiety, Depression, Homicidal Ideations, Suicidal Ideations Hematologic/ Lymphatic: Denies: Easy Bruising, Easy Bleeding VTE Information - Inpt Only VTE Present on Admission: No VTE Mechan Device Prophylaxis: None VTE Pharm Prophylaxis ordered?: Yes - Physical Exam General: Alert, Oriented x3, Cooperative, - - Ill/fatigued appearing HEENT: PERRLA, EOMI, Normocephalic, - - Left eye blindness with erythematous sclera. Oral: Dry Mucosa Neck: Supple, No JVD, Negative Carotid Bruits Lungs: Diminished, - - Coarse lung sounds throughout. Cardiovascular: Regular rate, Regular Rhythm, Normal S1, Normal S2, No murmurs Abdomen: Bowel Sounds Present, Soft, Non Tender, Non-Distended Extremities: No clubbing, No cyanosis, No edema, Capillary Refill Less than 3 Seconds Skin: No rashes, No breakdown, - - Extensive dryness/flaking bilateral lower extremities. Musculoskeletal: No Tenderness to Palpation of Joints or Extremities Neurological: Cranial nerves II-XII grossly intact, Neuro grossly intact Psych/Mental Status: Flat Affect Vital Signs Temp Pulse Resp BP Pulse Ox 98.2 F 83 19 H 109/79 91 05/07/18 12:28 05/07/18 16:18 05/07/18 16:18 05/07/18 16:18 05/07/18 16:18 Oxygen Flow Rate (L/min) 2.5 Oxygen Delivery Method Nasal Cannula Weight: 200 lb Body Mass Index (BMI) 31.3 Microbiology Past 72 Hours 05/07/18 13:50 Influenza Types A,B Direct FA (KRISHNA) - Final Mucosa - Nose Laboratory Tests Past 24 Hrs 05/07/18 05/07/18 05/07/18 12:45 12:45 12:45 WBC 7.8 RBC 3.80 L Hgb 9.6 L Hct 33.2 L MCV 87.4 MCH 25.3 L MCHC 28.9 L RDW 20.9 H RDW Differential 65.2 H Plt Count 333 MPV 10.0 Immature Gran % (Auto) 0.100 Neut % (Auto) 79.9 H Lymph % (Auto) 8.3 L [place] % (Auto) 11.4 H Eos % (Auto) 0.0 Baso % (Auto) 0.3 Absolute Neuts (auto) 6.2 Absolute Lymphs (auto) 0.65 L Total Counted Not Reportable Differential Comment SCANNED Anisocytosis 2+ Microcytosis 1+ Macrocytosis 1+ PT 40.9 H INR 4.2 H* Sodium 141 Potassium 3.9 Chloride 108 H Carbon Dioxide 27.0 Anion Gap 6 BUN 44 H Creatinine 1.88 H Estim Creat Clear Calc 30.28 Est GFR (MDRD) Af Amer 45 L Est GFR (MDRD) Non-Af 37 L BUN/Creatinine Ratio 23.4 H Glucose 97 Calcium 8.1 L Troponin I < 0.015 Assessment/Plan All Active Problems (Last Reviewed 04/25/18 @ 08:23 by Carol Lockwood, JAZMINE-C) Hx of appendectomy (Resolved) CAP (community acquired pneumonia) (Resolved) Septic shock (Resolved) 1. Acute on chronic hypoxic respiratory failure secondary to suspected bronchitis with acute on chronic COPD exacerbation- Possible bacterial, however suspected viral etiology. Given recent admission with pneumococcal pneumonia and bacteremia, consult ID and pulmonary medicine. IV Solu-Medrol. Obtain respiratory panel. Send sputum for culture. Obtain ABGs. Obtain blood cultures. Albuterol/DuoNeb aerosol. Continue supplement oxygen to maintain O2 at or above 90%. Repeat chest x-ray in a.m. Begin IV Levaquin empirically. 2. Chronic atrial fibrillation on anticoagulation with Coumadin, INR supratherapeutic-hold Coumadin, trend INR. Continue Cardizem and carvedilol regimen. 3. Chronic systolic CHF/nonischemic cardiomyopathy-chest x-ray admission showed chronic stable CHF. Continue home Lasix regimen. Follows with Dr. Savage. 4. Hypertension-stable, continue home carvedilol, Cardizem, Lasix regimen. 5. Hyperlipidemia-continue statin. 6. Chronic kidney disease stage III-at baseline, trend BMP. 7. Type 2 diabetes mellitus-hold oral regimen. Accu-Cheks AC at bedtime with sliding scale insulin. 8. RADHA/pulmonary hypertension- unclear BIPAP/CPAP use. 9. Tobacco dependence-current 2 pack/day smoker. Denies interested in quitting. 10. 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 11. Depression-continue home Lexapro regimen. 12. 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 13. Normocytic anemia-Baseline hemoglobin appears to be 13-14 prior to March of this year. Hemoglobin has remained 9-10 since that time. Iron studies in March consistent with iron deficiency. Does not appear to be on iron supplementation. Will add supplemental iron. Trend CBC. 14. Debility-discharge to SNF following recent admission. PT/OT. CM consult. DVT prophylaxis-Coumadin This patient was seen by BRISEYDA Porter under the supervision of Dr. Hoffmann.
--- NOTE | 2018-05-07 16:33 | HP.PCM_ITS ---
Problem List (1) Septic shock Status: Resolved (2) CAP (community acquired pneumonia) Status: Resolved Qualifiers: (3) Nicotine dependence Status: Chronic Qualifiers: (4) Carotid bruit Status: Chronic (5) Encounter for long-term current use of high risk medication Status: Chronic (6) Obstructive sleep apnea Status: Chronic (7) Hx of appendectomy Status: Resolved (8) Cardiomyopathy in disease classified elsewhere Status: Chronic (9) Atherosclerotic heart disease of [place] coronary artery without angina pectoris Status: Chronic Qualifiers: (10) skilled nursing (current) use of anticoagulants Status: Chronic (11) Benign essential hypertension Status: Chronic (12) COLD (chronic obstructive lung disease) Status: Chronic Qualifiers: (13) Diabetes mellitus, type 2 Status: Chronic Qualifiers: (14) GERD (gastroesophageal reflux disease) Status: Chronic (15) Hyperlipidemia Status: Chronic Qualifiers: (16) Obesity Status: Chronic (17) Biatrial enlargement Status: Chronic (18) Pulmonary hypertension Status: Chronic (19) Glaucoma Status: Chronic (20) Atrial fibrillation and flutter Status: Chronic History of Present Illness Date of Admission: 05/07/18 Chief Complaint: Shortness of breath, cough. The patient is a 77 year old M who presents the emergency room due to shortness of breath, cough and requiring increased supplemental oxygen. He denies fever, chills. States his cough is mostly nonproductive. He had recent admission 03/26/2018-04/01/2018 for septic shock secondary to streptococcal pneumonia a bacteremia and streptococcal pneumonia community-acquired pneumonia. Patient was discharged to [facility] for further rehab in which he spent approximately 2 weeks. Daughter at bedside is a nurse and states patient was doing well on his own at home up until approximately 1 week ago. Over the past week he has become increasingly more short of breath and developed a cough. Patient has supplemental oxygen available as needed at home and has required continuous supplemental oxygen over the past few days. Patient follows with Dr. Paez, pulmonary medicine for chronic hypoxic respiratory failure, COPD, RADHA and pulmonary hypertension. He currently smokes 2 packs/day. His other past medical history includes chronic atrial fibrillation on chronic anticoagulation with Coumadin, hypertension,, hyperlipidemia, type 2 diabetes m ellitus, chronic kidney disease stage III, chronic systolic CHF/nonischemic cardiomyopathy. Past Medical History Past Medical History (Chronic Problems): Chronic Problems (Last Reviewed 04/25/18 @ 08:23 by BRISEYDA Carias) Nicotine dependence (Chronic) Carotid bruit (Chronic) Encounter for long-term current use of high risk medication (Chronic) Obstructive sleep apnea (Chronic) Cardiomyopathy in disease classified elsewhere (Chronic) Atherosclerotic heart disease of [place] coronary artery without angina pectoris (Chronic) skilled nursing (current) use of anticoagulants (Chronic) Benign essential hypertension (Chronic) COLD (chronic obstructive lung disease) (Chronic) Diabetes mellitus, type 2 (Chronic) GERD (gastroesophageal reflux disease) (Chronic) Hyperlipidemia (Chronic) Obesity (Chronic) Biatrial enlargement (Chronic) Pulmonary hypertension (Chronic) Glaucoma (Chronic) Atrial fibrillation and flutter (Chronic) Medical History: Medical History (Last Reviewed 04/25/18 @ 08:23 by BRISEYDA Carias) Nicotine dependence (Chronic) F17.200 Atrial flutter (Chronic) I48.92 Carotid bruit (Chronic) R09.89 Encounter for long-term current use of high risk medication (Chronic) Z79.899 Acute left-sided congestive heart failure (Chronic) I50.1 Hypersomnia (Chronic) G47.10 Obstructive sleep apnea (Chronic) G47.33 Cardiomyopathy in disease classified elsewhere (Chronic) I43 Atherosclerotic heart disease of [place] coronary artery without angina pectoris (Chronic) I25.10 skilled nursing (current) use of anticoagulants (Chronic) Z79.01 Atrial fib/flutter, transient (Chronic) [id number] Benign essential hypertension (Chronic) I10 COLD (chronic obstructive lung disease) (Chronic) J44.9 Diabetes mellitus, type 2 (Chronic) E11.9 GERD (gastroesophageal reflux disease) (Chronic) K21.9 Hyperlipidemia (Chronic) E78.5 Obesity (Chronic) E66.9 Acute respiratory failure with hypercapnia (Chronic) J96.02 Shortness of breath (Acute) R06.02 Acute respiratory failure with hypoxia and hypercapnia (Acute) J96.01, J96.02 Biatrial enlargement (Chronic) I51.7 Altered mental status (Acute) R41.82 due to hypoxemia and hypercarbia Hyponatremia (Acute) E87.1 Dehydration (Acute) E86.0 Pulmonary hypertension (Suspected) I27.2 Glaucoma (Chronic) H40.9 Atrial fibrillation and flutter (Chronic) I48.91, I48.92 Hypokalemia (Acute) E87.6 Edema R60.9 Wheezing R06.2 Allergies Penicillins Allergy (Verified 05/07/18 12:27) Rash Home Medications: Ambulatory Orders Medication Instructions Recorded Aspirin [Aspirin, Baby] 81 mg PO DAILY@0800 03/26/18 Atorvastatin Calcium [Lipitor] 20 mg PO DAILY 03/26/18 Brimonidine Tartrate [Alphagan P] 1 drop OP BID 03/26/18 Carvedilol [Coreg] 25 mg PO BID 03/26/18 Cholecalciferol (Vitamin D3) 2,000 unit PO DAILY 03/26/18 [Vitamin D3] Escitalopram Oxalate [Lexapro] 10 mg PO DAILY 03/26/18 Ipratropium/Albuterol Sulfate 3 ml INHALATION Q4HWA.RT 03/26/18 [Duoneb] Linagliptin [Tradjenta] 5 mg PO DAILY 03/26/18 Omeprazole [Prilosec] 20 mg PO DAILY 03/26/18 Timolol 0.5% [Timoptic] 1 drop LEFT EYE BID 03/26/18 Albuterol Aerosols [Ventolin 2.5 mg INHALATION Q2H PRN PRN 03/30/18 Aerosols] vial.neb. Albuterol Inhaler [Ventolin Hfa] 1 - 2 puff INHALATION Q4H PRN PRN 03/30/18 #1 inhaler warfarin 1 mg tablet 5 mg PO .COMPLEX 04/15/18 warfarin 5 mg tablet 7 mg PO TH 04/15/18 diltiazem CD 180 mg 180 mg PO BID cap 04/25/18 capsule,extended release 24 hr furosemide 80 mg tablet 80 mg PO DAILY tab 04/25/18 glipizide 5 mg tablet 5 mg PO DAILY 04/25/18 Fluticasone/Vilanterol [Breo 1 each IH DAILY 05/07/18 Ellipta Inhaler] Guaifenesin [Mucinex] 1,200 mg PO BID 05/07/18 Surgical History: Surgical History (Last Reviewed 04/25/18 @ 08:23 by BRISEYDA Carias) Hx of appendectomy (Resolved) Z90.49 Surgical History: appendectomy, - - Ablation for atrial fibrillation, eye surgery secondary to hemorrhage in eye. Psychiatric History: No pertinent psych hx Lives: Alone Smoking Status: Current every day smoker Tobacco Use: Cigarettes - 2 PPD. Alcohol: None Drugs: None - *Family History Paternal Family History: Family History (Last Reviewed 04/25/18 @ 08:23 by BRISEYDA Carias) Daughter stent Father No problems noted. Mother No problems noted. History Items: - - Denies paternal cardiac history. Offspring Family History: Family History (Last Reviewed 04/25/18 @ 08:23 by BRISEYDA Carias) Daughter stent Father No problems noted. Mother No problems noted. History Items: Heart Disease Maternal Family History: Family History (Last Reviewed 04/25/18 @ 08:23 by BRISEYDA Carias) Daughter stent Father No problems noted. Mother No problems noted. History Items: - - Denies maternal cardiac history. Review of Systems Constitutional: Denies: Chills, Fever, Weight Change HEENT: Denies: Head Aches, Sinus Congestion, Sinus Drainage Cardiovascular: Denies: Chest Pain, Edema, Light Headedness, Palpitations, Syncope Respiratory: Reports: Cough, Shortness of Breath, Sputum production Gastrointestinal: Denies: Abdominal Pain, Nausea, Vomiting Genitourinary: Denies: Dysuria Musculoskeletal: Denies: Joint Pain, Joint Tenderness Skin: Reports: Dryness. Denies: Wounds Neurological: Denies: Numbness, Tingling, Focal weakness Psychiatric: Denies: Anxiety, Depression, Homicidal Ideations, Suicidal Ideations Hematologic/ Lymphatic: Denies: Easy Bruising, Easy Bleeding VTE Information - Inpt Only VTE Present on Admission: No VTE Mechan Device Prophylaxis: None VTE Pharm Prophylaxis ordered?: Yes - Physical Exam General: Alert, Oriented x3, Cooperative, - - Ill/fatigued appearing HEENT: PERRLA, EOMI, Normocephalic, - - Left eye blindness with erythematous sclera. Oral: Dry Mucosa Neck: Supple, No JVD, Negative Carotid Bruits Lungs: Diminished, - - Coarse lung sounds throughout. Cardiovascular: Regular rate, Regular Rhythm, Normal S1, Normal S2, No murmurs Abdomen: Bowel Sounds Present, Soft, Non Tender, Non-Distended Extremities: No clubbing, No cyanosis, No edema, Capillary Refill Less than 3 Seconds Skin: No rashes, No breakdown, - - Extensive dryness/flaking bilateral lower extremities. Musculoskeletal: No Tenderness to Palpation of Joints or Extremities Neurological: Cranial nerves II-XII grossly intact, Neuro grossly intact Psych/Mental Status: Flat Affect Vital Signs Temp Pulse Resp BP Pulse Ox 98.2 F 83 19 H 109/79 91 05/07/18 12:28 05/07/18 16:18 05/07/18 16:18 05/07/18 16:18 05/07/18 16:18 Oxygen Flow Rate (L/min) 2.5 Oxygen Delivery Method Nasal Cannula Weight: 200 lb Body Mass Index (BMI) 31.3 Microbiology Past 72 Hours 05/07/18 13:50 Influenza Types A,B Direct FA (KRISHNA) - Final Mucosa - Nose Laboratory Tests Past 24 Hrs 05/07/18 05/07/18 05/07/18 12:45 12:45 12:45 WBC 7.8 RBC 3.80 L Hgb 9.6 L Hct 33.2 L MCV 87.4 MCH 25.3 L MCHC 28.9 L RDW 20.9 H RDW Differential 65.2 H Plt Count 333 MPV 10.0 Immature Gran % (Auto) 0.100 Neut % (Auto) 79.9 H Lymph % (Auto) 8.3 L [place] % (Auto) 11.4 H Eos % (Auto) 0.0 Baso % (Auto) 0.3 Absolute Neuts (auto) 6.2 Absolute Lymphs (auto) 0.65 L Total Counted Not Reportable Differential Comment SCANNED Anisocytosis 2+ Microcytosis 1+ Macrocytosis 1+ PT 40.9 H INR 4.2 H* Sodium 141 Potassium 3.9 Chloride 108 H Carbon Dioxide 27.0 Anion Gap 6 BUN 44 H Creatinine 1.88 H Estim Creat Clear Calc 30.28 Est GFR (MDRD) Af Amer 45 L Est GFR (MDRD) Non-Af 37 L BUN/Creatinine Ratio 23.4 H Glucose 97 Calcium 8.1 L Troponin I < 0.015 Assessment/Plan All Active Problems (Last Reviewed 04/25/18 @ 08:23 by Carol Lockwood, JAZMINE-C) Hx of appendectomy (Resolved) CAP (community acquired pneumonia) (Resolved) Septic shock (Resolved) 1. Acute on chronic hypoxic respiratory failure secondary to suspected bronchitis with acute on chronic COPD exacerbation- Possible bacterial, however suspected viral etiology. Given recent admission with pneumococcal pneumonia and bacteremia, consult ID and pulmonary medicine. IV Solu-Medrol. Obtain respiratory panel. Send sputum for culture. Obtain ABGs. Obtain blood cultures. Albuterol/DuoNeb aerosol. Continue supplement oxygen to maintain O2 at or above 90%. Repeat chest x-ray in a.m. Begin IV Levaquin empirically. 2. Chronic atrial fibrillation on anticoagulation with Coumadin, INR supratherapeutic-hold Coumadin, trend INR. Continue Cardizem and carvedilol regimen. 3. Chronic systolic CHF/nonischemic cardiomyopathy-chest x-ray admission showed chronic stable CHF. Continue home Lasix regimen. Follows with Dr. Saavge. 4. Hypertension-stable, continue home carvedilol, Cardizem, Lasix regimen. 5. Hyperlipidemia-continue statin. 6. Chronic kidney disease stage III-at baseline, trend BMP. 7. Type 2 diabetes mellitus-hold oral regimen. Accu-Cheks AC at bedtime with sliding scale insulin. 8. RADHA/pulmonary hypertension- unclear BIPAP/CPAP use. 9. Tobacco dependence-current 2 pack/day smoker. Denies interested in quitting. 10. 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 11. Depression-continue home Lexapro regimen. 12. 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 13. Normocytic anemia-Baseline hemoglobin appears to be 13-14 prior to March of this year. Hemoglobin has remained 9-10 since that time. Iron studies in March consistent with iron deficiency. Does not appear to be on iron supplementation. Will add supplemental iron. Trend CBC. 14. Debility-discharge to SNF following recent admission. PT/OT. CM consult. DVT prophylaxis-Coumadin This patient was seen by BRISEYDA Porter under the supervision of Dr. Hoffmann.
[2018-05-07] MEDS: Furosemide 100 MG/10 ML Vial 80 MG IV (16:51)
--- NOTE | 2018-05-07 17:18 | ECHOD_ITS ---
Reason For Study: Dyspnea/SOB Procedure This was a 2D Doppler, Color Flow transthoracic echocardiogram. Technically difficult study, echo done with patient sitting upright due to SOB. Exam performed portable in patient room. Left Ventricle Normal LV size. Left ventricular systolic function is normal. The estimated ejection fraction is 55 %. No regional wall motion abnormalities noted. Right Ventricle Normal size and thickness. Normal systolic function. Atria The left atrium is moderately enlarged. Normal right atrium. Mitral Valve Normal mitral valve. Tricuspid Valve Normal tricuspid valve. Mild tricuspid valve insufficiency. Aortic Valve Trisinus/trileaflet aortic valve. Peak aortic valve gradient 28 mmHg. Mean aortic valve gradient 12 mmHg. Mild to moderate aortic stenosis. Pulmonic Valve Normal pulmonic valve. Great Vessels Normal aortic root. The pulmonary artery is normal size. Normal inferior vena cava. Pericardium/Pleural No pericardial effusion. MMode/2D Measurements & Calculations LVIDd: 4.5 cm IVSd: 1.1 cm LVOT diam: 2.1 cm LVIDs: 3.3 cm LVPWd: 1.0 cm LVOT area: 3.6 cm2 RVDd: 3.2 cm FS: 27.8 % Ao root diam: 3.7 cm LAV(MOD-sp4): 85.0 ml Aortic Valve Planimetry: 1.1 cm2 LA dimension: 4.0 cm LA A4 area: 25.9 cm2 RA A4 area: 21.3 cm2 Doppler Measurements & Calculations MV E max neela: 132.1 cm/sec Ao V2 max: 268.2 cm/sec LV V1 max: 94.6 cm/sec Ao max P.8 mmHg LV V1 max P.6 mmHg Ao V2 mean: 161.1 cm/sec LV V1 mean P.5 mmHg Ao mean P.5 mmHg LV V1 mean: 54.1 cm/sec Ao V2 VTI: 44.6 cm LV V1 VTI: 15.5 cm CARLIN(I,D): 1.3 cm2 CARLIN(V,D): 1.3 cm2 SV(LVOT): 55.9 ml PA V2 max: 89.6 cm/sec TR max neela: 205.1 cm/sec TR max P.8 mmHg Interpretation Summary Normal LV size. Left ventricular systolic function is normal. The estimated ejection fraction is 55 %. Mild to moderate aortic stenosis. Mean aortic valve gradient 12 mmHg. Ordering Physician: BRISEYDA Porter Referring Physician: Tere Hoffmann Performed By: Alexandro Trujillo RCS
[2018-05-07] MEDS: levoFLOXacin IV 750 MG/150 ML BAG 100 MG IV (18:05)
[2018-05-07 18:25] LABS: Magnesium 2.1 mg/dL (1.6-2.6); Thyroid Stim Hormone (TSH) 1.08 uIU/mL (0.358-3.74)
--- NOTE | 2018-05-07 18:48 | CPS ---
results of high CO2 called to Dr. Hoffmann
[2018-05-07 18:55] LABS: Allen Test POS; Base Excess 2 mmol/L (-2 to +2); Bicarbonate 29.6 mmol/L (22-26); Blood Gas Specimen Type ART; O2 Delivery Device Nasal Can; PO2 67 mmHG (75-100); SITE L Radial; SO2 88 % (95-99); Total Carbon Dioxide 32 mmol/L; pH 7.25 (7.35-7.45)
[2018-05-07] MEDS: guaiFENesin 1,200 MG Tablet 1200 MG PO (21:53)
[2018-05-07] MEDS: Atorvastatin Calcium 20 MG Tablet PO (21:53)
[2018-05-07] MEDS: dilTIAZem CD 180 MG Capsule PO (21:53)
[2018-05-07] MEDS: Insulin Lispro 100 UNIT/ML INSULN.PEN SC (21:53)
[2018-05-07] MEDS: Timolol 0.5% 5ML OPTH.BTL 1 DRP LEFT EYE (21:53)
[2018-05-07] MEDS: Carvedilol 25 MG Tablet PO (21:53)
[2018-05-07 22:05] LABS: Bedside Glucose 191 mg/dL (70-110)
[2018-05-08] VITALS (20 sets, daily range): BP systolic 112–139; BP diastolic 47–93; PULSE 86–111; RESP 12–24; TEMP 36.2–36.8; O2SAT 87–97
[2018-05-08] MEDS: Ipratropium/Albuterol Sulfate 3 ML AMPUL.NEB INHALATION ×4 (03:39→15:07)
--- NOTE | 2018-05-08 05:45 | NURSING ---
PT REMOVED BIPAP @ 0530 STATING HE WAS DONE WITH IT. 4L NASAL CANNULA APPLIED. SPO2 DROPPED TO 85%. THIS NURSE REAPPLIED BIPAP WITH SPO2 @ 94%.
[2018-05-08] MEDS: 0.9% NaCl Peripheral Flush Adult/Peds IV ×2 (06:44→14:25)
[2018-05-08 06:50] LABS: Bedside Glucose 143 mg/dL (70-110)
[2018-05-08 07:26] LABS: Anion Gap 11 (5-15); BUN 47 mg/dL (7-18); BUN/Creat Ratio 27.5 RATIO (10-20); Calcium,Total 8.3 mg/dL (8.5-10.1); Chloride 104 mmol/L (98-107); Creatinine, Serum 1.71 mg/dL (0.70-1.30); EST Glomerular Filtration Rate 41 mL/min (>60); Est Glom Filt Rate - Afr Amer 50 mL/min (>60); Estimated Creatinine Clearance 33.29 ml/min; Glucose 153 mg/dL (74-106); Sodium Level 143 mmol/L (136-145)
[2018-05-08 07:32] LABS: Prothrombin Time (Protime)PT. 39.4 SECONDS (11.7-14.9)
[2018-05-08 08:01] LABS: Hematocrit 32.6 % (40-54); Hemoglobin 9.4 g/dl (13.0-16.5); Mean Corp Hgb Conc 28.8 g/gl (32-36); Mean Corpuscular Hgb 24.8 pg (27.0-32.0); Mean Platelet Vol. 9.7 fl (6.2-12.0); Platelet Count 314 K/mm3 (150-450); RBC Distribution Width CV 20.5 % (11.6-14.6); RBC Distribution Width SD 65.2 fl (35.1-43.9); Red Blood Count 3.79 M/mm3 (4.6-6.2); Scan Indicated on CBC? Y/N YES- FLAGS NOTED; White Blood Count 3.8 K/mm3 (4.4-11.0)
--- NOTE | 2018-05-08 08:03 | PCM.CONS.GEN ---
Reason for Consult Date of Consultation: 05/08/18 Reason for Consultation: Acute on chronic respiratory failure History of Present Illness: The patient is a 77-year-old male, with a history as outlined below, who presented to the emergency department on May 07 with complaints of gradually progressive shortness of breath with exertion. While the patient is supposed to be utilizing 2 L/min of supplemental oxygen at his baseline, he reports that he utilizes his oxygen intermittently. The patient does continue to smoke cigarettes daily. He does not utilize his prescribed inhalers as they are intended to be utilized. The patient was previously admitted to the hospital March 26, during which time, he was treated for severe sepsis secondary to pneumococcal pneumonia and acute combined respiratory failure. The patient followed up with our nurse practitioner in the pulmonary medicine clinic on April 25. At that time, the patient was noted to be smoking 1.5 packs of cigarettes daily. He has an approximate [id number] smoking history and has no reported desire to quit. The patient essentially declined to undergo any testing, including pulmonary function studies. On presentation to the emergency department, the patient was noted to be afebrile and hemodynamically stable. Laboratory evaluation revealed no evidence of a leukocytosis. INR was noted to be elevated at 4.2. Chemistry profile revealed evidence of chronic kidney disease. Troponin was negative. An arterial blood gas was obtained on 4 L/min and revealed a pH of 7.25 with a PCO2 of 68 and PO2 of 67. Plain film chest x-ray revealed bronchovascular congestion concerning for CHF. His EKG revealed atrial fibrillation with a heart rate of 84. The patient was notably wheezy on examination in the emergency department. He was treated with IV Solu-Medrol and IV Lasix. He was subsequently started on BiPAP. The patient was then admitted to the medical surgical floor for further management. 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) Benign essential hypertension (Chronic) COLD (chronic obstructive lung disease) (Chronic) Diabetes mellitus, type 2 (Chronic) GERD (gastroesophageal reflux disease) (Chronic) Hyperlipidemia (Chronic) Obesity (Chronic) Biatrial enlargement (Chronic) Pulmonary hypertension (Chronic) Glaucoma (Chronic) Atrial fibrillation and flutter (Chronic) Medical History: Medical History (Last Reviewed 04/25/18 @ 08:23 by Carol Lockwood NP-C) Nicotine dependence (Chronic) F17.200 Carotid bruit (Chronic) R09.89 Encounter for long-term current use of high risk medication (Chronic) Z79.899 Obstructive sleep apnea (Chronic) G47.33 Cardiomyopathy in disease classified elsewhere (Chronic) I43 Atherosclerotic heart disease of [place] coronary artery without angina pectoris (Chronic) I25.10 [facility] (current) use of anticoagulants (Chronic) Z79.01 Benign essential hypertension (Chronic) I10 COLD (chronic obstructive lung disease) (Chronic) J44.9 Diabetes mellitus, type 2 (Chronic) E11.9 GERD (gastroesophageal reflux disease) (Chronic) K21.9 Hyperlipidemia (Chronic) E78.5 Obesity (Chronic) E66.9 Biatrial enlargement (Chronic) I51.7 Pulmonary hypertension (Chronic) I27.2 Glaucoma (Chronic) H40.9 Atrial fibrillation and flutter (Chronic) I48.91, I48.92 Edema R60.9 Wheezing R06.2 Allergies Penicillins Allergy (Verified 05/07/18 12:27) Rash Home Medications: Ambulatory Orders Medication Instructions Recorded Aspirin [Aspirin, Baby] 81 mg PO DAILY@0800 03/26/18 Atorvastatin Calcium [Lipitor] 20 mg PO DAILY 03/26/18 Brimonidine Tartrate [Alphagan P] 1 drop OP BID 03/26/18 Carvedilol [Coreg] 25 mg PO BID 03/26/18 Cholecalciferol (Vitamin D3) 2,000 unit PO DAILY 03/26/18 [Vitamin D3] Escitalopram Oxalate [Lexapro] 10 mg PO DAILY 03/26/18 Ipratropium/Albuterol Sulfate 3 ml INHALATION Q4HWA.RT 03/26/18 [Duoneb] Linagliptin [Tradjenta] 5 mg PO DAILY 03/26/18 Omeprazole [Prilosec] 20 mg PO DAILY 03/26/18 Timolol 0.5% [Timoptic] 1 drop LEFT EYE BID 03/26/18 Albuterol Aerosols [Ventolin 2.5 mg INHALATION Q2H PRN PRN 03/30/18 Aerosols] vial.neb. Albuterol Inhaler [Ventolin Hfa] 1 - 2 puff INHALATION Q4H PRN PRN 03/30/18 #1 inhaler warfarin 1 mg tablet 5 mg PO .COMPLEX 04/15/18 warfarin 5 mg tablet 7 mg PO TH 04/15/18 diltiazem CD 180 mg 180 mg PO BID cap 04/25/18 capsule,extended release 24 hr furosemide 80 mg tablet 80 mg PO DAILY tab 04/25/18 glipizide 5 mg tablet 5 mg PO DAILY 04/25/18 Fluticasone/Vilanterol [Breo 1 each IH DAILY 05/07/18 Ellipta Inhaler] Guaifenesin [Mucinex] 1,200 mg PO BID 05/07/18 Surgical History: Surgical History (Last Reviewed 04/25/18 @ 08:23 by BRISEYDA Carias) Hx of appendectomy (Resolved) Z90.49 Surgical History: appendectomy, - - Ablation for atrial fibrillation, eye surgery secondary to hemorrhage in eye. Psychiatric History: No pertinent psych hx Lives: Alone Smoking Status: Current every day smoker Tobacco Use: Cigarettes Alcohol: None Drugs: None - *Family History Paternal Family History: Family History (Last Reviewed 04/25/18 @ 08:23 by BRISEYDA Carias) Daughter stent Father No problems noted. Mother No problems noted. History Items: - - Denies paternal cardiac history. Offspring Family History: Family History (Last Reviewed 04/25/18 @ 08:23 by BRISEYDA Carias) Daughter stent Father No problems noted. Mother No problems noted. History Items: Heart Disease Maternal Family History: Family History (Last Reviewed 04/25/18 @ 08:23 by BRISEYDA Carias) Daughter stent Father No problems noted. Mother No problems noted. History Items: - - Denies maternal cardiac history. Review of Systems Constitutional: Denies: Chills, Fever Eyes: Denies: Blurred vision, Double vision HEENT: Denies: Head Aches, Sinus Congestion, Sinus Drainage Cardiovascular: Denies: Chest Pain, Palpitations Respiratory: Reports: Shortness of Breath Gastrointestinal: Denies: Abdominal Pain, Nausea, Vomiting Genitourinary: Denies: Dysuria Musculoskeletal: Denies: Joint Pain, Joint Tenderness Skin: Denies: Rash, Wounds Neurological: Denies: Numbness, Tingling, Focal weakness Psychiatric: Denies: Anxiety, Depression, Homicidal Ideations, Suicidal Ideations Hematologic/ Lymphatic: Denies: Easy Bruising, Easy Bleeding Objective: The patient's most recent lab work, culture data and imaging studies have all been personally reviewed. Respiratory viral panel and blood cultures are currently pending. Surface echocardiogram from March 2016 revealed mild to moderate global hypokinesis of the LV with an ejection fraction of 40%. The patient was also identified as having moderate obstructive sleep apnea in 2017, for which it was recommended that he be started on bilevel with a pressure support of 14/10 centimeters of water. - Physical Exam General: Alert, Cooperative, No apparent distress, - - Sitting in bedside recliner. Currently on 4 L/min nasal cannula HEENT: Atraumatic, PERRLA, Normocephalic Oral: No Gingival or Mucosal Lesions/ Ulcerations Neck: Supple, No Nodes, Trachea Midline Lungs: No rhonchi, Diminished, Rales, Wheezes Cardiovascular: Regular rate, Regular Rhythm, Normal S1, Normal S2, No murmurs Abdomen: Bowel Sounds Present, Soft, Non Tender, Obese Extremities: No clubbing, No cyanosis, Edema Skin: - - Lower extremity stasis dermatitis Musculoskeletal: No Tenderness to Palpation of Joints or Extremities Lymphatic: No Cervical, Supraclavicular, or Inguinal Adenopathy Neurological: Cranial nerves II-XII grossly intact, Neuro grossly intact Vital Signs Temp Pulse Resp BP Pulse Ox 36.6 C 111 H 20 H 139/93 H 96 05/08/18 07:55 05/08/18 07:55 05/08/18 07:55 05/08/18 07:55 05/08/18 07:55 Oxygen Flow Rate (L/min) 4 Oxygen Delivery Method Nasal Cannula Weight: 202 lb 11.2 oz Body Mass Index (BMI) 31.7 Intake and Output for Last 24 Hours 05/06/18 05/07/18 05/08/18 23:59 23:59 23:59 Intake Total 653 / 653 Output Total 950 / 950 Balance -297 / -297 Microbiology Past 72 Hours 05/07/18 13:50 Influenza Types A,B Direct FA (KRISHNA) - Final Mucosa - Nose Laboratory Tests Past 24 Hrs 05/07/18 05/07/18 05/07/18 12:45 12:45 12:45 WBC 7.8 RBC 3.80 L Hgb 9.6 L Hct 33.2 L MCV 87.4 MCH 25.3 L MCHC 28.9 L RDW 20.9 H RDW Differential 65.2 H Plt Count 333 MPV 10.0 Immature Gran % (Auto) 0.100 Neut % (Auto) 79.9 H Lymph % (Auto) 8.3 L [place] % (Auto) 11.4 H Eos % (Auto) 0.0 Baso % (Auto) 0.3 Absolute Neuts (auto) 6.2 Absolute Lymphs (auto) 0.65 L Total Counted Not Reportable Differential Comment SCANNED Anisocytosis 2+ Microcytosis 1+ Macrocytosis 1+ PT 40.9 H INR 4.2 H* Specimen Type Sample Site pH Bicarbonate Actual POC Total CO2 Base Excess O2 Saturation ABG pCO2 ABG pO2 George Test O2 Delivery Device Liter Flow Blood Gas Notified Whom Sodium 141 Potassium 3.9 Chloride 108 H Carbon Dioxide 27.0 Anion Gap 6 BUN 44 H Creatinine 1.88 H Estim Creat Clear Calc 30.28 Est GFR (MDRD) Af Amer 45 L Est GFR (MDRD) Non-Af 37 L BUN/Creatinine Ratio 23.4 H Glucose 97 Calcium 8.1 L Magnesium Troponin I < 0.015 TSH 05/07/18 05/07/18 05/08/18 17:35 18:45 06:18 WBC 3.8 L RBC 3.79 L Hgb 9.4 L Hct 32.6 L MCV 86.0 MCH 24.8 L MCHC 28.8 L RDW 20.5 H RDW Differential 65.2 H Plt Count 314 MPV 9.7 Immature Gran % (Auto) Neut % (Auto) Lymph % (Auto) [place] % (Auto) Eos % (Auto) Baso % (Auto) Absolute Neuts (auto) Absolute Lymphs (auto) Total Counted Differential Comment Anisocytosis Microcytosis Macrocytosis PT INR Specimen Type ART Sample Site L Radial pH 7.25 L Bicarbonate Actual 29.6 H POC Total CO2 32 Base Excess 2 O2 Saturation 88 L ABG pCO2 68.0 H* ABG pO2 67 L George Test POS O2 Delivery Device Nasal Can Liter Flow 4.0 Blood Gas Notified Whom HOSP Sodium Potassium Chloride Carbon Dioxide Anion Gap BUN Creatinine Estim Creat Clear Calc Est GFR (MDRD) Af Amer Est GFR (MDRD) Non-Af BUN/Creatinine Ratio Glucose Calcium Magnesium 2.1 Troponin I TSH 1.08 05/08/18 05/08/18 06:18 06:18 WBC RBC Hgb Hct MCV MCH MCHC RDW RDW Differential Plt Count MPV Immature Gran % (Auto) Neut % (Auto) Lymph % (Auto) [place] % (Auto) Eos % (Auto) Baso % (Auto) Absolute Neuts (auto) Absolute Lymphs (auto) Total Counted Differential Comment Anisocytosis Microcytosis Macrocytosis PT 39.4 H INR 4.0 H* Specimen Type Sample Site pH Bicarbonate Actual POC Total CO2 Base Excess O2 Saturation ABG pCO2 ABG pO2 George Test O2 Delivery Device Liter Flow Blood Gas Notified Whom Sodium 143 Potassium 4.0 Chloride 104 Carbon Dioxide 28.0 Anion Gap 11 BUN 47 H Creatinine 1.71 H Estim Creat Clear Calc 33.29 Est GFR (MDRD) Af Amer 50 L Est GFR (MDRD) Non-Af 41 L BUN/Creatinine Ratio 27.5 H Glucose 153 H Calcium 8.3 L Magnesium Troponin I TSH POC Glucose 05/08/18 05/07/18 06:40 21:46 POC Glucose 143 H 191 H Clinical Impression(s) from Imaging Studies Chest X-Ray 05/07/18 13:55 IMPRESSION: 1. No airspace consolidation or pleural effusion. 2. Vascular congestion, bronchovascular attenuation and cardiomegaly suggestive of chronic CHF. Stable appearance since 03/11/2016. Electronically Signed: Justin Palma MD at 14:44 EST , Service support , Assessment/Plan All Active Problems (Last Reviewed 04/25/18 @ 08:23 by BRISEYDA Carias) Hx of appendectomy (Resolved) CAP (community acquired pneumonia) (Resolved) Septic shock (Resolved) RECOMMENDATIONS: 1. Continue BiPAP as needed and wean supplemental oxygen to maintain saturations at or above 90%. 2. Continue bronchodilators and empiric antibiotics for the next 24 hours, pending infectious workup. 3. Continue diuretic therapy as ordered. 4. Repeat echocardiogram is currently pending. IMPRESSIONS: 1. Acute combined respiratory failure with questionable underlying COPD and CHF exacerbation Low clinical index suspicion for underlying pneumonia. I cannot discount the possibility of a viral upper respiratory infection. I think it is more likely that the patient is experiencing a component of a CHF exacerbation, as he appears to has responded quite avidly to the use of diuretics and noninvasive positive pressure ventilation. He has been weaned to supplemental oxygen at this time. While I do suspect that the patient has underlying COPD, he has refused to undergo testing previously. In addition, the patient is intermittently compliant with the use of supplemental oxygen as prescribed and does not utilize inhalers as they are intended to be used. He also continues to smoke cigarettes daily. Agree with continuing scheduled bronchodilators. Empiric antibiotics can be utilized, pending infectious workup. Continue diuretic therapy as ordered. 2. Chronic systolic heart failure with suspected exacerbation/coronary artery disease Continue diuretic therapy as ordered. Repeat echocardiogram is currently pending. 3. History of obstructive sleep apnea Noncompliant with the use of nocturnal noninvasive positive pressure ventilation. 4. Tobacco dependency/coagulopathy/diabetes/atrial fibrillation/medical noncompliance Complicates care, management, recovery and prognosis. Nicotine replacement therapy can be offered to the patient while admitted to the hospital. Smoking cessation is strongly advisable. This note was generated with [employer] dictation software. It may contain incorrect words, spelling, and punctuation that were not noted in checking the note before signing. Code Visit Inpatient E&M: 66571 Init Hosp L3
[2018-05-08] MEDS: Aspirin 81 MG TAB.CHEW PO (08:08)
--- NOTE | 2018-05-08 08:11 | CON.PCM_ITS ---
Reason for Consult Date of Consultation: 05/08/18 Reason for Consultation: Acute on chronic respiratory failure History of Present Illness: The patient is a 77-year-old male, with a history as outlined below, who presented to the emergency department on May 07 with complaints of gradually progressive shortness of breath with exertion. While the patient is supposed to be utilizing 2 L/min of supplemental oxygen at his baseline, he reports that he utilizes his oxygen intermittently. The patient does continue to smoke cigarettes daily. He does not utilize his prescribed inhalers as they are intended to be utilized. The patient was previously admitted to the hospital March 26, during which time, he was treated for severe sepsis secondary to pneumococcal pneumonia and acute combined respiratory failure. The patient followed up with our nurse practitioner in the pulmonary medicine clinic on April 25. At that time, the patient was noted to be smoking 1.5 packs of cigarettes daily. He has an approximate [id number] smoking history and has no reported desire to quit. The patient essentially declined to undergo any testing, including pulmonary function studies. On presentation to the emergency department, the patient was noted to be afebrile and hemodynamically stable. Laboratory evaluation revealed no evidence of a leukocytosis. INR was noted to be elevated at 4.2. Chemistry profile revealed evidence of chronic kidney disease. Troponin was negative. An arter ial blood gas was obtained on 4 L/min and revealed a pH of 7.25 with a PCO2 of 68 and PO2 of 67. Plain film chest x-ray revealed bronchovascular congestion concerning for CHF. His EKG revealed atrial fibrillation with a heart rate of 84. The patient was notably wheezy on examination in the emergency department. He was treated with IV Solu-Medrol and IV Lasix. He was subsequently started on BiPAP. The patient was then admitted to the medical surgical floor for further management. Past Medical History Past Medical History (Chronic Problems): Chronic Problems (Last Reviewed 04/25/18 @ 08:23 by BRISEYDA Carias) Nicotine dependence (Chronic) Carotid bruit (Chronic) Encounter for long-term current use of high risk medication (Chronic) Obstructive sleep apnea (Chronic) Cardiomyopathy in disease classified elsewhere (Chronic) Atherosclerotic heart disease of [place] coronary artery without angina pectoris (Chronic) prison (current) use of anticoagulants (Chronic) Benign essential hypertension (Chronic) COLD (chronic obstructive lung disease) (Chronic) Diabetes mellitus, type 2 (Chronic) GERD (gastroesophageal reflux disease) (Chronic) Hyperlipidemia (Chronic) Obesity (Chronic) Biatrial enlargement (Chronic) Pulmonary hypertension (Chronic) Glaucoma (Chronic) Atrial fibrillation and flutter (Chronic) Medical History: Medical History (Last Reviewed 04/25/18 @ 08:23 by Carol Lockwood NP-C) Nicotine dependence (Chronic) F17.200 Carotid bruit (Chronic) R09.89 Encounter for long-term current use of high risk medication (Chronic) Z79.899 Obstructive sleep apnea (Chronic) G47.33 Cardiomyopathy in disease classified elsewhere (Chronic) I43 Atherosclerotic heart disease of [place] coronary artery without angina pectoris (Chronic) I25.10 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 of anticoagulants (Chronic) Z79.01 Benign essential hypertension (Chronic) I10 COLD (chronic obstructive lung disease) (Chronic) J44.9 Diabetes mellitus, type 2 (Chronic) E11.9 GERD (gastroesophageal reflux disease) (Chronic) K21.9 Hyperlipidemia (Chronic) E78.5 Obesity (Chronic) E66.9 Biatrial enlargement (Chronic) I51.7 Pulmonary hypertension (Chronic) I27.2 Glaucoma (Chronic) H40.9 Atrial fibrillation and flutter (Chronic) I48.91, I48.92 Edema R60.9 Wheezing R06.2 Allergies Penicillins Allergy (Verified 05/07/18 12:27) Rash Home Medications: Ambulatory Orders Medication Instructions Recorded Aspirin [Aspirin, Baby] 81 mg PO DAILY@0800 03/26/18 Atorvastatin Calcium [Lipitor] 20 mg PO DAILY 03/26/18 Brimonidine Tartrate [Alphagan P] 1 drop OP BID 03/26/18 Carvedilol [Coreg] 25 mg PO BID 03/26/18 Cholecalciferol (Vitamin D3) 2,000 unit PO DAILY 03/26/18 [Vitamin D3] Escitalopram Oxalate [Lexapro] 10 mg PO DAILY 03/26/18 Ipratropium/Albuterol Sulfate 3 ml INHALATION Q4HWA.RT 03/26/18 [Duoneb] Linagliptin [Tradjenta] 5 mg PO DAILY 03/26/18 Omeprazole [Prilosec] 20 mg PO DAILY 03/26/18 Timolol 0.5% [Timoptic] 1 drop LEFT EYE BID 03/26/18 Albuterol Aerosols [Ventolin 2.5 mg INHALATION Q2H PRN PRN 03/30/18 Aerosols] vial.neb. Albuterol Inhaler [Ventolin Hfa] 1 - 2 puff INHALATION Q4H PRN PRN 03/30/18 #1 inhaler warfarin 1 mg tablet 5 mg PO .COMPLEX 04/15/18 warfarin 5 mg tablet 7 mg PO TH 04/15/18 diltiazem CD 180 mg 180 mg PO BID cap 04/25/18 capsule,extended release 24 hr furosemide 80 mg tablet 80 mg PO DAILY tab 04/25/18 glipizide 5 mg tablet 5 mg PO DAILY 04/25/18 Fluticasone/Vilanterol [Breo 1 each IH DAILY 05/07/18 Ellipta Inhaler] Guaifenesin [Mucinex] 1,200 mg PO BID 05/07/18 Surgical History: Surgical History (Last Reviewed 04/25/18 @ 08:23 by BRISEYDA Carias) Hx of appendectomy (Resolved) Z90.49 Surgical History: appendectomy, - - Ablation for atrial fibrillation, eye surgery secondary to hemorrhage in eye. Psychiatric History: No pertinent psych hx Lives: Alone Smoking Status: Current every day smoker Tobacco Use: Cigarettes Alcohol: None Drugs: None - *Family History Paternal Family History: Family History (Last Reviewed 04/25/18 @ 08:23 by BRISEYDA Carias) Daughter stent Father No problems noted. Mother No problems noted. History Items: - - Denies paternal cardiac history. Offspring Family History: Family History (Last Reviewed 04/25/18 @ 08:23 by BRISEYDA Carias) Daughter stent Father No problems noted. Mother No problems noted. History Items: Heart Disease Maternal Family History: Family History (Last Reviewed 04/25/18 @ 08:23 by BRISEYDA Carias) Daughter stent Father No problems noted. Mother No problems noted. History Items: - - Denies maternal cardiac history. Review of Systems Constitutional: Denies: Chills, Fever Eyes: Denies: Blurred vision, Double vision HEENT: Denies: Head Aches, Sinus Congestion, Sinus Drainage Cardiovascular: Denies: Chest Pain, Palpitations Respiratory: Reports: Shortness of Breath Gastrointestinal: Denies: Abdominal Pain, Nausea, Vomiting Genitourinary: Denies: Dysuria Musculoskeletal: Denies: Joint Pain, Joint Tenderness Skin: Denies: Rash, Wounds Neurological: Denies: Numbness, Tingling, Focal weakness Psychiatric: Denies: Anxiety, Depression, Homicidal Ideations, Suicidal Ideations Hematologic/ Lymphatic: Denies: Easy Bruising, Easy Bleeding Objective: The patient's most recent lab work, culture data and imaging studies have all been personally reviewed. Respiratory viral panel and blood cultures are currently pending. Surface echocardiogram from March 2016 revealed mild to moderate global hypokinesis of the LV with an ejection fraction of 40%. The patient was also identified as having moderate obstructive sleep apnea in 2017, for which it was recommended that he be started on bilevel with a pressure support of 14/10 centimeters of water. - Physical Exam General: Alert, Cooperative, No apparent distress, - - Sitting in bedside recliner. Currently on 4 L/min nasal cannula HEENT: Atraumatic, PERRLA, Normocephalic Oral: No Gingival or Mucosal Lesions/ Ulcerations Neck: Supple, No Nodes, Trachea Midline Lungs: No rhonchi, Diminished, Rales, Wheezes Cardiovascular: Regular rate, Regular Rhythm, Normal S1, Normal S2, No murmurs Abdomen: Bowel Sounds Present, Soft, Non Tender, Obese Extremities: No clubbing, No cyanosis, Edema Skin: - - Lower extremity stasis dermatitis Musculoskeletal: No Tenderness to Palpation of Joints or Extremities Lymphatic: No Cervical, Supraclavicular, or Inguinal Adenopathy Neurological: Cranial nerves II-XII grossly intact, Neuro grossly intact Vital Signs Temp Pulse Resp BP Pulse Ox 36.6 C 111 H 20 H 139/93 H 96 05/08/18 07:55 05/08/18 07:55 05/08/18 07:55 05/08/18 07:55 05/08/18 07:55 Oxygen Flow Rate (L/min) 4 Oxygen Delivery Method Nasal Cannula Weight: 202 lb 11.2 oz Body Mass Index (BMI) 31.7 Intake and Output for Last 24 Hours 05/06/18 05/07/18 05/08/18 23:59 23:59 23:59 Intake Total 653 / 653 Output Total 950 / 950 Balance -297 / -297 Microbiology Past 72 Hours 05/07/18 13:50 Influenza Types A,B Direct FA (KRISHNA) - Final Mucosa - Nose Laboratory Tests Past 24 Hrs 05/07/18 05/07/18 05/07/18 12:45 12:45 12:45 WBC 7.8 RBC 3.80 L Hgb 9.6 L Hct 33.2 L MCV 87.4 MCH 25.3 L MCHC 28.9 L RDW 20.9 H RDW Differential 65.2 H Plt Count 333 MPV 10.0 Immature Gran % (Auto) 0.100 Neut % (Auto) 79.9 H Lymph % (Auto) 8.3 L [place] % (Auto) 11.4 H Eos % (Auto) 0.0 Baso % (Auto) 0.3 Absolute Neuts (auto) 6.2 Absolute Lymphs (auto) 0.65 L Total Counted Not Reportable Differential Comment SCANNED Anisocytosis 2+ Microcytosis 1+ Macrocytosis 1+ PT 40.9 H INR 4.2 H* Specimen Type Sample Site pH Bicarbonate Actual POC Total CO2 Base Excess O2 Saturation ABG pCO2 ABG pO2 George Test O2 Delivery Device Liter Flow Blood Gas Notified Whom Sodium 141 Potassium 3.9 Chloride 108 H Carbon Dioxide 27.0 Anion Gap 6 BUN 44 H Creatinine 1.88 H Estim Creat Clear Calc 30.28 Est GFR (MDRD) Af Amer 45 L Est GFR (MDRD) Non-Af 37 L BUN/Creatinine Ratio 23.4 H Glucose 97 Calcium 8.1 L Magnesium Troponin I < 0.015 TSH 05/07/18 05/07/18 05/08/18 17:35 18:45 06:18 WBC 3.8 L RBC 3.79 L Hgb 9.4 L Hct 32.6 L MCV 86.0 MCH 24.8 L MCHC 28.8 L RDW 20.5 H RDW Differential 65.2 H Plt Count 314 MPV 9.7 Immature Gran % (Auto) Neut % (Auto) Lymph % (Auto) [place] % (Auto) Eos % (Auto) Baso % (Auto) Absolute Neuts (auto) Absolute Lymphs (auto) Total Counted Differential Comment Anisocytosis Microcytosis Macrocytosis PT INR Specimen Type ART Sample Site L Radial pH 7.25 L Bicarbonate Actual 29.6 H POC Total CO2 32 Base Excess 2 O2 Saturation 88 L ABG pCO2 68.0 H* ABG pO2 67 L George Test POS O2 Delivery Device Nasal Can Liter Flow 4.0 Blood Gas Notified Whom [facility] Sodium Potassium Chloride Carbon Dioxide Anion Gap BUN Creatinine Estim Creat Clear Calc Est GFR (MDRD) Af Amer Est GFR (MDRD) Non-Af BUN/Creatinine Ratio Glucose Calcium Magnesium 2.1 Troponin I TSH 1.08 05/08/18 05/08/18 06:18 06:18 WBC RBC Hgb Hct MCV MCH MCHC RDW RDW Differential Plt Count MPV Immature Gran % (Auto) Neut % (Auto) Lymph % (Auto) [place] % (Auto) Eos % (Auto) Baso % (Auto) Absolute Neuts (auto) Absolute Lymphs (auto) Total Counted Differential Comment Anisocytosis Microcytosis Macrocytosis PT 39.4 H INR 4.0 H* Specimen Type Sample Site pH Bicarbonate Actual POC Total CO2 Base Excess O2 Saturation ABG pCO2 ABG pO2 George Test O2 Delivery Device Liter Flow Blood Gas Notified Whom Sodium 143 Potassium 4.0 Chloride 104 Carbon Dioxide 28.0 Anion Gap 11 BUN 47 H Creatinine 1.71 H Estim Creat Clear Calc 33.29 Est GFR (MDRD) Af Amer 50 L Est GFR (MDRD) Non-Af 41 L BUN/Creatinine Ratio 27.5 H Glucose 153 H Calcium 8.3 L Magnesium Troponin I TSH POC Glucose 05/08/18 05/07/18 06:40 21:46 POC Glucose 143 H 191 H Clinical Impression(s) from Imaging Studies Chest X-Ray 05/07/18 13:55 IMPRESSION: 1. No airspace consolidation or pleural effusion. 2. Vascular congestion, bronchovascular attenuation and cardiomegaly suggestive of chronic CHF. Stable appearance since 03/11/2016. Electronically Signed: Justin Palma MD at 14:44 EST , Service support , Assessment/Plan All Active Problems (Last Reviewed 04/25/18 @ 08:23 by BRISEYDA Carias) Hx of appendectomy (Resolved) CAP (community acquired pneumonia) (Resolved) Septic shock (Resolved) RECOMMENDATIONS: 1. Continue BiPAP as needed and wean supplemental oxygen to maintain saturations at or above 90%. 2. Continue bronchodilators and empiric antibiotics for the next 24 hours, pending infectious workup. 3. Continue diuretic therapy as ordered. 4. Repeat echocardiogram is currently pending. IMPRESSIONS: 1. Acute combined respiratory failure with questionable underlying COPD and CHF exacerbation Low clinical index suspicion for underlying pneumonia. I cannot discount the possibility of a viral upper respiratory infection. I think it is more likely that the patient is experiencing a component of a CHF exacerbation, as he appears to has responded quite avidly to the use of diuretics and noninvasive positive pressure ventilation. He has been weaned to supplemental oxygen at this time. While I do suspect that the patient has underlying COPD, he has refused to undergo testing previously. In addition, the patient is intermittently compliant with the use of supplemental oxygen as prescribed and does not utilize inhalers as they are intended to be used. He also continues to smoke cigarettes daily. Agree with continuing scheduled bronchodilators. Empiric antibiotics can be utilized, pending infectious workup. Continue diuretic therapy as ordered. 2. Chronic systolic heart failure with suspected exacerbation/coronary artery disease Continue diuretic therapy as ordered. Repeat echocardiogram is currently pending. 3. History of obstructive sleep apnea Noncompliant with the use of nocturnal noninvasive positive pressure ventilation. 4. Tobacco dependency/coagulopathy/diabetes/atrial fibrillation/medical noncompliance Complicates care, management, recovery and prognosis. Nicotine replacement therapy can be offered to the patient while admitted to the hospital. Smoking cessation is strongly advisable. This note was generated with [employer] dictation software. It may contain incorrect words, spelling, and punctuation that were not noted in checking the note before signing. Code Visit Inpatient E&M: 16079 Init Hosp L3
[2018-05-08 08:21] LABS: Differential Comment SCANNED
[2018-05-08 09:03] LABS: BNP,B-Type NATRIURETIC PEPTIDE 301.3 pg/mL (0-100)
[2018-05-08] MEDS: guaiFENesin 1,200 MG Tablet 1200 MG PO ×2 (09:55→21:51)
[2018-05-08] MEDS: Carvedilol 25 MG Tablet PO ×2 (09:55→21:51)
[2018-05-08] MEDS: dilTIAZem CD 180 MG Capsule PO ×2 (09:55→21:51)
[2018-05-08] MEDS: Pantoprazole Sodium 20 MG Tablet PO (09:55)
[2018-05-08] MEDS: Furosemide 80 MG Tablet PO (09:55)
[2018-05-08] MEDS: Escitalopram Oxalate 10 MG Tablet PO (09:55)
[2018-05-08] MEDS: Timolol 0.5% 5ML OPTH.BTL 1 DRP LEFT EYE ×2 (09:56→21:51)
[2018-05-08] MEDS: Insulin Lispro 100 UNIT/ML INSULN.PEN SC ×2 (10:57→21:51)
[2018-05-08] MEDS: Ferrous Sulfate 325 MG Tablet PO ×2 (11:00→18:02)
[2018-05-08 11:06] LABS: Bedside Glucose 278 mg/dL (70-110)
--- NOTE | 2018-05-08 12:11 | PN_ITS ---
Subjective: Patient seen and examined. Reports improvement in breathing. Denies other current complaints. - Physical Exam General: Alert, Oriented x3, Cooperative HEENT: Atraumatic, PERRLA, EOMI, Normocephalic Neck: Supple, No JVD, Negative Carotid Bruits Lungs: Diminished, Rales, Wheezes Cardiovascular: - - Atrial fibrillation, rate controlled. Abdomen: Bowel Sounds Present, Soft, Non Tender, Non-Distended Extremities: No clubbing, No cyanosis, No edema, Capillary Refill Less than 3 Seconds Skin: No rashes, No breakdown, - - Extensive dryness/flaking bilateral lower extremities/venous stasis dermatitis. Musculoskeletal: No Tenderness to Palpation of Joints or Extremities Neurological: Cranial nerves II-XII grossly intact, Neuro grossly intact Psych/Mental Status: Normal Affect, Appropriate Vital Signs Temp Pulse Resp BP Pulse Ox 97.9 F 86 20 H 139/93 H 96 05/08/18 07:55 05/08/18 11:24 05/08/18 11:24 05/08/18 07:55 05/08/18 07:55 Oxygen Flow Rate (L/min) 4 Oxygen Delivery Method Nasal Cannula Weight: 202 lb 11.2 oz Body Mass Index (BMI) 31.7 Intake and Output for Last 24 Hours 05/06/18 05/07/18 05/08/18 23:59 23:59 23:59 Intake Total 653 / 653 Output Total 950 / 950 Balance -297 / -297 Microbiology Past 72 Hours 05/07/18 13:50 Influenza Types A,B Direct FA (KRISHNA) - Final Mucosa - Nose Laboratory Tests Past 24 Hrs 05/07/18 05/07/18 05/07/18 12:45 12:45 12:45 WBC 7.8 RBC 3.80 L Hgb 9.6 L Hct 33.2 L MCV 87.4 MCH 25.3 L MCHC 28.9 L RDW 20.9 H RDW Differential 65.2 H Plt Count 333 MPV 10.0 Immature Gran % (Auto) 0.100 Neut % (Auto) 79.9 H Lymph % (Auto) 8.3 L [place] % (Auto) 11.4 H Eos % (Auto) 0.0 Baso % (Auto) 0.3 Absolute Neuts (auto) 6.2 Absolute Lymphs (auto) 0.65 L Total Counted Not Reportable Differential Comment SCANNED Anisocytosis 2+ Microcytosis 1+ Macrocytosis 1+ PT 40.9 H INR 4.2 H* Specimen Type Sample Site pH Bicarbonate Actual POC Total CO2 Base Excess O2 Saturation ABG pCO2 ABG pO2 George Test O2 Delivery Device Liter Flow Blood Gas Notified Whom Sodium 141 Potassium 3.9 Chloride 108 H Carbon Dioxide 27.0 Anion Gap 6 BUN 44 H Creatinine 1.88 H Estim Creat Clear Calc 30.28 Est GFR (MDRD) Af Amer 45 L Est GFR (MDRD) Non-Af 37 L BUN/Creatinine Ratio 23.4 H Glucose 97 Calcium 8.1 L Magnesium Troponin I < 0.015 B-Natriuretic Peptide TSH 05/07/18 05/07/18 05/08/18 17:35 18:45 06:18 WBC 3.8 L RBC 3.79 L Hgb 9.4 L Hct 32.6 L MCV 86.0 MCH 24.8 L MCHC 28.8 L RDW 20.5 H RDW Differential 65.2 H Plt Count 314 MPV 9.7 Immature Gran % (Auto) Neut % (Auto) Lymph % (Auto) [place] % (Auto) Eos % (Auto) Baso % (Auto) Absolute Neuts (auto) Absolute Lymphs (auto) Total Counted Differential Comment SCANNED Anisocytosis Microcytosis Macrocytosis PT INR Specimen Type ART Sample Site L Radial pH 7.25 L Bicarbonate Actual 29.6 H POC Total CO2 32 Base Excess 2 O2 Saturation 88 L ABG pCO2 68.0 H* ABG pO2 67 L George Test POS O2 Delivery Device Nasal Can Liter Flow 4.0 Blood Gas Notified Whom HOSP MD Sodium Potassium Chloride Carbon Dioxide Anion Gap BUN Creatinine Estim Creat Clear Calc Est GFR (MDRD) Af Amer Est GFR (MDRD) Non-Af BUN/Creatinine Ratio Glucose Calcium Magnesium 2.1 Troponin I B-Natriuretic Peptide TSH 1.08 05/08/18 05/08/18 05/08/18 06:18 06:18 06:18 WBC RBC Hgb Hct MCV MCH MCHC RDW RDW Differential Plt Count MPV Immature Gran % (Auto) Neut % (Auto) Lymph % (Auto) [place] % (Auto) Eos % (Auto) Baso % (Auto) Absolute Neuts (auto) Absolute Lymphs (auto) Total Counted Differential Comment Anisocytosis Microcytosis Macrocytosis PT 39.4 H INR 4.0 H* Specimen Type Sample Site pH Bicarbonate Actual POC Total CO2 Base Excess O2 Saturation ABG pCO2 ABG pO2 George Test O2 Delivery Device Liter Flow Blood Gas Notified Whom Sodium 143 Potassium 4.0 Chloride 104 Carbon Dioxide 28.0 Anion Gap 11 BUN 47 H Creatinine 1.71 H Estim Creat Clear Calc 33.29 Est GFR (MDRD) Af Amer 50 L Est GFR (MDRD) Non-Af 41 L BUN/Creatinine Ratio 27.5 H Glucose 153 H Calcium 8.3 L Magnesium Troponin I B-Natriuretic Peptide 301.3 H TSH POC Glucose 05/08/18 05/08/18 05/07/18 10:55 06:40 21:46 POC Glucose 278 H 143 H 191 H Medical Necessity - Tobacco Use Smoking Status: Current every day smoker Tobacco Use: Cigarettes Assessment/Plan All Active Problems (Last Reviewed 04/25/18 @ 08:23 by Carol Lockwood, JAZMINE-C) Hx of appendectomy (Resolved) CAP (community acquired pneumonia) (Resolved) Septic shock (Resolved) 1. Acute on chronic combined hypoxic and hypercapnic respiratory failure secondary to acute on chronic COPD exacerbation secondary to possible viral URI as well as acute on chronic systolic CHF- Given recent admission with pneumococcal pneumonia and bacteremia, consult pulmonary medicine. Dr. Castillo following. Low suspicion for pneumonia. IV Solu-Medrol. Respiratory panel pending. Send sputum for culture. Blood cultures pending. Albuterol/DuoNeb aerosol. Continue supplement oxygen to maintain O2 at or above 90%. Continue IV Levaquin empirically. Patient required BiPAP overnight. Oxygen now stable on nasal cannula. 2. Acute on chronic chronic systolic CHF/nonischemic cardiomyopathy-chest x-ray admission showed chronic stable CHF. Follows with Dr. Savage. BNP 301. Patient received IV Lasix 80 mg x1 on admission with significant improvement in breathing. Repeat IV Lasix 40 mg x1. Continue home oral Lasix regimen 80 mg p.o. daily. Strict I&O. Daily weight. Christopher wraps bilateral lower extremities. Repeat echo. Echo March 2015 with EF 55%. Most recent echo March 2016 with EF 40%, mild mitral valve insufficiency, mild to moderate tricuspid valve insufficiency, mild aortic valve insufficiency. 3. Chronic atrial fibrillation on anticoagulation with Coumadin, INR supratherapeutic-hold Coumadin, trend INR. Continue Cardizem and carvedilol regimen. 4. Hypertension-stable, continue home carvedilol, Cardizem, Lasix regimen. 5. Hyperlipidemia-continue statin. 6. Chronic kidney disease stage III-at baseline, trend BMP. 7. Type 2 diabetes mellitus-hold oral regimen. Accu-Cheks AC at bedtime with sliding scale insulin. 8. RADHA/pulmonary hypertension- unclear BIPAP/CPAP use. 9. Tobacco dependence-current 2 pack/day smoker. Denies interested in quitting. 10. 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 11. Depression-continue home Lexapro regimen. 12. 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 13. Normocytic anemia-Baseline hemoglobin appears to be 13-14 prior to March of this year. Hemoglobin has remained 9-10 since that time. Iron studies in March consistent with iron deficiency. Does not appear to be on iron supplementation. Will add supplemental iron. Trend CBC. 14. Debility-discharge to SNF following recent admission. PT/OT. CM consult. DVT prophylaxis-Coumadin This patient was seen by BRISEYDA Porter under the supervision of Dr. Prasad.
[2018-05-08 15:46] LABS: Bedside Glucose 134 mg/dL (70-110)
[2018-05-08] MEDS: Furosemide 40 MG/4 ML Vial IV (18:02)
[2018-05-08] MEDS: Atorvastatin Calcium 20 MG Tablet PO (21:51)
[2018-05-08 22:11] LABS: Bedside Glucose 167 mg/dL (70-110)
[2018-05-09] VITALS (20 sets, daily range): BP systolic 109–130; BP diastolic 60–69; PULSE 86–110; RESP 18–20; TEMP 36.3–36.4; O2SAT 89–97
[2018-05-09] MEDS: Ipratropium/Albuterol Sulfate 3 ML AMPUL.NEB INHALATION ×3 (03:50→18:46)
[2018-05-09 06:31] LABS: Anion Gap 11 (5-15); BUN 56 mg/dL (7-18); BUN/Creat Ratio 29.3 RATIO (10-20); Calcium,Total 8.2 mg/dL (8.5-10.1); Chloride 100 mmol/L (98-107); Creatinine, Serum 1.91 mg/dL (0.70-1.30); EST Glomerular Filtration Rate 36 mL/min (>60); Est Glom Filt Rate - Afr Amer 44 mL/min (>60); Glucose 148 mg/dL (74-106); Potassium 3.6 mmol/L (3.5-5.1); Sodium Level 141 mmol/L (136-145)
[2018-05-09] MEDS: Insulin Lispro 100 UNIT/ML INSULN.PEN SC ×2 (06:36→11:28)
[2018-05-09] MEDS: 0.9% NaCl Peripheral Flush Adult/Peds IV ×2 (06:41→11:30)
[2018-05-09 06:45] LABS: Bedside Glucose 150 mg/dL (70-110)
--- NOTE | 2018-05-09 07:00 | PCM.PROGNOTE ---
Subjective: The patient was seen and examined at the bedside this morning. Events from the last 24 hours have been reviewed. The patient is currently afebrile, hemodynamically stable and maintaining appropriate oxygen saturations on 4 L/min via nasal cannula. Creatinine is stable. Blood sugars are elevated. He does report interval improvement in his breathing quality. Objective: The patient's most recent lab work, culture data and imaging studies have all been personally reviewed. Respiratory viral panel was negative. Blood cultures have shown no growth to date. Surface echocardiogram from March 2016 revealed mild to moderate global hypokinesis of the LV with an ejection fraction of 40%. The patient was also identified as having moderate obstructive sleep apnea in 2017, for which it was recommended that he be started on bilevel with a pressure support of 14/10 centimeters of water. - Physical Exam General: Alert, Cooperative, No apparent distress HEENT: Atraumatic, PERRLA, Normocephalic Oral: No Gingival or Mucosal Lesions/ Ulcerations Neck: Supple, No Nodes, Trachea Midline Lungs: No rhonchi, No wheeze, No rales, Diminished Cardiovascular: Normal S1, Normal S2, No murmurs, Irregular Rate Abdomen: Bowel Sounds Present, Soft, Non Tender, Obese Extremities: No clubbing, No cyanosis, No edema Skin: - - No significant change from previous. Musculoskeletal: No Tenderness to Palpation of Joints or Extremities Lymphatic: No Cervical, Supraclavicular, or Inguinal Adenopathy Neurological: Neuro grossly intact Psych/Mental Status: Normal Affect, Appropriate Vital Signs Temp Pulse Resp BP Pulse Ox 36.3 C L 89 20 H 114/68 97 05/09/18 02:26 05/09/18 06:48 05/09/18 03:50 05/09/18 02:26 05/09/18 02:27 Oxygen Flow Rate (L/min) 4 Oxygen Delivery Method Nasal Cannula Weight: 202 lb 11.2 oz Body Mass Index (BMI) 31.7 Intake and Output for Last 24 Hours 05/07/18 05/08/18 05/09/18 23:59 23:59 23:59 Intake Total 1603 / 1603 720 / 720 Output Total 1350 / 1350 1100 / 1100 Balance 253 / 253 -380 / -380 Microbiology Past 72 Hours 05/08/18 07:00 Respiratory Panel (PCR) - Final Mucosa - Nose 05/07/18 13:50 Influenza Types A,B Direct FA (KRISHNA) - Final Mucosa - Nose Laboratory Tests Past 24 Hrs 05/08/18 05/08/18 05/08/18 06:18 06:18 06:18 WBC 3.8 L RBC 3.79 L Hgb 9.4 L Hct 32.6 L MCV 86.0 MCH 24.8 L MCHC 28.8 L RDW 20.5 H RDW Differential 65.2 H Plt Count 314 MPV 9.7 Differential Comment SCANNED PT 39.4 H INR 4.0 H* Sodium 143 Potassium 4.0 Chloride 104 Carbon Dioxide 28.0 Anion Gap 11 BUN 47 H Creatinine 1.71 H Estim Creat Clear Calc 33.29 Est GFR (MDRD) Af Amer 50 L Est GFR (MDRD) Non-Af 41 L BUN/Creatinine Ratio 27.5 H Glucose 153 H Calcium 8.3 L B-Natriuretic Peptide 05/08/18 05/09/18 05/09/18 06:18 05:48 05:48 WBC Pending RBC Pending Hgb Pending Hct Pending MCV Pending MCH Pending MCHC Pending RDW Pending RDW Differential Pending Plt Count Pending MPV Differential Comment PT INR Sodium 141 Potassium 3.6 Chloride 100 Carbon Dioxide 30.0 Anion Gap 11 BUN 56 H Creatinine 1.91 H Estim Creat Clear Calc 29.80 Est GFR (MDRD) Af Amer 44 L Est GFR (MDRD) Non-Af 36 L BUN/Creatinine Ratio 29.3 H Glucose 148 H Calcium 8.2 L B-Natriuretic Peptide 301.3 H POC Glucose 05/09/18 05/08/18 05/08/18 06:35 21:50 15:42 POC Glucose 150 H 167 H 134 H 05/08/18 10:55 POC Glucose 278 H Clinical Impression(s) from Imaging Studies Chest X-Ray 05/07/18 13:55 IMPRESSION: 1. No airspace consolidation or pleural effusion. 2. Vascular congestion, bronchovascular attenuation and cardiomegaly suggestive of chronic CHF. Stable appearance since 03/11/2016. Electronically Signed: Justin Palma MD at 14:44 EST , Service support , Medical Necessity - Tobacco Use Smoking Status: Current every day smoker Tobacco Use: Cigarettes Assessment/Plan All Active Problems (Last Reviewed 04/25/18 @ 08:23 by BRISEYDA Carias) Hx of appendectomy (Resolved) CAP (community acquired pneumonia) (Resolved) Septic shock (Resolved) RECOMMENDATIONS: 1. Continue to wean supplemental oxygen to maintain saturations at or above 90%. The patient does have a baseline 2 L/min requirement. 2. Continue bronchodilators 3. Antibiotics can be discontinued from my perspective. 4. IV steroids can be discontinued from my perspective. 5. Continue diuretic therapy as ordered. 6. Perform walking oximetry study prior to consideration for discharge from the hospital. IMPRESSIONS: 1. Acute combined respiratory failure with questionable underlying COPD and CHF exacerbation Low clinical index suspicion for underlying pneumonia. I cannot discount the possibility of a viral upper respiratory infection. I think it is more likely that the patient is experiencing a component of a CHF exacerbation, as he appears to has responded quite avidly to the use of diuretics and noninvasive positive pressure ventilation. He has been weaned to supplemental oxygen at this time. While I do suspect that the patient has underlying COPD, he has refused to undergo testing previously. In addition, the patient is intermittently compliant with the use of supplemental oxygen as prescribed and does not utilize inhalers as they are intended to be used. He also continues to smoke cigarettes daily. Agree with continuing scheduled bronchodilators. Empiric antibiotics and IV steroids can be discontinued from my perspective. Recommend continuing current diuretic therapy. 2. Chronic systolic heart failure with suspected exacerbation/coronary artery disease Continue diuretic therapy as ordered. Repeat echocardiogram is currently pending. 3. History of obstructive sleep apnea Noncompliant with the use of nocturnal noninvasive positive pressure ventilation. 4. Tobacco dependency/coagulopathy/diabetes/atrial fibrillation/medical noncompliance Complicates care, management, recovery and prognosis. Nicotine replacement therapy can be offered to the patient while admitted to the hospital. Smoking cessation is strongly advisable. This note was generated with [employer] dictation software. It may contain incorrect words, spelling, and punctuation that were not noted in checking the note before signing. DISPOSITION: As the patient appears to be at his baseline respiratory status, will sign off. Please call with any additional questions. Code Visit Inpatient E&M: 67159 Subs Hosp L2
[2018-05-09 07:03] LABS: Hemoglobin 9.3 g/dl (13.0-16.5); Mean Corp Hgb Conc 29.1 g/gl (32-36); Mean Corpuscular Hgb 24.5 pg (27.0-32.0); Mean Corpuscular Volume 84.2 fL (80-94); Mean Platelet Vol. 9.6 fl (6.2-12.0); Platelet Count 330 K/mm3 (150-450); RBC Distribution Width CV 20.3 % (11.6-14.6); RBC Distribution Width SD 62.6 fl (35.1-43.9); White Blood Count 12.2 K/mm3 (4.4-11.0)
[2018-05-09 07:06] LABS: Scan Indicated on CBC? Y/N YES- FLAGS NOTED
[2018-05-09 07:26] LABS: Differential Comment SCAN
--- NOTE | 2018-05-09 07:56 | NURSING ---
Was asked to see patient for dry skin to bilateral lower legs. pt has Eucerin already ordered. removed SOPHY wraps. no dry skin noted. some mild edema. applied the Eucerin as ordered and reapplied the SOPHY wraps from the base of the toes to just below the knees. no open areas noted. no need for wound care at this time.
[2018-05-09] MEDS: Furosemide 80 MG Tablet PO (09:30)
[2018-05-09] MEDS: Aspirin 81 MG TAB.CHEW PO (09:30)
[2018-05-09] MEDS: guaiFENesin 1,200 MG Tablet 1200 MG PO ×2 (09:30→22:11)
[2018-05-09] MEDS: dilTIAZem CD 180 MG Capsule PO ×2 (09:30→22:11)
[2018-05-09] MEDS: Pantoprazole Sodium 20 MG Tablet PO (09:31)
[2018-05-09] MEDS: Carvedilol 25 MG Tablet PO ×2 (09:33→22:11)
[2018-05-09] MEDS: BRIMONIDINE 0.2% 5ML BOTTLE 1 DRP LEFT EYE (09:33)
[2018-05-09] MEDS: levoFLOXacin IV 750 MG/150 ML BAG 100 MG IV (09:34)
[2018-05-09] MEDS: Escitalopram Oxalate 10 MG Tablet PO (09:34)
[2018-05-09] MEDS: Timolol 0.5% 5ML OPTH.BTL 1 DRP LEFT EYE ×2 (09:34→22:13)
[2018-05-09 10:12] LABS: International Normalized Ratio 2.7; Prothrombin Time (Protime)PT. 29.1 SECONDS (11.7-14.9)
[2018-05-09] MEDS: Ferrous Sulfate 325 MG Tablet PO ×2 (11:27→16:09)
[2018-05-09 11:35] LABS: Bedside Glucose 369 mg/dL (70-110)
--- NOTE | 2018-05-09 11:36 | CASEMGMT ---
Social Work Note Physician updated this worker that pt is agreeable to [facility]. SW reviewed PT/OT notes, pt walked 100ft contact guard with no assistance. SW in to speak with pt to discuss discharge plans. SW explained that pt is doing well with therapy and he may get denied SNF. SW educated pt on HHC and outpatient therapy, pt states I don't want any of that, I'd rather go to [facility]. SW again reiterated to pt that he may get denied SNF because he is doing well. Pt states that is fine if I do and is agreeable to referral being made to [facility]. SW faxed referral to Jasmin at [facility]. SW placed a call to Jasmin and updated her on referral. Jasmin states she will review referral and will give this worker a call. Plan: [facility] pending acceptance and pre-cert Cinthia Valerio ELECTRICAL ACCESSORIES I ASSEMBLER, SENIOR OFFICE ASSISTANT
--- NOTE | 2018-05-09 12:06 | PCM.PROGNOTE ---
<RylanMariah - Last Filed: 05/09/18 12:20> Subjective: Patient seen and examined. Reports significant improvement in breathing. Reports generalized weakness. Agreeable to SNF for rehab at discharge. - Physical Exam General: Alert, Oriented x3, Cooperative HEENT: Atraumatic, PERRLA, EOMI, Normocephalic Neck: Supple, No JVD, Negative Carotid Bruits Lungs: Clear to auscultation, Diminished Cardiovascular: - - Atrial for ablation, rate controlled. Abdomen: Bowel Sounds Present, Soft, Non Tender, Non-Distended Extremities: No clubbing, No cyanosis, No edema, Capillary Refill Less than 3 Seconds Skin: No rashes, No breakdown, - - Venous stasis dermatitis bilateral lower extremities. Musculoskeletal: No Tenderness to Palpation of Joints or Extremities Neurological: Cranial nerves II-XII grossly intact, Neuro grossly intact Psych/Mental Status: Normal Affect, Appropriate Vital Signs Temp Pulse Resp BP Pulse Ox 97.5 F L 87 20 H 130/69 H 95 05/09/18 07:58 05/09/18 08:00 05/09/18 07:58 05/09/18 07:58 05/09/18 07:58 Oxygen Flow Rate (L/min) 3 Oxygen Delivery Method Nasal Cannula Weight: 202 lb 11.2 oz Body Mass Index (BMI) 31.7 Intake and Output for Last 24 Hours 05/07/18 05/08/18 05/09/18 23:59 23:59 23:59 Intake Total 1603 / 1603 1241 / 1241 Output Total 1350 / 1350 1400 / 1400 Balance 253 / 253 -159 / -159 Microbiology Past 72 Hours 05/08/18 07:00 Respiratory Panel (PCR) - Final Mucosa - Nose 05/07/18 13:50 Influenza Types A,B Direct FA (KRISHNA) - Final Mucosa - Nose Laboratory Tests Past 24 Hrs 05/09/18 05/09/18 05/09/18 05:48 05:48 09:54 WBC 12.2 H RBC 3.80 L Hgb 9.3 L Hct 32.0 L MCV 84.2 MCH 24.5 L MCHC 29.1 L RDW 20.3 H RDW Differential 62.6 H Plt Count 330 MPV 9.6 Differential Comment SCAN PT 29.1 H INR 2.7 Sodium 141 Potassium 3.6 Chloride 100 Carbon Dioxide 30.0 Anion Gap 11 BUN 56 H Creatinine 1.91 H Estim Creat Clear Calc 29.80 Est GFR (MDRD) Af Amer 44 L Est GFR (MDRD) Non-Af 36 L BUN/Creatinine Ratio 29.3 H Glucose 148 H Calcium 8.2 L POC Glucose 05/09/18 05/09/18 05/08/18 11:26 06:35 21:50 POC Glucose 369 H 150 H 167 H 05/08/18 15:42 POC Glucose 134 H Medical Necessity - Tobacco Use Smoking Status: Current every day smoker Tobacco Use: Cigarettes Assessment/Plan All Active Problems (Last Reviewed 04/25/18 @ 08:23 by Carol Lockwood, JAZMINE-C) Hx of appendectomy (Resolved) CAP (community acquired pneumonia) (Resolved) Septic shock (Resolved) 1. 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 Dr. Castillo following. Low suspicion for pneumonia. Transition IV Solu-Medrol to prednisone taper. Respiratory panel negative. Send sputum for culture. Blood cultures pending. Albuterol/DuoNeb aerosol. Continue supplement oxygen to maintain O2 at or above 90%. Feel IV Levaquin can be discontinued at this point. Oxygen now stable on baseline O2 requirements. 2. Acute on chronic chronic systolic CHF/nonischemic cardiomyopathy-chest x-ray admission showed chronic stable CHF. Follows with Dr. Savage. BNP 301. Patient received IV Lasix 80 mg x1 on admission with significant improvement in breathing. Repeated IV Lasix 40 mg x1. Continue home oral Lasix regimen 80 mg p.o. daily. Strict I&O. Daily weight. Christopher wraps bilateral lower extremities. Repeat echo pending. Echo March 2015 with EF 55%. Most recent echo March 2016 with EF 40%, mild mitral valve insufficiency, mild to moderate tricuspid valve insufficiency, mild aortic valve insufficiency. 3. Chronic atrial fibrillation on anticoagulation with Coumadin, INR supratherapeutic on admission, now 2.7-resume Coumadin, trend INR. Continue Cardizem and carvedilol regimen. 4. Hypertension-stable, continue home carvedilol, Cardizem, Lasix regimen. 5. Hyperlipidemia-continue statin. 6. Chronic kidney disease stage III-at baseline, trend BMP. 7. Type 2 diabetes mellitus-hold oral regimen. Accu-Cheks AC at bedtime with sliding scale insulin. 8. RADHA/pulmonary hypertension- unclear BIPAP/CPAP use. 9. Tobacco dependence-current 2 pack/day smoker. Denies interested in quitting. 10. 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 11. Depression-continue home Lexapro regimen. 12. 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 13. Normocytic anemia-Baseline hemoglobin appears to be 13-14 prior to March of this year. Hemoglobin has remained 9-10 since that time. Iron studies in March consistent with iron deficiency. Does not appear to be on iron supplementation. Will add supplemental iron. Trend CBC. 14. Debility-discharge to SNF following recent admission. PT/OT. CM consult. DVT prophylaxis-Coumadin Discharge planning: SNF pending acceptance. This patient was seen by BRISEYDA Porter under the supervision of Dr. Chou. <Anand Chou F - Last Filed: 05/09/18 17:38> - Physical Exam Vital Signs Temp Pulse Resp BP Pulse Ox 97.6 F L 98 20 H 109/60 94 05/09/18 14:00 05/09/18 17:02 05/09/18 14:00 05/09/18 14:00 05/09/18 17:04 Oxygen Flow Rate (L/min) 3 Oxygen Delivery Method Nasal Cannula Weight: 202 lb 11.2 oz Body Mass Index (BMI) 31.7 Intake and Output for Last 24 Hours 05/07/18 05/08/18 05/09/18 23:59 23:59 23:59 Intake Total 1603 / 1603 1241 / 1241 Output Total 1350 / 1350 1400 / 1400 Balance 253 / 253 -159 / -159 Microbiology Past 72 Hours 05/08/18 07:00 Respiratory Panel (PCR) - Final Mucosa - Nose 05/07/18 13:50 Influenza Types A,B Direct FA (KRISHNA) - Final Mucosa - Nose Laboratory Tests Past 24 Hrs 05/09/18 05/09/18 05/09/18 05:48 05:48 09:54 WBC 12.2 H RBC 3.80 L Hgb 9.3 L Hct 32.0 L MCV 84.2 MCH 24.5 L MCHC 29.1 L RDW 20.3 H RDW Differential 62.6 H Plt Count 330 MPV 9.6 Differential Comment SCAN PT 29.1 H INR 2.7 Sodium 141 Potassium 3.6 Chloride 100 Carbon Dioxide 30.0 Anion Gap 11 BUN 56 H Creatinine 1.91 H Estim Creat Clear Calc 29.80 Est GFR (MDRD) Af Amer 44 L Est GFR (MDRD) Non-Af 36 L BUN/Creatinine Ratio 29.3 H Glucose 148 H Calcium 8.2 L POC Glucose 05/09/18 05/09/18 05/09/18 16:04 11:26 06:35 POC Glucose 103 369 H 150 H 05/08/18 21:50 POC Glucose 167 H Code Visit Addendum: Dr. Chou I personally examined the patient and reviewed the chart. I agree with the above. 77-year-old male presenting with acute on chronic combined hypoxic and hypercapnic respiratory failure secondary to acute on chronic COPD exacerbation and acute on chronic CHF exacerbation. Repeat echo with a normal EF and no discussion on his diastolic function. We will continue treating this as a COPD exacerbation primarily with steroids and inhalers. He states that his breathing is much better at this point, however he will likely need to be discharged back to a fci given debility and inability to perform ADLs at home. Inpatient E&M: 73222 Subs Hosp L2
--- NOTE | 2018-05-09 13:40 | CASEMGMT ---
Addendum entered by Cinthia Valerio 05/09/18 16:21: SW attempted to call Jasmin again, per Trinidad Jasmin has left for the day. SW to follow up with Jasmin at [facility] tomorrow in regards to referral. Original Note: Social Work Note SW received message from Jasmin at [facility]. SW attempted to call Jasmin back but Jasmin currently in meeting. Message left to give this worker a call back once Jasmin is available. SW waiting for call back. Plan: [facility] pending acceptance and pre-cert Cinthia Valerio GEAR MACHINE OPERATOR, FACTORY CLERK
[2018-05-09 16:16] LABS: Bedside Glucose 103 mg/dL (70-110)
[2018-05-09] MEDS: Atorvastatin Calcium 20 MG Tablet PO (22:11)
[2018-05-09 22:21] LABS: Bedside Glucose 122 mg/dL (70-110)
[2018-05-10] VITALS (13 sets, daily range): BP systolic 105–132; BP diastolic 60–70; PULSE 82–101; RESP 16–20; TEMP 36.4–36.7; O2SAT 88–94
--- NOTE | 2018-05-10 00:31 | CPS ---
pt refuses bipap
[2018-05-10 05:49] LABS: International Normalized Ratio 2.3; Prothrombin Time (Protime)PT. 25.5 SECONDS (11.7-14.9)
[2018-05-10 05:50] LABS: Anion Gap 10 (5-15); BUN 68 mg/dL (7-18); BUN/Creat Ratio 32.2 RATIO (10-20); Calcium,Total 7.8 mg/dL (8.5-10.1); Chloride 101 mmol/L (98-107); Creatinine, Serum 2.11 mg/dL (0.70-1.30); EST Glomerular Filtration Rate 32 mL/min (>60); Est Glom Filt Rate - Afr Amer 39 mL/min (>60); Estimated Creatinine Clearance 26.98 ml/min; Glucose 145 mg/dL (74-106); Hematocrit 31.7 % (40-54); Hemoglobin 9.2 g/dl (13.0-16.5); Mean Corpuscular Hgb 24.7 pg (27.0-32.0); Platelet Count 349 K/mm3 (150-450); Potassium 3.8 mmol/L (3.5-5.1); RBC Distribution Width CV 20.3 % (11.6-14.6); Red Blood Count 3.73 M/mm3 (4.6-6.2); Sodium Level 140 mmol/L (136-145); White Blood Count 14.7 K/mm3 (4.4-11.0)
[2018-05-10 05:52] LABS: Scan Indicated on CBC? Y/N YES- FLAGS NOTED
[2018-05-10 06:46] LABS: Bedside Glucose 150 mg/dL (70-110)
[2018-05-10] MEDS: Ipratropium/Albuterol Sulfate 3 ML AMPUL.NEB INHALATION ×4 (06:56→19:06)
[2018-05-10] MEDS: dilTIAZem CD 180 MG Capsule PO ×2 (07:50→21:20)
[2018-05-10] MEDS: Insulin Lispro 100 UNIT/ML INSULN.PEN SC ×2 (07:50→11:50)
[2018-05-10] MEDS: Aspirin 81 MG TAB.CHEW PO (07:50)
[2018-05-10] MEDS: Pantoprazole Sodium 20 MG Tablet PO (07:51)
[2018-05-10] MEDS: guaiFENesin 1,200 MG Tablet 1200 MG PO ×2 (07:51→21:20)
[2018-05-10] MEDS: Furosemide 80 MG Tablet PO (07:51)
[2018-05-10] MEDS: Escitalopram Oxalate 10 MG Tablet PO (07:51)
[2018-05-10] MEDS: Carvedilol 25 MG Tablet PO ×2 (07:51→21:20)
[2018-05-10] MEDS: Timolol 0.5% 5ML OPTH.BTL 1 DRP LEFT EYE ×2 (09:07→21:21)
--- NOTE | 2018-05-10 09:56 | CASEMGMT ---
Social Work Note SW attempted to call Jasmin at [facility] per Carol, Jasmin is not in yet but will have her give this worker a call when she is able to. Cinthia Valerio ADVANCED QUALITY ENGINEER, FUR IRONER
--- NOTE | 2018-05-10 10:58 | CASEMGMT ---
Social Work Note ANNA spoke with Jasmin at [facility]. Jasmin states that she reviewed PT/OT notes from yesterday. Jasmin states that she was at [facility] Wednesday and pt didn't go out of his room. Jasmin states there is no way pt walked 100ft. ANNA informed Jasmin that per PT yesterday was when pt walked 100ft and Wednesday pt only walked 20ft. Jasmin states maybe I read the notes wrong. ANNA informed Jasmin that OT has updated notes available and this worker will fax updated OT and once PT works with pt this worker will send updated PT notes. Jasmin states understanding. ANNA faxed updated OT notes to Jasmin. ANNA to fax updated clinicals once available. Plan: [facility] pending pre-cert Cinthia Valerio ORACLE WMS CONSULTANT, EAR FLAP BINDER
[2018-05-10 11:41] LABS: Bedside Glucose 288 mg/dL (70-110)
[2018-05-10] MEDS: Ferrous Sulfate 325 MG Tablet PO ×2 (11:50→17:29)
--- NOTE | 2018-05-10 12:21 | NURSING ---
O2 INCREASED TO 4L NC
--- NOTE | 2018-05-10 13:45 | PCM.PROGNOTE ---
<Mariah Fagan - Last Filed: 05/10/18 13:49> Subjective: Patient seen and examined. No acute events overnight. Shortness of breath continues to be improved. No further complaints. - Physical Exam General: Alert, Oriented x3, Cooperative HEENT: Atraumatic, PERRLA, EOMI, Normocephalic Neck: Supple, No JVD, Negative Carotid Bruits Lungs: Clear to auscultation, Diminished Cardiovascular: - - Atrial fibrillation, rate controlled. Abdomen: Bowel Sounds Present, Soft, Non Tender, Non-Distended Extremities: No clubbing, No cyanosis, No edema, Capillary Refill Less than 3 Seconds Skin: No rashes, No breakdown, - - Venous stasis dermatitis bilateral lower extremities. Musculoskeletal: No Tenderness to Palpation of Joints or Extremities Neurological: Cranial nerves II-XII grossly intact, Neuro grossly intact Psych/Mental Status: Normal Affect, Appropriate Vital Signs Temp Pulse Resp BP Pulse Ox 97.9 F 100 20 H 105/70 88 05/10/18 12:00 05/10/18 12:00 05/10/18 12:00 05/10/18 12:00 05/10/18 12:00 Oxygen Flow Rate (L/min) 3 Oxygen Delivery Method Nasal Cannula Weight: 202 lb 11.2 oz Body Mass Index (BMI) 31.7 Intake and Output for Last 24 Hours 05/08/18 05/09/18 05/10/18 23:59 23:59 23:59 Intake Total 1603 / 1603 1941 / 1941 760 / 760 Output Total 1350 / 1350 2350 / 2350 1025 / 1025 Balance 253 / 253 -409 / -409 -265 / -265 Microbiology Past 72 Hours 05/08/18 07:00 Respiratory Panel (PCR) - Final Mucosa - Nose 05/07/18 13:50 Influenza Types A,B Direct FA (KRISHNA) - Final Mucosa - Nose Laboratory Tests Past 24 Hrs 05/10/18 05/10/18 05/10/18 05:04 05:04 05:04 WBC 14.7 H RBC 3.73 L Hgb 9.2 L Hct 31.7 L MCV 85.0 MCH 24.7 L MCHC 29.0 L RDW 20.3 H RDW Differential 61.0 H Plt Count 349 MPV 10.0 Differential Comment PT 25.5 H INR 2.3 Sodium 140 Potassium 3.8 Chloride 101 Carbon Dioxide 29.0 Anion Gap 10 BUN 68 H Creatinine 2.11 H Estim Creat Clear Calc 26.98 Est GFR (MDRD) Af Amer 39 L Est GFR (MDRD) Non-Af 32 L BUN/Creatinine Ratio 32.2 H Glucose 145 H Calcium 7.8 L POC Glucose 05/10/18 05/10/18 05/09/18 11:35 06:37 22:03 POC Glucose 288 H 150 H 122 H 05/09/18 16:04 POC Glucose 103 Medical Necessity - Tobacco Use Smoking Status: Current every day smoker Tobacco Use: Cigarettes Assessment/Plan All Active Problems (Last Reviewed 04/25/18 @ 08:23 by Carol Lockwood, JAZMINE-C) Hx of appendectomy (Resolved) CAP (community acquired pneumonia) (Resolved) Septic shock (Resolved) 1. 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 Dr. Castillo following. Low suspicion for pneumonia. IV Solu-Medrol discontinued. Respiratory panel negative. Send sputum for culture. Blood cultures pending. Albuterol/DuoNeb aerosol. Continue supplement oxygen to maintain O2 at or above 90%. IV Levaquin discontinued. Oxygen now stable on baseline O2 requirements. Feel acute hypoxic respiratory failure most likely secondary to CHF alone. 2. Acute on chronic chronic systolic CHF/nonischemic cardiomyopathy-chest x-ray admission showed chronic stable CHF. Follows with Dr. Savage. BNP 301. Patient received IV Lasix 80 mg x1 on admission with significant improvement in breathing. Repeated IV Lasix 40 mg x1. Continue home oral Lasix regimen 80 mg p.o. daily. Strict I&O. Daily weight. Christopher wraps bilateral lower extremities. Repeat echo shows an EF of 55%, mild to moderate aortic stenosis. 3. Chronic atrial fibrillation on anticoagulation with Coumadin, INR supratherapeutic on admission, now WNL-resume Coumadin, trend INR. Continue Cardizem and carvedilol regimen. 4. Hypertension-stable, continue home carvedilol, Cardizem, Lasix regimen. 5. Hyperlipidemia-continue statin. 6. Chronic kidney disease stage III-at baseline, trend BMP. 7. Type 2 diabetes mellitus-hold oral regimen. Accu-Cheks ACHS with sliding scale insulin. 8. RADHA/pulmonary hypertension- unclear BIPAP/CPAP use. 9. Tobacco dependence-current 2 pack/day smoker. Denies interested in quitting. 10. 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 11. Depression-continue home Lexapro regimen. 12. 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 13. Normocytic anemia-Baseline hemoglobin appears to be 13-14 prior to March of this year. Hemoglobin has remained 9-10 since that time. Iron studies in March consistent with iron deficiency. Does not appear to be on iron supplementation. Will add supplemental iron. Trend CBC. 14. Debility-discharge to SNF following recent admission. PT/OT. CM consult. DVT prophylaxis-Coumadin Discharge planning: SNF pending acceptance. This patient was seen by BRISEYDA Porter under the supervision of Dr. Chou. <Anand Chou F - Last Filed: 05/10/18 14:10> - Physical Exam Vital Signs Temp Pulse Resp BP Pulse Ox 97.9 F 100 20 H 105/70 88 05/10/18 12:00 05/10/18 12:00 05/10/18 12:00 05/10/18 12:00 05/10/18 12:00 Oxygen Flow Rate (L/min) 3 Oxygen Delivery Method Nasal Cannula Weight: 202 lb 11.2 oz Body Mass Index (BMI) 31.7 Intake and Output for Last 24 Hours 05/08/18 05/09/18 05/10/18 23:59 23:59 23:59 Intake Total 1603 / 1603 1941 / 1941 760 / 760 Output Total 1350 / 1350 2350 / 2350 1025 / 1025 Balance 253 / 253 -409 / -409 -265 / -265 Microbiology Past 72 Hours 05/08/18 07:00 Respiratory Panel (PCR) - Final Mucosa - Nose 05/07/18 13:50 Influenza Types A,B Direct FA (KRISHNA) - Final Mucosa - Nose Laboratory Tests Past 24 Hrs 05/10/18 05/10/18 05/10/18 05:04 05:04 05:04 WBC 14.7 H RBC 3.73 L Hgb 9.2 L Hct 31.7 L MCV 85.0 MCH 24.7 L MCHC 29.0 L RDW 20.3 H RDW Differential 61.0 H Plt Count 349 MPV 10.0 Differential Comment PT 25.5 H INR 2.3 Sodium 140 Potassium 3.8 Chloride 101 Carbon Dioxide 29.0 Anion Gap 10 BUN 68 H Creatinine 2.11 H Estim Creat Clear Calc 26.98 Est GFR (MDRD) Af Amer 39 L Est GFR (MDRD) Non-Af 32 L BUN/Creatinine Ratio 32.2 H Glucose 145 H Calcium 7.8 L POC Glucose 05/10/18 05/10/18 05/09/18 11:35 06:37 22:03 POC Glucose 288 H 150 H 122 H 05/09/18 16:04 POC Glucose 103 Code Visit Addendum: Dr. Chou I personally examined the patient and reviewed the chart. I agree with the above. 77-year-old male presenting with acute on chronic combined hypoxic and hypercapnic respiratory failure secondary to acute on chronic COPD exacerbation and acute on chronic CHF exacerbation. Repeat echo with a normal EF and no discussion on his diastolic function. We will continue treating this as a COPD exacerbation primarily with steroids and inhalers. He states that his breathing is much better at this point, however he will likely need to be discharged back to a skilled nursing given debility and inability to perform ADLs at home. Inpatient E&M: 79197 Subs Hosp L2
[2018-05-10] MEDS: BRIMONIDINE 0.2% 5ML BOTTLE 1 DRP LEFT EYE ×2 (13:47)
--- NOTE | 2018-05-10 13:49 | PN_ITS ---
Addendum entered and electronically signed by BRISEYDA Porter 05/10/18 13:50: Code Visit Diagnosis #6: Acute kidney injury on chronic kidney disease stage III- ALISIA secondary to IV diuretic regimen. Trend BMP. Original Note: <Mariah Fagan - Last Filed: 05/10/18 13:49> Subjective: Patient seen and examined. No acute events overnight. Shortness of breath continues to be improved. No further complaints. - Physical Exam General: Alert, Oriented x3, Cooperative HEENT: Atraumatic, PERRLA, EOMI, Normocephalic Neck: Supple, No JVD, Negative Carotid Bruits Lungs: Clear to auscultation, Diminished Cardiovascular: - - Atrial fibrillation, rate controlled. Abdomen: Bowel Sounds Present, Soft, Non Tender, Non-Distended Extremities: No clubbing, No cyanosis, No edema, Capillary Refill Less than 3 Seconds Skin: No rashes, No breakdown, - - Venous stasis dermatitis bilateral lower extremities. Musculoskeletal: No Tenderness to Palpation of Joints or Extremities Neurological: Cranial nerves II-XII grossly intact, Neuro grossly intact Psych/Mental Status: Normal Affect, Appropriate Vital Signs Temp Pulse Resp BP Pulse Ox 97.9 F 100 20 H 105/70 88 05/10/18 12:00 05/10/18 12:00 05/10/18 12:00 05/10/18 12:00 05/10/18 12:00 Oxygen Flow Rate (L/min) 3 Oxygen Delivery Method Nasal Cannula Weight: 202 lb 11.2 oz Body Mass Index (BMI) 31.7 Intake and Output for Last 24 Hours 05/08/18 05/09/18 05/10/18 23:59 23:59 23:59 Intake Total 1603 / 1603 1941 / 1941 760 / 760 Output Total 1350 / 1350 2350 / 2350 1025 / 1025 Balance 253 / 253 -409 / -409 -265 / -265 Microbiology Past 72 Hours 05/08/18 07:00 Respiratory Panel (PCR) - Final Mucosa - Nose 05/07/18 13:50 Influenza Types A,B Direct FA (KRISHNA) - Final Mucosa - Nose Laboratory Tests Past 24 Hrs 05/10/18 05/10/18 05/10/18 05:04 05:04 05:04 WBC 14.7 H RBC 3.73 L Hgb 9.2 L Hct 31.7 L MCV 85.0 MCH 24.7 L MCHC 29.0 L RDW 20.3 H RDW Differential 61.0 H Plt Count 349 MPV 10.0 Differential Comment PT 25.5 H INR 2.3 Sodium 140 Potassium 3.8 Chloride 101 Carbon Dioxide 29.0 Anion Gap 10 BUN 68 H Creatinine 2.11 H Estim Creat Clear Calc 26.98 Est GFR (MDRD) Af Amer 39 L Est GFR (MDRD) Non-Af 32 L BUN/Creatinine Ratio 32.2 H Glucose 145 H Calcium 7.8 L POC Glucose 05/10/18 05/10/18 05/09/18 11:35 06:37 22:03 POC Glucose 288 H 150 H 122 H 05/09/18 16:04 POC Glucose 103 Medical Necessity - Tobacco Use Smoking Status: Current every day smoker Tobacco Use: Cigarettes Assessment/Plan All Active Problems (Last Reviewed 04/25/18 @ 08:23 by Carol Lockwood, TRAIN ELECTRONIC TECHNICIAN-C) Hx of appendectomy (Resolved) CAP (community acquired pneumonia) (Resolved) Septic shock (Resolved) 1. 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 Dr. Castillo following. Low suspicion for pneumonia. IV Solu- Medrol discontinued. Respiratory panel negative. Send sputum for culture. Blood cultures pending. Albuterol/DuoNeb aerosol. Continue supplement oxygen to maintain O2 at or above 90%. IV Levaquin discontinued. Oxygen now stable on baseline O2 requirements. Feel acute hypoxic respiratory failure most likely secondary to CHF alone. 2. Acute on chronic chronic systolic CHF/nonischemic cardiomyopathy-chest x-ray admission showed chronic stable CHF. Follows with Dr. Savage. BNP 301. Patient received IV Lasix 80 mg x1 on admission with significant improvement in breathing. Repeated IV Lasix 40 mg x1. Continue home oral Lasix regimen 80 mg p.o. daily. Strict I&O. Daily weight. Christopher wraps bilateral lower extremities. Repeat echo shows an EF of 55%, mild to moderate aortic stenosis. 3. Chronic atrial fibrillation on anticoagulation with Coumadin, INR supratherapeutic on admission, now WNL-resume Coumadin, trend INR. Continue Cardizem and carvedilol regimen. 4. Hypertension-stable, continue home carvedilol, Cardizem, Lasix regimen. 5. Hyperlipidemia-continue statin. 6. Chronic kidney disease stage III-at baseline, trend BMP. 7. Type 2 diabetes mellitus-hold oral regimen. Accu-Cheks ACHS with sliding scale insulin. 8. RADHA/pulmonary hypertension- unclear BIPAP/CPAP use. 9. Tobacco dependence-current 2 pack/day smoker. Denies interested in quitting. 10. 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 11. Depression-continue home Lexapro regimen. 12. 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 13. Normocytic anemia-Baseline hemoglobin appears to be 13-14 prior to March of this year. Hemoglobin has remained 9-10 since that time. Iron studies in March consistent with iron deficiency. Does not appear to be on iron supplementation. Will add supplemental iron. Trend CBC. 14. Debility-discharge to SNF following recent admission. PT/OT. CM consult. DVT prophylaxis-Coumadin Discharge planning: SNF pending acceptance. This patient was seen by BRISEYDA Porter under the supervision of Dr. Chou. <Anand Chou F - Last Filed: 05/10/18 14:10> - Physical Exam Vital Signs Temp Pulse Resp BP Pulse Ox 97.9 F 100 20 H 105/70 88 05/10/18 12:00 05/10/18 12:00 05/10/18 12:00 05/10/18 12:00 05/10/18 12:00 Oxygen Flow Rate (L/min) 3 Oxygen Delivery Method Nasal Cannula Weight: 202 lb 11.2 oz Body Mass Index (BMI) 31.7 Intake and Output for Last 24 Hours 05/08/18 05/09/18 05/10/18 23:59 23:59 23:59 Intake Total 1603 / 1603 1941 / 1941 760 / 760 Output Total 1350 / 1350 2350 / 2350 1025 / 1025 Balance 253 / 253 -409 / -409 -265 / -265 Microbiology Past 72 Hours 05/08/18 07:00 Respiratory Panel (PCR) - Final Mucosa - Nose 05/07/18 13:50 Influenza Types A,B Direct FA (KRISHNA) - Final Mucosa - Nose Laboratory Tests Past 24 Hrs 05/10/18 05/10/18 05/10/18 05:04 05:04 05:04 WBC 14.7 H RBC 3.73 L Hgb 9.2 L Hct 31.7 L MCV 85.0 MCH 24.7 L MCHC 29.0 L RDW 20.3 H RDW Differential 61.0 H Plt Count 349 MPV 10.0 Differential Comment PT 25.5 H INR 2.3 Sodium 140 Potassium 3.8 Chloride 101 Carbon Dioxide 29.0 Anion Gap 10 BUN 68 H Creatinine 2.11 H Estim Creat Clear Calc 26.98 Est GFR (MDRD) Af Amer 39 L Est GFR (MDRD) Non-Af 32 L BUN/Creatinine Ratio 32.2 H Glucose 145 H Calcium 7.8 L POC Glucose 05/10/18 05/10/18 05/09/18 11:35 06:37 22:03 POC Glucose 288 H 150 H 122 H 05/09/18 16:04 POC Glucose 103 Code Visit Addendum: Dr. Chou I personally examined the patient and reviewed the chart. I agree with the above. 77-year-old male presenting with acute on chronic combined hypoxic and hypercapnic respiratory failure secondary to acute on chronic COPD exacerbation and acute on chronic CHF exacerbation. Repeat echo with a normal EF and no discussion on his diastolic function. We will continue treating this as a COPD exacerbation primarily with steroids and inhalers. He states that his breathing is much better at this point, however he will likely need to be [facility] given debility and inability to perform ADLs at home. Inpatient E&M: [id number] Subs Hosp L2
--- NOTE | 2018-05-10 15:20 | CASEMGMT ---
Social Work Note SW spoke with PT as there are no updated PT notes for today. Per PT pt refused PT earlier and PT will check in with pt again to determine if pt will work with PT. Plan: [facility] pending pre-cert Cinthia Valerio TILE GRADER, MUSEUM SERVICE SCHEDULER
--- NOTE | 2018-05-10 16:17 | CASEMGMT ---
Social Work Note SW faxed updated PT and clinicals to [facility]. Plan: [facility] pending pre-cert Cinthia Valerio BOTTOMER OPERATOR, WEDDING PLANNER
[2018-05-10 16:25] LABS: Bedside Glucose 96 mg/dL (70-110)
[2018-05-10] MEDS: Atorvastatin Calcium 20 MG Tablet PO (21:20)
[2018-05-10 22:40] LABS: Bedside Glucose 149 mg/dL (70-110)
[2018-05-11] VITALS (20 sets, daily range): BP systolic 102–150; BP diastolic 52–83; PULSE 60–106; RESP 14–21; TEMP 36.3–37.2; O2SAT 84–95
[2018-05-11 05:47] LABS: Hemoglobin 9.3 g/dl (13.0-16.5); Mean Corp Hgb Conc 28.2 g/gl (32-36); Mean Corpuscular Hgb 24.3 pg (27.0-32.0); Mean Corpuscular Volume 86.4 fL (80-94); Mean Platelet Vol. 9.9 fl (6.2-12.0); Platelet Count 329 K/mm3 (150-450); RBC Distribution Width CV 20.3 % (11.6-14.6); RBC Distribution Width SD 61.9 fl (35.1-43.9); Red Blood Count 3.82 M/mm3 (4.6-6.2); Scan Indicated on CBC? Y/N YES- FLAGS NOTED; White Blood Count 13.3 K/mm3 (4.4-11.0)
[2018-05-11 05:54] LABS: Anion Gap 9 (5-15); BUN 69 mg/dL (7-18); BUN/Creat Ratio 36.1 RATIO (10-20); Calcium,Total 7.8 mg/dL (8.5-10.1); Chloride 102 mmol/L (98-107); Creatinine, Serum 1.91 mg/dL (0.70-1.30); EST Glomerular Filtration Rate 36 mL/min (>60); Est Glom Filt Rate - Afr Amer 44 mL/min (>60); Glucose 96 mg/dL (74-106); Potassium 3.8 mmol/L (3.5-5.1); Sodium Level 140 mmol/L (136-145)
[2018-05-11] MEDS: Ipratropium/Albuterol Sulfate 3 ML AMPUL.NEB INHALATION ×4 (06:45→19:30)
[2018-05-11 06:56] LABS: Bedside Glucose 95 mg/dL (70-110)
[2018-05-11] MEDS: Aspirin 81 MG TAB.CHEW PO (07:59)
[2018-05-11] MEDS: Escitalopram Oxalate 10 MG Tablet PO (10:32)
[2018-05-11] MEDS: dilTIAZem CD 180 MG Capsule PO ×2 (10:32→22:30)
[2018-05-11] MEDS: guaiFENesin 1,200 MG Tablet 1200 MG PO ×2 (10:32→22:30)
[2018-05-11] MEDS: Pantoprazole Sodium 20 MG Tablet PO (10:32)
[2018-05-11] MEDS: Furosemide 80 MG Tablet PO (10:32)
[2018-05-11] MEDS: Carvedilol 25 MG Tablet PO ×2 (10:33→22:30)
[2018-05-11] MEDS: Timolol 0.5% 5ML OPTH.BTL 1 DRP LEFT EYE ×2 (10:52→22:31)
--- NOTE | 2018-05-11 10:57 | CASEMGMT ---
Addendum entered by Cinthia Valerio 05/11/18 11:19: ANNA received message from Jasmin at [facility] stating she is placing a call to [facility] in regards to pre-cert. Original Note: Social Work Note SW attempted to call Jasmin at [facility] but Carol states Jasmin is currrently away from her desk but will have her call this worker when she is available. Plan: [facility] pending pre-cert Cinthia Valerio ORACLE SOA CONSULTANT, SITE RELIABILITY ENGINEER
--- NOTE | 2018-05-11 10:58 | PCM.EXTCARCO ---
- Diet 05/07/18 17:07 Diet: Cardiac/Low Cholesterol Food consistency:: Regular Liquid Consistency:: Regular/Thin - Routine Orders/Code Status Enema Type: Fleetz Enema Frequency: Daily PRN Suppository Type: Dulcolax 10mg Suppository Frequency: Daily PRN O2 Liters per Minute: 2-4 O2 Frequency: Continuous Keep PO Greater than or Equal to (%): 90 Routine Lab Work: CBC, BMP, - - In 3 days and then Q week. - Suggestions for Active Care Change Position every (hours): 2 Times a day to sit in chair: 3 - Therapies Physical Therapy: Eval and Treat Occupational Therapy: Eval and Treat - Problem/Diagnosis (1) CAP (community acquired pneumonia) Status: Ruled-out Current Visit: No (2) Nicotine dependence Status: Chronic Current Visit: No (3) Carotid bruit Status: Chronic Current Visit: No (4) Encounter for long-term current use of high risk medication Status: Chronic Current Visit: No (5) Obstructive sleep apnea Status: Chronic Current Visit: No (6) Hx of appendectomy Status: Resolved Current Visit: No (7) Cardiomyopathy in disease classified elsewhere Status: Chronic Current Visit: No (8) Atherosclerotic heart disease of [place] coronary artery without angina pectoris Status: Chronic Current Visit: No (9) intermediate card tender (current) use of anticoagulants Status: Chronic Current Visit: No (10) Benign essential hypertension Status: Chronic Current Visit: No (11) COLD (chronic obstructive lung disease) Status: Chronic Current Visit: No (12) Diabetes mellitus, type 2 Status: Chronic Current Visit: No (13) GERD (gastroesophageal reflux disease) Status: Chronic Current Visit: No (14) Hyperlipidemia Status: Chronic Current Visit: No (15) Obesity Status: Chronic Current Visit: No (16) Biatrial enlargement Status: Chronic Current Visit: No (17) Pulmonary hypertension Status: Chronic Current Visit: No (18) Glaucoma Status: Chronic Current Visit: No (19) Atrial fibrillation and flutter Status: Chronic Current Visit: No (20) Systolic CHF Status: Acute Current Visit: Yes - Allergies/Procedures Done in Hospital Allergies/Adverse Reactions: Allergies Penicillins Allergy (Verified 05/07/18 12:27) Rash Procedures: 2-D Echocardiogram - Type of Care/Length of Stay Estimated LOS: Convalescent Care Less Than 30 days Type of Care Needed: Skilled Rehab Potential: Fair Prognosis: Fair - Additional Orders/Day of Discharge Additional Orders: Place Eucerin intensive repair lotion twice daily to bilateral lower extremities. Christopher wraps bilateral lower extremities. H&P will serve as current which was dated: 05/07/18 Day of Discharge: 05/11/18 - Dietary and Speech Recommendations Dietitian Recommendations/Changes: Rec diet change to CHO CONTROL/Cardiac d/t pmhx - Follow Up Care Primary Care Physician: Ramesh Rodney MD [Primary Care Provider] - Please follow up with your Primary Care Physician in: 1 Week Please Follow Up With: Kingston Paez MD When: As scheduled 06/16/18 Please Follow Up With: Ramesh Avina BLADE OPERATOR-C - Cardiology When: 1-2 Weeks
--- NOTE | 2018-05-11 11:02 | TREXTCA.CO_ITS ---
- Diet 05/07/18 17:07 Diet: Cardiac/Low Cholesterol Food consistency:: Regular Liquid Consistency:: Regular/Thin - Routine Orders/Code Status Enema Type: Fleetz Enema Frequency: Daily PRN Suppository Type: Dulcolax 10mg Suppository Frequency: Daily PRN O2 Liters per Minute: 2-4 O2 Frequency: Continuous Keep PO Greater than or Equal to (%): 90 Routine Lab Work: CBC, BMP, - - In 3 days and then Q week. - Suggestions for Active Care Change Position every (hours): 2 Times a day to sit in chair: 3 - Therapies Physical Therapy: Eval and Treat Occupational Therapy: Eval and Treat - Problem/Diagnosis (1) CAP (community acquired pneumonia) Status: Ruled-out Current Visit: No (2) Nicotine dependence Status: Chronic Current Visit: No (3) Carotid bruit Status: Chronic Current Visit: No (4) Encounter for long-term current use of high risk medication Status: Chronic Current Visit: No (5) Obstructive sleep apnea Status: Chronic Current Visit: No (6) Hx of appendectomy Status: Resolved Current Visit: No (7) Cardiomyopathy in disease classified elsewhere Status: Chronic Current Visit: No (8) Atherosclerotic heart disease of [place] coronary artery without angina pectoris Status: Chronic Current Visit: No (9) lobsterman (current) use of anticoagulants Status: Chronic Current Visit: No (10) Benign essential hypertension Status: Chronic Current Visit: No (11) COLD (chronic obstructive lung disease) Status: Chronic Current Visit: No (12) Diabetes mellitus, type 2 Status: Chronic Current Visit: No (13) GERD (gastroesophageal reflux disease) Status: Chronic Current Visit: No (14) Hyperlipidemia Status: Chronic Current Visit: No (15) Obesity Status: Chronic Current Visit: No (16) Biatrial enlargement Status: Chronic Current Visit: No (17) Pulmonary hypertension Status: Chronic Current Visit: No (18) Glaucoma Status: Chronic Current Visit: No (19) Atrial fibrillation and flutter Status: Chronic Current Visit: No (20) Systolic CHF Status: Acute Current Visit: Yes - Allergies/Procedures Done in Hospital Allergies/Adverse Reactions: Allergies Penicillins Allergy (Verified 05/07/18 12:27) Rash Procedures: 2-D Echocardiogram - Type of Care/Length of Stay Estimated LOS: Convalescent Care Less Than 30 days Type of Care Needed: Skilled Rehab Potential: Fair Prognosis: Fair - Additional Orders/Day of Discharge Additional Orders: Place Eucerin intensive repair lotion twice daily to bilateral lower extremities. Christopher wraps bilateral lower extremities. H&P will serve as current which was dated: 05/07/18 Day of Discharge: 05/11/18 - Dietary and Speech Recommendations Dietitian Recommendations/Changes: Rec diet change to CHO CONTROL/Cardiac d/t pmhx - Follow Up Care Primary Care Physician: Ramesh Rodney MD [Primary Care Provider] - Please follow up with your Primary Care Physician in: 1 Week Please Follow Up With: Kingston Paez MD When: As scheduled 06/16/18 Please Follow Up With: Ramesh Avina LEGAL ADMINISTRATIVE ASSISTANT-C - Cardiology When: 1-2 Weeks
[2018-05-11] MEDS: Ferrous Sulfate 325 MG Tablet PO ×2 (11:38→17:15)
[2018-05-11] MEDS: Insulin Lispro 100 UNIT/ML INSULN.PEN SC ×2 (11:38→22:31)
[2018-05-11 11:45] LABS: Bedside Glucose 175 mg/dL (70-110)
--- NOTE | 2018-05-11 14:05 | PN_ITS ---
<Mariah Fagan - Last Filed: 05/11/18 14:05> Subjective: Patient seen and examined. No acute events overnight. Denies current complaints. - Physical Exam General: Alert, Oriented x3, Cooperative HEENT: Atraumatic, PERRLA, EOMI, Normocephalic Neck: Supple, No JVD, Negative Carotid Bruits Lungs: Clear to auscultation, Diminished Cardiovascular: - - Atrial fibrillation, rate controlled Abdomen: Bowel Sounds Present, Soft, Non Tender, Non-Distended Extremities: No clubbing, No cyanosis, No edema, Capillary Refill Less than 3 Seconds Skin: No rashes, No breakdown, - - Venous stasis dermatitis bilateral lower extremities. Musculoskeletal: No Tenderness to Palpation of Joints or Extremities Neurological: Cranial nerves II-XII grossly intact, Neuro grossly intact Psych/Mental Status: Normal Affect, Appropriate Vital Signs Temp Pulse Resp BP Pulse Ox 97.5 F L 90 20 H 102/75 92 05/11/18 13:38 05/11/18 13:38 05/11/18 13:38 05/11/18 13:38 05/11/18 13:38 Oxygen Flow Rate (L/min) 4 Oxygen Delivery Method Nasal Cannula Weight: 202 lb 11.2 oz Body Mass Index (BMI) 31.7 Intake and Output for Last 24 Hours 05/09/18 05/10/18 05/11/18 23:59 23:59 23:59 Intake Total 1941 / 1941 1240 / 1240 240 / 240 Output Total 2350 / 2350 1425 / 1425 1300 / 1300 Balance -409 / -409 -185 / -185 -1060 / -1060 Microbiology Past 72 Hours 05/07/18 17:35 Blood Culture - Preliminary Blood Culture (Wb) - Arm Right No growth in 5 days. 05/07/18 17:40 Blood Culture - Preliminary Blood Culture (Wb) - Anticubital Right No growth in 5 days. 05/08/18 07:00 Respiratory Panel (PCR) - Final Mucosa - Nose Laboratory Tests Past 24 Hrs 05/11/18 05/11/18 05:10 05:10 WBC 13.3 H RBC 3.82 L Hgb 9.3 L Hct 33.0 L MCV 86.4 MCH 24.3 L MCHC 28.2 L RDW 20.3 H RDW Differential 61.9 H Plt Count 329 MPV 9.9 Differential Comment Sodium 140 Potassium 3.8 Chloride 102 Carbon Dioxide 29.0 Anion Gap 9 BUN 69 H Creatinine 1.91 H Estim Creat Clear Calc 29.80 Est GFR (MDRD) Af Amer 44 L Est GFR (MDRD) Non-Af 36 L BUN/Creatinine Ratio 36.1 H Glucose 96 Calcium 7.8 L POC Glucose 05/11/18 05/11/18 05/10/18 11:35 06:47 21:19 POC Glucose 175 H 95 149 H 05/10/18 16:13 POC Glucose 96 Medical Necessity - Tobacco Use Smoking Status: Current every day smoker Tobacco Use: Cigarettes Assessment/Plan All Active Problems (Last Reviewed 04/25/18 @ 08:23 by Carol Lockwood, JAZMINE-C) CAP (community acquired pneumonia) (Ruled-out) Systolic CHF (Acute) Hx of appendectomy (Resolved) 1. 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 Dr. Castillo following. Low suspicion for pneumonia. IV Solu- Medrol discontinued. Respiratory panel negative. Blood cultures show no growth. Albuterol/DuoNeb aerosol. Continue supplement oxygen to maintain O2 at or above 90%. IV Levaquin discontinued. Oxygen now stable on baseline O2 requirements. Feel acute hypoxic respiratory failure most likely secondary to CHF alone. 2. Acute on chronic chronic systolic CHF/nonischemic cardiomyopathy-chest x-ray admission showed chronic stable CHF. Follows with Dr. Savage. BNP 301. Patient received IV Lasix 80 mg x1 on admission with significant improvement in breathing. Repeated IV Lasix 40 mg x1. Continue home oral Lasix regimen 80 mg p.o. daily. Strict I&O. Daily weight. Christopher wraps bilateral lower extremities. Repeat echo shows an EF of 55%, mild to moderate aortic stenosis. 3. Chronic atrial fibrillation on anticoagulation with Coumadin, INR supr atherapeutic on admission, now WNL-resume Coumadin, trend INR. Continue Cardizem and carvedilol regimen. 4. Hypertension-stable, continue home carvedilol, Cardizem, Lasix regimen. 5. Hyperlipidemia-continue statin. 6. Chronic kidney disease stage III-at baseline, trend BMP. 7. Type 2 diabetes mellitus-hold oral regimen. Accu-Cheks ACHS with sliding scale insulin. 8. RADHA/pulmonary hypertension- unclear BIPAP/CPAP use. 9. Tobacco dependence-current 2 pack/day smoker. Denies interested in quitting. 10. 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 11. Depression-continue home Lexapro regimen. 12. 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 13. Normocytic anemia-Baseline hemoglobin appears to be 13-14 prior to March of this year. Hemoglobin has remained 9-10 since that time. Iron studies in March consistent with iron deficiency. Does not appear to be on iron supplementation. Will add supplemental iron. Trend CBC. 14. Debility-discharge to SNF following recent admission. PT/OT. CM consult. DVT prophylaxis-Coumadin Discharge planning: SNF pending acceptance. This patient was seen by BRISEYDA Porter under the supervision of Dr. Chou. <Anand Chou F - Last Filed: 05/11/18 16:15> - Physical Exam Vital Signs Temp Pulse Resp BP Pulse Ox 98.5 F 106 H 20 H 126/62 H 84 05/11/18 14:26 05/11/18 15:27 05/11/18 15:27 05/11/18 14:26 05/11/18 15:47 Oxygen Flow Rate (L/min) 3 Oxygen Delivery Method Nasal Cannula Weight: 202 lb 11.2 oz Body Mass Index (BMI) 31.7 Intake and Output for Last 24 Hours 05/09/18 05/10/18 05/11/18 23:59 23:59 23:59 Intake Total 1941 / 1941 1240 / 1240 240 / 240 Output Total 2350 / 2350 1425 / 1425 1300 / 1300 Balance -409 / -409 -185 / -185 -1060 / -1060 Microbiology Past 72 Hours 05/07/18 17:35 Blood Culture - Preliminary Blood Culture (Wb) - Arm Right No growth in 48 hours. 05/07/18 17:40 Blood Culture - Preliminary Blood Culture (Wb) - Anticubital Right No growth in 48 hours. 05/08/18 07:00 Respiratory Panel (PCR) - Final Mucosa - Nose Laboratory Tests Past 24 Hrs 05/11/18 05/11/18 05:10 05:10 WBC 13.3 H RBC 3.82 L Hgb 9.3 L Hct 33.0 L MCV 86.4 MCH 24.3 L MCHC 28.2 L RDW 20.3 H RDW Differential 61.9 H Plt Count 329 MPV 9.9 Differential Comment Sodium 140 Potassium 3.8 Chloride 102 Carbon Dioxide 29.0 Anion Gap 9 BUN 69 H Creatinine 1.91 H Estim Creat Clear Calc 29.80 Est GFR (MDRD) Af Amer 44 L Est GFR (MDRD) Non-Af 36 L BUN/Creatinine Ratio 36.1 H Glucose 96 Calcium 7.8 L POC Glucose 05/11/18 05/11/18 05/10/18 11:35 06:47 21:19 POC Glucose 175 H 95 149 H 05/10/18 16:13 POC Glucose 96 Code Visit Addendum: Dr. Chou I personally examined the patient and reviewed the chart. I agree with the above. 77-year-old male presenting with acute on chronic combined hypoxic and hypercapnic respiratory failure secondary to acute on chronic COPD exacerbation and acute on chronic CHF exacerbation. Repeat echo with a normal EF and no discussion on his diastolic function. We will continue treating this as a COPD exacerbation primarily with steroids and inhalers. He states that his breathing is much better at this point, and he was able to walk on 125 feet unassisted with PT today and therefore he is unable to be discharged to a shelter facility. We will plan to discharge home with palliative care or home health as well as home oxygen tomorrow. Inpatient E&M: [id number] [facility] L2
--- NOTE | 2018-05-11 14:05 | PCM.DC.SUM ---
<Mariah Fagan - Last Filed: 05/11/18 16:09> Discharge Date and Diagnosis Date of Admission: 05/07/18 Date of Discharge: 05/11/18 - Primary Discharge Diagnosis Active and Suspected Problems (Last Reviewed 04/25/18 @ 08:23 by Carol Lockwood NP-C) 1. 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 Acute on chronic chronic systolic CHF/nonischemic cardiomyopathy 3. Chronic atrial fibrillation on anticoagulation with Coumadin, INR supratherapeutic on admission 4. Hypertension 5. Hyperlipidemia 6. Chronic kidney disease stage III- ALISIA ruled out 7. Type 2 diabetes mellitus 8. RADHA/pulmonary hypertension 9. Tobacco dependence 10. Chronic venous stasis dermatitis bilateral lower extremity 11. Depression 12. Left eye blindness 13. Normocytic anemia, iron deficiency anemia 14. 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 No airspace consolidation or pleural effusion. 2. Vascular congestion, bronchovascular attenuation and cardiomegaly suggestive of chronic CHF. Stable appearance since 03/11/2016. Electronically Signed: Justin Palma MD at 14:44 EST , Service support , Dr. Castillo- Pulmonary Medicine Operations: None Procedures: 2-D Echocardiogram Summary of Care Provided: The patient is a 77 year old M admitted 05/07/2018 due to shortness of breath, cough. . 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 Dr. Castillo following. Low suspicion for pneumonia. IV Solu-Medrol discontinued. Respiratory panel negative. Send sputum for culture. Blood cultures pending. Albuterol/DuoNeb aerosol. Continue supplement oxygen to maintain O2 at or above 90%. IV Levaquin discontinued. Oxygen now stable on baseline O2 requirements. Feel acute hypoxic respiratory failure most likely secondary to CHF with mild COPD exacerbation. 2. Acute on chronic chronic systolic CHF/nonischemic cardiomyopathy-chest x-ray admission showed chronic stable CHF. Follows with Dr. Savage. BNP 301. Patient received IV Lasix 80 mg x1 on admission with significant improvement in breathing. Repeated IV Lasix 40 mg x1. Continue home oral Lasix regimen 80 mg p.o. daily. Strict I&O. Daily weight. Christopher wraps bilateral lower extremities. Repeat echo shows an EF of 55%, mild to moderate aortic stenosis. 3. Chronic atrial fibrillation on anticoagulation with Coumadin, INR supratherapeutic on admission, now WNL-resume Coumadin, trend INR. Continue Cardizem and carvedilol regimen. 4. Hypertension-stable, continue home carvedilol, Cardizem, Lasix regimen. 5. Hyperlipidemia-continue statin. 6. Chronic kidney disease stage III-at baseline, trend BMP. ALISIA ruled out. 7. Type 2 diabetes mellitus-continue home oral regimen. 8. RADHA/pulmonary hypertension- unclear BIPAP/CPAP use. 9. Tobacco dependence-current 2 pack/day smoker. Denies interested in quitting. 10. 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 11. Depression-continue home Lexapro regimen. 12. 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 13. Normocytic anemia-Baseline hemoglobin appears to be 13-14 prior to March of this year. Hemoglobin has remained 9-10 since that time. Iron studies in March consistent with iron deficiency. Does not appear to be on iron supplementation. Continue iron supplementation at discharge. 14. Debility-SNF for further PT/OT. General: Alert, Oriented x3, Cooperative HEENT: Atraumatic, PERRLA, EOMI, Normocephalic Neck: Supple, No JVD, Negative Carotid Bruits Lungs: Clear to auscultation, Diminished Cardiovascular: - - Atrial fibrillation, rate controlled. Abdomen: Bowel Sounds Present, Soft, Non Tender, Non-Distended Extremities: No clubbing, No cyanosis, No edema, Capillary Refill Less than 3 Seconds Skin: No rashes, No breakdown, - - Venous stasis dermatitis bilateral lower extremities. Musculoskeletal: No Tenderness to Palpation of Joints or Extremities Neurological: Cranial nerves II-XII grossly intact, Neuro grossly intact Psych/Mental Status: Normal Affect, Appropriate Patient seen and examined prior to discharge. Physical assessment as noted above. Patient is stable for discharge with follow up recommendations as noted above. This patient was seen by BRISEYDA Porter under the supervision of Dr. Chou. - Physical Exam Vital Signs Temp Pulse Resp BP Pulse Ox 97.5 F L 90 20 H 102/75 92 05/11/18 13:38 05/11/18 13:38 05/11/18 13:38 05/11/18 13:38 05/11/18 13:38 Oxygen Flow Rate (L/min) 4 Oxygen Delivery Method Nasal Cannula Weight: 202 lb 11.2 oz Body Mass Index (BMI) 31.7 Intake and Output for Last 24 Hours 05/09/18 05/10/18 05/11/18 23:59 23:59 23:59 Intake Total 1941 / 1941 1240 / 1240 240 / 240 Output Total 2350 / 2350 1425 / 1425 1300 / 1300 Balance -409 / -409 -185 / -185 -1060 / -1060 Microbiology Past 72 Hours 05/07/18 17:35 Blood Culture - Preliminary Blood Culture (Wb) - Arm Right No growth in 5 days. 05/07/18 17:40 Blood Culture - Preliminary Blood Culture (Wb) - Anticubital Right No growth in 5 days. 05/08/18 07:00 Respiratory Panel (PCR) - Final Mucosa - Nose Laboratory Tests Past 24 Hrs 05/11/18 05/11/18 05:10 05:10 WBC 13.3 H RBC 3.82 L Hgb 9.3 L Hct 33.0 L MCV 86.4 MCH 24.3 L MCHC 28.2 L RDW 20.3 H RDW Differential 61.9 H Plt Count 329 MPV 9.9 Differential Comment Sodium 140 Potassium 3.8 Chloride 102 Carbon Dioxide 29.0 Anion Gap 9 BUN 69 H Creatinine 1.91 H Estim Creat Clear Calc 29.80 Est GFR (MDRD) Af Amer 44 L Est GFR (MDRD) Non-Af 36 L BUN/Creatinine Ratio 36.1 H Glucose 96 Calcium 7.8 L POC Glucose 05/11/18 05/11/18 05/10/18 11:35 06:47 21:19 POC Glucose 175 H 95 149 H 05/10/18 16:13 POC Glucose 96 Home Medications: Medications to take at Discharge Aspirin [Aspirin, Baby] 81 mg PO DAILY@0800 03/26/18 Atorvastatin Calcium [Lipitor] 20 mg PO DAILY 03/26/18 Brimonidine Tartrate [Alphagan P] 1 drop OP BID 03/26/18 Carvedilol [Coreg] 25 mg PO BID 03/26/18 Cholecalciferol (Vitamin D3) [Vitamin D3] 2,000 unit PO DAILY 03/26/18 Escitalopram Oxalate [Lexapro] 10 mg PO DAILY 03/26/18 Ipratropium/Albuterol Sulfate [Duoneb] 3 ml INHALATION Q4HWA.RT 03/26/18 Linagliptin [Tradjenta] 5 mg PO DAILY 03/26/18 Omeprazole [Prilosec] 20 mg PO DAILY 03/26/18 Timolol 0.5% [Timoptic] 1 drop LEFT EYE BID 03/26/18 Albuterol Aerosols [Ventolin Aerosols] 2.5 mg INHALATION Q2H PRN PRN vial.neb. 03/30/18 Albuterol Inhaler [Ventolin Hfa] 1 - 2 puff INHALATION Q4H PRN PRN #1 inhaler 03/30/18 warfarin 1 mg tablet 5 mg PO .COMPLEX 04/15/18 warfarin 5 mg tablet 7 mg PO TH 04/15/18 diltiazem CD 180 mg capsule,extended release 24 hr 180 mg PO BID cap 04/25/18 furosemide 80 mg tablet 80 mg PO DAILY tab 04/25/18 glipizide 5 mg tablet 5 mg PO DAILY 04/25/18 Fluticasone/Vilanterol [Breo Ellipta 100-25 Mcg INH] 1 each IH DAILY 05/07/18 Guaifenesin [Mucinex] 1,200 mg PO BID 05/07/18 Ferrous Sulfate 325 mg PO 1200,1700 tablet 05/11/18 Primary Care Physician: Ramesh Rodney MD [Primary Care Provider] - Please follow up with your Primary Care Physician in: 1 Week Please Follow Up With: Kingston Paez MD When: As scheduled 06/16/18 Please Follow Up With: Ramesh Avina NP-C - Cardiology When: 1-2 Weeks Disposition: [facility] facility Minutes spent on discharge:: 35 Patient Condition:: Stable Medical Necessity - Tobacco Use Smoking Status: Current every day smoker Tobacco Use: Cigarettes Meaningful Use Info Meaningful Use Diagnoses (Choose all that apply): CHF - CHF CHRISTOPHER/ARB ordered at discharge?: No Reason CHRISTOPHER/ARB not ordered?: Worsening renal function Documented LVEF (%): 55 <Anand Chou - Last Filed: 05/12/18 10:04> Discharge Date and Diagnosis - Secondary Discharge Diagnosis Chronic Problems (Last Reviewed 04/25/18 @ 08:23 by Carol Lockwood NP-Yulia) Nicotine dependence (Chronic) Carotid bruit (Chronic) Encounter for long-term current use of high risk medication (Chronic) Obstructive sleep apnea (Chronic) Cardiomyopathy in disease classified elsewhere (Chronic) Atherosclerotic heart disease of [place] coronary artery without angina pectoris (Chronic) MCC (current) use of anticoagulants (Chronic) Benign essential hypertension (Chronic) COLD (chronic obstructive lung disease) (Chronic) Diabetes mellitus, type 2 (Chronic) GERD (gastroesophageal reflux disease) (Chronic) Hyperlipidemia (Chronic) Obesity (Chronic) Biatrial enlargement (Chronic) Pulmonary hypertension (Chronic) Glaucoma (Chronic) Atrial fibrillation and flutter (Chronic) Hospital Course and Treatment Summary of Care Provided: The patient is a 77 year old M [] - Physical Exam Vital Signs Temp Pulse Resp BP Pulse Ox 98.3 F 98 18 134/66 H 95 05/12/18 09:15 05/12/18 09:15 05/12/18 09:15 05/12/18 09:15 05/12/18 09:15 Oxygen Flow Rate (L/min) 3 Oxygen Delivery Method Nasal Cannula Weight: 202 lb 11.2 oz Body Mass Index (BMI) 31.7 Intake and Output for Last 24 Hours 05/10/18 05/11/18 05/12/18 23:59 23:59 23:59 Intake Total 1240 / 1240 820 / 820 900 / 900 Output Total 1425 / 1425 2200 / 2200 500 / 500 Balance -185 / -185 -1380 / -1380 400 / 400 Microbiology Past 72 Hours 05/07/18 17:35 Blood Culture - Preliminary Blood Culture (Wb) - Arm Right No growth in 48 hours. 05/07/18 17:40 Blood Culture - Preliminary Blood Culture (Wb) - Anticubital Right No growth in 48 hours. Laboratory Tests Past 24 Hrs 05/12/18 05/12/18 05/12/18 05:26 05:26 05:26 WBC 10.0 RBC 3.89 L Hgb 9.6 L Hct 34.0 L MCV 87.4 MCH 24.7 L MCHC 28.2 L RDW 20.4 H RDW Differential 63.4 H Plt Count 350 MPV 10.1 Differential Comment SCAN PT 33.5 H INR 3.3 Sodium 140 Potassium 3.9 Chloride 104 Carbon Dioxide 31.0 Anion Gap 5 BUN 66 H Creatinine 1.84 H Estim Creat Clear Calc 30.93 Est GFR (MDRD) Af Amer 46 L Est GFR (MDRD) Non-Af 38 L BUN/Creatinine Ratio 35.9 H Glucose 99 Calcium 7.8 L POC Glucose 05/12/18 05/11/18 05/11/18 06:11 22:28 16:41 POC Glucose 108 150 H 121 H 05/11/18 11:35 POC Glucose 175 H Code Visit Addendum: Dr. Chou I personally examined the patient and reviewed the chart. I agree with the above. 77-year-old male presenting with acute on chronic combined hypoxic and hypercapnic respiratory failure secondary to acute on chronic COPD exacerbation and acute on chronic CHF exacerbation. Repeat echo with a normal EF and no discussion on his diastolic function. We will continue treating this as a COPD exacerbation primarily with steroids and inhalers. He states that his breathing is much better at this point, and he was able to walk on 125 feet unassisted with PT today and therefore he is unable to be discharged to a assisted facility, however the daughter work for a SNF and will have him placed there as private pay. DC today to SNF, would recommend repeat INR in 2-3 days since his INR is 3.3 on the day of discharge. General: Alert, Oriented x3, Cooperative, No apparent distress HEENT: Atraumatic, PERRLA, EOMI, Normocephalic Oral: Moist Mucosa Neck: Supple, No JVD Lungs: Normal air movement, No rhonchi, Wheezing, No rales Cardiovascular: Regular rate, irregular Rhythm, Normal S1, Normal S2, No murmurs Abdomen: Soft, Non Tender, Non-Distended, No Hepato-splenomegaly Extremities: No edema, Capillary Refill Less than 3 Seconds Skin: Venous stasis dermatitis Musculoskeletal: No Tenderness to Palpation of Joints or Extremities Neurological: Cranial nerves II-XII grossly intact, Motor Exam 5/5 strength throughout, Sensory exam intact to light touch and pain Psych/Mental Status: Normal Affect, Appropriate Inpatient E&M: [id number] [facility]
--- NOTE | 2018-05-11 14:23 | NURSING ---
[facility] student nurse's charting reviewed for educational learning purposes by robert serrano.
--- NOTE | 2018-05-11 15:30 | CASEMGMT ---
Social Work Note ANNA received call from Jasmin at [facility] stating pt was denied and that physician will need to complete peer to peer review. Phone number [phone] reference #[id number]. ANNA informed Jasmin that this worker will update physician and ask if physician will complete peer to peer. Physician updated. Physician states that pt is walking 100+ft stand by with no device and he won't complete peer to peer as pt is walking well. ANNA placed a call to Jasmin at [facility] and updated her on this. Jasmin states she is frustrated with pt's PT/OT notes and states that pt got denied due to his PT/OT notes. Jasmin states that pt is not safe to return home at this time. ANNA explained options of home with [facility] or having pt pay privately for SNF. Jasmin states that it is likely pt will have to pay privately at SNF. ANNA provided Jasmin with patient advocate number and supervising PT/OT therapist number if Jasmin wishes to call. Physician updated. Physician states he will keep pt tonight and tomorrow pt can discharge either home or private pay at SNF. Plan: Pt most likely will be going private pay to [facility] Cinthia Valreio SENIOR ADMINISTRATIVE ASSOCIATE, BIODIESEL PROCESS CONTROL TECHNICIAN
[2018-05-11 16:45] LABS: Bedside Glucose 121 mg/dL (70-110)
[2018-05-11] MEDS: Atorvastatin Calcium 20 MG Tablet PO (22:30)
[2018-05-11 22:45] LABS: Bedside Glucose 150 mg/dL (70-110)
[2018-05-12 01:59] VITALS: PULSE 91
[2018-05-12 02:51] VITALS: BP 119/53; PULSE 79; RESP 14; TEMP 36.4; O2SAT 96
[2018-05-12 06:09] LABS: International Normalized Ratio 3.3; Prothrombin Time (Protime)PT. 33.5 SECONDS (11.7-14.9)
[2018-05-12 06:15] LABS: Bedside Glucose 108 mg/dL (70-110)
[2018-05-12 06:15] LABS: Anion Gap 5 (5-15); BUN 66 mg/dL (7-18); BUN/Creat Ratio 35.9 RATIO (10-20); Calcium,Total 7.8 mg/dL (8.5-10.1); Chloride 104 mmol/L (98-107); Creatinine, Serum 1.84 mg/dL (0.70-1.30); EST Glomerular Filtration Rate 38 mL/min (>60); Est Glom Filt Rate - Afr Amer 46 mL/min (>60); Estimated Creatinine Clearance 30.93 ml/min; Glucose 99 mg/dL (74-106); Potassium 3.9 mmol/L (3.5-5.1); Sodium Level 140 mmol/L (136-145)
[2018-05-12 06:33] LABS: Hemoglobin 9.6 g/dl (13.0-16.5); Mean Corp Hgb Conc 28.2 g/gl (32-36); Mean Corpuscular Hgb 24.7 pg (27.0-32.0); Mean Corpuscular Volume 87.4 fL (80-94); Mean Platelet Vol. 10.1 fl (6.2-12.0); Platelet Count 350 K/mm3 (150-450); RBC Distribution Width CV 20.4 % (11.6-14.6); RBC Distribution Width SD 63.4 fl (35.1-43.9); Red Blood Count 3.89 M/mm3 (4.6-6.2)
[2018-05-12 06:36] LABS: Scan Indicated on CBC? Y/N YES- FLAGS NOTED
[2018-05-12 07:17] VITALS: PULSE 92; RESP 20; O2SAT 93
[2018-05-12 07:17] LABS: Differential Comment SCAN
[2018-05-12] MEDS: Ipratropium/Albuterol Sulfate 3 ML AMPUL.NEB INHALATION ×2 (07:17→10:17)
[2018-05-12] MEDS: Aspirin 81 MG TAB.CHEW PO (07:35)
[2018-05-12 09:15] VITALS: BP 134/66; PULSE 98; RESP 16; RESP 18; TEMP 36.8; O2SAT 95
--- NOTE | 2018-05-12 09:45 | CASEMGMT ---
Social Work Note ANNA spoke with pt. ANNA informed pt that he was denied by insurance for [facility] and that his options are home with HH, Outpatient therapy, or pay privately at [facility]. ANNA informed pt that this worker has been speaking to his daughter Jasmin and it seems Jasmin is wanting pt to go private pay at [facility]. ANNA informed pt that this worker will be calling his daughter Jasmin this morning to confirm plans. Pt states understanding and is agreeable to going to [facility] private pay if his daughter is agreeable. ANNA placed a call to Jasmin at [facility]. Jasmin states that the plan is for pt to go to [facility] private pay. Jasmin states that she will be transporting pt and will bring pt's oxygen. Jasmin states she will be at [facility] between 10:30-11:00am. Jasmin still states that she is frustrated with PT/OT. ANNA offered support to Jasmin. ANNA faxed completed discharge paperwork to Jasmin at [facility] including transfer to extended care facility, signed medication list and any scripts. Originals in SNF folder and copy on pt's chart. ANNA completed convalescent 7000 in [facility]. Original in SNF folder and copy on pt's chart. ANNA updated RN and service secretary that pt's daughter will be transporting pt around 10:30-11:00am. ANNA updated pt that his daughter Jasmin is agreeable to pt going to [facility] private pay. Pt informed that this daughter will be transporting pt around 10:30-11:00am. Pt states understanding. Plan: Pt to discharge to [facility] skilled with pt's family transporting Cinthia Valerio CLOTHING PATTERNMAKER, BIKE DESIGNER
[2018-05-12] MEDS: BRIMONIDINE 0.2% 5ML BOTTLE 1 DRP LEFT EYE (10:10)
[2018-05-12] MEDS: dilTIAZem CD 180 MG Capsule PO (10:10)
[2018-05-12] MEDS: Escitalopram Oxalate 10 MG Tablet PO (10:10)
[2018-05-12] MEDS: Carvedilol 25 MG Tablet PO (10:10)
[2018-05-12] MEDS: guaiFENesin 1,200 MG Tablet 1200 MG PO (10:10)
[2018-05-12] MEDS: Pantoprazole Sodium 20 MG Tablet PO (10:11)
[2018-05-12] MEDS: Furosemide 80 MG Tablet PO (10:11)
[2018-05-12] MEDS: Timolol 0.5% 5ML OPTH.BTL 1 DRP LEFT EYE (10:11)
[2018-05-12 10:17] VITALS: PULSE 80; RESP 18; O2SAT 90
[2018-05-12 12:04] VITALS: BP 140/70; PULSE 89; RESP 18; TEMP 37.2; O2SAT 95
== END 2018-05-12 11:57 | disposition home or self-care (01) | DRG 189 ==
LOC: ED 15:34 → MS3 16:52
PROVIDERS: Internal Medicine; Internal Medicine Critical Care Medicine; Nurse Practitioner Family; Admitting Provider Family Medicine; Emergency Provider Emergency Medicine; Family Provider Family Medicine; PCP Family Medicine; Referring Provider Family Medicine; Visit Provider Family Medicine
DX: J96.21 Acute and chronic respiratory failure with hypoxia (principal); I50.23 Acute on chronic systolic (congestive) heart failure; J44.1 Chronic obstructive pulmonary disease with (acute) exacerbation; I13.0 Hypertensive heart and chronic kidney disease with heart failure and stage 1 through stage 4 chronic kidney disease, or unspecified chronic kidney disease; I48.92 Unspecified atrial flutter; I42.0 Dilated cardiomyopathy; J44.0 Chronic obstructive pulmonary disease with (acute) lower respiratory infection; J96.22 Acute and chronic respiratory failure with hypercapnia; E11.22 Type 2 diabetes mellitus with diabetic chronic kidney disease; N18.3 Chronic kidney disease, stage 3 (moderate); E78.5 Hyperlipidemia, unspecified; G47.33 Obstructive sleep apnea (adult) (pediatric); I27.20 Pulmonary hypertension, unspecified; J20.8 Acute bronchitis due to other specified organisms; F32.9 Major depressive disorder, single episode, unspecified; D50.9 Iron deficiency anemia, unspecified; R53.81 Other malaise; H54.40 Blindness, one eye, unspecified eye; I48.2 Chronic atrial fibrillation; I25.10 Atherosclerotic heart disease of native coronary artery without angina pectoris; I73.9 Peripheral vascular disease, unspecified; K21.9 Gastro-esophageal reflux disease without esophagitis; E66.9 Obesity, unspecified; H40.9 Unspecified glaucoma; F17.210 Nicotine dependence, cigarettes, uncomplicated; Z68.31 Body mass index [BMI] 31.0-31.9, adult; Z99.81 Dependence on supplemental oxygen; Z79.84 Long term (current) use of oral hypoglycemic drugs; Z79.01 Long term (current) use of anticoagulants; Z79.899 Other long term (current) drug therapy
CPT/HCPCS: 36415; 36600; 71045; 80048; 82803; 82962; 83735; 83880; 84443; 84484; 85025; 85027; 85610; 87040; 87633; 87804; 93005; 93306; 94002; 94003; 94640; 94667; 94668; 94762; 97110; 97161; 97166; 97530; 97802; 99283; 99406; A4216; J1940

== ENCOUNTER → 2018-05-25 15:38 | Outpatient (CLI) | payer MEDICARE, SELFPAY ==
[2018-05-07 17:07] VITALS: BMI 31.7
[2018-05-25 17:40] LABS: Absolute Lymphocyte Count 0.94 X10^3/ul (0.83-4.51); Absolute Neutrophil Count 6.7 X10^3/uL (2.0-7.7); Basophil# 0.02 X10^3/uL; Basophil% 0.2 % (0-1); Eosinophil# 0.13 X10^3/uL; Eosinophils% 1.5 % (0-5); Hematocrit 28.7 % (40-54); Hemoglobin 8.3 g/dl (13.0-16.5); Lymphocyte # 0.94 X10^3/ul (4.0); Lymphocyte % 11.1 % (19-41); Mean Corp Hgb Conc 28.9 g/gl (32-36); Monocyte# 0.72 X10^3/uL; Monocyte% 8.5 % (0-10); Neutrophil # 6.65 X10^3/uL (2.7-7.7); Neutrophil % 78.3 % (47-70); Platelet Count 321 K/mm3 (150-450); RBC Distribution Width CV 23.6 % (11.6-14.6); RBC Distribution Width SD 74.2 fl (35.1-43.9); Red Blood Count 3.19 M/mm3 (4.6-6.2); White Blood Count 8.5 K/mm3 (4.4-11.0)
[2018-05-25 17:48] LABS: Vitamin B12 419 pg/mL (211-911)
[2018-05-25 17:52] LABS: Differential Indicated SCAN CRITERIA MET; POSITIVE COUNT NO; POSITIVE DIFFERENTIAL NO; POSITIVE MORPHOLOGY YES
[2018-05-25 17:56] LABS: BNP,B-Type NATRIURETIC PEPTIDE 217.2 pg/mL (0-100)
[2018-05-25 17:58] LABS: ALB/GLOB Ratio 0.7 RATIO (0.9-2.4); AST(SGOT) 15 U/L (15-37); Alanine Aminotransfer ALT/SGPT 19 U/L (16-61); Albumin, Serum 2.5 g/dL (3.2-5.0); Alkaline Phosphatase 61 U/L (45-117); Anion Gap 8 (5-15); BUN 35 mg/dL (7-18); BUN/Creat Ratio 20.5 RATIO (10-20); Chloride 104 mmol/L (98-107); Creatinine, Serum 1.71 mg/dL (0.70-1.30); EST Glomerular Filtration Rate 41 mL/min (>60); Est Glom Filt Rate - Afr Amer 50 mL/min (>60); Ferritin 20 ng/mL (26-388); Globulin 3.6 g/dL (2.2-4.2); Glucose 121 mg/dL (74-106); Iron 16 ug/dL (65-175); Iron Binding Capacity,Total 334 ug/dL (250-450); Magnesium 1.9 mg/dL (1.6-2.6); Potassium 4.2 mmol/L (3.5-5.1); Protein, Total 6.1 g/dL (6.4-8.2); Sodium Level 139 mmol/L (136-145)
[2018-05-25 19:42] LABS: Anisocytosis 3+; Differential Comment SCANNED; Ovalocyte RARE; Platelet Estimate ADEQUATE (ADEQ); Polychromasia RARE
[2018-05-25 19:43] LABS: Target Cells RARE; Tear Drop Cell RARE
[2018-05-25 19:44] LABS: Hypochromasia 1+
== END ==
PROVIDERS: Family Provider Family Medicine; PCP Family Medicine; Referring Provider Family Medicine; Visit Provider Family Medicine
DX: N18.3 Chronic kidney disease, stage 3 (moderate) (principal); D64.9 Anemia, unspecified; I50.9 Heart failure, unspecified
CPT/HCPCS: 36415; 80053; 82607; 82728; 82746; 83540; 83550; 83735; 83880; 85025

== ENCOUNTER → 2018-06-03 15:36 | Outpatient (CLI) | payer MEDICARE, SELFPAY ==
[2018-05-07 17:07] VITALS: BMI 31.7
--- NOTE | 2018-06-03 15:40 | RAD_ITS ---
STUDY: X-RAY CHEST REASON FOR EXAM: Male, 77 years old. COPD WITH ACUTE EXACERBATION TECHNIQUE: Frontal and lateral views of the chest. COMPARISON: 05/07/2018, 04/15/2018. FINDINGS: There is hyperinflation of the lungs consistent with chronic obstructive lung disease (COPD). Lateral view continues to show soft tissue density in the posterior left lung base most consistent with infiltrate and also present previously. Blunting of the left costophrenic angle appears to be most likely related to scarring but a small effusion is possible. This is also stable. There is mild cardiac enlargement. Normal mediastinum and antonino. There is prominence of the pulmonary hilar arteries without peripheral pulmonary vascular congestion, suggesting pulmonary hypertension. Normal visualized aortic arch and descending thoracic aorta. Normal visualized thoracic spine. Normal visualized ribs, clavicles, and shoulders. There is no demonstrated abnormality of the visualized soft tissue structures of the upper abdomen. RAD/Chest PA and Lateral IMPRESSION: COPD. Stable probable infiltrate in the posterior left lung base. Electronically Signed: Elvis Monae MD at 16:18 EDT , Service support ,
== END ==
PROVIDERS: Family Provider Family Medicine; PCP Family Medicine; Referring Provider Family Medicine; Visit Provider Family Medicine
DX: J44.1 Chronic obstructive pulmonary disease with (acute) exacerbation (principal)
CPT/HCPCS: 71046

== ENCOUNTER → 2018-07-06 | Outpatient (CLI) | payer MEDICARE, SELFPAY ==
[2018-05-07 17:07] VITALS: BMI 31.7
[2018-07-06 12:37] LABS: Hemoglobin A1c 5.4 % (4.2-6.3)
[2018-07-06 12:49] LABS: Ferritin 44 ng/mL (26-388); Iron 37 ug/dL (65-175); Iron Binding Capacity,Total 319 ug/dL (250-450)
[2018-07-06 13:10] LABS: Absolute Lymphocyte Count 0.85 X10^3/ul (0.83-4.51); Basophil# 0.03 X10^3/uL; Basophil% 0.4 % (0-1); Eosinophils% 1.3 % (0-5); Hematocrit 40.9 % (40-54); Hemoglobin 12.5 g/dl (13.0-16.5); Lymphocyte # 0.85 X10^3/ul (4.0); Lymphocyte % 11.3 % (19-41); Mean Corp Hgb Conc 30.6 g/gl (32-36); Mean Corpuscular Hgb 28.3 pg (27.0-32.0); Mean Corpuscular Volume 92.5 fL (80-94); Mean Platelet Vol. 10.4 fl (6.2-12.0); Monocyte# 0.58 X10^3/uL; Monocyte% 7.7 % (0-10); Neutrophil # 5.95 X10^3/uL (2.7-7.7); Neutrophil % 78.8 % (47-70); Platelet Count 296 K/mm3 (150-450); RBC Distribution Width CV 20.3 % (11.6-14.6); RBC Distribution Width SD 67.8 fl (35.1-43.9); Red Blood Count 4.42 M/mm3 (4.6-6.2); White Blood Count 7.6 K/mm3 (4.4-11.0)
[2018-07-06 14:51] LABS: Differential Indicated SCAN CRITERIA MET; POSITIVE COUNT NO; POSITIVE DIFFERENTIAL NO; POSITIVE MORPHOLOGY YES
[2018-07-06 14:59] LABS: Anisocytosis 1+; Platelet Estimate ADEQUATE (ADEQ); Red Cell Morphology N CHROM NORMAL (NORM C&C)
== END | disposition home or self-care (01) ==
LOC: MFPLAB 10:31
PROVIDERS: Family Provider Family Medicine; PCP Family Medicine; Referring Provider Family Medicine; Visit Provider Family Medicine
DX: D50.9 Iron deficiency anemia, unspecified (principal); E11.9 Type 2 diabetes mellitus without complications
CPT/HCPCS: 36415; 82728; 83036; 83540; 83550; 85025

== ENCOUNTER 2018-11-09 07:54 | Outpatient (RCR) | payer MEDICARE, SELFPAY ==
[2018-05-06 15:08] VITALS: BMI 30.9
[2018-05-07 17:07] VITALS: BMI 31.7
[2018-11-09 10:19] LABS: Absolute Lymphocyte Count 1.14 X10^3/uL (0.83-4.51); Absolute Neutrophil Count 6.3 X10^3/uL (2.0-7.7); Basophil# 0.06 X10^3/uL; Basophil% 0.7 % (0-1); Eosinophil# 0.07 X10^3/uL; Eosinophils% 0.8 % (0-5); Hematocrit 50.9 % (40-54); Hemoglobin 16.3 g/dL (13.0-16.5); Lymphocyte # 1.14 X10^3/ul (4.0); Lymphocyte % 13.8 % (19-41); Mean Corpuscular Hgb 32.2 pg (27.0-32.0); Mean Corpuscular Volume 100.6 fL (80-94); Mean Platelet Vol. 10.6 fl (6.2-12.0); Monocyte# 0.64 X10^3/uL; Monocyte% 7.7 % (0-10); NRBC Flagged by Analyzer 0 % (0-5); Neutrophil # 6.32 X10^3/uL (2.7-7.7); Neutrophil % 76.5 % (47-70); Platelet Count 246 K/mm3 (150-450); RBC Distribution Width CV 14.6 % (11.6-14.6); RBC Distribution Width SD 54.3 fl (35.1-43.9); Red Blood Count 5.06 M/mm3 (4.6-6.2); White Blood Count 8.3 K/mm3 (4.4-11.0)
[2018-11-09 10:43] LABS: Hemoglobin A1c 5.9 % (4.2-6.3)
[2018-11-09 10:51] LABS: ALB/GLOB Ratio 0.7 RATIO (0.9-2.4); AST(SGOT) 18 U/L (15-37); Alanine Aminotransfer ALT/SGPT 19 U/L (16-61); Albumin, Serum 2.5 g/dL (3.2-5.0); Alkaline Phosphatase 73 U/L (45-117); Anion Gap 9 (5-15); BUN 37 mg/dL (7-18); BUN/Creat Ratio 19.3 RATIO (10-20); Calcium,Total 8.5 mg/dL (8.5-10.1); Chloride 107 mmol/L (98-107); Cholesterol 160 mg/dL (200); Creatinine, Serum 1.92 mg/dL (0.70-1.30); EST Glomerular Filtration Rate 36 mL/min (>60); Est Glom Filt Rate - Afr Amer 44 mL/min (>60); Ferritin 93 ng/mL (26-388); Globulin 3.8 g/dL (2.2-4.2); Glucose 137 mg/dL (74-106); High Density Lipoprotein 44 mg/dL; Iron 73 ug/dL (65-175); Iron Binding Capacity,Total 275 ug/dL (250-450); Magnesium 1.8 mg/dL (1.6-2.6); Potassium 3.8 mmol/L (3.5-5.1); Protein, Total 6.3 g/dL (6.4-8.2); Sodium Level 145 mmol/L (136-145); Triglycerides 118 mg/dL; Very Low Density Lipoprotein 24 mg/dL (5-40)
[2018-11-09 10:52] LABS: Vitamin D,25 Hydroxy 27.4 ng/mL (29.95-100.01)
== END 2018-11-09 18:00 | disposition home or self-care (01) ==
LOC: MTLAB 07:54
PROVIDERS: Family Provider Family Medicine; PCP Family Medicine; Referring Provider Nurse Practitioner Family; Visit Provider Nurse Practitioner Family
DX: D50.9 Iron deficiency anemia, unspecified (principal); I48.91 Unspecified atrial fibrillation; I48.92 Unspecified atrial flutter; E11.9 Type 2 diabetes mellitus without complications; E78.5 Hyperlipidemia, unspecified; E55.9 Vitamin D deficiency, unspecified; Z79.01 Long term (current) use of anticoagulants
CPT/HCPCS: 36415; 80053; 80061; 82306; 82728; 83036; 83540; 83550; 83735; 85025; 85610

== ENCOUNTER 2018-11-24 10:11 | Inpatient (IN) | payer MEDICARE, SELFPAY ==
[2018-05-07 17:07] VITALS: BMI 31.7
[2018-11-24] VITALS (14 sets, daily range): BP systolic 135–160; BP diastolic 80–111; PULSE 92–127; RESP 12–27; TEMP 36.3–36.8; O2SAT 81–95; BMI 32.1; BMI 31.5; BMI 31.6
--- NOTE | 2018-11-24 10:33 | EKG12_ITS ---
Test Reason : SOB Blood Pressure : / mmHG Vent. Rate : 119 BPM Atrial Rate : 357 BPM P-R Int : 000 ms QRS Dur : 090 ms QT Int : 338 ms P-R-T Axes : 000 041 -06 degrees QTc Int : 475 ms Atrial fibrillation with rapid ventricular response Nonspecific T wave abnormality Abnormal ECG Confirmed by LORRAINE NESBITT, ELIAS ([id number]), fashion editor JANAY MIRANDA ([id number]) on 11/25/2018 1:22:54 PM Referred By: BENY Confirmed By:ANALISA PETERS MD
--- NOTE | 2018-11-24 10:36 | CT_ITS ---
STUDY: CT BRAIN WITHOUT CONTRAST REASON FOR EXAM: Male, 78 years old. Injury. Laceration to back of head RADIATION DOSAGE (If Supplied By Facility): CTDIvol = ( 60.81 ) mGy, DLP = ( 1135.50 ) mGycm TECHNIQUE: Transaxial CT imaging of the brain was performed without administration of intravenous contrast material. Individualized dose optimization techniques were used for this CT. COMPARISON: No relevant priors. FINDINGS: Normal soft tissue structures. Normal calvarium. There is mild cerebral atrophy with widening of the extra-axial spaces and ventricular dilatation. There are areas of decreased attenuation within the white matter tracts of the supratentorial brain, consistent with microvascular disease changes. Normal basal ganglia and thalami. Normal brainstem. Normal cerebellum. There is no intracranial hemorrhage. There are no findings of an acute ischemic infarction. Normal visualized paranasal sinuses. CT/Brain/Head without Contrast IMPRESSION: Chronic involutional changes of the brain. Electronically Signed: Harish Stockton DO at 11:40 EDT Tel , Service support ,
--- NOTE | 2018-11-24 10:45 | RAD_ITS ---
STUDY: X-RAY CHEST REASON FOR EXAM: Male, 78 years old. Dyspnea. TECHNIQUE: Single AP portable view of the chest. COMPARISON: Comparison is made with prior study dated June 03, 2018. FINDINGS: EKG electrodes are seen. There is elevation of the right hemidiaphragm with blunting of the right costo phrenic angle suggestive of a small right pleural effusion. Blunting of the left costophrenic angle with mild increased markings at the left lung base as well. Normal size heart. Normal mediastinum and antonino. Normal visualized pulmonary arteries. There is atherosclerotic calcification of the aortic arch with tortuosity. There are diffuse degenerative changes of the visualized thoracic spine. Normal visualized ribs, clavicles, and shoulders. There is no demonstrated abnormality of the visualized soft tissue structures of the upper abdomen. RAD/Chest 1 View (Portable) IMPRESSION: Elevation of the right hemidiaphragm with right pleural effusion and underlying basilar atelectasis. Blunting of the left costophrenic angle with mild left basilar atelectasis. Electronically Signed: Alberto Patel, at 11:30 EDT , Service support ,
[2018-11-24 11:12] LABS: Absolute Lymphocyte Count 0.65 X10^3/uL (0.83-4.51); Absolute Neutrophil Count 10.8 X10^3/uL (2.0-7.7); Basophil# 0.03 X10^3/uL; Basophil% 0.2 % (0-1); Eosinophil# 0.01 X10^3/uL; Eosinophils% 0.1 % (0-5); Hematocrit 47.1 % (40-54); Hemoglobin 15.5 g/dL (13.0-16.5); Lymphocyte # 0.65 X10^3/ul (4.0); Lymphocyte % 5.2 % (19-41); Mean Corp Hgb Conc 32.9 g/dL (32-36); Mean Corpuscular Hgb 33.1 pg (27.0-32.0); Mean Corpuscular Volume 100.6 fL (80-94); Mean Platelet Vol. 10.6 fl (6.2-12.0); Monocyte# 0.83 X10^3/uL; Monocyte% 6.7 % (0-10); NRBC Flagged by Analyzer 0 % (0-5); Neutrophil # 10.81 X10^3/uL (2.7-7.7); Neutrophil % 86.9 % (47-70); Platelet Count 302 K/mm3 (150-450); RBC Distribution Width CV 14.2 % (11.6-14.6); RBC Distribution Width SD 52.9 fl (35.1-43.9); Red Blood Count 4.68 M/mm3 (4.6-6.2); White Blood Count 12.4 K/mm3 (4.4-11.0)
[2018-11-24 11:20] LABS: Prothrombin Time (Protime)PT. 40.2 SECONDS (11.7-14.9)
[2018-11-24 11:21] LABS: Partial Thromboplast Time 58.8 Seconds (24.1-36.2)
[2018-11-24 11:27] LABS: International Normalized Ratio 4.1
[2018-11-24 11:36] LABS: AST(SGOT) 43 U/L (15-37); Alanine Aminotransfer ALT/SGPT 27 U/L (16-61); Albumin, Serum 1.9 g/dL (3.2-5.0); Alkaline Phosphatase 81 U/L (45-117); Bilirubin, Direct 0.16 mg/dL (0.00-0.30); Globulin 4.5 g/dL (2.2-4.2); Protein, Total 6.4 g/dL (6.4-8.2)
[2018-11-24 13:00] LABS: Anion Gap 8 (5-15); BUN 41 mg/dL (7-18); BUN/Creat Ratio 21.8 RATIO (10-20); Calcium,Total 7.9 mg/dL (8.5-10.1); Chloride 104 mmol/L (98-107); Creatinine, Serum 1.88 mg/dL (0.70-1.30); EST Glomerular Filtration Rate 37 mL/min (>60); Est Glom Filt Rate - Afr Amer 45 mL/min (>60); Estimated Creatinine Clearance 29.79 ml/min; Glucose 139 mg/dL (74-106); Potassium 4.9 mmol/L (3.5-5.1); Sodium Level 142 mmol/L (136-145)
[2018-11-24] MEDS: Furosemide 100 MG/10 ML Vial 60 MG IV (13:25)
--- NOTE | 2018-11-24 15:53 | ED.VISSUMM ---
- ER Visit Summary Date of Service: 11/24/18 Chief Complaint: Shortness of breath History of Present Illness: The patient is a 78 M who presents the emergency department shortness of breath. Patient was noted over the past couple weeks to have increasing weakness shortness of breath. Is progressively gotten worse in his legs were swollen when they were not in the past. Also had several recent falls. He is on Coumadin for atrial fibrillation history of nonischemic cardiomyopathy. Last echocardiogram was May 2018 showed ejection fraction 55% with mild to moderate aortic stenosis. Also notes a history of CHF COPD. He wears oxygen at home but intermittently. Yesterday he fell getting out of bed striking the back of his head. He did not lose consciousness and has not had any nausea or vomiting. Physical Examination: Patient noted be tachycardic 127 pulse ox 92% on nasal cannula respirations are 24 153/111 temperature 97.9. Gen: Well-nourished well-developed Head: Normocephalic dried blood to the occiput with abrasion Eyes: Perrl EOMI ENT: TMs clear no rhinorrhea moist mucous membranes Neck: Supple no lymphadenopathy no JVD nontender CVS: Irregularly irregular tachycardic rhythm. 2 out of 6 systolic murmur Respiratory: No distress rales diminished at the bases chest nontender Abdomen: Soft nontender nondistended normal bowel sounds no masses Back: Nontender Extremity: Nontender 2+ edema bilaterally Skin: Normal color no rash Neuro: alert orientated ?3 CN II-XII intact normal strength sensation Psych: Normal affect normal mood Test Results: EKG shows atrial fibrillation a rate of 111. White count 12.4. Creatinine 1.8 which is at baseline BUN of 41. INR significant elevated 4.1. Beta nitric peptide 28. Troponin negative. Chest x-ray shows a new right pleural effusion. The brain shows no hemorrhage Emergency Department Course and Treatment: Patient received Lasix and supplemental oxygen. Our plan is admission Impression: 1. CHF exacerbation 2. Supratherapeutic INR 3. Right pleural effusion 4. Scalp abrasion This note was generated with [employer] dictation software. It may contain incorrect words, spelling, and punctuation that were not noted in review of the chart prior to signing ED Disposition - Plan for ED Patient: Referrals: Ramesh Rodney MD [Primary Care Provider] -
--- NOTE | 2018-11-24 16:40 | HP.PCM_ITS ---
<Garland Lieberman - Last Filed: 11/24/18 16:40> Problem List (1) Diastolic CHF Status: Acute Qualifiers: Heart failure chronicity: acute on chronic Qualified Code(s): I50.33 - Acute on chronic diastolic (congestive) heart failure (2) Atrial fibrillation with RVR Status: Acute (3) Paroxysmal A-fib Status: Chronic (4) Acute on chronic congestive heart failure Status: Chronic (5) Nicotine dependence Status: Chronic (6) Obstructive sleep apnea Status: Chronic (7) Benign essential hypertension Status: Chronic (8) COLD (chronic obstructive lung disease) Status: Chronic (9) Diabetes mellitus, type 2 Status: Chronic (10) GERD (gastroesophageal reflux disease) Status: Chronic (11) Hyperlipidemia Status: Chronic (12) Obesity Status: Chronic (13) Pulmonary hypertension Status: Chronic History of Present Illness Date of Admission: 11/24/18 Chief Complaint: SOB The patient is a 78 year old M with pmhx as above who presents to the ER with SOB. This has been progressively worsening for about 2 weeks. He also has LE edema that has developed in this time as well. He reports PND and severe orthopnea. He denies weight gain. Denies CP. He is currently stable on 2 lpms O2. He does use 2 lpm O2 at home PRN for COPD. He also smokes 2 ppd. He also has RADHA, and does report compliance with his CPAP. He denies difficulty emptying his bladder. He is also in Afib with RVR in the ER. He states he goes in and out of afib all the time. He has no palpitations, dizziness, or LH. He denies fevers or chills. Lastly, he has been progressively weaker all over this week, and did fall at home. He lives alone. 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) Benign essential hypertension (Chronic) COLD (chronic obstructive lung disease) (Chronic) Diabetes mellitus, type 2 (Chronic) GERD (gastroesophageal reflux disease) (Chronic) Hyperlipidemia (Chronic) Obesity (Chronic) Biatrial enlargement (Chronic) Pulmonary hypertension (Chronic) Glaucoma (Chronic) Atrial fibrillation and flutter (Chronic) Medical History: Medical History (Last Reviewed 04/25/18 @ 08:23 by BRISEYDA Carias) Nicotine dependence (Chronic) F17.200 Carotid bruit (Chronic) R09.89 Encounter for long-term current use of high risk medication (Chronic) Z79.899 Obstructive sleep apnea (Chronic) G47.33 Cardiomyopathy in disease classified elsewhere (Chronic) I43 Atherosclerotic heart disease of [place] coronary artery without angina pectoris (Chronic) I25.10 longterm (current) use of anticoagulants (Chronic) Z79.01 Benign essential hypertension (Chronic) I10 COLD (chronic obstructive lung disease) (Chronic) J44.9 Diabetes mellitus, type 2 (Chronic) E11.9 GERD (gastroesophageal reflux disease) (Chronic) K21.9 Hyperlipidemia (Chronic) E78.5 Obesity (Chronic) E66.9 Biatrial enlargement (Chronic) I51.7 Pulmonary hypertension (Chronic) I27.2 Glaucoma (Chronic) H40.9 Atrial fibrillation and flutter (Chronic) I48.91, I48.92 Edema R60.9 Wheezing R06.2 Allergies Penicillins Allergy (Verified 11/24/18 10:17) Rash Home Medications: Ambulatory Orders Medication Instructions Recorded Aspirin [Aspirin, Baby] 81 mg PO DAILY@0800 03/26/18 Atorvastatin Calcium [Lipitor] 20 mg PO DAILY 03/26/18 Cholecalciferol (Vitamin D3) 2,000 unit PO BID 03/26/18 [Vitamin D3] Escitalopram Oxalate [Lexapro] 10 mg PO DAILY 03/26/18 Ipratropium/Albuterol Sulfate 3 ml INHALATION Q4HWA.RT 03/26/18 [Duoneb] Linagliptin [Tradjenta] 5 mg PO DAILY 03/26/18 Omeprazole [Prilosec] 20 mg PO DAILY 03/26/18 diltiazem CD 180 mg 180 mg PO DAILY cap 04/25/18 capsule,extended release 24 hr furosemide 80 mg tablet 40 mg PO BID tab 04/25/18 carvedilol 25 mg tablet 12.5 mg PO BID tab 05/17/18 Bupropion HCl [Bupropion Xl] 150 mg PO DAILY 11/24/18 Ferrous Sulfate 325 mg PO DAILY 11/24/18 Fluticasone/Umeclidin/Vilanter 1 puff INHALATION DAILY 11/24/18 [Jose Ellipta 100-62.5-25] Guaifenesin [Mucinex] 600 mg PO BID 11/24/18 Warfarin Sodium 5 mg PO DAILY 11/24/18 Surgical History: Surgical History (Last Reviewed 04/25/18 @ 08:23 by BRISEYDA Carias) Hx of appendectomy (Resolved) Z90.49 Surgical History: appendectomy, - - Ablation for atrial fibrillation, eye surgery secondary to hemorrhage in eye. Psychiatric History: No pertinent psych hx Lives: Alone Smoking Status: Current every day smoker Tobacco Use: Cigarettes Alcohol: None Drugs: None - *Family History Paternal Family History: Family History (Last Reviewed 04/25/18 @ 08:23 by BRISEYDA Carias) Daughter stent Father No problems noted. Mother No problems noted. History Items: - - Denies paternal cardiac history. Offspring Family History: Family History (Last Reviewed 04/25/18 @ 08:23 by BRISEYDA Carias) Daughter stent Father No problems noted. Mother No problems noted. History Items: Heart Disease Maternal Family History: Family History (Last Reviewed 04/25/18 @ 08:23 by BRISEYDA Carias) Daughter stent Father No problems noted. Mother No problems noted. History Items: - - Denies maternal cardiac history. Review of Systems Constitutional: Denies: Chills, Fever, Weight Change HEENT: Denies: Head Aches, Sinus Congestion, Sinus Drainage Cardiovascular: Reports: Edema, Orthopnea, Paroxysmal Noc. Dyspnea. Denies: Chest Pain, Chest Pressure, Chest Tightness, Heaviness, Light Headedness, Palpitations, Syncope Respiratory: Reports: Cough, Shortness of Breath, Shortness of breath at rest, Shortness of breath upon exertion. Denies: Sputum production, Wheezing Gastrointestinal: Denies: Abdominal Pain, Diarrhea, Nausea, Vomiting Genitourinary: Denies: Dysuria Musculoskeletal: Denies: Joint Pain, Joint Tenderness Skin: Denies: Rash, Wounds Neurological: Denies: Numbness, Tingling, Focal weakness Psychiatric: Denies: Anxiety, Depression, Homicidal Ideations, Suicidal Ideations Hematologic/ Lymphatic: Denies: Easy Bruising, Easy Bleeding VTE Information - Inpt Only VTE Present on Admission: No VTE Mechan Device Prophylaxis: None VTE Pharm Prophylaxis ordered?: Yes Patient Problems: Active and Suspected Problems (Last Reviewed 04/25/18 @ 08:23 by Carol Lockwood NP-C) Diastolic CHF (Acute) Atrial fibrillation with RVR (Acute) - Physical Exam General: Alert, Oriented x3, Cooperative HEENT: Atraumatic, PERRLA, EOMI, Normocephalic Neck: Supple, No JVD, Negative Carotid Bruits Lungs: Clear to auscultation, Normal air movement, Rales, Rhonchi, Short of Breath, Wheezes, - - conversational dyspnea Cardiovascular: No murmurs, Irregular Rate, Tachycardic Abdomen: Bowel Sounds Present, Soft, Non Tender, Obese Extremities: Capillary Refill Less than 3 Seconds, Edema - 2+ pitting edema BLE Skin: No rashes, No breakdown Musculoskeletal: No Tenderness to Palpation of Joints or Extremities Neurological: Cranial nerves II-XII grossly intact Psych/Mental Status: Normal Affect, Appropriate, Alert and oriented to time, place, person, mood and affect Vital Signs Temp Pulse Resp BP Pulse Ox 98.2 F 101 H 27 H 135/88 H 94 11/24/18 16:15 11/24/18 16:15 11/24/18 16:15 11/24/18 16:15 11/24/18 16:15 Oxygen Flow Rate (L/min) 2 Oxygen Delivery Method Nasal Cannula Weight: 205 lb 7.533 oz Body Mass Index (BMI) 32.1 Laboratory Tests Past 24 Hrs 11/24/18 11/24/18 11/24/18 11:00 11:00 11:00 WBC 12.4 H RBC 4.68 Hgb 15.5 Hct 47.1 MCV 100.6 H MCH 33.1 H MCHC 32.9 RDW Std Deviation 52.9 H RDW Coeff of Nelsy 14.2 Plt Count 302 MPV 10.6 Immature Gran % (Auto) 0.900 Neut % (Auto) 86.9 H Lymph % (Auto) 5.2 L Walker % (Auto) 6.7 Eos % (Auto) 0.1 Baso % (Auto) 0.2 Absolute Neuts (auto) 10.8 H Absolute Lymphs (auto) 0.65 L Nucleated RBC % 0 PT 40.2 H INR 4.1 H* APTT 58.8 H Sodium Potassium Chloride Carbon Dioxide Anion Gap BUN Creatinine Estim Creat Clear Calc Est GFR (MDRD) Af Amer Est GFR (MDRD) Non-Af BUN/Creatinine Ratio Glucose Calcium Total Bilirubin 0.70 Direct Bilirubin 0.16 AST 43 H ALT 27 Alkaline Phosphatase 81 Troponin I B-Natriuretic Peptide Total Protein 6.4 Albumin 1.9 L Globulin 4.5 H 11/24/18 11/24/18 11:00 11:00 WBC RBC Hgb Hct MCV MCH MCHC RDW Std Deviation RDW Coeff of Nelsy Plt Count MPV Immature Gran % (Auto) Neut % (Auto) Lymph % (Auto) Walker % (Auto) Eos % (Auto) Baso % (Auto) Absolute Neuts (auto) Absolute Lymphs (auto) Nucleated RBC % PT INR APTT Sodium 142 Potassium 4.9 Chloride 104 Carbon Dioxide 30.0 Anion Gap 8 BUN 41 H Creatinine 1.88 H Estim Creat Clear Calc 29.79 Est GFR (MDRD) Af Amer 45 L Est GFR (MDRD) Non-Af 37 L BUN/Creatinine Ratio 21.8 H Glucose 139 H Calcium 7.9 L Total Bilirubin Direct Bilirubin AST ALT Alkaline Phosphatase Troponin I < 0.015 B-Natriuretic Peptide 228.0 H Total Protein Albumin Globulin Assessment/Plan All Active Problems (Last Reviewed 04/25/18 @ 08:23 by Carol Lockwood, AUTOMATION CONSULTANT-C) Diastolic CHF (Acute) Atrial fibrillation with RVR (Acute) CAP (community acquired pneumonia) (Ruled-out) Systolic CHF (Acute) Hx of appendectomy (Resolved) 1. Acute on chronic diastolic CHF - increased LE edema, progressive worsening SOB, CXR c/w CHF, BNP elevated. Last Echo EF 05/2018 55%. Mild to moderate . Defer repeat for now. Start IV lasix. he admits to dietary indescretions including canned foods and deli meats. Dietary consultation. 2. Paroxysmal Afib with RVR - rate into 120s during interview. Will initiate diuresis and continue his coreg diltiazem. Continue warfarin, therapeutic at this time. 3. COPD with chronic hypoxic respiratory failure - prn 2 lpm O2 at home normally. Stable on 2lpm now. The patient continues to smoke 2 ppd. PRN aerosols, avoid excessive albuterol. On trelegy at home. 4. Nicotine abuse - 2 ppd smoker. patch if desired. 5. RADHA - continue CPAP. States he is compliant nightly. 6. T2 DM with obesity - continue tradjenta, SSI. 7. Anx/Dep - wellbutrin, lexapro DVT ppx: lovenox DC planning: lives alone. PTOT. Fell earlier this week due to increased weakness. This patient was seen by Garland Lieberman PA-C under the supervision of Dr. Chou. 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) Z79.01 Benign essential hypertension (Chronic) I10 COLD (chronic obstructive lung disease) (Chronic) J44.9 Diabetes mellitus, type 2 (Chronic) E11.9 GERD (gastroesophageal reflux disease) (Chronic) K21.9 Hyperlipidemia (Chronic) E78.5 Obesity (Chronic) E66.9 Biatrial enlargement (Chronic) I51.7 Pulmonary hypertension (Chronic) I27.2 Glaucoma (Chronic) H40.9 Atrial fibrillation and flutter (Chronic) I48.91, I48.92 Edema R60.9 Wheezing R06.2 Allergies Penicillins Allergy (Verified 11/24/18 10:17) Rash Surgical History: Surgical History (Last Reviewed 04/25/18 @ 08:23 by BRISEYDA Carias) Hx of appendectomy (Resolved) Z90.49 - *Family History Paternal Family History: Family History (Last Reviewed 04/25/18 @ 08:23 by BRISEYDA Carias) Daughter stent Father No problems noted. Mother No problems noted. Offspring Family History: Family History (Last Reviewed 04/25/18 @ 08:23 by BRISEYDA Carias) Daughter stent Father No problems noted. Mother No problems noted. Maternal Family History: Family History (Last Reviewed 04/25/18 @ 08:23 by BRISEYDA Carias) Daughter stent Father No problems noted. Mother No problems noted. - Physical Exam Vital Signs Temp Pulse Resp BP Pulse Ox 97.5 F L 96 18 137/92 H 93 11/24/18 18:10 11/24/18 18:10 11/24/18 18:10 11/24/18 18:10 11/24/18 18:10 Oxygen Flow Rate (L/min) 2 Oxygen Delivery Method Nasal Cannula Weight: 201 lb 0.985 oz Body Mass Index (BMI) 31.5 Intake and Output for Last 24 Hours 11/22/18 11/23/18 11/24/18 23:59 23:59 23:59 Output Total 375 / 375 Balance -375 / -375 Laboratory Tests Past 24 Hrs 11/24/18 11/24/18 11/24/18 11:00 11:00 11:00 WBC 12.4 H RBC 4.68 Hgb 15.5 Hct 47.1 MCV 100.6 H MCH 33.1 H MCHC 32.9 RDW Std Deviation 52.9 H RDW Coeff of Nelsy 14.2 Plt Count 302 MPV 10.6 Immature Gran % (Auto) 0.900 Neut % (Auto) 86.9 H Lymph % (Auto) 5.2 L Walker % (Auto) 6.7 Eos % (Auto) 0.1 Baso % (Auto) 0.2 Absolute Neuts (auto) 10.8 H Absolute Lymphs (auto) 0.65 L Nucleated RBC % 0 PT 40.2 H INR 4.1 H* APTT 58.8 H Sodium Potassium Chloride Carbon Dioxide Anion Gap BUN Creatinine Estim Creat Clear Calc Est GFR (MDRD) Af Amer Est GFR (MDRD) Non-Af BUN/Creatinine Ratio Glucose Calcium Total Bilirubin 0.70 Direct Bilirubin 0.16 AST 43 H ALT 27 Alkaline Phosphatase 81 Troponin I B-Natriuretic Peptide Total Protein 6.4 Albumin 1.9 L Globulin 4.5 H 11/24/18 11/24/18 11:00 11:00 WBC RBC Hgb Hct MCV MCH MCHC RDW Std Deviation RDW Coeff of Nelsy Plt Count MPV Immature Gran % (Auto) Neut % (Auto) Lymph % (Auto) Walker % (Auto) Eos % (Auto) Baso % (Auto) Absolute Neuts (auto) Absolute Lymphs (auto) Nucleated RBC % PT INR APTT Sodium 142 Potassium 4.9 Chloride 104 Carbon Dioxide 30.0 Anion Gap 8 BUN 41 H Creatinine 1.88 H Estim Creat Clear Calc 29.79 Est GFR (MDRD) Af Amer 45 L Est GFR (MDRD) Non-Af 37 L BUN/Creatinine Ratio 21.8 H Glucose 139 H Calcium 7.9 L Total Bilirubin Direct Bilirubin AST ALT Alkaline Phosphatase Troponin I < 0.015 B-Natriuretic Peptide 228.0 H Total Protein Albumin Globulin Code Visit Addendum: Dr. Chou I personally examined the patient and reviewed the chart. I agree with the above. 78-year-old male with a history of diastolic CHF and COPD, presents with shortness of breath increasing weakness over the last several weeks. They have also noticed that his legs have been swelling. He states that he has difficulty laying flat to breathe. He had an echo back in May 2018 with an EF of 55% and mild to moderate aortic stenosis. On exam he is edematous with 2+ pitting edema as well as an elevated BNP and rails on his pulmonary exam. He does have a right pleural effusion on chest x-ray. Therefore he will be started with fluid restriction and strict I's and O's. We will also start him on 40 twice daily of IV Lasix for diuresis, this may need to increase. Initially on admission he was also tachycardic because of his A. fib with RVR into the 120s, however with diuresis on last evaluation, he was decreased to 96. We will continue to diurese and hold off any excessive rate control. As to his COPD, he is on a baseline of 2 L nasal cannula at home which we will continue here and adjust as necessary. Inpatient E&M: 85857 Init Hosp L3
--- NOTE | 2018-11-24 17:45 | CASEMGMT ---
RN CM Assessment Introduced role of RN CM to patient.? Patient is alert, oriented and able?to participate in RN CM Assessment. ?Care providers, pharmacy, and demographics verified. Presentation: Increased SOB, Weakness & Edema worsening over the past 2 weeks. H/o Afib, CHF, & COPD Admit Dx: Diastolic CHF Re-Admit: No, Last Admit Inpt 05/07-05/12/18 COPD Exacerbation Barriers/Issues: None PCP: Ramesh Rodney Specialists: Cardio- Dr Savage Preferred Pharmacy: [facility] Insurance: [employer] [facility] Rx Benefit:?Yes LNOK: Dtr Breana Horowitz LW/HPOA: Has Both, aware not on file at [facility]. HPOA- Dtr Jina Owen Living Arrangements:?Lives alone in a Mobile home, has a ramp and 4-5steps to enter home. ADL?s: Ambulates with Cane, Independent with ADLs Transportation: Patient drives, Family to transport upon DC DME: CPAP, Home O2 continuous- not sure with what company. Nebulizer, Shower Chair, Glucometer, Grab Bars HHC: Past- cannot recall Agency SNF: Past at [facility] Goal: Home and does not think will have any needs. Denies any concerns, issues or questions with DC planning at this time. Aware CM remains available for any emerging needs. DC PLAN: Home with no anticipated needs identified at this time. MAUREEN Prado
[2018-11-24] MEDS: Furosemide 40 MG/4 ML Vial IV ×2 (18:32→23:44)
[2018-11-24 18:36] LABS: Bedside Glucose 136 mg/dL (70-110)
[2018-11-24] MEDS: Atorvastatin Calcium 20 MG Tablet PO (22:37)
[2018-11-24] MEDS: guaiFENesin 600 MG Tablet PO (22:37)
[2018-11-24 22:45] LABS: Bedside Glucose 149 mg/dL (70-110)
[2018-11-24] MEDS: Nystatin Powder 15gm Bottle 1 APPLIC TOPICAL (22:50)
[2018-11-25] VITALS (43 sets, daily range): BP systolic 35–172; BP diastolic 17–122; PULSE 99–147; RESP 12–38; TEMP 36.3–36.8; O2SAT 62–93
--- NOTE | 2018-11-25 00:10 | CPS ---
CRITICAL VALUE FOR ABGS CALLED TO DR LEYVA, PH 7.24 PCO2 80
[2018-11-25 00:31] LABS: Base Excess 6 mmol/L (-2 to +2); Bicarbonate 33.8 mmol/L (22-26); Blood Gas Specimen Type ART; EPAP 10; FI02 1; IPAP 28; PO2 93 mmHG (75-100); RR 12; SITE R Brachial; SO2 95 % (95-99); Time Given 10; Total Carbon Dioxide 36 mmol/L; pCO2 79.5 mmHg (35-45); pH 7.24 (7.35-7.45)
[2018-11-25] MEDS: Ipratropium/Albuterol Sulfate 3 ML AMPUL.NEB INHALATION (00:51)
[2018-11-25] MEDS: 0.9% NaCl Peripheral Flush Adult/Peds IV ×2 (05:16→07:03)
[2018-11-25] MEDS: dilTIAZem 25 MG/5 ML Vial 20 MG IV BOLUS (05:16)
[2018-11-25] MEDS: Nystatin Powder 15gm Bottle 1 APPLIC TOPICAL (05:16)
[2018-11-25 06:25] LABS: Base Excess 7 mmol/L (-2 to +2); Bicarbonate 33.2 mmol/L (22-26); Blood Gas Specimen Type ART; EPAP 10; FI02 1; IPAP 28; PO2 62 mmHG (75-100); RR 16; SITE R Brachial; SO2 87 % (95-99); Time Given 610; Total Carbon Dioxide 35 mmol/L; pCO2 69.6 mmHg (35-45); pH 7.29 (7.35-7.45)
[2018-11-25 06:43] LABS: Absolute Lymphocyte Count 0.28 X10^3/uL (0.83-4.51); Absolute Neutrophil Count 11.1 X10^3/uL (2.0-7.7); Basophil# 0.05 X10^3/uL; Basophil% 0.4 % (0-1); Eosinophil# 0.16 X10^3/uL; Eosinophils% 1.3 % (0-5); Hemoglobin 16.2 g/dL (13.0-16.5); Lymphocyte # 0.28 X10^3/ul (4.0); Lymphocyte % 2.3 % (19-41); Mean Corp Hgb Conc 31.8 g/dL (32-36); Mean Corpuscular Hgb 32.3 pg (27.0-32.0); Mean Corpuscular Volume 101.6 fL (80-94); Mean Platelet Vol. 10.1 fl (6.2-12.0); Monocyte# 0.46 X10^3/uL; Monocyte% 3.8 % (0-10); NRBC Flagged by Analyzer 0 % (0-5); Neutrophil # 11.05 X10^3/uL (2.7-7.7); Neutrophil % 91.9 % (47-70); POSITIVE DIFFERENTIAL YES; POSITIVE MORPHOLOGY YES; Platelet Count 326 K/mm3 (150-450); RBC Distribution Width CV 14.2 % (11.6-14.6); RBC Distribution Width SD 53.6 fl (35.1-43.9); Red Blood Count 5.02 M/mm3 (4.6-6.2)
[2018-11-25 06:47] LABS: Differential Indicated SCAN CRITERIA MET
--- NOTE | 2018-11-25 06:49 | CPS ---
ABG RESULTS CRITICAL VALUES CALLED TO DR LEYVA AT [id number]
[2018-11-25 07:00] LABS: Bedside Glucose 138 mg/dL (70-110)
[2018-11-25 07:03] LABS: Anion Gap 3 (5-15); BUN 46 mg/dL (7-18); BUN/Creat Ratio 23.1 RATIO (10-20); Calcium,Total 8.4 mg/dL (8.5-10.1); Chloride 105 mmol/L (98-107); Creatinine, Serum 1.99 mg/dL (0.70-1.30); EST Glomerular Filtration Rate 35 mL/min (>60); Est Glom Filt Rate - Afr Amer 42 mL/min (>60); Estimated Creatinine Clearance 27.16 ml/min; Glucose 119 mg/dL (74-106); Potassium 3.3 mmol/L (3.5-5.1); Sodium Level 141 mmol/L (136-145)
[2018-11-25 07:20] LABS: Differential Comment SCANNED
--- NOTE | 2018-11-25 07:40 | NURSING ---
Bedside report given to CARY Zelaya, this RN relinquished care of pt at this time.
--- NOTE | 2018-11-25 08:18 | PCM.PROGNOTE ---
Patient Problems: Active and Suspected Problems (Last Updated 11/25/18 @ 08:17 by Agnes Dobbins MD) Diastolic CHF (Acute) Atrial fibrillation with RVR (Acute) Subjective: Chief complaint: Follow-up after admission for acute on chronic systolic CHF, acute on chronic hypoxic and hypercapnic respiratory failure as well as A. fib with RVR. Patient seen and examined. Nursing staff called because patient was very short of breath, dyspneic, tachypneic and heart rate went up to 130s. Patient is sleeping but easily arousable and answers questions appropriately. He mentioned that his shortness of breath minimally improved compared to last night but it is not worsening. He denied chest pain or palpitation. Denied cough or sputum production. Denies fever or chills. He is afebrile, tachycardic, blood pressure is maintained, dyspneic and tachypneic, pulse ox is 90% on BiPAP. - Physical Exam General: Alert, Oriented x3, Cooperative, - - Moderate to severe respiratory distress. HEENT: Atraumatic, PERRLA, EOMI, Normocephalic Oral: Moist Mucosa, No Gingival or Mucosal Lesions/ Ulcerations Neck: Supple, No JVD, Negative Carotid Bruits, Trachea Midline, Thyroid Normal Size and Texture Lungs: No wheeze, Rhonchi, Short of Breath, Tachypneic, - - Decreased breath sounds bilateral, bilateral coarse crackles, rhonchi. Cardiovascular: Normal S1, Normal S2, Irregular Rate, Murmur, Tachycardic Abdomen: Bowel Sounds Present, Soft, Non Tender, Non-Distended, No Hepato-splenomegaly Extremities: No clubbing, No cyanosis, Edema - + Edema. Skin: No rashes, No breakdown Lymphatic: No Cervical, Supraclavicular, or Inguinal Adenopathy Neurological: Cranial nerves II-XII grossly intact, Motor Exam 5/5 strength throughout Psych/Mental Status: Normal Affect, Appropriate, Alert and oriented to time, place, person, mood and affect Vital Signs Temp Pulse Resp BP Pulse Ox 98.0 F 136 H 32 H 126/78 H 89 11/25/18 07:40 11/25/18 07:55 11/25/18 07:55 11/25/18 07:55 11/25/18 07:55 Oxygen Flow Rate (L/min) 90 Oxygen Delivery Method Bi-pap Weight: 203 lb 7.787 oz Body Mass Index (BMI) 31.5 Intake and Output for Last 24 Hours 11/23/18 11/24/18 11/25/18 23:59 23:59 23:59 Intake Total 0 / 0 57.50 / 57.50 Output Total 750 / 750 500 / 500 Balance -750 / -750 -442.50 / -442.50 Laboratory Tests Past 24 Hrs 11/24/18 11/24/18 11/24/18 11:00 11:00 11:00 WBC 12.4 H RBC 4.68 Hgb 15.5 Hct 47.1 MCV 100.6 H MCH 33.1 H MCHC 32.9 RDW Std Deviation 52.9 H RDW Coeff of Nelsy 14.2 Plt Count 302 MPV 10.6 Immature Gran % (Auto) 0.900 Neut % (Auto) 86.9 H Lymph % (Auto) 5.2 L [place] % (Auto) 6.7 Eos % (Auto) 0.1 Baso % (Auto) 0.2 Absolute Neuts (auto) 10.8 H Absolute Lymphs (auto) 0.65 L Nucleated RBC % 0 Differential Comment PT 40.2 H INR 4.1 H* APTT 58.8 H Specimen Type Sample Site pH Bicarbonate Actual POC Total CO2 Base Excess O2 Saturation O2 % ABG pCO2 ABG pO2 George Test Respiration Rate O2 Delivery Device EPAP IPAP Blood Gas Notified Whom Blood Gas Notified Time Sodium Potassium Chloride Carbon Dioxide Anion Gap BUN Creatinine Estim Creat Clear Calc Est GFR (MDRD) Af Amer Est GFR (MDRD) Non-Af BUN/Creatinine Ratio Glucose Calcium Total Bilirubin 0.70 Direct Bilirubin 0.16 AST 43 H ALT 27 Alkaline Phosphatase 81 Troponin I B-Natriuretic Peptide Total Protein 6.4 Albumin 1.9 L Globulin 4.5 H 11/24/18 11/24/18 11/25/18 11:00 11:00 00:22 WBC RBC Hgb Hct MCV MCH MCHC RDW Std Deviation RDW Coeff of Nelsy Plt Count MPV Immature Gran % (Auto) Neut % (Auto) Lymph % (Auto) [place] % (Auto) Eos % (Auto) Baso % (Auto) Absolute Neuts (auto) Absolute Lymphs (auto) Nucleated RBC % Differential Comment PT INR APTT Specimen Type ART Sample Site R Brachial pH 7.24 L Bicarbonate Actual 33.8 H POC Total CO2 36 Base Excess 6 H O2 Saturation 95 O2 % 1 ABG pCO2 79.5 H* ABG pO2 93 George Test NA Respiration Rate 12 O2 Delivery Device Bi / C PAP EPAP 10 IPAP 28 Blood Gas Notified Whom [facility] Blood Gas Notified Time 10 Sodium 142 Potassium 4.9 Chloride 104 Carbon Dioxide 30.0 Anion Gap 8 BUN 41 H Creatinine 1.88 H Estim Creat Clear Calc 29.79 Est GFR (MDRD) Af Amer 45 L Est GFR (MDRD) Non-Af 37 L BUN/Creatinine Ratio 21.8 H Glucose 139 H Calcium 7.9 L Total Bilirubin Direct Bilirubin AST ALT Alkaline Phosphatase Troponin I < 0.015 B-Natriuretic Peptide 228.0 H Total Protein Albumin Globulin 11/25/18 11/25/18 11/25/18 06:17 06:30 06:30 WBC 12.0 H RBC 5.02 Hgb 16.2 Hct 51.0 MCV 101.6 H MCH 32.3 H MCHC 31.8 L RDW Std Deviation 53.6 H RDW Coeff of Nelsy 14.2 Plt Count 326 MPV 10.1 Immature Gran % (Auto) 0.300 Neut % (Auto) 91.9 H Lymph % (Auto) 2.3 L [place] % (Auto) 3.8 Eos % (Auto) 1.3 Baso % (Auto) 0.4 Absolute Neuts (auto) 11.1 H Absolute Lymphs (auto) 0.28 L Nucleated RBC % 0 Differential Comment SCANNED PT INR APTT Specimen Type ART Sample Site R Brachial pH 7.29 L Bicarbonate Actual 33.2 H POC Total CO2 35 Base Excess 7 H O2 Saturation 87 L O2 % 1 ABG pCO2 69.6 H* ABG pO2 62 L George Test NA Respiration Rate 16 O2 Delivery Device Bi / C PAP EPAP 10 IPAP 28 Blood Gas Notified Whom [facility] Blood Gas Notified Time 610 Sodium 141 Potassium 3.3 L Chloride 105 Carbon Dioxide 33.0 H Anion Gap 3 L BUN 46 H Creatinine 1.99 H Estim Creat Clear Calc 27.16 Est GFR (MDRD) Af Amer 42 L Est GFR (MDRD) Non-Af 35 L BUN/Creatinine Ratio 23.1 H Glucose 119 H Calcium 8.4 L Total Bilirubin Direct Bilirubin AST ALT Alkaline Phosphatase Troponin I B-Natriuretic Peptide Total Protein Albumin Globulin 11/25/18 06:30 WBC RBC Hgb Hct MCV MCH MCHC RDW Std Deviation RDW Coeff of Nelsy Plt Count MPV Immature Gran % (Auto) Neut % (Auto) Lymph % (Auto) [place] % (Auto) Eos % (Auto) Baso % (Auto) Absolute Neuts (auto) Absolute Lymphs (auto) Nucleated RBC % Differential Comment PT 39.0 H INR 4.0 H* APTT Specimen Type Sample Site pH Bicarbonate Actual POC Total CO2 Base Excess O2 Saturation O2 % ABG pCO2 ABG pO2 George Test Respiration Rate O2 Delivery Device EPAP IPAP Blood Gas Notified Whom Blood Gas Notified Time Sodium Potassium Chloride Carbon Dioxide Anion Gap BUN Creatinine Estim Creat Clear Calc Est GFR (MDRD) Af Amer Est GFR (MDRD) Non-Af BUN/Creatinine Ratio Glucose Calcium Total Bilirubin Direct Bilirubin AST ALT Alkaline Phosphatase Troponin I B-Natriuretic Peptide Total Protein Albumin Globulin POC Glucose 11/25/18 11/24/18 11/24/18 06:44 22:32 18:27 POC Glucose 138 H 149 H 136 H Clinical Impression(s) from Imaging Studies Brain CT 11/24/18 10:36 IMPRESSION: Chronic involutional changes of the brain. Electronically Signed: Harish Stockton DO at 11:40 EDT Tel , Service support , Chest X-Ray 11/24/18 10:45 IMPRESSION: Elevation of the right hemidiaphragm with right pleural effusion and underlying basilar atelectasis. Blunting of the left costophrenic angle with mild left basilar atelectasis. Electronically Signed: Alberto Patel, at 11:30 EDT , Service support , Medical Necessity - Tobacco Use Smoking Status: Current every day smoker Tobacco Use: Cigarettes Assessment/Plan All Active Problems (Last Updated 11/25/18 @ 08:17 by Agnes Dobbins MD) Diastolic CHF (Acute) Atrial fibrillation with RVR (Acute) This is a 78 years old male patient presented to the emergency room because of worsening shortness of breath and was admitted for acute on chronic systolic CHF complicated by acute on chronic hypoxic and hypercapnic respiratory failure as well as A. fib with RVR and also was found to have elevated INR. #1 acute on chronic systolic CHF: He is on IV Lasix, on BiPAP, continued on Coreg. He is on not on SOPHY inhibitors because of chronic kidney disease. He had a history of nonischemic cardiomyopathy. 2D echocardiogram on May, revealed ejection fraction of 55% and mild to moderate aortic stenosis. 2D echocardiogram from March, revealed ejection fraction of 40%. EKG revealed A. fib/flutter with RVR, no acute ischemic changes. Troponin was negative x1. Chest x-ray reviewed. Plan: Increase IV Lasix to 40 mg IV every 8 hours, 2D echocardiogram, cardiology consult, replace potassium with oral K. Dur, repeat CBC and BMP tomorrow morning. #2 acute on chronic combined hypoxic and hypercapnic respiratory failure/respiratory acidosis/CO2 retention: Secondary to above in addition to history of COPD and obstructive sleep apnea. Patient is on home oxygen at 2 L. Initial and repeat ABG reviewed, pH as well as PCO2 is improving. Patient is on BiPAP. Plan to continue IV diuresis, continue BiPAP. #3 A. fib with RVR: Started on IV Cardizem drip as well as p.o. Cardizem and Coreg, heart rate still in the 120s, blood pressure stable. Serum potassium is 3.3. Patient was on Coumadin, INR is 4 and Coumadin was held. Plan: Replace potassium, check serum magnesium, continue IV Cardizem drip. #4 Coumadin induced coagulopathy: Patient has been on Coumadin for chronic A. fib/flutter. INR on admission was 4.1, came down to 4 this morning. No evidence of active bleeding. Plan to keep holding Coumadin, repeat INR tomorrow morning. #5 stage III chronic kidney disease: Baseline creatinine has been around 1.5 to 2 mg/dL. Admission creatinine was 1.88, it is 1.99 this morning, likely went up because of IV diuresis. Plan to monitor. #6 type 2 diabetes mellitus: Blood sugar stable, continue sliding scale. Tradjenta held. #7 hypertension: Blood pressure stable, continue Coreg and IV Lasix. #8 COPD: On BiPAP, continue DuoNeb, albuterol and Pulmicort. Chest physiotherapy, incentive spirometer. #9 GERD: Continue PPI. #10 hyperlipidemia: Continue statins. #11 DVT prophylaxis: INR is 4. This note was generated with [employer] dictation software. It may contain incorrect words, spelling, and punctuation that were not noted in checking the note before signing. Code Visit Inpatient E&M: 67433 Subs Hosp L3
[2018-11-25] MEDS: Furosemide 40 MG/4 ML Vial IV (08:19)
--- NOTE | 2018-11-25 09:32 | CPS ---
Daughter in the room and asked that his mouth be swabbed so Mike completed this.
--- NOTE | 2018-11-25 09:42 | CON.PCM_ITS ---
Reason for Consult Date of Consultation: 11/25/18 Reason for Consultation: Shortness of breath History of Present Illness: The patient is a 78 year old M with no previously documented obstructive coronary disease but a history of paroxysmal atrial fibrillation, congestive heart failure, obstructive lung disease, mild aortic stenosis with preserved ejection fraction and peak mean aortic gradient of 25/12 mmHg who presented to the emergency room complaining of shortness of breath which has been ongoing for the last 2 weeks at least. He has also had a cough and has had pedal edema. He did see his primary physician briefly this week and was treated. In the emergency room he was noted to be rather hypoxic he was placed on BiPAP was noted to be in atrial fibrillation with a rapid ventricular response rate he was admitted to telemetry unit. Cardiology was called for further evaluation and management. He denies any chest pain he did have an episode of a fall recently. He has had pedal edema and no cough. [] Past Medical History Allergies/Adverse Reactions: Allergies Penicillins Allergy (Verified 11/24/18 10:17) Rash Home Medications: Ambulatory Orders Medication Instructions Recorded Aspirin [Aspirin, Baby] 81 mg PO DAILY@0800 03/26/18 Atorvastatin Calcium [Lipitor] 20 mg PO DAILY 03/26/18 Cholecalciferol (Vitamin D3) 2,000 unit PO BID 03/26/18 [Vitamin D3] Escitalopram Oxalate [Lexapro] 10 mg PO DAILY 03/26/18 Ipratropium/Albuterol Sulfate 3 ml INHALATION Q4HWA.RT 03/26/18 [Duoneb] Linagliptin [Tradjenta] 5 mg PO DAILY 03/26/18 Omeprazole [Prilosec] 20 mg PO DAILY 03/26/18 diltiazem CD 180 mg 180 mg PO DAILY cap 04/25/18 capsule,extended release 24 hr furosemide 80 mg tablet 40 mg PO BID tab 04/25/18 carvedilol 25 mg tablet 12.5 mg PO BID tab 05/17/18 Bupropion HCl [Bupropion Xl] 150 mg PO DAILY 11/24/18 Ferrous Sulfate 325 mg PO DAILY 11/24/18 Fluticasone/Umeclidin/Vilanter 1 puff INHALATION DAILY 11/24/18 [Trelegy Ellipta 100-62.5-25] Guaifenesin [Mucinex] 600 mg PO BID 11/24/18 Warfarin Sodium 5 mg PO DAILY 11/24/18 Past Medical History (Chronic Problems): Chronic Problems (Last Updated 11/25/18 @ 08:17 by Agnes Dobbins MD) Acute on chronic congestive heart failure (Chronic) Nicotine dependence (Chronic) Obstructive sleep apnea (Chronic) Cardiomyopathy in disease classified elsewhere (Chronic) Atherosclerotic heart disease of [place] coronary artery without angina pectoris (Chronic) detention (current) use of anticoagulants (Chronic) Benign essential hypertension (Chronic) COLD (chronic obstructive lung disease) (Chronic) Diabetes mellitus, type 2 (Chronic) GERD (gastroesophageal reflux disease) (Chronic) Hyperlipidemia (Chronic) Obesity (Chronic) Pulmonary hypertension (Chronic) Glaucoma (Chronic) Atrial fibrillation and flutter (Chronic) Surgical History: appendectomy, - - Ablation for atrial fibrillation, eye surgery secondary to hemorrhage in eye. Psychiatric History: No pertinent psych hx - *Family History Paternal Family History: Family History (Last Reviewed 04/25/18 @ 08:23 by BRISEYDA Carias) Daughter stent Father No problems noted. Mother No problems noted. History Items: - - Denies paternal cardiac history. Offspring Family History: Family History (Last Reviewed 04/25/18 @ 08:23 by BRISEYDA Carias) Daughter stent Father No problems noted. Mother No problems noted. History Items: Heart Disease Maternal Family History: Family History (Last Reviewed 04/25/18 @ 08:23 by BRISEYDA Carias) Daughter stent Father No problems noted. Mother No problems noted. History Items: - - Denies maternal cardiac history. Lives: Alone Smoking Status: Current every day smoker Tobacco Use: Cigarettes Alcohol: None Drugs: None Review of Systems - Review of Systems General: Reports: Fatigue. Denies: Fever, Night Sweats HEENT: Denies: Vision Change Cardiovascular: Reports: Shortness of Breath, Shortness of Breath at Rest, Shortness of Breath with Exertion, PND, Peripheral Edema. Denies: Chest Discomfort, Orthopnea, Palpitations, Lightheadedness, Dizziness, Near Syncope, Syncope Respiratory: Reports: Cough. Denies: Sputum Production, Hemoptysis Gastrointestinal: Denies: Hematemesis, Hematochezia, Melena Genitourinary: Denies: Dysuria, Hematuria Muscoloskeletal: Denies: Myalgias Skin: Denies: Rash Neurological: Reports: Weakness Endocrine: Reports: Heat Intolerance Hematologic/ Lymphatic: Reports: Lymph Node Enlargement Subjectve: Elderly and in some respiratory distress Objective: Vital Signs Temp Pulse Resp BP Pulse Ox 98.0 F 133 H 32 H 102/36 L 88 11/25/18 08:30 11/25/18 08:40 11/25/18 08:40 11/25/18 08:30 11/25/18 08:40 Oxygen Flow Rate (L/min) 90 Oxygen Delivery Method Bi-pap Weight: 203 lb 7.787 oz Body Mass Index (BMI) 31.5 Intake and Output for Last 24 Hours 11/23/18 11/24/18 11/25/18 23:59 23:59 23:59 Intake Total 0 / 0 66.25 / 66.25 Output Total 750 / 750 500 / 500 Balance -750 / -750 -433.75 / -433.75 General: Awake, Alert, Ill Appearing HEENT: PERRL, EOMI, Sclera Non Icteric Neck: Supple, Good ROM, No Lymph Node Enlargement Lungs: Diminished Dimitry Bases Cardiovascular: Irregular Rhythm, Normal S1, Normal S2, No Murmurs, No Rubs, No Gallops Vascular: No Carotid Bruits, Normal Femoral Pulses, Normal Radial Pulses, Normal Dorsalis Pedal Pulse, Normal Posterior Tibial Pulses Abdomen: Bowel Sounds Present, Soft, Non Tender, No HSM, No Organomegaly Extremities: No Cyanosis, No Clubbing, Bilateral Edema +1 Musculoskeletal: No Erythema Skin: No Rashes Lymphatic: No Lymph Node Enlargement Neurological: No Focal Motor or Sensory Deficit Psych/Mental Status: Appropriate 11/24/18 11:00: Total Bilirubin 0.70, Direct Bilirubin 0.16 11/24/18 11:00: WBC 12.4 H, RBC 4.68, Hgb 15.5, Hct 47.1, MCV 100.6 H, MCH 33.1 H, MCHC 32.9, Plt Count 302, MPV 10.6, Immature Gran % (Auto) 0.900, Neut % (Auto) 86.9 H, Lymph % (Auto) 5.2 L, [place] % (Auto) 6.7, Eos % (Auto) 0.1, Baso % (Auto) 0.2, Absolute Neuts (auto) 10.8 H, Nucleated RBC % 0 11/24/18 11:00: PT 40.2 H, INR 4.1 H*, APTT 58.8 H 11/24/18 11:00: Sodium 142, Potassium 4.9, Chloride 104, Carbon Dioxide 30.0, Anion Gap 8, BUN 41 H, Creatinine 1.88 H, Est GFR (MDRD) Af Amer 45 L, Est GFR (MDRD) Non-Af 37 L, BUN/Creatinine Ratio 21.8 H, Glucose 139 H, Calcium 7.9 L, Troponin I < 0.015 11/24/18 11:00: B-Natriuretic Peptide 228.0 H 11/25/18 00:22: pH 7.24 L, Bicarbonate Actual 33.8 H, POC Total CO2 36, Base Excess 6 H, O2 Saturation 95, ABG pCO2 79.5 H*, ABG pO2 93, George Test NA 11/25/18 06:17: pH 7.29 L, Bicarbonate Actual 33.2 H, POC Total CO2 35, Base Excess 7 H, O2 Saturation 87 L, ABG pCO2 69.6 H*, ABG pO2 62 L, George Test NA 11/25/18 06:30: WBC 12.0 H, RBC 5.02, Hgb 16.2, Hct 51.0, MCV 101.6 H, MCH 32.3 H, MCHC 31.8 L, Plt Count 326, MPV 10.1, Immature Gran % (Auto) 0.300, Neut % (Auto) 91.9 H, Lymph % (Auto) 2.3 L, [place] % (Auto) 3.8, Eos % (Auto) 1.3, Baso % (Auto) 0.4, Absolute Neuts (auto) 11.1 H, Nucleated RBC % 0 11/25/18 06:30: Sodium 141, Potassium 3.3 L, Chloride 105, Carbon Dioxide 33.0 H , Anion Gap 3 L, BUN 46 H, Creatinine 1.99 H, Est GFR (MDRD) Af Amer 42 L, Est GFR (MDRD) Non-Af 35 L, BUN/Creatinine Ratio 23.1 H, Glucose 119 H, Calcium 8.4 L 11/25/18 06:30: PT 39.0 H, INR 4.0 H* Rhythm: EKG: ECHO: Stress Test: Cardiac Cath: PCI: CT Surgery: Holter monitor: EPS: PPM: CXR: Chest CT Scan: Assessment/Plan 1. Mild congestive heart failure-acute diastolic * The etiology of the above is likely secondary to the atrial fibrillation with rapid ventricular response rate together with his aortic stenosis. The latter however does not appear to be that bad. He may have had an upper respiratory tract infection as well which may be contributing to this. * I would like us to obtain an echocardiogram to reassess his left ventricular function even though he had one 6 months ago. * Intravenous diuresis as per protocol * Further recommendations will depend depend on the results of the above. * 2. Atrial fibrillation with rapid ventricular response rate * Patient is noted to have atrial fibrillation with rapid ventricular response rate. I would like him to be anticoagulated * He should be rate controlled with intravenous Cardizem and I have titrated upwards as appropriate * Hopefully that should lead to some improvement in his clinical condition. * 3. Aortic valve disease * Does have evidence of aortic valve disease which appears to be moderate. This will be reevaluated with his echocardiogram. * * Thank you for allowing me to participate in the care of your patient. Please don't hesitate to call if any issues arise
[2018-11-25] MEDS: dilTIAZem 25 MG/5 ML Vial IV BOLUS (09:46)
[2018-11-25 10:46] LABS: Magnesium 1.7 mg/dL (1.6-2.6)
[2018-11-25 10:55] LABS: Allen Test POS; Base Excess 5 mmol/L (-2 to +2); Bicarbonate 31.7 mmol/L (22-26); Blood Gas Specimen Type ART; EPAP 14; FI02 100; PO2 46 mmHG (75-100); RR 12; SITE L Radial; SO2 73 % (95-99); Time Given 1043; Total Carbon Dioxide 34 mmol/L; pCO2 71.7 mmHg (35-45); pH 7.25 (7.35-7.45)
--- NOTE | 2018-11-25 11:27 | NURSING ---
verbal report given to CARY Abad in ICU
--- NOTE | 2018-11-25 11:41 | CPS ---
Mike core-texted Dr Dobbins with ABG results, gas was done d/t Sats in 70's on 100% AVAPS
[2018-11-25] MEDS: Etomidate 20 MG/10 ML Vial IV (11:49)
--- NOTE | 2018-11-25 11:49 | NURSING ---
Dr. Paez at bedside for intubation 1149 20 mg etomidate given 1152 #7.5 ETT inserted 25 cm at lip + color change with bilateral breath sounds 1153 OG inserted Xray phoned for placement
--- NOTE | 2018-11-25 11:52 | RAD_ITS ---
STUDY: X-RAY CHEST REASON FOR EXAM: Male, 78 years old. Endotracheal tube placement. TECHNIQUE: Single AP portable view of the chest. COMPARISON: Comparison is made with prior study dated November 24, 2018. FINDINGS: The tip of the endotracheal tube is at 4 cm proximal to the [place]. An orogastric tube is seen with the tip at the gastroesophageal junction. Stable elevation of the right hemidiaphragm with blunting of both costophrenic angles. Mild increased markings at the lung bases. This is unchanged. Normal size heart. Normal mediastinum and antonino. Normal visualized pulmonary arteries. There is atherosclerotic calcification of the aortic arch with tortuosity. There are diffuse degenerative changes of the visualized thoracic spine. Normal visualized ribs, clavicles, and shoulders. There is no demonstrated abnormality of the visualized soft tissue structures of the upper abdomen. RAD/Chest 1 View (Portable) IMPRESSION: The tip of the endotracheal tube is at 4 cm proximal to the [place]. Electronically Signed: Alberto Patel, at 14:37 EDT , Service support ,
[2018-11-25] MEDS: fentaNYL drip 100 ML 5 MCG IV (11:55)
[2018-11-25] MEDS: Propofol 10MG/Ml 1,000 MG/100 ML Bottle 5.5 MG CONT INF (11:55)
--- NOTE | 2018-11-25 12:52 | PRO.PCM_ITS ---
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 This had reportedly been progressive over the last 2 to 3 weeks. Patient had noted lower extremity swelling and recent falls. Patient is on Coumadin at baseline secondary to atri al fibrillation and a history of nonischemic cardiomyopathy. Patient was diagnosed with a CHF exacerbation and was admitted to PCU for further monitoring. At approximately 11 AM, I was called and notified that the patient would be coming to the intensive care unit secondary to persistent hypoxemia despite AVAPS therapy. Patient arrived to the unit at 11:20 AM and I was waiting at the bedside. Patient was noted to be in the mid 80s for saturation, in A. fib with RVR and rates approximately 120 with marginal blood pressures. Patient had significant abdominal distention. Patient did have some peripheral cyanosis and some accessory muscle use. Patient's daughter was in the waiting room. Discussed with the daughter about the goals of therapy and CODE STATUS. After review of options, patient's daughter reported that the patient was full code. At 1149, the patient was prepped for emergent intubation with chronic hypoxemia. After supplies were gathered, patient was given 20 mg of etomidate and was intubated on the first pass with the assistance of a glide scope with a 7.5 endotracheal tube advanced to 25 cm. Bilateral breath sounds were appreciated. No stomach sounds were noted. Positive end-tidal CO2. OG was placed using direct visualization with the glide scope. Chest x-ray was obtained showing right lower lobe collapse. Significant purulent type of material was noted through the endotracheal tube. Suctioning was applied. Patient's PEEP was slowly increased to 14 and 100% FiO2. At approximately 12:10 PM, patient went into PEA arrest. Patient did receive CPR and 1 amp of epinephrine. Patient's daughter was brought to the bedside and had asked for efforts to be discontinued. Patient was not receiving BVM ventilation and then was noted to have some chest rise. Reevaluation showed patient had developed a pulse. Patient's daughter was notified. Patient was to be placed back on mechanical ventilation, but no compressions or medications were to be given. At approximately 12:45 PM, patient's daughter stated that he would not want to be intubated and asked for a palliative extubation. Patient's daughter was at the bedside along with friends. Patient was comfortable on 3 L nasal cannula oxygen. TIME: 90 minutes of critical care time spent addressing patient's acute on chronic hypoxic respiratory failure, PEA arrest, clarifications of CODE STATUS, review of all data and collaboration with care team (11:20 AM to 12:50 PM) Code Visit Procedures: 04432 Critial Care Addl 30 Min 9xxxx: [id number] Critical care first hour
--- NOTE | 2018-11-25 13:26 | CPS ---
pt was terminally extubated to 3lpm via NC.
--- NOTE | 2018-11-25 13:27 | PCM.PN.BLA ---
Progress Note Later this morning, patient's nurse called because patient has been more dyspneic and tachypneic, tachycardic and he started becomes more lethargic. ABG done and showed pH of 7.25, PCO2 71 and PO2 of 46, patient was severely hypoxic. Patient was transferred to ICU after discussion with the numerical control operator. Patient arrived to ICU around 11:20 AM, O2 saturation was in the mid 80s and he remained in A. fib with RVR. The numerical control operator discussed the case with the patient's daughter who mentioned that patient is full code. Shortly after, patient remained hypoxic and he underwent emergent intubation for persistent hypoxia, was started on mechanical ventilation. Patient required high PEEP of up to 14 and FiO2 100%. Around 12:10 PM this afternoon, patient went into pulseless electrical activity cardiac arrest, CPR was performed and he was given 1 ampoule of epinephrine. Patient's daughter was brought to the bedside and she asked her to stop the CPR. Shortly after, patient noted to have pulse upon reevaluation. Patient's daughter was notified and patient was placed back on mechanical ventilation but no interventions were performed. After discussion with the patient's daughter again, she stated that patient himself does not want to be intubated and she asked for terminal extubation. Patient was terminally extubated. Time of is 13:10 PM on November 25, 2018.
--- NOTE | 2018-11-25 13:28 | PCM.DEATH ---
Preliminary Cause of PEA cardiac arrest. 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 #2 A. fib with RVR. Problem List: Active and Suspected Problems (Last Updated 11/25/18 @ 08:17 by Agnes Dobbins MD) #1 chronic CHF/nonischemic cardiomyopathy. #2 stage III chronic kidney disease. #3 type 2 diabetes mellitus. #4 COPD. #5 hypertension. #6 obstructive sleep apnea. #7 pulmonary hypertension. #7 chronic atrial fibrillation/flutter. Hospital Course This is a 78 years old male patient presented to the emergency room because of worsening shortness of breath, found to have acute on chronic systolic CHF which was complicated by acute on chronic hypoxic and hypercapnic respiratory failure as well as A. fib with RVR. Patient was admitted to PCU, started on IV Lasix for diuresis as well as BiPAP. On the morning of the day of , patient became more short of breath, dyspneic and tachypneic for which she was started on BiPAP and remained on IV Lasix for diuresis. Initial ABG revealed pH of 7.24, PCO2 of 79 and PO2 of 93. ABG repeated 3 hours later and revealed pH of 7.29, PCO2 of 69 and PO2 of 62. Dose of IV Lasix increased and patient's condition continued to decline. He continued to get more short of breath, dyspneic and tachypneic. ABG was repeated later and revealed pH of 7.29 which declined again, PCO2 of 71 which started to go up again and PO2 of 46 which is very low. Patient was transferred to ICU, was emergently intubated and started on medical ventilation for persistent hypoxia. After intubation, patient went into PEA cardiac arrest. CPR started and patient was given 1 ampoule of IV epinephrine. Patient's daughter was available and after discussion with her, she decided to stop CPR. Upon reevaluation after around 20 minutes, patient found to be have pulse for which she started back on mechanical ventilation but there was no medication given. Patient's daughter called back to the patient's room and she stated that patient himself does not want to be intubate and she asked for terminal extubation. Patient was terminally extubated. announced and time of was 13:10 PM on November 25, 2018. Code Visit Inpatient E&M: [id number] Disch Hosp
--- NOTE | 2018-11-25 14:50 | CHAPLAIN ---
Type of Pastoral Visit ___ Initial Visit ___ Follow-up Visit ___ On-call Visit ___ General Patient Visit ___ Spiritual Assessment ___ Family Conference ___ Bereavement ___ Rapid Response _x__ Code Blue ___ Other (describe below) Pastoral Care Referral From ___ Patient ___ Family ___ Nurse ___ Physician ___ Data Visualization Developer ___ Electric Freight Car Operator _x__ Other (describe below) Sacrament/Intervention ___ Active listening ___ Anointing ___ Yarsani _x__ Bereavement ___ Communion ___ Erica exploration ___ ___ Life review _x__ Prayer ___ Reconciliation ___ Sacrament of Sick _x__ Supportive presence ___ Wedding ___ Other (describe below) Pastoral Comments responded to Code Blue; met with daughter during process; offered presence and support; gave prayer at bedside after daughter's permission; returned after to present white bereavement kandi but daughter had already left the hospital;
--- NOTE | 2018-11-25 14:59 | CASEMGMT ---
Call received from [facility] [employer] to confirm the of this patient and expedite the return of the patient's grandson from the armed services to be with his family. ( ). Per Jacqui Almonte RN, pt's daughter had requested her son's return be facilitated. To facilitate the processing of the request, this RN CM spoke with Sophy with the [facility] and confirmed pt's date of as 11/25/18. Yasmeen Gaytan RN
== END 2018-11-25 13:10 | DRG 291 ==
LOC: ED 10:37 → PCU 16:27 → ICU 11-28 10:47
PROVIDERS: Admitting Provider Family Medicine; Emergency Provider Emergency Medicine; Family Provider Family Medicine; PCP Family Medicine; Visit Provider Hospitalist
DX: I13.0 Hypertensive heart and chronic kidney disease with heart failure and stage 1 through stage 4 chronic kidney disease, or unspecified chronic kidney disease (principal); J96.21 Acute and chronic respiratory failure with hypoxia; J96.22 Acute and chronic respiratory failure with hypercapnia; I50.23 Acute on chronic systolic (congestive) heart failure; E87.2 Acidosis; I46.9 Cardiac arrest, cause unspecified; I42.9 Cardiomyopathy, unspecified; Z99.81 Dependence on supplemental oxygen; I48.2 Chronic atrial fibrillation; J44.9 Chronic obstructive pulmonary disease, unspecified; F17.210 Nicotine dependence, cigarettes, uncomplicated; I35.0 Nonrheumatic aortic (valve) stenosis; E66.9 Obesity, unspecified; G47.33 Obstructive sleep apnea (adult) (pediatric); E11.22 Type 2 diabetes mellitus with diabetic chronic kidney disease; N18.3 Chronic kidney disease, stage 3 (moderate); E78.5 Hyperlipidemia, unspecified; K21.9 Gastro-esophageal reflux disease without esophagitis; I27.20 Pulmonary hypertension, unspecified; Z68.31 Body mass index [BMI] 31.0-31.9, adult; Z79.01 Long term (current) use of anticoagulants; Z79.84 Long term (current) use of oral hypoglycemic drugs; S00.01XA Abrasion of scalp, initial encounter; W19.XXXA Unspecified fall, initial encounter; Y92.029 Unspecified place in mobile home as the place of occurrence of the external cause
CPT/HCPCS: 31500; 31720; 36415; 36600; 70450; 71045; 80048; 80076; 82803; 82962; 83735; 83880; 84484; 85025; 85610; 85730; 92950; 93005; 94002; 94003; 94640; 99251; 99285; 99406; A4216; G0463; J1940